=== PATIENT | male | born 1955 | race Caucasian/White ===

== ENCOUNTER 2016-03-11 02:26 | Emergency (ER) | payer MEDICAID ==
[2016-01-17 12:31] VITALS: BMI 22.7
[~2016-03-11 02:26] MED LIST: AMBIEN10 MG PO; ASPIRIN325 MG PO; BENZONATATE200 MG PO; DALIRESP500 MCG PO; DOK100 MG PO; FOLIC ACID1 MG PO; IPRAT-ALBUT 0.5-3 ML UPD; LEVAQUIN500 MG PO; LEVAQUIN750 MG PO; MEDROL DOSE PACK4 MG PO; MUCINEX D1 TAB.SR . PO; MUCINEX DM ER1 EAC1 PO; PREDNISONE20 MG PO; PROAIR HFA8.5 GM; PROAIR HFA8.5 GM INH; PROMETHAZINE W473 M1 PO; SINGULAIR10 MG PO; SPIRIVA18 MCG INH; STERAPRED DS 1010 MG PO; SYMBICORT 16010.2 GM INH; VALIUM10 MG PO; VALIUM5 MG PO; VENTOLIN HFA18 GM INH; VITAMIN B-1100 M1 PO; ZITHROMAX250 MG PO; ZOFRAN4 MG PO; ZOLOFT100 MG PO
== END 2016-03-11 03:57 | disposition home or self-care (01) ==
LOC: D.ER 02:26
DX: J45.901 Unspecified asthma with (acute) exacerbation (principal); J44.9 Chronic obstructive pulmonary disease, unspecified; F17.200 Nicotine dependence, unspecified, uncomplicated

== ENCOUNTER 2016-03-12 20:49 | Emergency (ER) | payer MEDICAID ==
[2016-01-17 12:31] VITALS: BMI 22.7
[2016-03-12 21:40] LABS: BASOPHILS 0.1 % (0.0-2.0); EOSINOPHILS 0.1 % (0-7); HEMATOCRIT 47.7 % (42.0-54.0); HEMOGLOBIN 15.7 g/dL (13.5-17.5); IMMATURE GRANULOCYTES 0.9 % (0-5); LYMPHOCYTES 26.9 % (15-50); MCH 28.3 pg (26.0-34.0); MCHC 32.9 g/dL (31.0-37.0); MCV 85.9 fL (80.0-100.0); MONOCYTES 8.6 % (2-11); NEUTROPHILS 63.4 % (40-80); PLATELET COUNT 103 10x3/uL (130-400); RBC 5.55 10x6/uL (4.20-6.10); RDW 14.7 % (11.5-14.5); WBC 7.8 10x3/uL (4.8-10.8)
[2016-03-12 21:52] LABS: ALBUMIN 4.2 g/dL (3.4-5.0); ALKALINE PHOSPHATASE 84 U/L (46-116); ALT (SGPT) 33 U/L (10-68); BILIRUBIN - TOTAL 0.51 mg/dL (0.2-1.3); CALC OSMOLALITY 292 mosm/kg (275-300); CALCIUM 9.3 mg/dL (8.5-10.1); CARBON DIOXIDE 27.6 mmol/L (21.0-32.0); CHLORIDE - SERUM 107 mmol/L (98-107); CREATININE - SERUM 0.7 mg/dL (0.6-1.3); GLUCOSE 115 mg/dL (74-106); POTASSIUM - SERUM 4.2 mmol/L (3.5-5.1); PROTEIN - SERUM 7.4 g/dL (6.4-8.2); SODIUM 147 mmol/L (136-145); UREA NITROGEN 13 mg/dL (7-18); eGFR NON AFRICAN AMERICAN > 90 mL/min (90-120)
== END 2016-03-12 22:17 | disposition home or self-care (01) ==
LOC: D.ER 20:49
PROVIDERS: Emergency Medicine
DX: E74.19 Other disorders of fructose metabolism (principal); J20.9 Acute bronchitis, unspecified; F17.200 Nicotine dependence, unspecified, uncomplicated; J45.909 Unspecified asthma, uncomplicated

== ENCOUNTER 2016-03-13 19:29 | Emergency (ER) | payer MEDICAID ==
[2016-01-17 12:31] VITALS: BMI 22.7
[2016-03-13 20:52] LABS: ALBUMIN 4.1 g/dL (3.4-5.0); ALKALINE PHOSPHATASE 64 U/L (46-116); ALT (SGPT) 34 U/L (10-68); CALC OSMOLALITY 291 mosm/kg (275-300); CALCIUM 8.2 mg/dL (8.5-10.1); CARBON DIOXIDE 24.8 mmol/L (21.0-32.0); CHLORIDE - SERUM 105 mmol/L (98-107); CREATININE - SERUM 0.8 mg/dL (0.6-1.3); GLUCOSE 95 mg/dL (74-106); POTASSIUM - SERUM 3.9 mmol/L (3.5-5.1); SODIUM 146 mmol/L (136-145); UREA NITROGEN 16 mg/dL (7-18); eGFR NON AFRICAN AMERICAN > 90 mL/min (90-120)
[2016-03-13 21:16] LABS: BASOPHILS 0.7 % (0.0-2.0); EOSINOPHILS 0.6 % (0-7); HEMATOCRIT 44.7 % (42.0-54.0); HEMOGLOBIN 14.6 g/dL (13.5-17.5); IMMATURE GRANULOCYTES 0.8 % (0-5); MCH 28.1 pg (26.0-34.0); MCHC 32.7 g/dL (31.0-37.0); MEAN PLATELET VOLUME 10.1 fL (7.4-10.4); MONOCYTES 10.9 % (2-11); PLATELET COUNT 172 10x3/uL (130-400); RDW 14.9 % (11.5-14.5); WBC 11.3 10x3/uL (4.8-10.8)
== END 2016-03-13 23:09 | disposition home or self-care (01) ==
LOC: D.ER 19:29
PROVIDERS: Physician Assistant Medical
DX: J44.1 Chronic obstructive pulmonary disease with (acute) exacerbation (principal); F10.10 Alcohol abuse, uncomplicated; J45.909 Unspecified asthma, uncomplicated; E88.01 Alpha-1-antitrypsin deficiency; F17.200 Nicotine dependence, unspecified, uncomplicated

== ENCOUNTER 2016-03-14 05:03 | Emergency (ER) | payer MEDICAID ==
[2016-01-17 12:31] VITALS: BMI 22.7
== END 2016-03-14 10:47 | disposition home or self-care (01) ==
LOC: D.ER 05:03
DX: J44.1 Chronic obstructive pulmonary disease with (acute) exacerbation (principal); E88.01 Alpha-1-antitrypsin deficiency; J45.909 Unspecified asthma, uncomplicated; F17.200 Nicotine dependence, unspecified, uncomplicated

== ENCOUNTER 2016-04-05 14:49 | Inpatient (IN) | payer MEDICAID ==
[2016-04-05] VITALS (8 sets, daily range): BP systolic 94–127; BP diastolic 65–96; BMI 24.2
[~2016-04-05] VITALS: Ht 182.9 cm; Wt 80.7 kg
[2016-04-05 15:22] LABS: BASOPHILS 1.3 % (0.0-2.0); EOSINOPHILS 5.4 % (0-7); HEMATOCRIT 46.4 % (42.0-54.0); IMMATURE GRANULOCYTES 0.7 % (0-5); LYMPHOCYTES 13.5 % (15-50); MCH 28.2 pg (26.0-34.0); MCHC 32.3 g/dL (31.0-37.0); MCV 87.4 fL (80.0-100.0); MEAN PLATELET VOLUME 9.9 fL (7.4-10.4); MONOCYTES 10.6 % (2-11); NEUTROPHILS 68.5 % (40-80); PLATELET COUNT 283 10x3/uL (130-400); RBC 5.31 10x6/uL (4.20-6.10); RDW 13.9 % (11.5-14.5); WBC 13.2 10x3/uL (4.8-10.8)
[2016-04-05 15:35] LABS: ALBUMIN 3.9 g/dL (3.4-5.0); ALKALINE PHOSPHATASE 88 U/L (46-116); ALT (SGPT) 43 U/L (10-68); BILIRUBIN - TOTAL 0.26 mg/dL (0.2-1.3); CALC OSMOLALITY 279 mosm/kg (275-300); CALCIUM 9.3 mg/dL (8.5-10.1); CHLORIDE - SERUM 104 mmol/L (98-107); CREATININE - SERUM 0.9 mg/dL (0.6-1.3); GLUCOSE 119 mg/dL (74-106); POTASSIUM - SERUM 4.5 mmol/L (3.5-5.1); PROTEIN - SERUM 7.8 g/dL (6.4-8.2); SODIUM 141 mmol/L (136-145); UREA NITROGEN 7 mg/dL (7-18); eGFR NON AFRICAN AMERICAN > 90 mL/min (90-120)
[2016-04-05 15:44] LABS: PRO BNP 38 pg/mL (0-125)
[2016-04-05 15:45] LABS: TROPONIN-I < 0.017 ng/mL (0.000-0.060)
--- NOTE | 2016-04-05 17:30 | NUR ---
PT ARRIVED TO ICU VIA STRETCHER FROM ER. PT IS A+O X 4. PT IS TACHYPNEIC, SOB, PT PLACED ON BIPAP 30%. PT ATTACHED TO MONITORS, ALL VSS. SEE ADMISSION ASSESSMENT FOR FURTHER DETAILS. BED IN LOW POSITION, CALL LIGHT IN REACH.
--- NOTE | 2016-04-05 18:45 | NUR ---
PT RESTING COMFORTABLY ON BIPAP AT THIS TIME.
[2016-04-05 18:46] LABS: APPEARANCE CLEAR (CLEAR); BILIRUBIN NEGATIVE (NEGATIVE); COLOR YELLOW (YELLOW); GLUCOSE NEGATIVE (NEGATIVE); KETONE NEGATIVE (NEGATIVE); LEUKOCYTE ESTERASE NEGATIVE (NEGATIVE); NITRITE NEGATIVE (NEGATIVE); PROTEIN NEGATIVE (NEGATIVE); UROBILINOGEN NORMAL (NORMAL)
--- NOTE | 2016-04-05 20:00 | NUR ---
ASSESSMENT COMPLETED. SEE ASSESSMENT. ON BIPAP MASK WANTING IT OFF. INFORMED Camilo SANDOVAL. WHEEZES HEARD THROUGHOUT LUNG LOBE POOL. FIO2 @ 30% VIA BIPAP MACHINE. RT HAND 20G PIV INTACT WITH BANANA BAG INFUSING @ 30ML/HR. DRY SKIN NOTED TO FACE. SINUS TACHYCARDIA IN THE 100'S ON THE MONITOR. WILL CONTINUE TO MONITOR.
--- NOTE | 2016-04-05 20:55 | NUR ---
ANGELICA AGGARWAL APN CALLED FOR DR. GHOTRA TO ASK ABOUT HOME MEDS REQUESTED BY PATIENT. WANTS DR. INMAN'S APPROVAL FOR BARBARA.
--- NOTE | 2016-04-05 21:10 | NUR ---
DR. INMAN CALLED TO ASK ABOUT RESTARTING HOME MED-AMBIEN. ORDERS TO RESTART. INFORMED OF NOW BEING ON NASAL CANNULA AND 2 LITERS/MIN. INFORMED DR. INMAN OF COUGH.
--- NOTE | 2016-04-05 21:19 | NUR ---
TAN PERAZA AND BARBARA GIVEN ORDERED PER PATIENT REQUEST. EMPTIED URINAL OF CLEAR, LIGHT YELLOW URINE. WILL MONITOR.
--- NOTE | 2016-04-05 23:30 | NUR ---
REASSESSMENT COMPLETED. SEE ASSESSMENT FLOWSHEET. RESTING WITH EYES CLOSED UPON ENTERING. REPLACED O2 SAT SENSOR ONTO EAR. NO ACUTE CHANGES NOTED. REPORTS BREATHING "LIKE I DO AT HOME". REPORTS RESTING WELL WHEN ASKED. CUP OF WATER GIVEN. WILL MONITOR.
[2016-04-06] VITALS (11 sets, daily range): BP systolic 102–141; BP diastolic 63–91; Ht 182.9 cm; Wt 80.7 kg
--- NOTE | 2016-04-06 00:50 | NUR ---
EMPTIED URINAL. MORE WATER GIVEN PER REQUEST. STATES HE STANDS UP TO URINATE BECASUE HE CAN'T LAYING DOWN. O2 SENSOR PLACED BACK ONTO EAR. WILL MONITOR.
--- NOTE | 2016-04-06 02:30 | NUR ---
FIELD ARTILLERY RADAR OPERATOR LIGHT ASKING FOR MORE COUGH MEDS. EXPLAINED NEXT TIME OF POSSIBLE ADMINISTRATION. CUP OF WATER GIVEN. WILL MONITOR.
[2016-04-06 05:16] LABS: BASOPHILS 0.3 % (0.0-2.0); EOSINOPHILS 0.1 % (0-7); HEMATOCRIT 42.3 % (42.0-54.0); HEMOGLOBIN 13.9 g/dL (13.5-17.5); IMMATURE GRANULOCYTES 0.5 % (0-5); MCH 28.1 pg (26.0-34.0); MCHC 32.9 g/dL (31.0-37.0); MCV 85.5 fL (80.0-100.0); MEAN PLATELET VOLUME 10.5 fL (7.4-10.4); MONOCYTES 1.8 % (2-11); NEUTROPHILS 87.3 % (40-80); PLATELET COUNT 250 10x3/uL (130-400); RBC 4.95 10x6/uL (4.20-6.10); RDW 13.7 % (11.5-14.5)
[2016-04-06 05:19] LABS: WBC 7.9 10x3/uL (4.8-10.8)
[2016-04-06 05:26] LABS: ALBUMIN 3.6 g/dL (3.4-5.0); ALKALINE PHOSPHATASE 61 U/L (46-116); ALT (SGPT) 36 U/L (10-68); BILIRUBIN - TOTAL 0.52 mg/dL (0.2-1.3); CALCIUM 9.5 mg/dL (8.5-10.1); CARBON DIOXIDE 26.5 mmol/L (21.0-32.0); CHLORIDE - SERUM 104 mmol/L (98-107); GLUCOSE 147 mg/dL (74-106); PROTEIN - SERUM 6.9 g/dL (6.4-8.2); SODIUM 141 mmol/L (136-145); eGFR NON AFRICAN AMERICAN 81 mL/min (90-120)
[2016-04-06 05:33] LABS: CALC OSMOLALITY 282 mosm/kg (275-300); POTASSIUM - SERUM 3.8 mmol/L (3.5-5.1); UREA NITROGEN 9 mg/dL (7-18)
--- NOTE | 2016-04-06 11:30 | NUR ---
PT HAS PULLED OUT PIV FROM RIGHT HAND. 22G STARTED AT LEFT WRIST. STICK X1.
--- NOTE | 2016-04-06 11:53 | NUR ---
* Is the patient Alert and Oriented? Yes 0 * How many steps to enter\exit or inside your home? 1 0 * PCP DR. OWENS 0 * Pharmacy [facility] 0 * Preadmission Environment Home with Family 0 * ADLs Independent 0 * Equipment Nebulizer Oxygen 0 * Other Equipment O2 CONCENTRATOR AND PORTABLE AND NEBULIZER PROVIDED BY [facility] 0 * List name and contact numbers for known caregivers / representatives who currently or will assist patient after discharge: NEIGHBOR: ANTHONY VICTOR [phone] VALERIE MEJIA: CANNOT RECALL NUMBER AT THIS TIME 0 * Community resources currently utilized Home Health 0 * Please name any agencies selected above. PATIENT STATES HE GETS INFUSIONS FOR HIS LUNG DISEASE. HE STATES HE HAD HOME HEALTH IN THE PAST BUT DOES NOT RECALL THE NAME OF THE AGENCY 0 * Additional services required to return to the preadmission environment? No 0 * Can the patient safely return to the preadmission environment? Yes 0 * Has this patient been hospitalized within the prior 30 days at any hospital? No 0 PATIENT STATES HE LIVES AT HOME WITH HIS COUSIN, VALERIE MEJIA, AND HER . HE STATES SHE HAS HIS PHONE BUT HE CANNOT REMEMBER THE NUMBER. HE HAS HIS NEIGHBOR LISTED AND STATES HE WOULD KNOW THE NUMBER. PATIENT WILL GET PHONE NUMBER WHEN HIS COUSIN VISISTS. PATIENT STATES HIS PCP IS DR. OWENS. HE GETS HIS MEDS FROM [facility]. HE HAS O2 AND NEBULIZER PROVIDED BY [facility]. HE STATES HE HAD HOME HEALTH IN THE PAST BUT DOES NOT RECALL THE NAME OF THE AGENCY. HE STATES HE HAS A HOME INFUSION NURSE THAT INFUSES MEDICATION FOR HIS LUNG DISEASE BUT DOES NOT KNOW THE NAME OF HE COMPANY. PATIENT STATES THERE IS ONLY 1 STEP TO ENTER HIS HOME. HE STATES THAT HIS COUSIN WILL DRIVE HIM HOME WHEN HE IS DISCHARGED HOME. NO DISCHARGE NEEDS AT THIS TIME. CM TO FOLLOW.
--- NOTE | 2016-04-06 13:35 | NUR ---
RECIEVED TO ROOM 2230 VIA WC FROM ICU. A/O X3. UP TO BR PER SELF. REPORTED GOOD BM WHILE UP.DENIES NEEDS AT THIS TIME.
--- NOTE | 2016-04-06 14:23 | NUR ---
C/O PAIN TO IV SITE IN LEFT WRIST AREA. LEFT PORT ACCESSED AFTER ONE ATTEMPT , ABLE TO DRAW BLOOD FROM SAME. PATIENT TOLERATED WITHOUT C/O PAIN OF DISCOMFORT.
--- NOTE | 2016-04-06 14:25 | NUR ---
PIV TO LEFT WRIST AREA D/C WITH CATHETER INTACT.
--- NOTE | 2016-04-06 18:47 | NUR ---
ATE ALL OF SUPPER TRAY. NO C/O AT THIS TIME. DENIES NEEDS. NO CHANGES NOTED.
--- NOTE | 2016-04-06 20:00 | NUR ---
ADSSESSMENT PER FLOWSHEET. IV PATENT LEFT INFUSAPORT OF MVI INFUSING AT 30CC'S/HR SITE CLEAR. TELM. SHOWS SR. O2 ON 2L/M PERNC NON PRODUCTIVE COUGH NOTED. SR UP X2 CALL LIGHT WITHIN REACH.
--- NOTE | 2016-04-06 21:00 | NUR ---
MEDS GIVEN PER MAY. REQUESTING SLEEPING MED AMBIEN 10MG PO GIVEN FOR SLEEP.
[2016-04-07] VITALS: BP 115/80
--- NOTE | 2016-04-07 | NUR ---
EYES CLOSED RESPIRATIONS WITH EASE AND UNLABORED.
--- NOTE | 2016-04-07 02:30 | NUR ---
AWAKE WATCHING TV STATES GOT SOME GOOD REST.DENIES NEEDS.
[2016-04-07 04:00] VITALS: BP 130/84
--- NOTE | 2016-04-07 04:22 | NUR ---
EYES CLOSED RESPIRATIONS WITH EASE AND UNLABORED.
[2016-04-07 06:43] LABS: BASOPHILS 0 % (0.0-2.0); EOSINOPHILS 0 % (0-7); HEMATOCRIT 43.1 % (42.0-54.0); IMMATURE GRANULOCYTES 0.4 % (0-5); LYMPHOCYTES 4.6 % (15-50); MCHC 32.5 g/dL (31.0-37.0); MCV 86.2 fL (80.0-100.0); MEAN PLATELET VOLUME 10.4 fL (7.4-10.4); MONOCYTES 4.3 % (2-11); NEUTROPHILS 90.7 % (40-80); PLATELET COUNT 239 10x3/uL (130-400); RDW 13.9 % (11.5-14.5)
[2016-04-07 06:45] LABS: WBC 17.1 10x3/uL (4.8-10.8)
[2016-04-07 07:20] LABS: ALBUMIN 3.5 g/dL (3.4-5.0); ALKALINE PHOSPHATASE 57 U/L (46-116); ALT (SGPT) 32 U/L (10-68); CALC OSMOLALITY 284 mosm/kg (275-300); CALCIUM 8.2 mg/dL (8.5-10.1); CARBON DIOXIDE 27.1 mmol/L (21.0-32.0); CHLORIDE - SERUM 106 mmol/L (98-107); CREATININE - SERUM 0.9 mg/dL (0.6-1.3); GLUCOSE 156 mg/dL (74-106); POTASSIUM - SERUM 3.8 mmol/L (3.5-5.1); PROTEIN - SERUM 6.6 g/dL (6.4-8.2); SODIUM 142 mmol/L (136-145); UREA NITROGEN 10 mg/dL (7-18); eGFR NON AFRICAN AMERICAN > 90 mL/min (90-120)
--- NOTE | 2016-04-07 07:30 | NUR ---
RECIEVED PATIENT DURING WALKING ROUNDS. PATIENT LYING IN BED WITH EVEN RESPIRATIONS. NO SIGNS OF DISTRESS. PATIENT WATCHING TV. NO QUESTIONS OR CONCERNS AT THIS TIME. NO SIGNS OF DISTRESS. BED IN LOW POSITION AND CALL LIGHT WITHIN REACH. WILL CONTINUE TO MONITOR.
--- NOTE | 2016-04-07 07:30 | NUR ---
ASSESSMENT DONE PER FLOWSHEET
[2016-04-07 08:26] VITALS: BP 125/86
--- NOTE | 2016-04-07 09:00 | NUR ---
MORNING MEDICATION GIVEN NO PROBLEMS. SOME EXCESSIVE COUGHING, PT STATES THAT HE COUGHS A LOT AFTER EATING BREAKFAST IN THE MORNINGS, BUT GOES AWAY AFTER ABOUT 15 MIN. WILL CONTINUE TO MONITOR.
--- NOTE | 2016-04-07 11:19 | NUR ---
ANTIBIOTICS GIVEN ORDERED. COMPLANTS OF SEVERE COUGH ANYTIME WHEN ABULATING. WILL CONTINUE TO MONITOR.
[2016-04-07 11:52] VITALS: BP 117/77
--- NOTE | 2016-04-07 14:12 | NUR ---
PRN COUGH MEDICATION GIVEN ORDERED. SEVERE COUGHING SPELL ONGOING. DR. GHOTRA NOTIFIED AND FOLLOWING. INSTRUCTED PT NOT TO GET OUT OF BED FOR ANYTHING RIGHT NOW AND WILL GET HIM A URINAL IF NEEDED. OXYGEN AT 4L VIA NASAL CANNULA. OXYGEN SATS BETWEEN 93-95% WILL CONTINUE TO MONITOR.
--- NOTE | 2016-04-07 14:29 | NUR ---
PATIENT IN BED, HOB 40 DEGREES. PATIENT IS RECIEVING OXYGEN VIA NASAL CANNULA AT 4L/MIN. ASKED PATIENT HOW HE IS DOING. PATIENT STATED "BETTER SINCE SHE PUT THE OXYGEN ON..." PATIENT STATED COUGHING, FACE TURNED RED, EXPIRATORY WHEEZE NOTED BETWEEN COUGHS. PATIENT'S NURSE YULIYA MCCALLUM STATED THAT PATIENT IS UNABLE TO TALK WITHOUT COUGHING REALLY BAD. PATIENT HAS A CONTINUOUS PULSE OXIMETER ON. OXYGEN SATURATION 94%. PULSE RATE 104. BED IN LOWEST POSITION, CALL LIGHT IN REACH. BED RAILS UP.
--- NOTE | 2016-04-07 16:35 | NUR ---
REPORT RECEIVED FROM LORRIE TAN LPN.
--- NOTE | 2016-04-07 18:11 | NUR ---
SOLUMEDROL IV. NO CHANGES IN INITIAL ASSESSMENT. CALL LIGHT IN REACH. WILL CONTINUE WITH PLAN OF CARE.
--- NOTE | 2016-04-07 20:00 | NUR ---
ASSESSMENT PER FLOWSHEET. IV PATENT LEFT INFUSAPORT WITH MVI BANANA BAG IN FUSING AT 30CC'S/HR SITE CLEAR. VOIDS WELL IN URINAL. SR UP X2 CALL LIGHT WITHIN REACH TELM. SHOWS SR WITH HR 92.
--- NOTE | 2016-04-07 21:15 | NUR ---
MEDS GIVEN PER MAR.
[2016-04-07 22:11] VITALS: BP 123/81
--- NOTE | 2016-04-08 | NUR ---
EYES CLOSED RESPIRATIONS WITH EASE AND UNLABORED O2 ON 2L/M PER NC.
--- NOTE | 2016-04-08 02:30 | NUR ---
EYES CLOSED RESPIRATIONS WITH EASE AND UNLABORED.
[2016-04-08 02:59] VITALS: BP 128/86
--- NOTE | 2016-04-08 04:43 | NUR ---
EYES CLOSED RESPIRATIONS WITH EASE EASILY AROUSABLE TO VERBAL STIMULI. LAB DRAWN FOR INFUSAPORT.
[2016-04-08 05:06] LABS: BASOPHILS 0 % (0.0-2.0); EOSINOPHILS 0 % (0-7); HEMATOCRIT 40.3 % (42.0-54.0); HEMOGLOBIN 12.9 g/dL (13.5-17.5); IMMATURE GRANULOCYTES 0.9 % (0-5); LYMPHOCYTES 4.8 % (15-50); MCH 27.8 pg (26.0-34.0); MCV 86.9 fL (80.0-100.0); MEAN PLATELET VOLUME 10.1 fL (7.4-10.4); MONOCYTES 3.5 % (2-11); NEUTROPHILS 90.8 % (40-80); PLATELET COUNT 212 10x3/uL (130-400); RBC 4.64 10x6/uL (4.20-6.10); RDW 13.9 % (11.5-14.5); WBC 14.9 10x3/uL (4.8-10.8)
[2016-04-08 06:09] LABS: ALBUMIN 3.2 g/dL (3.4-5.0); ALKALINE PHOSPHATASE 56 U/L (46-116); ALT (SGPT) 29 U/L (10-68); CALC OSMOLALITY 285 mosm/kg (275-300); CARBON DIOXIDE 28.7 mmol/L (21.0-32.0); CHLORIDE - SERUM 107 mmol/L (98-107); CREATININE - SERUM 0.8 mg/dL (0.6-1.3); GLUCOSE 166 mg/dL (74-106); PROTEIN - SERUM 5.8 g/dL (6.4-8.2); SODIUM 142 mmol/L (136-145); UREA NITROGEN 10 mg/dL (7-18); eGFR NON AFRICAN AMERICAN > 90 mL/min (90-120)
--- NOTE | 2016-04-08 07:40 | NUR ---
REPORT RECEIVED. CALL LIGHT IN REACH.
--- NOTE | 2016-04-08 08:01 | NUR ---
PATIENT IN BED WITH IV INTACT. NO COMPLAINTS OR SIGNS OF DISTRESS. CALL LIGHT WITHIN REACH.
[2016-04-08 08:42] VITALS: BP 137/90
--- NOTE | 2016-04-08 08:49 | NUR ---
JAX AND DIMPLE PO. CALL LIGHT IN REACH.
--- NOTE | 2016-04-08 09:45 | NUR ---
ASSESSMENT COMPLETED. REFUSES SCDs. CALL LIGHT IN REACH. WILL CONTINUE WITH PLAN OF CARE.
--- NOTE | 2016-04-08 11:33 | NUR ---
AM MEDS ADMINISTERED PER FABRIZIO MCINTYRE. CALL LIGHT IN REACH.
[2016-04-08 11:58] VITALS: BP 123/80
--- NOTE | 2016-04-08 13:53 | NUR ---
NO NEEDS VOICED AT THIS TIME. CALL LIGHT IN REACH.
[2016-04-08 15:11] VITALS: BP 139/92
--- NOTE | 2016-04-08 15:40 | NUR ---
WATCHING TV AT THIS TIME. CALL LIGHT IN REACH.
--- NOTE | 2016-04-08 17:51 | NUR ---
EVENING MEDS ADMINISTERED. CALL LIGHT IN REACH.
--- NOTE | 2016-04-08 18:32 | NUR ---
NO CHANGES IN INITIAL ASSESSMENT, SCDs TO BLE. CALL LIGHT IN REACH. WILL CONINUE WITH PLAN OF CARE.
--- NOTE | 2016-04-08 20:00 | NUR ---
PT. IN BED WITH HOB UP FOR COMFORT AND IS WATCHING TV. PT. DENIES ANY NEEDS AT THIS TIME. ASSESSMENT COMPLETED. CALL LIGHT WITHIN REACH.
[2016-04-08 20:30] VITALS: BP 144/89
--- NOTE | 2016-04-08 23:35 | NUR ---
PT. IN BED WITH HOB UP FOR COMFORT. PT. WATCHING TV AND GETTING READY TO GO TO SLEEP. NO VOICED NEEDS AT THIS TIME. CALL LIGHT WITHIN REACH.
[2016-04-09 01:00] VITALS: BP 138/88
--- NOTE | 2016-04-09 02:08 | NUR ---
PT. IN BED WITH HOB UP FOR COMFORT WITH EYES CLOSED AND RESP. EVEN. IV INFUSING VIA PUMP WITHOUT ANY ALARMS. CALL LIGHT WITHIN REACH.
[2016-04-09 04:56] LABS: BASOPHILS 0.1 % (0.0-2.0); EOSINOPHILS 0.1 % (0-7); HEMATOCRIT 41.4 % (42.0-54.0); HEMOGLOBIN 13.4 g/dL (13.5-17.5); IMMATURE GRANULOCYTES 1.7 % (0-5); LYMPHOCYTES 5.9 % (15-50); MCH 27.9 pg (26.0-34.0); MCHC 32.4 g/dL (31.0-37.0); MCV 86.1 fL (80.0-100.0); NEUTROPHILS 82.2 % (40-80); PLATELET COUNT 191 10x3/uL (130-400); RBC 4.81 10x6/uL (4.20-6.10); RDW 13.5 % (11.5-14.5); WBC 17.9 10x3/uL (4.8-10.8)
[2016-04-09 05:29] LABS: ALBUMIN 3.2 g/dL (3.4-5.0); ALKALINE PHOSPHATASE 60 U/L (46-116); ALT (SGPT) 30 U/L (10-68); BILIRUBIN - TOTAL 0.43 mg/dL (0.2-1.3); CALC OSMOLALITY 285 mosm/kg (275-300); CALCIUM 8.1 mg/dL (8.5-10.1); CARBON DIOXIDE 31.3 mmol/L (21.0-32.0); CHLORIDE - SERUM 107 mmol/L (98-107); CREATININE - SERUM 0.8 mg/dL (0.6-1.3); GLUCOSE 139 mg/dL (74-106); POTASSIUM - SERUM 3.8 mmol/L (3.5-5.1); PROTEIN - SERUM 6.1 g/dL (6.4-8.2); SODIUM 142 mmol/L (136-145); eGFR NON AFRICAN AMERICAN > 90 mL/min (90-120)
[2016-04-09 05:30] VITALS: BP 150/99
[2016-04-09 05:31] LABS: UREA NITROGEN 14 mg/dL (7-18)
--- NOTE | 2016-04-09 07:30 | NUR ---
ASSESSMENT PER FLOW SHEET.PT WITHOUT DISTRESS.DENIES NEEDS.CALL LIGHT IN REACH
--- NOTE | 2016-04-09 08:30 | NUR ---
DECREASED COUGHING WITH MEDS ORDERED PER MAY.MONITOR
[2016-04-09 08:39] VITALS: BP 126/88
--- NOTE | 2016-04-09 12:00 | NUR ---
UP IN ROOM ,WITHOUT DISTRESS.CALL LIGHT IN REACH
[2016-04-09 12:48] VITALS: BP 141/95
[2016-04-09 16:46] VITALS: BP 141/84
--- NOTE | 2016-04-09 17:00 | NUR ---
COUGHING SOME THIS AFTERNOON,WITHOUT DISTRESS.MONITOR
--- NOTE | 2016-04-09 19:30 | NUR ---
ASSESSMENT COMPLETED, NO ACUTE DISTRESS NOTED, DENIES PAIN OR NEEDS, CL IN REACH, WILL MONITOR
--- NOTE | 2016-04-09 21:16 | NUR ---
MEDS GIVEN BY NURSING STUDENTS WITH MIXING ROLL OPERATOR
--- NOTE | 2016-04-09 23:55 | NUR ---
IV MEDS HUNG PER MAY, PT RESTING WITH EYES CLOSED, RESP WITH EASE, CL IN REACH
[2016-04-10 00:23] VITALS: BP 147/97
--- NOTE | 2016-04-10 01:45 | NUR ---
RESTING WITH EYES CLOSED, NO RESP DISTRESS NOTED, CL IN REACH
[2016-04-10 06:49] LABS: BASOPHILS 0.2 % (0.0-2.0); EOSINOPHILS 0 % (0-7); HEMATOCRIT 43.5 % (42.0-54.0); HEMOGLOBIN 14.1 g/dL (13.5-17.5); IMMATURE GRANULOCYTES 5.6 % (0-5); LYMPHOCYTES 8.3 % (15-50); MCH 27.8 pg (26.0-34.0); MCHC 32.4 g/dL (31.0-37.0); MCV 85.6 fL (80.0-100.0); MEAN PLATELET VOLUME 10.2 fL (7.4-10.4); MONOCYTES 8.8 % (2-11); NEUTROPHILS 77.1 % (40-80); PLATELET COUNT 206 10x3/uL (130-400); RBC 5.08 10x6/uL (4.20-6.10); RDW 13.5 % (11.5-14.5); WBC 17.4 10x3/uL (4.8-10.8)
[2016-04-10 07:11] LABS: ALBUMIN 3.3 g/dL (3.4-5.0); ALKALINE PHOSPHATASE 76 U/L (46-116); ALT (SGPT) 35 U/L (10-68); CALC OSMOLALITY 280 mosm/kg (275-300); CARBON DIOXIDE 29.1 mmol/L (21.0-32.0); CHLORIDE - SERUM 104 mmol/L (98-107); CREATININE - SERUM 0.9 mg/dL (0.6-1.3); GLUCOSE 128 mg/dL (74-106); MAGNESIUM - SERUM 2.9 mg/dL (1.8-2.4); PHOSPHOROUS 3.8 mg/dL (2.5-4.9); POTASSIUM - SERUM 3.5 mmol/L (3.5-5.1); PROTEIN - SERUM 6.2 g/dL (6.4-8.2); SODIUM 140 mmol/L (136-145); UREA NITROGEN 12 mg/dL (7-18); eGFR NON AFRICAN AMERICAN > 90 mL/min (90-120)
[2016-04-10 08:37] VITALS: BP 146/96
--- NOTE | 2016-04-10 08:50 | NUR ---
ASSESSMENT PER FLOW SHEET.PT WITHOUT DISTRESS.CALL LIGHTIN REACH
[2016-04-10 12:31] VITALS: BP 149/88
[2016-04-10 16:27] VITALS: BP 144/94
--- NOTE | 2016-04-10 18:19 | NUR ---
HAS BEEN BETTER TODAY PER PT.LESS COUGHING EPISODES.DENIES PAIN.WITOUT CHANGE.CONT PLAN OF CARE
[2016-04-10 21:14] VITALS: BP 137/98
--- NOTE | 2016-04-10 22:27 | NUR ---
PATIENT RESTING IN SEMI-FOWLERS POSITION. ADMINISTERED MEDS. PATIENT DENIES OTHER NEEDS AT THIS TIME. BED IN LOWEST POSITION AND CALL LIGHT WITHIN REACH.
--- NOTE | 2016-04-11 07:15 | NUR ---
ASSESSMENT PER FLOW SHEET.PT WITHOUT DISTRESS.DENIES NEEDS AT PRESENT.CALL LIGHT IN REACH
[2016-04-11 07:23] LABS: BASOPHILS 0.3 % (0.0-2.0); EOSINOPHILS 0.1 % (0-7); HEMATOCRIT 44.1 % (42.0-54.0); HEMOGLOBIN 14.7 g/dL (13.5-17.5); IMMATURE GRANULOCYTES 5.1 % (0-5); LYMPHOCYTES 5.9 % (15-50); MCHC 33.3 g/dL (31.0-37.0); MEAN PLATELET VOLUME 10.3 fL (7.4-10.4); NEUTROPHILS 81.6 % (40-80); PLATELET COUNT 199 10x3/uL (130-400); RBC 5.25 10x6/uL (4.20-6.10); RDW 13.4 % (11.5-14.5); WBC 19.5 10x3/uL (4.8-10.8)
[2016-04-11 07:37] LABS: ALBUMIN 3.2 g/dL (3.4-5.0); ALKALINE PHOSPHATASE 70 U/L (46-116); ALT (SGPT) 36 U/L (10-68); BILIRUBIN - TOTAL 0.54 mg/dL (0.2-1.3); CALC OSMOLALITY 281 mosm/kg (275-300); CALCIUM 7.7 mg/dL (8.5-10.1); CARBON DIOXIDE 30.6 mmol/L (21.0-32.0); CHLORIDE - SERUM 101 mmol/L (98-107); CREATININE - SERUM 0.9 mg/dL (0.6-1.3); GLUCOSE 156 mg/dL (74-106); POTASSIUM - SERUM 3.4 mmol/L (3.5-5.1); PROTEIN - SERUM 6.3 g/dL (6.4-8.2); SODIUM 139 mmol/L (136-145); UREA NITROGEN 14 mg/dL (7-18); eGFR NON AFRICAN AMERICAN > 90 mL/min (90-120)
[2016-04-11 08:36] VITALS: BP 140/100
--- NOTE | 2016-04-11 10:10 | NUR ---
REMAINS WITHOUT DISTRESS.CALL LIGHT IN REACH
--- NOTE | 2016-04-11 11:41 | NUR ---
FSBS 191 INSULIN ORDERED PER MAR
--- NOTE | 2016-04-11 13:18 | NUR ---
NUTRITION MONITORING & EVAL CHART REVIEWED, PT VISIT. TOLERATING REG DIET WITH 100% INTAKE MEALS. WILL CONTINUE TO HONOR FOOD PREFERENCES, MONITOR PT PROGRESS. RD FOLLOWING
[2016-04-11 13:48] VITALS: BP 140/102
--- NOTE | 2016-04-11 15:17 | NUR ---
DENIES NEEDS AT PRESENT. REMAINS WITHOUT DISTRESS.
[2016-04-11 16:01] VITALS: BP 122/74
--- NOTE | 2016-04-11 19:39 | NUR ---
REMAINS WITHOUT NEEDS.WITHOUT CHANGE.CONT PLAN OF CARE
[2016-04-11 20:00] VITALS: BP 154/98
[2016-04-12 01:00] VITALS: BP 166/99
--- NOTE | 2016-04-12 01:57 | NUR ---
PT LAYING IN BED PT AWARE OF NPO STATUS DUE TO PROCEDURE IN AM NO DISTRESS OBSERVED OR NOTED PT DENIES PAIN OR NEEDS AT THIS TIME. RESPERATIONS ARE EVEN AND UNLABORED ON ROOM AIR CALL LIGHT IN REACH SRX2 BED LOW AND LOCKED WILL MONITOR
[2016-04-12 05:00] VITALS: BP 158/97
--- NOTE | 2016-04-12 05:20 | NUR ---
PT LAYING IN BED COUGHING PT REQUESTED COUGH MEDS AND SOMETHING FOR ANXITY ADMIN MEDS ORDERED AND PT EXPRESSED THANKS RESPERATIONS ARE EVEN AND UNLABORED WITH NO DISTRESS OBSERVED WILL MONITOR
[2016-04-12 05:38] LABS: HEMATOCRIT 44.3 % (42.0-54.0); HEMOGLOBIN 15.1 g/dL (13.5-17.5); MCH 28.7 pg (26.0-34.0); MCHC 34.1 g/dL (31.0-37.0); MCV 84.2 fL (80.0-100.0); MEAN PLATELET VOLUME 10.8 fL (7.4-10.4); PLATELET COUNT 180 10x3/uL (130-400); RBC 5.26 10x6/uL (4.20-6.10); RDW 13.6 % (11.5-14.5); WBC 23.7 10x3/uL (4.8-10.8)
[2016-04-12 06:15] LABS: ALBUMIN 3.2 g/dL (3.4-5.0); ALKALINE PHOSPHATASE 79 U/L (46-116); ALT (SGPT) 45 U/L (10-68); BILIRUBIN - TOTAL 0.49 mg/dL (0.2-1.3); CALC OSMOLALITY 280 mosm/kg (275-300); CALCIUM 8.2 mg/dL (8.5-10.1); CARBON DIOXIDE 32.1 mmol/L (21.0-32.0); CHLORIDE - SERUM 99 mmol/L (98-107); CREATININE - SERUM 0.9 mg/dL (0.6-1.3); GLUCOSE 170 mg/dL (74-106); POTASSIUM - SERUM 3.7 mmol/L (3.5-5.1); PROTEIN - SERUM 6.2 g/dL (6.4-8.2); SODIUM 138 mmol/L (136-145); UREA NITROGEN 16 mg/dL (7-18); eGFR NON AFRICAN AMERICAN > 90 mL/min (90-120)
[2016-04-12 07:04] LABS: LYMPHOCYTES 8 % (15-50); MONOCYTES 9 % (2-11); NEUTROPHILS 81 % (40-80); PLATELET ESTIMATE NORMAL
--- NOTE | 2016-04-12 07:49 | NUR ---
PT ASSESSMENT COMPLETE NO ACUTE DISTRESS NOTED VOICES ALL NEEDS TO STAFF PT AMBULATES IN ROOM WITH STEADY GAIT HAS BANANA BAG AT 30 ML/HR TOLERATING WELL. SCDS ON WEARS O2 AT 2LPM PER NASAL CANULA. DENIES NEEDS CALL LIGHT IN REACH SIDE RAILS UP X 2
[2016-04-12 08:11] VITALS: BP 122/74
--- NOTE | 2016-04-12 10:45 | NUR ---
PT RESTING QUIETLY IN BED WITH EYES CLOSED NO DISTRESS NOTED CALL LIGHT IN REACH SIDE RAILS UP X 2
[2016-04-12 11:40] VITALS: BP 119/78
--- NOTE | 2016-04-12 15:31 | NUR ---
PT RESTING IN BED NO ACUTE DISTRESS NOTED VOICES ALL NEEDS TO STAFF CALL LIGHT IN REACH SIDE RAILS UP X 2
[2016-04-12 16:13] VITALS: BP 123/87
--- NOTE | 2016-04-12 16:20 | NUR ---
PATIENT UP IN BED WITH NO COMPLAINTS AT THIS TIME. IV INTACT. NO SIGNS OF DISTRESS. CALL LIGHT WITHIN REACH.
--- NOTE | 2016-04-12 17:28 | NUR ---
PT AWAKE AND ALERT ORINETED X 3 DENEIS PAIN OR DISCOMFORT. CALL LIGHT IN REACH
[2016-04-12 21:00] VITALS: BP 125/77
[2016-04-13 05:00] VITALS: BP 118/86
[2016-04-13 05:19] LABS: BASOPHILS 0.4 % (0.0-2.0); EOSINOPHILS 0 % (0-7); HEMATOCRIT 45.6 % (42.0-54.0); HEMOGLOBIN 15.2 g/dL (13.5-17.5); IMMATURE GRANULOCYTES 10.6 % (0-5); LYMPHOCYTES 5.9 % (15-50); MCH 28.1 pg (26.0-34.0); MCHC 33.3 g/dL (31.0-37.0); MCV 84.3 fL (80.0-100.0); MONOCYTES 7.8 % (2-11); NEUTROPHILS 75.3 % (40-80); PLATELET COUNT 155 10x3/uL (130-400); RBC 5.41 10x6/uL (4.20-6.10); RDW 13.5 % (11.5-14.5); WBC 21.4 10x3/uL (4.8-10.8)
[2016-04-13 05:46] LABS: ALBUMIN 3.1 g/dL (3.4-5.0); ALKALINE PHOSPHATASE 75 U/L (46-116); ALT (SGPT) 46 U/L (10-68); BILIRUBIN - TOTAL 0.59 mg/dL (0.2-1.3); CALC OSMOLALITY 278 mosm/kg (275-300); CALCIUM 8.2 mg/dL (8.5-10.1); CARBON DIOXIDE 32.4 mmol/L (21.0-32.0); CHLORIDE - SERUM 97 mmol/L (98-107); CREATININE - SERUM 0.9 mg/dL (0.6-1.3); GLUCOSE 185 mg/dL (74-106); POTASSIUM - SERUM 3.8 mmol/L (3.5-5.1); SODIUM 136 mmol/L (136-145); UREA NITROGEN 18 mg/dL (7-18); eGFR NON AFRICAN AMERICAN > 90 mL/min (90-120)
--- NOTE | 2016-04-13 07:00 | NUR ---
REPORT RECIEVED ASSUMED CARE. PATIENT IN BED WITH IV INTACT. NO COMPLAINTS AT THIS TIME. CALL LIGHT WITHIN REACH.
[2016-04-13 08:03] VITALS: BP 112/63
[2016-04-13 08:06] VITALS: BP 120/67
[2016-04-13 08:09] VITALS: BP 120/67
[2016-04-13] MEDS ORDERED: MUCINEX DM ER1 EAC1 PO (10:48)
[2016-04-13] MEDS ORDERED: SINGULAIR10 MG PO (10:49)
[2016-04-13] MEDS ORDERED: PREDNISONE20 MG PO (10:50)
[2016-04-13] MEDS ORDERED: DALIRESP500 MCG PO (10:50)
[2016-04-13] MEDS ORDERED: FLUTICASONE PRO16 GM NASAL (10:50)
--- NOTE | 2016-04-13 10:50 | NUR ---
PATIENT SITTING UP IN BED WITH IV INTACT. NO COMPLAINTS AT THIS TIME. TELEMETRY ON. NO PROBLEMS AT THIS TIME. CALL LIGHT WITHIN REACH.
[2016-04-13] MEDS ORDERED: TUSSIONEX PENN473 ML PO (10:53)
--- NOTE | 2016-04-13 11:23 | NUR ---
CM REASSESSMENT NOTE: PATIENT IS DISCHARGING HOME TODAY-FAMILY DRIVING HIM. PATIENT REFUSED HOME HEALTH. PATIENT WAS WORRIED HOW MANY SLOTS WITH MEDICAID HE HAD OPENED-CM CALLED AND HE HAS 6 SLOTS AND PATIENT WAS NOTIFIED OF THIS. PATIENT DENIED ANY OTHER NEEDS FOR DISCHARGE.
[2016-04-13 12:01] VITALS: BP 110/73; BP 143/83
--- NOTE | 2016-04-13 13:00 | NUR ---
PATIENT RECIEVED DISCHARGE INSTRUCTIONS. IV REMOVED WITH CATH TIP INTACT. PRESCRIPTION GIVEN TO PATIENT. NO QUESTIONS AT THIS TIME. CALL LIGHT WITHIN REACH.
--- NOTE | 2016-04-20 12:39 | CN ---
PATIENT NAME:JOSEPH MEJIA MEDICAL RECORD: [id number] : 59 LOCATION:D.[facility] ADMIT DATE: 04/05/16 ACCOUNT: [id number] CONSULTING PHYSICIAN: BRYON INMAN MD REFERRING PHYSICIAN: LORI GHOTRA MD DATE OF CONSULTATION: 04/06/2016 Pulmonary Consultation CONSULT REQUESTING PHYSICIAN: Lori Ghotra MD REASON FOR CONSULTATION: Acute exacerbation of COPD, acute cough. HISTORY OF PRESENT ILLNESS: Mr. Mejia is a 60-year-old gentleman who is very well known to me. The patient has severe alpha-1 antitrypsin deficiency and severe COPD. He is home O2 dependent. According to the patient, he is sick for the last few days. He is coughing. He is wheezing. He has shortness of breath with mild exertion. On evaluation in the ER, he was found that his CO2 was up. The patient was put on BiPAP and got a good recovery, now he is on nasal cannula. He has a cough which is spasmodic in nature. The patient denies any aspiration when he is eating. REVIEW OF SYSTEMS: CONSTITUTIONAL: He has some low-grade fever. HEENT: Sinus congestion. RESPIRATORY: As in history of present illness. CARDIOVASCULAR: Negative. GASTROINTESTINAL: Negative. GENITOURINARY: Negative. Other review of the systems is negative. PAST MEDICAL HISTORY: 1. COPD of severe degree, home oxygen dependent. 2. Alpha-1 antitrypsin deficiency. 3. Ex-smoker. 4. History of chronic alcohol abuse. ALLERGIES: HE IS ALLERGIC TO MORPHINE. PRESENT MEDICATIONS: On [employer] was reviewed. PERSONAL AND SOCIAL HISTORY: The patient is an ex-smoker. He is drinking 2 to 3 times a week. FAMILY HISTORY: Noncontributory. PHYSICAL EXAMINATION: GENERAL: Now, the patient is lying comfortably in bed. He is not in acute distress. VITAL SIGNS: The blood pressure is 105/82, pulse is 97, respirations 22, temperature 98.4, SpO2 is 97% on 2 liter nasal cannula. HEENT: Conjunctivae are pink. Sclerae nonicteric. NECK: Supple, no JVD. CHEST: There is wheeze on forceful expiration. HEART: Rhythm regular, normal sound, no murmur. CONSULT REPORT [id number] JACKIE,JOSEPH L ABDOMEN: Soft. Bowel sounds present. No hepatosplenomegaly. RECTAL: Deferred. EXTREMITIES: No cyanosis, no clubbing, no pedal edema. SKIN: Warm, normal turgor. CENTRAL NERVOUS SYSTEM: The patient is awake and alert. There is no obvious cranial nerve abnormality. The gait was not tested. IMAGING: Chest radiograph, there is hyperinflation. There is a questionable bibasilar infiltrate. LABORATORY DATA: CBC: The WBC is 13.2, hemoglobin 15, hematocrit 46, platelet count is 283. Chemistry: Sodium 141, potassium 3.8, BUN is 9, creatinine is 1. ABG: The pH was 7.25, CO2 was 62.4, pO2 was 100, the bicarbonate was 7.5. The repeat ABG: The pH was 7.34, pCO2 was 43.7. The pO2 was 148. IMPRESSION: 1. Acute exacerbation of chronic obstructive pulmonary disease. 2. Tracheobronchitis, possible aspiration when the patient is eating. 3. Chronic obstructive pulmonary disease of severe degree. 4. Alpha 1 antitrypsin deficiency. He is on replacement therapy. 5. Acute hypercarbic respiratory failure. 6. Respiratory acidosis secondary to #1, improved. 7. Possible aspiration pneumonia. RECOMMENDATION: I will start him on doxycycline 100 mg p.o. b.i.d., methylprednisolone IV, Singulair 10 mg a day, Brovana, budesonide nebulizer, albuterol/ipratropium nebulizer. Follow up labs and chest radiograph. Get a speech therapy consult. Dr. Ghotra, once again, thanks for involving me in the care of Ms. Mejia. TRANSINT:[id number] Voice Confirmation ID: [id number] DOCUMENT ID: [id number] BRYON INMAN MD at 1239 CC: LORI GHOTRA MD [id number] DICTATION DATE: 04/06/16 1102 CAREER DEVELOPER: 04/06/16 2019 DIS IN 04/13/[address] [address]
== END 2016-04-13 15:57 | disposition home or self-care (01) | DRG 189 ==
LOC: D.ER 14:49 → D.MS 16:33 → D.ICU 16:33 → D.MS 04-06 13:24
PROVIDERS: Emergency Medicine; Family Medicine; ADMIT Family Medicine
PROC: 5A09357 Assistance with Respiratory Ventilation, Less than 24 Consecutive Hours, Continuous Positive Airway Pressure (ICD-10-PCS; principal; 2016-04-05)
DX: J96.22 Acute and chronic respiratory failure with hypercapnia (principal); J44.1 Chronic obstructive pulmonary disease with (acute) exacerbation; J45.901 Unspecified asthma with (acute) exacerbation; E87.2 Acidosis; F31.9 Bipolar disorder, unspecified; E88.01 Alpha-1-antitrypsin deficiency; F41.9 Anxiety disorder, unspecified; F10.10 Alcohol abuse, uncomplicated; Z87.891 Personal history of nicotine dependence; J31.0 Chronic rhinitis; J32.9 Chronic sinusitis, unspecified; Z99.81 Dependence on supplemental oxygen

== ENCOUNTER 2016-06-10 21:02 | Inpatient (IN) | payer MEDICAID ==
[~2016-06-10] VITALS: Ht 182.9 cm; Wt 78.0 kg
--- NOTE | ~2016-06-10 | CN ---
PATIENT NAME:JOSEPH MEJIA MEDICAL RECORD: [id number] : 59 LOCATION:D.[facility] ADMIT DATE: 06/11/16 ACCOUNT: [id number] CONSULTING PHYSICIAN: BRYON INMAN MD REFERRING PHYSICIAN: CARLENE DAVID MD DATE OF CONSULTATION: 06/11/2016 CONSULT REQUESTING PHYSICIAN: Carlene David MD REASON FOR CONSULTATION: Acute exacerbation of chronic obstructive pulmonary disease and respiratory acidosis. HISTORY OF PRESENT ILLNESS: Mr. Mejia is a 60-year-old gentleman, very well known to me. He has alpha-1 antitrypsin deficiency. He is on replacement therapy. According to the patient yesterday he started coughing, wheezing, shortness of breath with mild exertion. He also having some low-grade fever. He is coughing yellow-green color sputum production. The patient came into the ER, ABG was done and the pCO2 was high and the pH was low. The patient admitted for acute exacerbation of COPD. REVIEW OF SYSTEMS: CONSTITUTIONAL: He has some sinus congestion. He has generalized body aches and pains. RESPIRATORY: As in history of present illness. CARDIOVASCULAR: Negative. GASTROINTESTINAL: Negative. GENITOURINARY: Negative. Other review of the systems is negative. PAST MEDICAL HISTORY: 1. Severe COPD, on home oxygen dependent. 2. Alpha-1 antitrypsin deficiency. 3. Ex-smoker. PAST SURGICAL HISTORY: He has an infusion port in place. ALLERGIES: HE IS ALLERGIC TO MORPHINE. PRESENT MEDICATIONS: [employer] was reviewed. PERSONAL AND SOCIAL HISTORY: The patient is an ex-smoker. He quitted 3-4 years ago. He is a nondrinker. FAMILY HISTORY: Noncontributory. PHYSICAL EXAMINATION: GENERAL: Now, the patient is lying comfortably at bed. He is not in acute distress. VITAL SIGNS: The blood pressure is 143/92, pulse is 107, respirations 18, temperature 97.7, SpO2 is 94% on 4 liters nasal cannula. HEENT: Conjunctivae are pink. Sclerae nonicteric. NECK: Supple, no JVD. CHEST: Excursion is minimal on both sides. There are wheeze on forceful expiration. HEART: Rhythm regular, normal sound, no murmur. CONSULT REPORT [id number] JOSEPH MEJIA ABDOMEN: Soft. Bowel sounds present. No hepatosplenomegaly. RECTAL: Deferred. EXTREMITIES: No cyanosis, no clubbing, no pedal edema. SKIN: Warm, normal turgor. CENTRAL NERVOUS SYSTEM: The patient is awake and alert. There are no obvious cranial nerve abnormality. The gait was not tested. CHEST RADIOGRAPH: There is hyperinflation, no acute infiltrate. LABORATORY DATA: CBC: WBC is 8.9, hemoglobin 15.4, hematocrit 46.8. The platelet count is 201. Chemistry: Sodium 139, potassium 4.2, BUN is 6, creatinine is 0.6. ABG: The pH is 7.34, pCO2 is 50.6, pO2 is 91, bicarbonate of 27.6. IMPRESSION: 1. Acute exacerbation of severe chronic obstructive pulmonary disease. 2. Emphysema. 3. Alpha-1 antitrypsin deficiency. 4. Acute hypercapnic respiratory failure. 5. Respiratory acidosis secondary to hypercapnia. 6. Acute cough. RECOMMENDATION: I will discontinue prednisone. Start him on methylprednisolone IV. Start him with doxycycline. Start him on Brovana, budesonide nebulizer. Continue albuterol/ipratropium nebulizer. Continue antitussive. Repeat the chest radiograph in the morning. Dr. David, once again thanks for involving me in the care of Mr. Mejia. TRANSINT:[id number] Voice Confirmation ID: [id number] DOCUMENT ID: [id number] BRYON INMAN MD CC: CARLENE DAVID MD [id number] DICTATION DATE: 06/11/161653 FASTENER TECHNOLOGIST: 06/11/162202 ADM IN [id number] [place] [address]
[~2016-06-10 21:02] MED LIST changes: +FLUTICASONE PRO16 GM NASAL; +TUSSIONEX PENN473 ML PO
[2016-06-10 22:33] LABS: BASOPHILS 1.3 % (0.0-2.0); EOSINOPHILS 3.1 % (0-7); HEMATOCRIT 46.8 % (42.0-54.0); HEMOGLOBIN 15.4 g/dL (13.5-17.5); IMMATURE GRANULOCYTES 0.9 % (0-5); LYMPHOCYTES 26.2 % (15-50); MCH 27.2 pg (26.0-34.0); MCHC 32.9 g/dL (31.0-37.0); MCV 82.7 fL (80.0-100.0); MEAN PLATELET VOLUME 9.8 fL (7.4-10.4); MONOCYTES 5.7 % (2-11); NEUTROPHILS 62.8 % (40-80); RBC 5.66 10x6/uL (4.20-6.10); WBC 8.9 10x3/uL (4.8-10.8)
[2016-06-10 22:35] LABS: PLATELET COUNT 201 10x3/uL (130-400)
[2016-06-10 22:59] LABS: ALBUMIN 3.8 g/dL (3.4-5.0); ALKALINE PHOSPHATASE 86 U/L (46-116); ALT (SGPT) 35 U/L (10-68); BILIRUBIN - TOTAL 0.25 mg/dL (0.2-1.3); CALC OSMOLALITY 278 mosm/kg (275-300); CALCIUM 8.6 mg/dL (8.5-10.1); CARBON DIOXIDE 26.9 mmol/L (21.0-32.0); CHLORIDE - SERUM 102 mmol/L (98-107); CREATININE - SERUM 0.8 mg/dL (0.6-1.3); GLUCOSE 93 mg/dL (74-106); POTASSIUM - SERUM 4.1 mmol/L (3.5-5.1); PROTEIN - SERUM 7.5 g/dL (6.4-8.2); SODIUM 141 mmol/L (136-145); UREA NITROGEN 7 mg/dL (7-18); eGFR NON AFRICAN AMERICAN > 90 mL/min (90-120)
[2016-06-10 23:02] LABS: TROPONIN-I 0.049 ng/mL (0.000-0.060)
[2016-06-11 01:48] LABS: APTT 25.8 SECONDS (22.8-39.4); INR 1.08 (0.85-1.17); PROTIME 13.9 SECONDS (11.6-15.0)
[2016-06-11 01:58] LABS: CREATINE KINASE 65 UL (21-232)
--- NOTE | 2016-06-11 02:38 | NUR ---
RECEVIED PATIENT FROM THE ER. NO SIGNS OF DISTRESS. BED IN LOWEST POSITION AND CALL LIGHT WITHIN REACH. INFORMED PATIENT THAT HE IS NPO AND ENCOURAGED PATIENT TO CALL IF HE HAS FURTHER NEEDS.
[2016-06-11 03:02] VITALS: BP 117/72; BMI 23.3
[2016-06-11 03:29] VITALS: BP 117/72
--- NOTE | 2016-06-11 04:40 | NUR ---
PATIENT IS COUGHING UNCONTROLLABLY AND REQUESTED THE DOCTOR BE CALLED FOR COUGH MEDS AND VALIUM. PAGED DR. DAVID WHO ORDERED TUSSIONEX AND VALIUM.
--- NOTE | 2016-06-11 04:50 | NUR ---
CALLED MARELY TO [facility].
--- NOTE | 2016-06-11 07:00 | NUR ---
REPORT RECEIVED FROM EXTERNAL GRINDER TOOL NURSE. CALL LIGHT IN REACH.
[2016-06-11 07:30] LABS: ALBUMIN 2.9 g/dL (3.4-5.0); ALKALINE PHOSPHATASE 68 U/L (46-116); ALT (SGPT) 32 U/L (10-68); CALC OSMOLALITY 274 mosm/kg (275-300); CALCIUM 8.1 mg/dL (8.5-10.1); CARBON DIOXIDE 24.5 mmol/L (21.0-32.0); CHLORIDE - SERUM 102 mmol/L (98-107); CREATININE - SERUM 0.6 mg/dL (0.6-1.3); GLUCOSE 75 mg/dL (74-106); MAGNESIUM - SERUM 1.9 mg/dL (1.8-2.4); PHOSPHOROUS 2.7 mg/dL (2.5-4.9); POTASSIUM - SERUM 4.2 mmol/L (3.5-5.1); PROTEIN - SERUM 5.7 g/dL (6.4-8.2); SODIUM 139 mmol/L (136-145); UREA NITROGEN 6 mg/dL (7-18); eGFR NON AFRICAN AMERICAN > 90 mL/min (90-120)
[2016-06-11 07:52] VITALS: BP 125/84
[2016-06-11 07:55] LABS: BASOPHILS 1.2 % (0.0-2.0); EOSINOPHILS 5.6 % (0-7); HEMATOCRIT 39.5 % (42.0-54.0); IMMATURE GRANULOCYTES 0.9 % (0-5); LYMPHOCYTES 24.4 % (15-50); MCH 26.9 pg (26.0-34.0); MCHC 32.9 g/dL (31.0-37.0); MCV 81.6 fL (80.0-100.0); MEAN PLATELET VOLUME 9.7 fL (7.4-10.4); MONOCYTES 13.8 % (2-11); NEUTROPHILS 54.1 % (40-80); PLATELET COUNT 202 10x3/uL (130-400); RBC 4.84 10x6/uL (4.20-6.10); WBC 7.5 10x3/uL (4.8-10.8)
--- NOTE | 2016-06-11 09:42 | NUR ---
ASSESSMENT COMPLETED. VALIUM PO WITH AM MEDS ADMINISTERED. OFFERED SCDs BUT REFUSED. CALL LIGHT IN REACH. WILL CONTINUE WITH PLAN OF CARE.
--- NOTE | 2016-06-11 10:02 | NUR ---
BREAKFAST TRAY IS IN ROOM AT THIS TIME
[2016-06-11 11:23] VITALS: BP 136/88
--- NOTE | 2016-06-11 12:40 | NUR ---
EATING LUNCH AT THIS TIME. TOLERATING WELL. CALL LIGHT IN REACH.
--- NOTE | 2016-06-11 14:20 | NUR ---
DENIES NEEDS AT THIS TIME. CALL LIGHT IN REACH.
--- NOTE | 2016-06-11 15:12 | NUR ---
Patient Name: JOSEPH MEJIA Admission Status: ER Accout number: [id number] Admission Date: 06-11-2016 : 1955 Admission Diagnosis: Attending: ILA Current LOS: 1 Anticipated DC Date: 06-14-2016 Planned Disposition: Home or Self Care Primary Insurance: MEDICAID [place] Discharge Planning Comments: CM MET WITH PATIENT REGARDING DISCHARGE NEEDS AND PLANS. PATIENT LIVES WITH HIS COUSIN (JONAS) AND HE WILL DRIVE HIM HOME AT DISCHARGE. PATIENT STATED THERE ARE NO STEPS OR STAIRS TO ENTER THE HOME. PATIENT STATED HE IS INDEPENDENT WITH HIS CARE AND HAS A WALKER, OXYGEN 24/7, PORT O2, NEBULIZER, AND SHOWER CHAIR AT HOME. PATIENTS PCP IS DR. OWENS AND PHARMACY IS [facility]. PATIENT HAS A NURSE THAT COMES FROM [facility] WEEKLY (SET UP BY DR. PRABHAKAR GROUP-DUE TO ALPHA 1 DESEASE) TO GIVE MEDS THROUGH HIS PORT PER PATIENT. PATIENT DENIED ANY NEEDS FOR DISCHARGE. CM WILL CONTINUE TO FOLLOW PATIENT WITH D/C NEEDS AND PLANS. PCP DR. OWENS [facility]- [phone] JONAS (COUSIN THAT PATIENT LIVES WITH) [phone] Industrial Furnace Fabricator: Faviola Chung Is the patient Alert and Oriented? Yes 0 * How many steps to enter\exit or inside your home? 0 0 * PCP DR. OWENS 0 * Pharmacy [facility] 0 * Preadmission Environment Home with Family 0 * ADLs Independent 0 * Equipment Nebulizer Oxygen Shower Chair Walker 0 * Other Equipment PORTABLE O2 0 * List name and contact numbers for known caregivers / representatives who currently or will assist patient after discharge: JONAS (COUSIN) [phone] 0 * Community resources currently utilized Other 0 * Please name any agencies selected above. A NURSE COMES FROM [facility] TO ADMINISTER MEDS IN HIS PORT WEEKLY THIS WAS SET UP BY DR. PRABHAKAR OFFICE PER PATIENT 0 * Additional services required to return to the preadmission environment? Yes 0 * Can the patient safely return to the preadmission environment? Yes 0 * Has this patient been hospitalized within the prior 30 days at any hospital? No 0 Grand Total: 0
--- NOTE | 2016-06-11 16:08 | NUR ---
PATIENT IN ROOM REQUESTING PAIN MEDS AT THIS TIME. SEUN RN IN ROOM EXPLAINED TO PATIENT SHE WOULD HAVE TO CALL THE PHYSICIAN. PATIENT VERBALIZED UNDERSTANDING. NO OTHER COMPLAINTS. CALL LIGHT WITHIN REACH.
[2016-06-11 16:17] VITALS: BP 143/92
--- NOTE | 2016-06-11 16:33 | NUR ---
ANA HOPSONP AND SABINA STRONG. DR. INMAN IN ROOM.
--- NOTE | 2016-06-11 18:59 | NUR ---
NO CHANGES IN INITIAL ASSESSMENT. STILL REFUSES SCs. CALL LIGHT IN REACH. SPUTUM SAMPLE COLLECTED AND SENT TO LAB. WILL CONTINUE WITH PLAN OF CARE.
[2016-06-11 19:00] VITALS: BP 143/95
--- NOTE | 2016-06-11 20:23 | NUR ---
PATIENT RESTING IN BED. NO SIGNS OF DISTRESS NOTED. ALERT AND ORIENTED. SCHEDULED MEDS GIVEN. SHIFT ASSESSMENT COMPLETED. PRN VALIUM GIVEN AT PATIENT REQUEST FOR ANXIETY. DENIES ANY OTHER NEEDS AT THIS TIME. BED LOW. CALL LIGHT IN REACH
[2016-06-12] VITALS: BP 130/82
[2016-06-12 04:00] VITALS: BP 136/88
--- NOTE | 2016-06-12 04:00 | NUR ---
PATIENT SLEEPING WITH NO DISTRESS NOTED. AGREE WITH LIGHTING DESIGNER ASSESSMENT.
[2016-06-12 05:52] LABS: BASOPHILS 0.4 % (0.0-2.0); EOSINOPHILS 0.1 % (0-7); HEMOGLOBIN 13.5 g/dL (13.5-17.5); IMMATURE GRANULOCYTES 0.8 % (0-5); LYMPHOCYTES 7.3 % (15-50); MCH 26.4 pg (26.0-34.0); MCHC 32.1 g/dL (31.0-37.0); MEAN PLATELET VOLUME 9.8 fL (7.4-10.4); MONOCYTES 2.5 % (2-11); NEUTROPHILS 88.9 % (40-80); PLATELET COUNT 174 10x3/uL (130-400); RBC 5.12 10x6/uL (4.20-6.10); RDW 13.8 % (11.5-14.5); WBC 7.5 10x3/uL (4.8-10.8)
[2016-06-12 06:24] LABS: CALCIUM 8.6 mg/dL (8.5-10.1); CARBON DIOXIDE 25.9 mmol/L (21.0-32.0); CHLORIDE - SERUM 102 mmol/L (98-107); POTASSIUM - SERUM 3.7 mmol/L (3.5-5.1); SODIUM 137 mmol/L (136-145); UREA NITROGEN 6 mg/dL (7-18)
[2016-06-12 06:32] LABS: CALC OSMOLALITY 275 mosm/kg (275-300); CREATININE - SERUM 0.8 mg/dL (0.6-1.3); GLUCOSE 164 mg/dL (74-106); eGFR NON AFRICAN AMERICAN > 90 mL/min (90-120)
--- NOTE | 2016-06-12 07:00 | NUR ---
REPORT RECEIVED FROM BUNCH TRIMMER MOLD NURSE. CALL LIGHT IN REACH.
[2016-06-12 08:05] VITALS: BP 132/89
--- NOTE | 2016-06-12 09:43 | NUR ---
ASSESSMENT COMPLETED. NORCO AND AM MEDS ADMINISTERED PER STUDENT NURSE. REFUSES SCDs. CALL LIGHT IN REACH. WILL CONTINUE WITH PLAN OF CARE.
--- NOTE | 2016-06-12 11:40 | NUR ---
DENIES NEEDS AT THIS TIME. CALL LIGHT IN REACH.
[2016-06-12 12:15] VITALS: BP 139/89
[2016-06-12 13:24] VITALS: Ht 182.9 cm; Wt 78.0 kg
--- NOTE | 2016-06-12 13:47 | NUR ---
TAKING SHOWER AT THIS TIME.
--- NOTE | 2016-06-12 15:55 | NUR ---
HEMORRHOID CREAM GIVEN TO PATIENT PER FABRIZIO KOHLI.
[2016-06-12 16:01] VITALS: BP 127/92
--- NOTE | 2016-06-12 17:05 | NUR ---
DOXYCYCLINE IVPB. TESSALON PERLES PO. SOLUMEDROL IVP. CALL LIGHT IN REACH.
--- NOTE | 2016-06-12 18:26 | NUR ---
VALIUM PO. NO CHANGES IN INITIAL ASSESSMENT. STILL REFUSES SCDs. CALL LIGHT IN REACH. WILL CONTINUE WITH PLAN OF CARE.
[2016-06-12 20:00] VITALS: BP 150/89
--- NOTE | 2016-06-12 21:34 | NUR ---
PATIENT RESTING IN BED. NO SIGNS OF DISTRESS NOTED. SCHEDULED MEDS GIVEN. PRN AMBIEN GIVEN AT PATIENT REQUEST. SHIFT ASSESSMENT COMPLETED. DENIES ANY NEEDS AT THIS TIME. BED LOW. CALL LIGHT IN REACH
[2016-06-13 04:00] VITALS: BP 147/94
--- NOTE | 2016-06-13 04:00 | NUR ---
PATIENT SLEEPING WITH NO DISTRESS NOTED. AGREE WITH ALL SOURCE INTELLIGENCE TECHNICIAN ASSESSMENT.
--- NOTE | 2016-06-13 07:00 | NUR ---
REPORT RECEIVED FROM ARCHITECTURE TECHNICIAN NURSE. CALL LIGHT IN REACH.
[2016-06-13] MEDS ORDERED: TUSSIONEX PENN473 ML PO (07:25)
[2016-06-13] MEDS ORDERED: BENZONATATE200 MG PO (07:25)
[2016-06-13] MEDS ORDERED: MEDROL DOSE PACK4 MG PO (07:27)
[2016-06-13] MEDS ORDERED: DOXYCYCLINE HY100 M2 PO (07:27)
[2016-06-13 08:29] VITALS: BP 139/89
--- NOTE | 2016-06-13 09:04 | NUR ---
ASSESSMENT COMPLETED. REFUSES SCDs. VALIUM AND NORCO PO WITH AM MEDS ADMINISTERED. IV TO RIGHT HAND DC'D WITH TIP INTACT. CALL LIGHT IN REACH. WILL CONTINUE WITH PLAN OF CARE.
--- NOTE | 2016-06-13 09:55 | NUR ---
SITTING UP IN BED AT THIS TIME. OXYGEN ON AND RESPIRATIONS EVEN AND NON LABORED. DENIES NEEDS AT PRESENT TIME. CALL LIGHT IN REACH. BED IN LOWEST POSITION WITH WHEELS LOCKED AND SRX2. WILL CONTINUE WITH PLAN OF CARE.
--- NOTE | 2016-06-13 11:34 | NUR ---
KUSHAL AND MOUNA STRONG PER FABRIZIO HORNER.
--- NOTE | 2016-06-13 13:34 | NUR ---
CM REASSESSMENT NOTE: PATIENT IS DISCHARGING HOME TODAY-[facility] IS DRIVING HIM. PATIENT DENIED NEED FOR HOME HEALTH. HE HAS A NURSE FROM [facility] THAT DR. INMAN SET UP THAT SEES HIM ONCE A WEEK.
--- NOTE | 2016-06-13 13:34 | NUR ---
DC INSTRUCTIONS EXPLAINED TO PATIENT. VERBALIZED UNDERSTANDING. RX FOR TUSSIONEX GIVEN TO PATIENT.
--- NOTE | 2016-06-13 13:58 | NUR ---
SALLIE CAMARA AND SABINA GOODSON PO. CALL LIGHT IN REACH.
--- NOTE | 2016-06-13 14:20 | NUR ---
DC'D TO VEHICLE VIA WC WITH FRIEND.
== END 2016-06-13 14:20 | disposition home or self-care (01) | DRG 189 ==
LOC: D.ER 21:02 → D.MS 06-11 01:55 → D.SDCHOLD 06-11 13:38 → D.MS 06-13 14:20
PROVIDERS: Surgery; ADMIT Family Medicine
DX: J96.02 Acute respiratory failure with hypercapnia (principal); J44.1 Chronic obstructive pulmonary disease with (acute) exacerbation; E87.2 Acidosis; E88.01 Alpha-1-antitrypsin deficiency; Z87.891 Personal history of nicotine dependence; F10.10 Alcohol abuse, uncomplicated

== ENCOUNTER 2016-06-18 13:41 | Inpatient (IN) | payer MEDICAID ==
[~2016-06-18 13:41] MED LIST changes: +DOXYCYCLINE HY100 M2 PO
[2016-06-18 14:33] LABS: HEMATOCRIT 41.2 % (42.0-54.0); HEMOGLOBIN 13.5 g/dL (13.5-17.5); MCH 26.7 pg (26.0-34.0); MCHC 32.8 g/dL (31.0-37.0); MCV 81.6 fL (80.0-100.0); MEAN PLATELET VOLUME 9.2 fL (7.4-10.4); NEUTROPHILS 86.7 % (40-80); PLATELET COUNT 208 10x3/uL (130-400); RBC 5.05 10x6/uL (4.20-6.10); RDW 13.7 % (11.5-14.5); WBC 17.2 10x3/uL (4.8-10.8)
[2016-06-18 14:54] LABS: ALBUMIN 3.4 g/dL (3.4-5.0); ALKALINE PHOSPHATASE 78 U/L (46-116); ALT (SGPT) 37 U/L (10-68); BILIRUBIN - TOTAL 0.34 mg/dL (0.2-1.3); CALC OSMOLALITY 280 mosm/kg (275-300); CALCIUM 7.5 mg/dL (8.5-10.1); CARBON DIOXIDE 27.2 mmol/L (21.0-32.0); CHLORIDE - SERUM 103 mmol/L (98-107); CREATININE - SERUM 0.7 mg/dL (0.6-1.3); GLUCOSE 124 mg/dL (74-106); POTASSIUM - SERUM 3.8 mmol/L (3.5-5.1); PROTEIN - SERUM 6.3 g/dL (6.4-8.2); SODIUM 141 mmol/L (136-145); UREA NITROGEN 10 mg/dL (7-18); eGFR NON AFRICAN AMERICAN > 90 mL/min (90-120)
[2016-06-18 20:31] LABS: UDS - AMPHET NEGATIVE QUAL (NEGATIVE); UDS - BARB NEGATIVE QUAL (NEGATIVE); UDS - BENZO POSITIVE QUAL (NEGATIVE); UDS - COCAINE NEGATIVE QUAL (NEGATIVE); UDS - METH NEGATIVE QUAL (NEGATIVE); UDS - OPIATE NEGATIVE QUAL (NEGATIVE); UDS - PCP NEGATIVE QUAL (NEGATIVE); UDS - THC NEGATIVE QUAL (NEGATIVE)
[2016-06-19 04:31] LABS: BASOPHILS 0.1 % (0.0-2.0); EOSINOPHILS 0.1 % (0-7); HEMATOCRIT 38.3 % (42.0-54.0); HEMOGLOBIN 12.6 g/dL (13.5-17.5); IMMATURE GRANULOCYTES 1.3 % (0-5); LYMPHOCYTES 5.2 % (15-50); MCH 26.9 pg (26.0-34.0); MCHC 32.9 g/dL (31.0-37.0); MCV 81.8 fL (80.0-100.0); MEAN PLATELET VOLUME 9.9 fL (7.4-10.4); MONOCYTES 7.8 % (2-11); NEUTROPHILS 85.5 % (40-80); RBC 4.68 10x6/uL (4.20-6.10); RDW 14.2 % (11.5-14.5)
[2016-06-19 04:33] LABS: PLATELET COUNT 160 10x3/uL (130-400); WBC 8.9 10x3/uL (4.8-10.8)
[2016-06-19 05:24] LABS: ALBUMIN 2.9 g/dL (3.4-5.0); ALKALINE PHOSPHATASE 62 U/L (46-116); ALT (SGPT) 31 U/L (10-68); BILIRUBIN - TOTAL 0.75 mg/dL (0.2-1.3); CALC OSMOLALITY 282 mosm/kg (275-300); CALCIUM 7.5 mg/dL (8.5-10.1); CARBON DIOXIDE 26.6 mmol/L (21.0-32.0); CHLORIDE - SERUM 106 mmol/L (98-107); CREATININE - SERUM 0.7 mg/dL (0.6-1.3); GLUCOSE 146 mg/dL (74-106); MAGNESIUM - SERUM 1.5 mg/dL (1.8-2.4); PHOSPHOROUS 2.3 mg/dL (2.5-4.9); POTASSIUM - SERUM 3.7 mmol/L (3.5-5.1); PROTEIN - SERUM 5.9 g/dL (6.4-8.2); SODIUM 141 mmol/L (136-145); UREA NITROGEN 9 mg/dL (7-18); eGFR NON AFRICAN AMERICAN > 90 mL/min (90-120)
[2016-06-19 05:26] LABS: TROPONIN-I < 0.017 ng/mL (0.000-0.060)
[2016-06-20 07:02] LABS: ALBUMIN 2.8 g/dL (3.4-5.0); ALKALINE PHOSPHATASE 58 U/L (46-116); ALT (SGPT) 26 U/L (10-68); BASOPHILS 0.1 % (0.0-2.0); BILIRUBIN - TOTAL 0.48 mg/dL (0.2-1.3); CARBON DIOXIDE 23.4 mmol/L (21.0-32.0); CHLORIDE - SERUM 107 mmol/L (98-107); CREATININE - SERUM 0.7 mg/dL (0.6-1.3); EOSINOPHILS 0 % (0-7); GLUCOSE 152 mg/dL (74-106); HEMATOCRIT 39.1 % (42.0-54.0); HEMOGLOBIN 12.8 g/dL (13.5-17.5); IMMATURE GRANULOCYTES 1.1 % (0-5); LYMPHOCYTES 3.6 % (15-50); MCH 26.9 pg (26.0-34.0); MCHC 32.7 g/dL (31.0-37.0); MCV 82.1 fL (80.0-100.0); MONOCYTES 10.9 % (2-11); NEUTROPHILS 84.3 % (40-80); PHOSPHOROUS 1.9 mg/dL (2.5-4.9); PLATELET COUNT 181 10x3/uL (130-400); PROTEIN - SERUM 5.9 g/dL (6.4-8.2); RBC 4.76 10x6/uL (4.20-6.10); SODIUM 143 mmol/L (136-145); eGFR NON AFRICAN AMERICAN > 90 mL/min (90-120)
[2016-06-20 07:03] LABS: CALC OSMOLALITY 285 mosm/kg (275-300); UREA NITROGEN 6 mg/dL (7-18)
[2016-06-20 11:16] LABS: HEPATITIS C ANTIBODY <0.1 (0.0-0.9)
[2016-06-21 04:28] LABS: HEMOGLOBIN 12.2 g/dL (13.5-17.5); MCH 26.7 pg (26.0-34.0); MCHC 32.1 g/dL (31.0-37.0); MCV 83.2 fL (80.0-100.0); MEAN PLATELET VOLUME 10.6 fL (7.4-10.4); PLATELET COUNT 170 10x3/uL (130-400); RBC 4.57 10x6/uL (4.20-6.10); RDW 14.6 % (11.5-14.5); WBC 24.5 10x3/uL (4.8-10.8)
[2016-06-21 04:34] LABS: ALBUMIN 2.5 g/dL (3.4-5.0); ALKALINE PHOSPHATASE 65 U/L (46-116); ALT (SGPT) 25 U/L (10-68); BILIRUBIN - TOTAL 0.51 mg/dL (0.2-1.3); CALC OSMOLALITY 291 mosm/kg (275-300); CALCIUM 7.9 mg/dL (8.5-10.1); CARBON DIOXIDE 29.1 mmol/L (21.0-32.0); CHLORIDE - SERUM 109 mmol/L (98-107); CREATININE - SERUM 0.7 mg/dL (0.6-1.3); GLUCOSE 150 mg/dL (74-106); PHOSPHOROUS 1.7 mg/dL (2.5-4.9); POTASSIUM - SERUM 3.1 mmol/L (3.5-5.1); PROTEIN - SERUM 5.7 g/dL (6.4-8.2); SODIUM 146 mmol/L (136-145); eGFR NON AFRICAN AMERICAN > 90 mL/min (90-120)
[2016-06-21 04:36] LABS: UREA NITROGEN 8 mg/dL (7-18)
[2016-06-21 05:05] LABS: LYMPHOCYTES 8 % (15-50); MONOCYTES 6 % (2-11); NEUTROPHILS 76 % (40-80); PLATELET ESTIMATE NORMAL; PLATELET MORPHOLOGY GIANT PLTS PRESENT; VACUOLES 1+
[2016-06-22 06:01] LABS: BASOPHILS 0.1 % (0.0-2.0); EOSINOPHILS 0 % (0-7); HEMATOCRIT 34.8 % (42.0-54.0); HEMOGLOBIN 11.2 g/dL (13.5-17.5); IMMATURE GRANULOCYTES 3.4 % (0-5); LYMPHOCYTES 4.1 % (15-50); MCH 26.7 pg (26.0-34.0); MCHC 32.2 g/dL (31.0-37.0); MCV 83.1 fL (80.0-100.0); MEAN PLATELET VOLUME 11.1 fL (7.4-10.4); MONOCYTES 6.3 % (2-11); NEUTROPHILS 86.1 % (40-80); PLATELET COUNT 150 10x3/uL (130-400); RBC 4.19 10x6/uL (4.20-6.10); WBC 21.1 10x3/uL (4.8-10.8)
[2016-06-22 06:12] LABS: ALBUMIN 1.9 g/dL (3.4-5.0); ALKALINE PHOSPHATASE 52 U/L (46-116); ALT (SGPT) 24 U/L (10-68); BILIRUBIN - TOTAL 0.41 mg/dL (0.2-1.3); CALC OSMOLALITY 289 mosm/kg (275-300); CALCIUM 7.6 mg/dL (8.5-10.1); CARBON DIOXIDE 29.5 mmol/L (21.0-32.0); CHLORIDE - SERUM 110 mmol/L (98-107); CREATININE - SERUM 0.6 mg/dL (0.6-1.3); GLUCOSE 148 mg/dL (74-106); POTASSIUM - SERUM 4.1 mmol/L (3.5-5.1); PROTEIN - SERUM 5.2 g/dL (6.4-8.2); SODIUM 144 mmol/L (136-145); eGFR NON AFRICAN AMERICAN > 90 mL/min (90-120)
[2016-06-22 06:22] LABS: UREA NITROGEN 12 mg/dL (7-18)
[2016-06-23 06:18] LABS: ALKALINE PHOSPHATASE 58 U/L (46-116); ALT (SGPT) 30 U/L (10-68); BILIRUBIN - TOTAL 0.35 mg/dL (0.2-1.3); CALC OSMOLALITY 288 mosm/kg (275-300); CALCIUM 7.6 mg/dL (8.5-10.1); CARBON DIOXIDE 29.9 mmol/L (21.0-32.0); CHLORIDE - SERUM 108 mmol/L (98-107); CREATININE - SERUM 0.6 mg/dL (0.6-1.3); GLUCOSE 124 mg/dL (74-106); POTASSIUM - SERUM 4.3 mmol/L (3.5-5.1); PROTEIN - SERUM 4.9 g/dL (6.4-8.2); SODIUM 144 mmol/L (136-145); UREA NITROGEN 14 mg/dL (7-18); eGFR NON AFRICAN AMERICAN > 90 mL/min (90-120)
[2016-06-23 07:07] LABS: BASOPHILS 0.5 % (0.0-2.0); EOSINOPHILS 0.5 % (0-7); HEMATOCRIT 35.8 % (42.0-54.0); HEMOGLOBIN 11.3 g/dL (13.5-17.5); IMMATURE GRANULOCYTES 7.5 % (0-5); LYMPHOCYTES 7.7 % (15-50); MCH 26.5 pg (26.0-34.0); MCHC 31.6 g/dL (31.0-37.0); MCV 83.8 fL (80.0-100.0); MEAN PLATELET VOLUME 10.6 fL (7.4-10.4); MONOCYTES 6.7 % (2-11); NEUTROPHILS 77.1 % (40-80); PLATELET COUNT 141 10x3/uL (130-400); RBC 4.27 10x6/uL (4.20-6.10); WBC 15.3 10x3/uL (4.8-10.8)
[2016-06-24 05:23] LABS: BASOPHILS 0.7 % (0.0-2.0); EOSINOPHILS 0.9 % (0-7); HEMATOCRIT 37.9 % (42.0-54.0); IMMATURE GRANULOCYTES 13.4 % (0-5); LYMPHOCYTES 8.3 % (15-50); MCH 26.5 pg (26.0-34.0); MCHC 31.7 g/dL (31.0-37.0); MCV 83.7 fL (80.0-100.0); MEAN PLATELET VOLUME 11.2 fL (7.4-10.4); MONOCYTES 9.6 % (2-11); NEUTROPHILS 67.1 % (40-80); PLATELET COUNT 116 10x3/uL (130-400); RBC 4.53 10x6/uL (4.20-6.10); RDW 14.8 % (11.5-14.5); WBC 13.2 10x3/uL (4.8-10.8)
[2016-06-24 05:41] LABS: CALC OSMOLALITY 282 mosm/kg (275-300); CALCIUM 7.8 mg/dL (8.5-10.1); CARBON DIOXIDE 31.2 mmol/L (21.0-32.0); CHLORIDE - SERUM 106 mmol/L (98-107); CREATININE - SERUM 0.5 mg/dL (0.6-1.3); GLUCOSE 125 mg/dL (74-106); POTASSIUM - SERUM 4.3 mmol/L (3.5-5.1); SODIUM 141 mmol/L (136-145); UREA NITROGEN 14 mg/dL (7-18); eGFR NON AFRICAN AMERICAN > 90 mL/min (90-120)
[2016-06-25 05:30] LABS: BASOPHILS 1.3 % (0.0-2.0); EOSINOPHILS 0.8 % (0-7); HEMATOCRIT 39.4 % (42.0-54.0); HEMOGLOBIN 12.5 g/dL (13.5-17.5); IMMATURE GRANULOCYTES 16.8 % (0-5); MCH 26.5 pg (26.0-34.0); MCHC 31.7 g/dL (31.0-37.0); MCV 83.5 fL (80.0-100.0); MEAN PLATELET VOLUME 10.2 fL (7.4-10.4); MONOCYTES 10.7 % (2-11); NEUTROPHILS 61.4 % (40-80); RBC 4.72 10x6/uL (4.20-6.10); RDW 14.8 % (11.5-14.5); WBC 14.4 10x3/uL (4.8-10.8)
[2016-06-25 05:32] LABS: PLATELET COUNT 152 10x3/uL (130-400)
[2016-06-25 06:12] LABS: CALC OSMOLALITY 286 mosm/kg (275-300); CALCIUM 8.5 mg/dL (8.5-10.1); CHLORIDE - SERUM 106 mmol/L (98-107); GLUCOSE 125 mg/dL (74-106); SODIUM 143 mmol/L (136-145); UREA NITROGEN 15 mg/dL (7-18)
[2016-06-25 06:13] LABS: CREATININE - SERUM 0.7 mg/dL (0.6-1.3); POTASSIUM - SERUM 3.4 mmol/L (3.5-5.1); eGFR NON AFRICAN AMERICAN > 90 mL/min (90-120)
[2016-06-26 05:38] LABS: BASOPHILS 1.1 % (0.0-2.0); EOSINOPHILS 0.3 % (0-7); HEMATOCRIT 39.1 % (42.0-54.0); HEMOGLOBIN 12.5 g/dL (13.5-17.5); IMMATURE GRANULOCYTES 16.7 % (0-5); LYMPHOCYTES 7.3 % (15-50); MCH 26.7 pg (26.0-34.0); MCV 83.4 fL (80.0-100.0); MEAN PLATELET VOLUME 10.6 fL (7.4-10.4); NEUTROPHILS 65.6 % (40-80); PLATELET COUNT 151 10x3/uL (130-400); RBC 4.69 10x6/uL (4.20-6.10); RDW 14.9 % (11.5-14.5); WBC 14.1 10x3/uL (4.8-10.8)
[2016-06-26 05:42] LABS: ALBUMIN 2.2 g/dL (3.4-5.0); ALKALINE PHOSPHATASE 96 U/L (46-116); ALT (SGPT) 48 U/L (10-68); AMYLASE - SERUM 124 U/L (25-115); CALC OSMOLALITY 287 mosm/kg (275-300); CALCIUM 8.3 mg/dL (8.5-10.1); CARBON DIOXIDE 31.4 mmol/L (21.0-32.0); CHLORIDE - SERUM 107 mmol/L (98-107); GLUCOSE 126 mg/dL (74-106); LIPASE 91 U/L (73-393); MAGNESIUM - SERUM 2.4 mg/dL (1.8-2.4); PHOSPHOROUS 4.2 mg/dL (2.5-4.9); POTASSIUM - SERUM 3.9 mmol/L (3.5-5.1); PROTEIN - SERUM 5.9 g/dL (6.4-8.2); SODIUM 143 mmol/L (136-145); UREA NITROGEN 14 mg/dL (7-18)
[2016-06-26 05:46] LABS: CREATININE - SERUM 0.5 mg/dL (0.6-1.3); eGFR NON AFRICAN AMERICAN > 90 mL/min (90-120)
[2016-06-26 17:10] LABS: ACID FAST SMEAR Negative (()); AFB SPECIMEN PROCESSING Concentration (())
[2016-06-27 03:45] LABS: BASOPHILS 0.6 % (0.0-2.0); EOSINOPHILS 1.6 % (0-7); HEMATOCRIT 37.9 % (42.0-54.0); HEMOGLOBIN 12.1 g/dL (13.5-17.5); IMMATURE GRANULOCYTES 15.6 % (0-5); LYMPHOCYTES 10.4 % (15-50); MCH 26.7 pg (26.0-34.0); MCHC 31.9 g/dL (31.0-37.0); MCV 83.5 fL (80.0-100.0); MEAN PLATELET VOLUME 10.8 fL (7.4-10.4); NEUTROPHILS 61.8 % (40-80); PLATELET COUNT 150 10x3/uL (130-400); RBC 4.54 10x6/uL (4.20-6.10); WBC 12.2 10x3/uL (4.8-10.8)
[2016-06-27 04:17] LABS: CALC OSMOLALITY 284 mosm/kg (275-300); CALCIUM 8.2 mg/dL (8.5-10.1); CARBON DIOXIDE 28.1 mmol/L (21.0-32.0); CHLORIDE - SERUM 105 mmol/L (98-107); GLUCOSE 125 mg/dL (74-106); POTASSIUM - SERUM 3.4 mmol/L (3.5-5.1); PRO BNP 245 pg/mL (0-125); SODIUM 142 mmol/L (136-145); UREA NITROGEN 14 mg/dL (7-18)
[2016-06-27 04:18] LABS: CREATININE - SERUM 0.7 mg/dL (0.6-1.3); eGFR NON AFRICAN AMERICAN > 90 mL/min (90-120)
[2016-06-27 13:16] LABS: FUNGUS STAIN Final report (())
[2016-06-27 14:03] LABS: APPEARANCE CLEAR (CLEAR); BACTERIA MODERATE /hpf (NONE SEEN); BILIRUBIN NEGATIVE (NEGATIVE); COLOR YELLOW (YELLOW); GLUCOSE NEGATIVE (NEGATIVE); KETONE NEGATIVE (NEGATIVE); LEUKOCYTE ESTERASE TRACE (NEGATIVE); NITRITE NEGATIVE (NEGATIVE); PROTEIN NEGATIVE (NEGATIVE); RED CELLS - URINE 0-5 /hpf (0-5); WHITE CELLS - URINE OCC /hpf (0-5)
[2016-06-27 14:04] LABS: MUCUS <1+ /lpf (NONE SEEN)
[2016-06-28 04:23] LABS: BASOPHILS 0.7 % (0.0-2.0); EOSINOPHILS 2.2 % (0-7); HEMATOCRIT 37.6 % (42.0-54.0); HEMOGLOBIN 11.9 g/dL (13.5-17.5); IMMATURE GRANULOCYTES 10.3 % (0-5); LYMPHOCYTES 11.1 % (15-50); MCH 26.4 pg (26.0-34.0); MCHC 31.6 g/dL (31.0-37.0); MCV 83.4 fL (80.0-100.0); MONOCYTES 8.5 % (2-11); NEUTROPHILS 67.2 % (40-80); PLATELET COUNT 153 10x3/uL (130-400); RBC 4.51 10x6/uL (4.20-6.10); RDW 15.1 % (11.5-14.5)
[2016-06-28 04:37] LABS: APPEARANCE CLEAR (CLEAR); COLOR YELLOW (YELLOW); LEUKOCYTE ESTERASE NEGATIVE (NEGATIVE); NITRITE NEGATIVE (NEGATIVE); PH 5.5 (5.0-6.0); PROTEIN NEGATIVE (NEGATIVE)
[2016-06-28 04:38] LABS: BILIRUBIN NEGATIVE (NEGATIVE); GLUCOSE NEGATIVE (NEGATIVE); KETONE NEGATIVE (NEGATIVE); UROBILINOGEN NORMAL (NORMAL)
[2016-06-28 04:42] LABS: BACTERIA FEW /hpf (NONE SEEN); EPITHELIAL CELLS 0-5 /hpf (0-5); GRANULAR CAST RARE /lpf (NONE SEEN); HYALINE CAST RARE /lpf (NONE SEEN); MUCUS <1+ /lpf (NONE SEEN); RED CELLS - URINE 25-50 /hpf (0-5); WHITE CELLS - URINE 0-5 /hpf (0-5)
[2016-06-28 04:49] LABS: ALBUMIN 2.3 g/dL (3.4-5.0); ALKALINE PHOSPHATASE 85 U/L (46-116); ALT (SGPT) 37 U/L (10-68); CALC OSMOLALITY 285 mosm/kg (275-300); CALCIUM 8.3 mg/dL (8.5-10.1); CARBON DIOXIDE 27.2 mmol/L (21.0-32.0); CHLORIDE - SERUM 108 mmol/L (98-107); CREATININE - SERUM 0.6 mg/dL (0.6-1.3); GLUCOSE 110 mg/dL (74-106); MAGNESIUM - SERUM 2.3 mg/dL (1.8-2.4); PHOSPHOROUS 3.9 mg/dL (2.5-4.9); POTASSIUM - SERUM 3.8 mmol/L (3.5-5.1); PROTEIN - SERUM 6.1 g/dL (6.4-8.2); SODIUM 143 mmol/L (136-145); UREA NITROGEN 13 mg/dL (7-18); eGFR NON AFRICAN AMERICAN > 90 mL/min (90-120)
[2016-06-29 04:00] LABS: BASOPHILS 0.6 % (0.0-2.0); EOSINOPHILS 2.8 % (0-7); HEMATOCRIT 37.9 % (42.0-54.0); HEMOGLOBIN 11.9 g/dL (13.5-17.5); IMMATURE GRANULOCYTES 6.6 % (0-5); LYMPHOCYTES 11.9 % (15-50); MCH 26.5 pg (26.0-34.0); MCHC 31.4 g/dL (31.0-37.0); MCV 84.4 fL (80.0-100.0); MEAN PLATELET VOLUME 10.8 fL (7.4-10.4); MONOCYTES 8.4 % (2-11); NEUTROPHILS 69.7 % (40-80); PLATELET COUNT 157 10x3/uL (130-400); RBC 4.49 10x6/uL (4.20-6.10); RDW 15.1 % (11.5-14.5); WBC 12.3 10x3/uL (4.8-10.8)
[2016-06-29 04:44] LABS: CALC OSMOLALITY 284 mosm/kg (275-300); CALCIUM 8.5 mg/dL (8.5-10.1); CHLORIDE - SERUM 106 mmol/L (98-107); CREATININE - SERUM 0.5 mg/dL (0.6-1.3); GLUCOSE 95 mg/dL (74-106); MAGNESIUM - SERUM 2.1 mg/dL (1.8-2.4); POTASSIUM - SERUM 3.8 mmol/L (3.5-5.1); SODIUM 143 mmol/L (136-145); UREA NITROGEN 13 mg/dL (7-18); eGFR NON AFRICAN AMERICAN > 90 mL/min (90-120)
[2016-06-30 04:19] LABS: BASOPHILS 0.6 % (0-2); EOSINOPHILS 2.1 % (0-7); HEMOGLOBIN 11.9 g/dL (13.5-17.5); IMMATURE GRANULOCYTES 4.2 % (0-5); LYMPHOCYTES 10.9 % (15-50); MCH 26.7 pg (26.0-34.0); MCHC 32.2 g/dL (31.0-37.0); MCV 83.1 fL (80.0-100.0); MEAN PLATELET VOLUME 10.4 fL (7.4-10.4); MONOCYTES 7.9 % (2-11); NEUTROPHILS 74.3 % (40-80); PLATELET COUNT 178 10x3/uL (130-400); RBC 4.45 10x6/uL (4.20-6.10); RDW 14.7 % (11.5-14.5); WBC 12.8 10x3/uL (4.8-10.8)
[2016-06-30 04:29] LABS: CALC OSMOLALITY 276 mosm/kg (275-300); CARBON DIOXIDE 30.9 mmol/L (21.0-32.0); CHLORIDE - SERUM 102 mmol/L (98-107); CREATININE - SERUM 0.5 mg/dL (0.6-1.3); GLUCOSE 89 mg/dL (74-106); MAGNESIUM - SERUM 2.1 mg/dL (1.8-2.4); POTASSIUM - SERUM 3.6 mmol/L (3.5-5.1); SODIUM 140 mmol/L (136-145); UREA NITROGEN 11 mg/dL (7-18); eGFR NON AFRICAN AMERICAN > 90 mL/min (90-120)
[2016-07-01 04:51] LABS: BASOPHILS 0.4 % (0-2); EOSINOPHILS 2.2 % (0-7); HEMATOCRIT 37.4 % (42.0-54.0); IMMATURE GRANULOCYTES 3.7 % (0-5); LYMPHOCYTES 14.3 % (15-50); MCH 26.8 pg (26.0-34.0); MCHC 32.1 g/dL (31.0-37.0); MCV 83.7 fL (80.0-100.0); MONOCYTES 8.8 % (2-11); NEUTROPHILS 70.6 % (40-80); PLATELET COUNT 204 10x3/uL (130-400); RBC 4.47 10x6/uL (4.20-6.10); RDW 14.9 % (11.5-14.5); WBC 12.1 10x3/uL (4.8-10.8)
[2016-07-01 05:17] LABS: CALC OSMOLALITY 279 mosm/kg (275-300); CALCIUM 8.3 mg/dL (8.5-10.1); CARBON DIOXIDE 31.9 mmol/L (21.0-32.0); CHLORIDE - SERUM 103 mmol/L (98-107); CREATININE - SERUM 0.6 mg/dL (0.6-1.3); GLUCOSE 86 mg/dL (74-106); MAGNESIUM - SERUM 2.2 mg/dL (1.8-2.4); POTASSIUM - SERUM 3.6 mmol/L (3.5-5.1); SODIUM 141 mmol/L (136-145); UREA NITROGEN 12 mg/dL (7-18); eGFR NON AFRICAN AMERICAN > 90 mL/min (90-120)
[2016-07-02 04:56] LABS: BASOPHILS 0.5 % (0-2); EOSINOPHILS 2.1 % (0-7); HEMATOCRIT 39.7 % (42.0-54.0); HEMOGLOBIN 12.6 g/dL (13.5-17.5); IMMATURE GRANULOCYTES 3.9 % (0-5); LYMPHOCYTES 13.6 % (15-50); MCH 26.4 pg (26.0-34.0); MCHC 31.7 g/dL (31.0-37.0); MCV 83.1 fL (80.0-100.0); MEAN PLATELET VOLUME 10.3 fL (7.4-10.4); MONOCYTES 9.8 % (2-11); NEUTROPHILS 70.1 % (40-80); PLATELET COUNT 237 10x3/uL (130-400); RBC 4.78 10x6/uL (4.20-6.10); RDW 14.8 % (11.5-14.5); WBC 11.9 10x3/uL (4.8-10.8)
[2016-07-02 05:32] LABS: ALBUMIN 2.8 g/dL (3.4-5.0); ALKALINE PHOSPHATASE 127 U/L (46-116); ALT (SGPT) 36 U/L (10-68); BILIRUBIN - TOTAL 0.51 mg/dL (0.2-1.3); CALC OSMOLALITY 277 mosm/kg (275-300); CALCIUM 8.7 mg/dL (8.5-10.1); CARBON DIOXIDE 29.9 mmol/L (21.0-32.0); CHLORIDE - SERUM 102 mmol/L (98-107); CREATININE - SERUM 0.5 mg/dL (0.6-1.3); GLUCOSE 99 mg/dL (74-106); POTASSIUM - SERUM 3.1 mmol/L (3.5-5.1); PROTEIN - SERUM 6.7 g/dL (6.4-8.2); SODIUM 140 mmol/L (136-145); UREA NITROGEN 11 mg/dL (7-18); eGFR NON AFRICAN AMERICAN > 90 mL/min (90-120)
[2016-07-03 05:42] LABS: BASOPHILS 0.6 % (0-2); EOSINOPHILS 1.8 % (0-7); HEMATOCRIT 37.8 % (42.0-54.0); HEMOGLOBIN 12.1 g/dL (13.5-17.5); LYMPHOCYTES 11.2 % (15-50); MCH 26.5 pg (26.0-34.0); MCV 82.9 fL (80.0-100.0); MEAN PLATELET VOLUME 10.9 fL (7.4-10.4); MONOCYTES 12.3 % (2-11); NEUTROPHILS 70.1 % (40-80); PLATELET COUNT 258 10x3/uL (130-400); RBC 4.56 10x6/uL (4.20-6.10); RDW 15.2 % (11.5-14.5)
[2016-07-03 06:28] LABS: CALC OSMOLALITY 280 mosm/kg (275-300); CALCIUM 8.9 mg/dL (8.5-10.1); CARBON DIOXIDE 27.1 mmol/L (21.0-32.0); CHLORIDE - SERUM 104 mmol/L (98-107); CREATININE - SERUM 0.6 mg/dL (0.6-1.3); GLUCOSE 118 mg/dL (74-106); POTASSIUM - SERUM 3.4 mmol/L (3.5-5.1); SODIUM 141 mmol/L (136-145); UREA NITROGEN 10 mg/dL (7-18); eGFR NON AFRICAN AMERICAN > 90 mL/min (90-120)
[2016-07-04 04:15] LABS: BASOPHILS 0.9 % (0-2); EOSINOPHILS 1.6 % (0-7); HEMATOCRIT 38.8 % (42.0-54.0); HEMOGLOBIN 12.4 g/dL (13.5-17.5); IMMATURE GRANULOCYTES 4.4 % (0-5); LYMPHOCYTES 12.5 % (15-50); MCH 26.3 pg (26.0-34.0); MCV 82.4 fL (80.0-100.0); MEAN PLATELET VOLUME 10.3 fL (7.4-10.4); MONOCYTES 12.1 % (2-11); NEUTROPHILS 68.5 % (40-80); PLATELET COUNT 271 10x3/uL (130-400); RBC 4.71 10x6/uL (4.20-6.10); RDW 15.2 % (11.5-14.5); WBC 11.2 10x3/uL (4.8-10.8)
[2016-07-04 04:42] LABS: ALBUMIN 2.9 g/dL (3.4-5.0); ALKALINE PHOSPHATASE 124 U/L (46-116); ALT (SGPT) 32 U/L (10-68); CALC OSMOLALITY 278 mosm/kg (275-300); CALCIUM 8.8 mg/dL (8.5-10.1); CARBON DIOXIDE 25.3 mmol/L (21.0-32.0); CHLORIDE - SERUM 105 mmol/L (98-107); CREATININE - SERUM 0.7 mg/dL (0.6-1.3); GLUCOSE 114 mg/dL (74-106); MAGNESIUM - SERUM 1.8 mg/dL (1.8-2.4); POTASSIUM - SERUM 3.3 mmol/L (3.5-5.1); PROTEIN - SERUM 6.6 g/dL (6.4-8.2); SODIUM 140 mmol/L (136-145); UREA NITROGEN 9 mg/dL (7-18); eGFR NON AFRICAN AMERICAN > 90 mL/min (90-120)
[2016-07-04 15:20] LABS: FUNGUS MYCOLOGY CULTURE Preliminary report (())
[2016-07-05 04:33] LABS: BASOPHILS 0.5 % (0-2); EOSINOPHILS 1.1 % (0-7); HEMATOCRIT 37.4 % (42.0-54.0); HEMOGLOBIN 12.1 g/dL (13.5-17.5); IMMATURE GRANULOCYTES 2.9 % (0-5); LYMPHOCYTES 10.1 % (15-50); MCH 26.6 pg (26.0-34.0); MCHC 32.4 g/dL (31.0-37.0); MCV 82.2 fL (80.0-100.0); MEAN PLATELET VOLUME 10.1 fL (7.4-10.4); MONOCYTES 10.3 % (2-11); NEUTROPHILS 75.1 % (40-80); PLATELET COUNT 256 10x3/uL (130-400); RBC 4.55 10x6/uL (4.20-6.10); RDW 15.2 % (11.5-14.5); WBC 13.2 10x3/uL (4.8-10.8)
[2016-07-05 04:55] LABS: ALBUMIN 2.7 g/dL (3.4-5.0); ALKALINE PHOSPHATASE 111 U/L (46-116); ALT (SGPT) 28 U/L (10-68); BILIRUBIN - TOTAL 1.13 mg/dL (0.2-1.3); CALC OSMOLALITY 271 mosm/kg (275-300); CALCIUM 8.4 mg/dL (8.5-10.1); CHLORIDE - SERUM 104 mmol/L (98-107); CREATININE - SERUM 0.6 mg/dL (0.6-1.3); GLUCOSE 105 mg/dL (74-106); MAGNESIUM - SERUM 1.7 mg/dL (1.8-2.4); POTASSIUM - SERUM 3.6 mmol/L (3.5-5.1); PROTEIN - SERUM 6.3 g/dL (6.4-8.2); SODIUM 137 mmol/L (136-145); UREA NITROGEN 7 mg/dL (7-18); eGFR NON AFRICAN AMERICAN > 90 mL/min (90-120)
[2016-07-05 17:39] LABS: APPEARANCE CLEAR (CLEAR); COLOR STRAW (YELLOW); SPECIFIC GRAVITY 1.005 (1.005-1.020)
[2016-07-05 17:40] LABS: BILIRUBIN NEGATIVE (NEGATIVE); GLUCOSE NEGATIVE (NEGATIVE); KETONE NEGATIVE (NEGATIVE); LEUKOCYTE ESTERASE TRACE (NEGATIVE); NITRITE NEGATIVE (NEGATIVE); PROTEIN NEGATIVE (NEGATIVE); UROBILINOGEN NORMAL (NORMAL)
[2016-07-05 17:42] LABS: RED CELLS - URINE 0-5 /hpf (0-5); WHITE CELLS - URINE 0-5 /hpf (0-5)
[2016-07-05 17:43] LABS: BACTERIA FEW /hpf (NONE SEEN); EPITHELIAL CELLS 0-5 /hpf (0-5)
[2016-07-05 17:44] LABS: CALCIUM OXALATE CRYSTALS 0-5 /hpf (NONE SEEN); YEAST >1+ WITH HYPHAE /hpf (NONE SEEN)
[2016-07-06 05:53] LABS: BASOPHILS 0.4 % (0-2); EOSINOPHILS 2.4 % (0-7); HEMATOCRIT 36.5 % (42.0-54.0); HEMOGLOBIN 11.4 g/dL (13.5-17.5); IMMATURE GRANULOCYTES 4.1 % (0-5); LYMPHOCYTES 11.1 % (15-50); MCHC 31.2 g/dL (31.0-37.0); MCV 83.1 fL (80.0-100.0); MEAN PLATELET VOLUME 10.6 fL (7.4-10.4); MONOCYTES 7.8 % (2-11); NEUTROPHILS 74.2 % (40-80); PLATELET COUNT 264 10x3/uL (130-400); RBC 4.39 10x6/uL (4.20-6.10); RDW 15.3 % (11.5-14.5)
[2016-07-06 06:22] LABS: ALBUMIN 2.5 g/dL (3.4-5.0); ALKALINE PHOSPHATASE 103 U/L (46-116); ALT (SGPT) 23 U/L (10-68); BILIRUBIN - TOTAL 0.89 mg/dL (0.2-1.3); CALC OSMOLALITY 277 mosm/kg (275-300); CALCIUM 8.5 mg/dL (8.5-10.1); CARBON DIOXIDE 27.6 mmol/L (21.0-32.0); CHLORIDE - SERUM 107 mmol/L (98-107); CREATININE - SERUM 0.6 mg/dL (0.6-1.3); GLUCOSE 86 mg/dL (74-106); MAGNESIUM - SERUM 1.7 mg/dL (1.8-2.4); PHOSPHOROUS 4.4 mg/dL (2.5-4.9); POTASSIUM - SERUM 3.1 mmol/L (3.5-5.1); SODIUM 141 mmol/L (136-145); UREA NITROGEN 8 mg/dL (7-18); eGFR NON AFRICAN AMERICAN > 90 mL/min (90-120)
[2016-07-07 05:34] LABS: BASOPHILS 0.4 % (0-2); HEMATOCRIT 34.8 % (42.0-54.0); HEMOGLOBIN 11.1 g/dL (13.5-17.5); IMMATURE GRANULOCYTES 2.7 % (0-5); LYMPHOCYTES 12.7 % (15-50); MCH 26.4 pg (26.0-34.0); MCHC 31.9 g/dL (31.0-37.0); MCV 82.7 fL (80.0-100.0); MEAN PLATELET VOLUME 9.8 fL (7.4-10.4); MONOCYTES 8.3 % (2-11); NEUTROPHILS 73.9 % (40-80); PLATELET COUNT 268 10x3/uL (130-400); RBC 4.21 10x6/uL (4.20-6.10); RDW 15.5 % (11.5-14.5); WBC 10.5 10x3/uL (4.8-10.8)
[2016-07-07 06:06] LABS: ALBUMIN 2.4 g/dL (3.4-5.0); ALKALINE PHOSPHATASE 96 U/L (46-116); ALT (SGPT) 24 U/L (10-68); BILIRUBIN - TOTAL 0.88 mg/dL (0.2-1.3); CALC OSMOLALITY 276 mosm/kg (275-300); CALCIUM 8.2 mg/dL (8.5-10.1); CARBON DIOXIDE 27.2 mmol/L (21.0-32.0); CHLORIDE - SERUM 107 mmol/L (98-107); CREATININE - SERUM 0.6 mg/dL (0.6-1.3); GLUCOSE 100 mg/dL (74-106); MAGNESIUM - SERUM 1.5 mg/dL (1.8-2.4); PROTEIN - SERUM 5.8 g/dL (6.4-8.2); SODIUM 140 mmol/L (136-145); UREA NITROGEN 6 mg/dL (7-18); eGFR NON AFRICAN AMERICAN > 90 mL/min (90-120)
[2016-07-07 06:12] LABS: POTASSIUM - SERUM 3.2 mmol/L (3.5-5.1)
[2016-07-07] MEDS ORDERED: PREDNISONE10 MG PO (16:39)
== END 2016-07-07 18:38 | disposition home or self-care (01) | DRG 207 ==
LOC: D.ER 13:41 → D.ICU 16:00 → D.MS 07-05 17:04
PROVIDERS: Emergency Medicine; Family Medicine; Internal Medicine Cardiovascular Disease; Internal Medicine Pulmonary Disease; Student in an Organized Health Care Education/Training Program; ADMIT Emergency Medicine
PROC: 0T9B70Z Drainage of Bladder with Drainage Device, Via Natural or Artificial Opening (ICD-10-PCS; principal; 2016-06-18)
PROC: 5A1955Z Respiratory Ventilation, Greater than 96 Consecutive Hours (ICD-10-PCS; 2016-06-18)
PROC: 0W9930Z Drainage of Right Pleural Cavity with Drainage Device, Percutaneous Approach (ICD-10-PCS; 2016-06-18)
PROC: 0BH17EZ Insertion of Endotracheal Airway into Trachea, Via Natural or Artificial Opening (ICD-10-PCS; 2016-06-18)
PROC: 0BBB8ZX Excision of Left Lower Lobe Bronchus, Via Natural or Artificial Opening Endoscopic, Diagnostic (ICD-10-PCS; 2016-06-25)
PROC: 0BB48ZX Excision of Right Upper Lobe Bronchus, Via Natural or Artificial Opening Endoscopic, Diagnostic (ICD-10-PCS; 2016-06-25)
PROC: 0BB88ZX Excision of Left Upper Lobe Bronchus, Via Natural or Artificial Opening Endoscopic, Diagnostic (ICD-10-PCS; 2016-06-25)
PROC: 0BB58ZX Excision of Right Middle Lobe Bronchus, Via Natural or Artificial Opening Endoscopic, Diagnostic (ICD-10-PCS; 2016-06-25)
PROC: 0BB38ZX Excision of Right Main Bronchus, Via Natural or Artificial Opening Endoscopic, Diagnostic (ICD-10-PCS; 2016-06-25)
PROC: 0BB78ZX Excision of Left Main Bronchus, Via Natural or Artificial Opening Endoscopic, Diagnostic (ICD-10-PCS; 2016-06-25)
PROC: 0BB68ZX Excision of Right Lower Lobe Bronchus, Via Natural or Artificial Opening Endoscopic, Diagnostic (ICD-10-PCS; 2016-06-25)
PROC: 0D9670Z Drainage of Stomach with Drainage Device, Via Natural or Artificial Opening (ICD-10-PCS; 2016-06-28)
DX: S27.0XXA Traumatic pneumothorax, initial encounter (principal); J96.22 Acute and chronic respiratory failure with hypercapnia; J96.21 Acute and chronic respiratory failure with hypoxia; G93.40 Encephalopathy, unspecified; S22.41XA Multiple fractures of ribs, right side, initial encounter for closed fracture; J44.1 Chronic obstructive pulmonary disease with (acute) exacerbation; J98.11 Atelectasis; S22.069A Unspecified fracture of T7-T8 vertebra, initial encounter for closed fracture; F10.231 Alcohol dependence with withdrawal delirium; W19.XXXA Unspecified fall, initial encounter; J98.2 Interstitial emphysema; F41.9 Anxiety disorder, unspecified; F31.9 Bipolar disorder, unspecified; Z78.1 Physical restraint status; Z72.89 Other problems related to lifestyle; D69.6 Thrombocytopenia, unspecified; E83.42 Hypomagnesemia; E87.6 Hypokalemia; R20.0 Anesthesia of skin

== ENCOUNTER 2016-07-09 13:31 | Inpatient (IN) | payer MEDICAID ==
[~2016-07-09] VITALS: Ht 182.9 cm; Wt 74.8 kg
--- NOTE | ~2016-07-09 | CN ---
PATIENT NAME:JOSEPH MEJIA MEDICAL RECORD: [id number] : 59 LOCATION:[facility] ADMIT DATE: 07/09/16 ACCOUNT: [id number] CONSULTING PHYSICIAN: BRYON INMAN MD REFERRING PHYSICIAN: CADE BROTHERS MD DATE OF CONSULTATION: 07/10/2016 CONSULT REQUESTING PHYSICIAN: Cade Brothers MD. REASON FOR CONSULTATION: Pneumonia, left lower lobe, acute exacerbation of COPD. HISTORY OF PRESENT ILLNESS: Mr. Mejia is a 60-year-old gentleman who was just discharged home 2-3 days ago. When the patient home, he did not fill his prescription. He has worsening shortness of breath. He has wheezing. He was coughing. He also having a fever of 100.2. Also, there was pain in his foot. The patient came into the ER and readmitted for pneumonia and COPD exacerbation. REVIEW OF SYSTEMS: Mainly in the history of present illness. PAST MEDICAL HISTORY: 1. Chronic obstructive pulmonary disease of severe degree. 2. Alpha-1 antitrypsin deficiency on replacement therapy. 3. Depression. 4. Anxiety. 5. Alcoholism. PAST SURGICAL HISTORY: 1. He has a colon surgery. 2. He has a thoracotomy recently for right pneumothorax and fractured ribs. ALLERGIES: HE IS ALLERGIC TO MORPHINE. PRESENT MEDICATIONS: FanTrail was reviewed. PERSONAL AND SOCIAL HISTORY: The patient is nonsmoker, but he is drinking regularly. FAMILY HISTORY: Significant for cardiovascular diseases. PHYSICAL EXAMINATION: GENERAL: Now, the patient is lying comfortably in bed. He is not in any acute distress. VITAL SIGNS: The blood pressure is 124/82, pulse is 105-110, temperature 97.5, SPO2 is 92% on 4 liters nasal cannula. HEENT: Conjunctivae is pink, sclerae nonicteric. NECK: Supple, no JVD. CHEST: There are bilateral crackles, wheeze on forceful expiration. HEART: Rhythm regular, normal sound, no murmur. ABDOMEN: Soft, bowel sounds present. No hepatosplenomegaly. RECTAL: Deferred. EXTREMITIES: No cyanosis, no clubbing, no pedal edema. SKIN: Warm, normal turgor. CENTRAL NERVOUS SYSTEM: The patient is awake and alert. There is no obvious cranial nerve abnormality. The gait was not tested. CONSULT REPORT [id number] DATA: CBC: WBC 15,000, hemoglobin 13.2, hematocrit 41.9, the platelet count is 331. Chemistry: Sodium 136, potassium is 3, chloride 102, BUN is 11, creatinine 0.6. ABG: The pH is 7.47, pCO2 of 34.7, pO2 of 75, bicarbonate 25.7. Chest radiograph, there is a worsening infiltrate in the left lower lobe. IMPRESSION: 1. Acute exacerbation of severe chronic obstructive pulmonary disease. 2. Pneumonia, left lower lobe most likely consistent with hospital-acquired pneumonia. 3. Leukocytosis secondary to pneumonia. 4. Fracture of right rib. 5. Hypokalemia. 6. Alpha-1 antitrypsin deficiency. 7. Alcoholism. RECOMMENDATION: 1. Continue vancomycin and cefepime. I will start him on Levaquin. 2. Prednisone p.o., albuterol, ipratropium nebulizer, Brovana, budesonide nebulizer. 3. Supplemental oxygen. 4. Acapella q.2 hourly when awake. 5. Follow labs and chest radiograph. Dr. Brothers, once again thanks for involving me in the care of Mr. Mejia. TRANSINT:[id number] Voice Confirmation ID: [id number] DOCUMENT ID: [id number] BRYON INMAN MD CC: ABBI CHRISTIANSON MD [id number] DICTATION DATE: 07/10/16 1541 AGRICULTURAL SERVICES DIRECTOR: 07/10/16 2348 ADM IN [facility] [address] [place] [address]
[~2016-07-09 13:31] MED LIST changes: +PREDNISONE10 MG PO
[2016-07-09 14:13] LABS: BASOPHILS 0.5 % (0-2); EOSINOPHILS 4.3 % (0-7); HEMATOCRIT 41.9 % (42.0-54.0); HEMOGLOBIN 13.2 g/dL (13.5-17.5); IMMATURE GRANULOCYTES 1.9 % (0-5); LYMPHOCYTES 10.2 % (15-50); MCH 26.3 pg (26.0-34.0); MCHC 31.5 g/dL (31.0-37.0); MCV 83.5 fL (80.0-100.0); MEAN PLATELET VOLUME 10.2 fL (7.4-10.4); MONOCYTES 9.1 % (2-11); RBC 5.02 10x6/uL (4.20-6.10); RDW 15.3 % (11.5-14.5)
[2016-07-09 14:16] LABS: PLATELET COUNT 331 10x3/uL (130-400)
[2016-07-09 14:37] LABS: ALBUMIN 2.7 g/dL (3.4-5.0); ALKALINE PHOSPHATASE 130 U/L (46-116); ALT (SGPT) 28 U/L (10-68); CALC OSMOLALITY 280 mosm/kg (275-300); CARBON DIOXIDE 29.2 mmol/L (21.0-32.0); CHLORIDE - SERUM 104 mmol/L (98-107); CREATININE - SERUM 0.7 mg/dL (0.6-1.3); GLUCOSE 111 mg/dL (74-106); POTASSIUM - SERUM 3.6 mmol/L (3.5-5.1); PROTEIN - SERUM 6.7 g/dL (6.4-8.2); SODIUM 141 mmol/L (136-145); UREA NITROGEN 11 mg/dL (7-18); eGFR NON AFRICAN AMERICAN > 90 mL/min (90-120)
[2016-07-09 14:38] LABS: CALCIUM 9.3 mg/dL (8.5-10.1)
--- NOTE | 2016-07-09 16:45 | NUR ---
SPOKE WITH KARINA, CABINET AND TRIM INSTALLER REGARDING ORDER FOR TELEMETRY. SHE STATED, "WE ONLY HAVE SO MANY SCREENS AVAILABLE AND WE DON'T JUST GIVE OUT A MONITOR FOR PNEUMONIA."
--- NOTE | 2016-07-09 17:01 | NUR ---
RECEIVED TO ROOM 2225 AT THIS TIME FROM ER VIA WHEELCHAIR. LEFT CHEST PORT ACCESSED IN ER AND DRESSING DATED. ASSESSMENT AND HISTORY COMPLETED PER FLOWSHEET. CALL LIGHT IN REACH. WILL CONTINUE WITH PLAN OF CARE.
[2016-07-09] MEDS ORDERED: VALIUM10 MG PO (17:04)
[2016-07-09 17:07] VITALS: BP 129/85
[2016-07-09 17:14] VITALS: BP 129/85; BMI 22.4
--- NOTE | 2016-07-09 19:31 | NUR ---
PATIENT REQUESTED AMBIEN WITH HIS NIGHT MEDS. PATIENT DENIES OTHER NEEDS AT THIS TIME. BED IN LOWEST POSITION AND CALL LIGHT WITHIN REACH. ENCOURAGED PATIENT TO CALL IF HE HAS OTHER NEEDS.
[2016-07-09 20:00] VITALS: BP 120/77
[2016-07-10 04:00] VITALS: BP 107/63
[2016-07-10 06:20] LABS: BASOPHILS 0.7 % (0-2); EOSINOPHILS 4.5 % (0-7); HEMATOCRIT 36.2 % (42.0-54.0); HEMOGLOBIN 11.6 g/dL (13.5-17.5); IMMATURE GRANULOCYTES 2.9 % (0-5); LYMPHOCYTES 9.1 % (15-50); MCH 26.4 pg (26.0-34.0); MCV 82.5 fL (80.0-100.0); MONOCYTES 7.4 % (2-11); NEUTROPHILS 75.4 % (40-80); PLATELET COUNT 309 10x3/uL (130-400); RBC 4.39 10x6/uL (4.20-6.10); RDW 14.9 % (11.5-14.5); WBC 12.6 10x3/uL (4.8-10.8)
[2016-07-10 06:40] LABS: ALBUMIN 2.2 g/dL (3.4-5.0); ALKALINE PHOSPHATASE 107 U/L (46-116); ALT (SGPT) 21 U/L (10-68); CALC OSMOLALITY 270 mosm/kg (275-300); CALCIUM 7.8 mg/dL (8.5-10.1); CARBON DIOXIDE 25.6 mmol/L (21.0-32.0); CHLORIDE - SERUM 102 mmol/L (98-107); CREATININE - SERUM 0.6 mg/dL (0.6-1.3); GLUCOSE 98 mg/dL (74-106); PROTEIN - SERUM 5.8 g/dL (6.4-8.2); SODIUM 136 mmol/L (136-145); UREA NITROGEN 11 mg/dL (7-18); eGFR NON AFRICAN AMERICAN > 90 mL/min (90-120)
[2016-07-10 08:25] VITALS: BP 118/75
--- NOTE | 2016-07-10 09:04 | NUR ---
SCHEDULED MEDICATIONS ADMINISTERED AT THIS TIME WITHOUT DIFFICULTY. IN BED AT THIS TIME WITH RESPIRATIONS SHALLOW AND NON LABORED. OXYGEN ON 4L VIA NC WITH. CALL LIGHT IN REACH AND BED ALARM ON. WILL CONTINUE WITH PLAN OF CARE.
[2016-07-10 12:45] VITALS: BP 124/82
--- NOTE | 2016-07-10 13:05 | NUR ---
PRN VALIUM ADMINISTERED AT THIS TIME. CALL LIGHT IN REACH, WILL CONTINUE WITH PLAN OF CARE.
[2016-07-10 14:05] VITALS: Ht 182.9 cm; Wt 74.8 kg
--- NOTE | 2016-07-10 14:07 | NUR ---
SCHEDULED MEDICATIONS ADMINISTERED AT THIS TIME. DENIES FURTHER NEEDS AT THIS TIME. WILL CONTINUE WITH PLAN OF CARE. CALL LIGHT IN REACH.
--- NOTE | 2016-07-10 14:28 | NUR ---
Patient Name: JOSEPH MEJIA Admission Status: ER Accout number: [id number] Admission Date: 07-09-2016 : 1955 Admission Diagnosis: Attending: [facility] Current LOS: 1 Anticipated DC Date: 07-20-2016 Planned Disposition: Retirement Facility Primary Insurance: MEDICAID [place] Discharge Planning Comments: CM SPOKE WITH PATIENT REGARDING D/C NEEDS AND PLANS. PATIENT STATED HE LIVES WITH HIS COUSIN DAISY AVILA. PATIENT HAS NO STEPS OR STAIRS AT HIS HOME. PATIENT STATED HE IS INDEPENDENT WITH HIS CARE AND HAS OXYGEN 4L-24/7, NEBULIZER, WALKER, AND PORTABLE O2. OXYGEN IS SUPPLIE BY [employer]. PATIENTS PCP IS DR. OWENS AND PHARMACY IS [facility]. PATIENT STATED HE WILL CONSIDER SENIOR CARE CARE AND SIGNED THE [facility] FORM FOR THE [facility], OR [facility]. REFERRAL HAS BEEN SENT. CM WILL CONTINUE TO FOLLOW PATIENT WITH D/C NEEDS AND PLANS. PCP DR. OWENS [facility]- [phone] DAISY BAGLEYONDERS ([facility]OUS[facility]) [phone] Atomic Welder: Faviola Chung Is the patient Alert and Oriented? Yes 0 * How many steps to enter\exit or inside your home? 0 0 * PCP DR. OWENS 0 * Pharmacy [facility] 0 * Preadmission Environment Home with Family 0 * ADLs Independent 0 * Equipment Nebulizer Oxygen Walker 0 * Other Equipment PORTABLE O2 0 * List name and contact numbers for known caregivers / representatives who currently or will assist patient after discharge: DAISY AVILA ([facility]) [phone] * Community resources currently utilized None 0 * Additional services required to return to the preadmission environment? Yes 0 * Can the patient safely return to the preadmission environment? Yes 0 * Has this patient been hospitalized within the prior 30 days at any hospital? Yes 0 Grand Total: 0
[2016-07-10 16:41] VITALS: BP 115/79
[2016-07-10 19:00] VITALS: BP 129/73
[2016-07-11 04:00] VITALS: BP 132/90
[2016-07-11 05:05] LABS: BASOPHILS 0.3 % (0-2); HEMATOCRIT 33.2 % (42.0-54.0); HEMOGLOBIN 10.7 g/dL (13.5-17.5); IMMATURE GRANULOCYTES 3.9 % (0-5); MCH 26.4 pg (26.0-34.0); MCHC 32.2 g/dL (31.0-37.0); MCV 81.8 fL (80.0-100.0); MEAN PLATELET VOLUME 10.3 fL (7.4-10.4); NEUTROPHILS 69.8 % (40-80); PLATELET COUNT 304 10x3/uL (130-400); RBC 4.06 10x6/uL (4.20-6.10); RDW 14.7 % (11.5-14.5); WBC 9.7 10x3/uL (4.8-10.8)
[2016-07-11 05:29] LABS: ALBUMIN 2.3 g/dL (3.4-5.0); ALKALINE PHOSPHATASE 105 U/L (46-116); ALT (SGPT) 22 U/L (10-68); BILIRUBIN - TOTAL 0.57 mg/dL (0.2-1.3); CALC OSMOLALITY 272 mosm/kg (275-300); CALCIUM 8.1 mg/dL (8.5-10.1); CHLORIDE - SERUM 104 mmol/L (98-107); CREATININE - SERUM 0.6 mg/dL (0.6-1.3); GLUCOSE 88 mg/dL (74-106); POTASSIUM - SERUM 3.4 mmol/L (3.5-5.1); SODIUM 138 mmol/L (136-145); VANCOMYCIN - TROUGH 10.8 ug/mL (10.0-20.0); eGFR NON AFRICAN AMERICAN > 90 mL/min (90-120)
[2016-07-11 05:36] LABS: UREA NITROGEN 6 mg/dL (7-18)
--- NOTE | 2016-07-11 07:30 | NUR ---
ASSISTED PT TO RESTROOM AT THIS TIME. TELEMTRY ELECTRODES FIXED AND APPLIED NEW PADS. PT VOIDING WITHOUT DIFFICULTY. PT BACK TO BED. SRX1 WITH BED IN LOWEST POSITION AND WHEELS LOCKED. BED ALARM ON. WILL CONTINUE WITH PLAN OF CARE.
[2016-07-11 08:04] VITALS: BP 149/85
--- NOTE | 2016-07-11 10:13 | NUR ---
SCHEDULED MEDICATIONS ADMINISTERED AT THIS TIME. PT UP IN CHAIR PER PHYSICAL THERAPY. PROVIDED PT WITH HONEY THICKENED WATER. DENIES FURTHER NEEDS AT PRESENT TIME. WILL MAT ALARM IN USE AND CALL LIGHT IN REACH. WILL CONTINUE WITH PLAN OF CARE.
[2016-07-11 12:01] VITALS: BP 125/83
--- NOTE | 2016-07-11 12:20 | NUR ---
LEFT CHEST PORT DRESSING CHANGED IN STERILE FASHION. PATIENT REFUSED FOR BLANDON NEEDLE TO BE REPLACED. PT TOLERATED WITHOUT COMPLAINTS. DRESSING DATED WITH APPROPRIATE DATE. DENIES NEEDS AT THIS TIME. WILL CONTINUE WITH PLAN OF CARE.
[2016-07-11 15:35] VITALS: BP 130/90
--- NOTE | 2016-07-11 16:20 | NUR ---
PRN VALIUM AND TYLENOL ADMINISTERED AT THIS TIME PER ORDER. DENIES FURTHER NEEDS. WILL CONTINUE WITH PLAN OF CARE.
[2016-07-11 20:00] VITALS: BP 123/84
--- NOTE | 2016-07-11 20:12 | NUR ---
PATIENT IS RESTING IN BED WITH NO VISBLE SIGNS OF DISTRESS. PATIENT REQUESTED AMBIEN WITH HIS NIGHT MEDS. BED IN LOWEST POSITION, CALL LIGHT WITHIN REACH, AND BED ALARM ON. ENCOURAGED THE PATIENT TO CALL IF HE HAS FURTHER NEEDS.
[2016-07-12] VITALS: BP 130/86
[2016-07-12 04:00] VITALS: BP 130/89
[2016-07-12 05:40] LABS: BASOPHILS 0.4 % (0-2); EOSINOPHILS 3.1 % (0-7); HEMATOCRIT 35.2 % (42.0-54.0); HEMOGLOBIN 11.3 g/dL (13.5-17.5); IMMATURE GRANULOCYTES 5.2 % (0-5); LYMPHOCYTES 14.3 % (15-50); MCH 26.3 pg (26.0-34.0); MCHC 32.1 g/dL (31.0-37.0); MCV 82.1 fL (80.0-100.0); MEAN PLATELET VOLUME 9.6 fL (7.4-10.4); MONOCYTES 11.2 % (2-11); NEUTROPHILS 65.8 % (40-80); PLATELET COUNT 345 10x3/uL (130-400); RBC 4.29 10x6/uL (4.20-6.10); WBC 10.7 10x3/uL (4.8-10.8)
[2016-07-12 06:27] LABS: ALBUMIN 2.6 g/dL (3.4-5.0); ALKALINE PHOSPHATASE 105 U/L (46-116); BILIRUBIN - TOTAL 0.59 mg/dL (0.2-1.3); CALC OSMOLALITY 270 mosm/kg (275-300); CALCIUM 8.4 mg/dL (8.5-10.1); CARBON DIOXIDE 28.4 mmol/L (21.0-32.0); CHLORIDE - SERUM 103 mmol/L (98-107); GLUCOSE 96 mg/dL (74-106); POTASSIUM - SERUM 3.5 mmol/L (3.5-5.1); PROTEIN - SERUM 6.4 g/dL (6.4-8.2); SODIUM 137 mmol/L (136-145); UREA NITROGEN 5 mg/dL (7-18)
[2016-07-12 06:32] LABS: ALT (SGPT) 28 U/L (10-68); CREATININE - SERUM 0.8 mg/dL (0.6-1.3); eGFR NON AFRICAN AMERICAN > 90 mL/min (90-120)
--- NOTE | 2016-07-12 07:30 | NUR ---
PATIENT RECEIVED ALERT IN MID HARRIS POSITION. RESPIRATIONS EVEN AND UNLABORED. SIDE RAILS UP X2. BED IN LOW HARRIS POSITION. CALL LIGHT IN REACH. DENIES NEEDS.
[2016-07-12 07:58] VITALS: BP 125/86
--- NOTE | 2016-07-12 08:50 | NUR ---
PATIENT ALERT IN BED. RESPIRATIONS EVEN AND UNLABORED. SCHEDULED MEDICATION ADMINISTERED. DENIES NEED. SIDE RAILS UP X2. BED IN LOW POSITION. CALL LIGHT IN REACH.
--- NOTE | 2016-07-12 10:30 | NUR ---
ALERT IN BED. SCD ON BILATERALLY. DENIES NEEDS. SIDE RAILS UP X2. BED IN LOW POSITION. CALL LIGHT IN REACH.
[2016-07-12 12:34] VITALS: BP 126/86
[2016-07-12 14:38] LABS: VANCOMYCIN - TROUGH 12.1 ug/mL (10.0-20.0)
[2016-07-12 14:39] LABS: POTASSIUM - SERUM 4.6 mmol/L (3.5-5.1)
[2016-07-12 16:03] VITALS: BP 125/75
--- NOTE | 2016-07-12 16:08 | NUR ---
PATIENT ALERT IN BED WATCHING TV. RESPIRATIONS EVEN AND UNLABORED. SCHEDULED IV ABX INITIATED. VALIUM ADMINISTERED PER PRN ORDER PER PATIENT REQUEST. NO FURTHER NEEDS VOICED. SIDE RAILS UP X2. BED IN LOW POSITION. CALL LIGHT IN REACH.
--- NOTE | 2016-07-12 19:00 | NUR ---
BEDSIDE REPORT RECEIVED AND CARE OF PT ASSUMED. PT LYING IN SEMI HARRIS'S POSITION WATCHING TV. LEFT IP ACCESSED WITH BANANA BAG INFUSING AT 30 ML / HR; AND NS INFUSING AT 10 ML / HR. TELEMETRY IN USE AND READING 92 SR AT THIS ASSESSMENT. WILL MONITOR AMADEOLEY FOR NEEDS.
[2016-07-12 20:00] VITALS: BP 133/76
--- NOTE | 2016-07-12 21:13 | NUR ---
HS MEDICATIONS GIVEN TO INCLUDE AMBIEN PER REQUEST, PER PRN ORDER. WILL CONTINUE TO MONITOR FOR NEEDS. CALL LIGHT WITHIN REACH.
--- NOTE | 2016-07-12 22:19 | NUR ---
GAVE TYLENOL PO PER REQUEST FOR HEADACHE. WILL MONITOR FOR EFFECTIVENESS.
--- NOTE | 2016-07-13 00:14 | NUR ---
PT RESTING QUIETLY ON RIGHT SIDE WITH UNLABORED BREATHING. CALL LIGHT WITHIN REACH.
[2016-07-13 04:00] VITALS: BP 127/55
[2016-07-13 06:02] LABS: BASOPHILS 0.8 % (0-2); EOSINOPHILS 4.1 % (0-7); HEMATOCRIT 35.9 % (42.0-54.0); HEMOGLOBIN 11.4 g/dL (13.5-17.5); LYMPHOCYTES 17.4 % (15-50); MCH 26.1 pg (26.0-34.0); MCHC 31.8 g/dL (31.0-37.0); MCV 82.2 fL (80.0-100.0); MEAN PLATELET VOLUME 9.9 fL (7.4-10.4); MONOCYTES 8.9 % (2-11); NEUTROPHILS 59.8 % (40-80); PLATELET COUNT 321 10x3/uL (130-400); RBC 4.37 10x6/uL (4.20-6.10); RDW 15.1 % (11.5-14.5); WBC 10.4 10x3/uL (4.8-10.8)
[2016-07-13 06:18] LABS: ALBUMIN 2.6 g/dL (3.4-5.0); ALKALINE PHOSPHATASE 110 U/L (46-116); BILIRUBIN - TOTAL 0.51 mg/dL (0.2-1.3); CALC OSMOLALITY 274 mosm/kg (275-300); CALCIUM 8.4 mg/dL (8.5-10.1); CARBON DIOXIDE 29.4 mmol/L (21.0-32.0); CHLORIDE - SERUM 103 mmol/L (98-107); CREATININE - SERUM 0.7 mg/dL (0.6-1.3); GLUCOSE 97 mg/dL (74-106); SODIUM 139 mmol/L (136-145); UREA NITROGEN 5 mg/dL (7-18); eGFR NON AFRICAN AMERICAN > 90 mL/min (90-120)
[2016-07-13 06:22] LABS: ALT (SGPT) 36 U/L (10-68); POTASSIUM - SERUM 3.6 mmol/L (3.5-5.1)
--- NOTE | 2016-07-13 07:25 | NUR ---
PATIENT RECEIVED ALERT IN MID HARRIS POSITION. RESPIRATIONS EVEN AND UNLABORED. DENIES NEEDS. SIDE RAILS UP X2 .BED IN LOW POSITION. CALL LIGHT IN REACH.
[2016-07-13 07:50] VITALS: BP 125/83
--- NOTE | 2016-07-13 07:54 | NUR ---
PATIENT ALERT IN BED REQUESTING VALIUM. SCHEDULED MEDICATION ADMINISTERED WELL PRN VALIUM AND TYLENOL. WANTS TO GO HOME. DENIES NEEDS. SIDE RAILS UP X2. BED IN LOW POSITION. CALL LIGHT IN REACH.
--- NOTE | 2016-07-13 10:50 | NUR ---
IN BED RESTING WITH EYES CLOSED. RESPIRATIONS EVEN AND UNLABORED. WAKES EASY. SCHEDULED MEDICATION ADMINISTERED. DENIES NEEDS. SIDE RAILS UP X2. BED IN LOW POSITION. CALL LIGHT IN REACH.
[2016-07-13 12:10] VITALS: BP 123/84
--- NOTE | 2016-07-13 13:58 | NUR ---
NUTRITION MONITORING & EVAL PT VISIT. COMPLAINS ~ PUREED DIET WITH HONEY THICK LIQUIDS. NO INTAKE BREAKFAST, REFUSED LUNCH. WILL CONTINUE TO PROVIDE CURRENT DIET. MONITOR PO INTAKE. RD FOLLOWING
--- NOTE | 2016-07-13 14:30 | NUR ---
PATIENT ALERT IN BED. NO SIGNS OF DISTRESS NOTED. ORDERED LAB DRAWN FROM INFUSAPORT. FLUSHES EASY WITH BRISK BLOOD RETURN PRESENT. PATIENT REQUESTING VALIUM. EXPLAINED TO PATIENT IT WAS ONLY ORDERED FOR TWICE A DAY NEEDED AND THAT HE HAS ALREADY HAS 2 DOSES TODAY. SIDE RAILS UP X2. BED IN LOW POSITION. CALL LIGHT IN REACH.
[2016-07-13 15:40] VITALS: BP 114/75
--- NOTE | 2016-07-13 17:20 | NUR ---
ALERT IN BED. SCHEDULED MEDICATION ADMINISTERED. ENSURE PROVIDED PER REQUEST. NO FURTHER NEEDS. SIDE RAILS UP X2. BED IN LOW POSITION. CALL LIGHT IN REACH.
[2016-07-13 20:00] VITALS: BP 121/85
--- NOTE | 2016-07-13 23:00 | NUR ---
PATIENT RESING IN BED WITH EYES CLOSED AND NO VISIBLE SIGNS OF DISTRESS. BED IN LOWEST POSITION AND CALL LIGHT WITHIN REACH.
[2016-07-14] VITALS: BP 132/47
--- NOTE | 2016-07-14 00:21 | NUR ---
PATIENT SLEEPING COMFORTABLY. NO NEEDS NOTED AT THIS TIME. IV INFUSING IN PORT.
--- NOTE | 2016-07-14 00:26 | NUR ---
PATIENT REFUSED MIDNIGHT AT 0400 VITALS
[2016-07-14 04:00] VITALS: BP 124/71
[2016-07-14 05:15] LABS: BASOPHILS 0.8 % (0-2); EOSINOPHILS 3.1 % (0-7); HEMATOCRIT 37.2 % (42.0-54.0); HEMOGLOBIN 11.7 g/dL (13.5-17.5); LYMPHOCYTES 14.1 % (15-50); MCH 25.8 pg (26.0-34.0); MCHC 31.5 g/dL (31.0-37.0); MCV 82.1 fL (80.0-100.0); MEAN PLATELET VOLUME 9.5 fL (7.4-10.4); MONOCYTES 8.9 % (2-11); NEUTROPHILS 62.1 % (40-80); PLATELET COUNT 319 10x3/uL (130-400); RBC 4.53 10x6/uL (4.20-6.10); RDW 14.9 % (11.5-14.5); WBC 12.6 10x3/uL (4.8-10.8)
[2016-07-14 05:31] LABS: ALBUMIN 2.5 g/dL (3.4-5.0); ALKALINE PHOSPHATASE 110 U/L (46-116); ALT (SGPT) 40 U/L (10-68); CALC OSMOLALITY 273 mosm/kg (275-300); CALCIUM 8.5 mg/dL (8.5-10.1); CARBON DIOXIDE 28.8 mmol/L (21.0-32.0); CHLORIDE - SERUM 101 mmol/L (98-107); CREATININE - SERUM 0.7 mg/dL (0.6-1.3); GLUCOSE 103 mg/dL (74-106); POTASSIUM - SERUM 3.3 mmol/L (3.5-5.1); PROTEIN - SERUM 6.1 g/dL (6.4-8.2); SODIUM 138 mmol/L (136-145); UREA NITROGEN 7 mg/dL (7-18); eGFR NON AFRICAN AMERICAN > 90 mL/min (90-120)
--- NOTE | 2016-07-14 07:10 | NUR ---
REPORT RECEIVED FROM LOOM DOFFER NURSE. CALL LIGHT IN REACH.
[2016-07-14 09:55] VITALS: BP 131/81
--- NOTE | 2016-07-14 09:59 | NUR ---
ASSESSMENT COMPLETED. AM MEDS ADMINISTERED. VALIUM PO. REFUSES SCDs. CALL LIGHT IN REACH. WILL CONTINUE WITH PLAN OF CARE.
--- NOTE | 2016-07-14 11:00 | NUR ---
NO NEEDS VOICED AT THIS TIME. CALL LIGHT IN REACH.
[2016-07-14 12:31] VITALS: BP 122/79
--- NOTE | 2016-07-14 12:54 | NUR ---
C/O NAUSEA. ZOFRAN 4 MG SIVP. CALL LIGHT IN REACH.
--- NOTE | 2016-07-14 13:51 | NUR ---
VANCOMYCIN IVPB. DENIES NEEDS AT THIS TIME. CALL LIGHT IN REACH.
[2016-07-14] MEDS ORDERED: LEVAQUIN750 MG PO (14:30)
--- NOTE | 2016-07-14 14:46 | NUR ---
PT AOX4 RESP EVEN AND NONLABORED. PT HERE FOR PNEUMONIA, AND EMPHYSEMA FOR THIS VISIT. PT DENIES NEEDS AT THIS TIME IV TO LEFT CHEST WALL PORT PATENT AND INTACT.SRX2 CALL LIGHT WITHIN REACH WILL CONTINUE TO MONITOR BED AT LOWEST SETTING
--- NOTE | 2016-07-14 16:14 | NUR ---
EMILIANA LAIRD AND SABINA GOODSON PO. DC ORDER OBTAINED FROM DR. DE DIOS.
--- NOTE | 2016-07-14 17:46 | NUR ---
DC INSTRUCTIONS EXPLAINED TO PATIENT. VERBALIZED UNDERSTANDING. RX FOR LEVAQUIN HANDED TO PATIENT. BLANDON NEEDLE DC'D WITH TIP INTACT. DC'D TO VEHICLE VIA WC WITH FAMILY.
== END 2016-07-14 17:46 | disposition home or self-care (01) | DRG 190 ==
LOC: D.ER 13:31 → D.MS 16:46
PROVIDERS: Emergency Medicine; Student in an Organized Health Care Education/Training Program; ADMIT Family Medicine Adult Medicine
DX: J44.0 Chronic obstructive pulmonary disease with (acute) lower respiratory infection (principal); J18.9 Pneumonia, unspecified organism; J44.1 Chronic obstructive pulmonary disease with (acute) exacerbation; Y95 Nosocomial condition; E88.01 Alpha-1-antitrypsin deficiency; F10.20 Alcohol dependence, uncomplicated; E87.6 Hypokalemia; Z99.81 Dependence on supplemental oxygen; R13.12 Dysphagia, oropharyngeal phase; R00.0 Tachycardia, unspecified; S22.31XD Fracture of one rib, right side, subsequent encounter for fracture with routine healing; W19.XXXD Unspecified fall, subsequent encounter

== ENCOUNTER 2016-08-14 18:54 | Emergency (ER) | payer MEDICAID ==
[2016-07-10 14:05] VITALS: BMI 22.3
[2016-08-14 20:07] LABS: BASOPHILS 1.4 % (0-2); HEMATOCRIT 39.7 % (42.0-54.0); HEMOGLOBIN 12.6 g/dL (13.5-17.5); IMMATURE GRANULOCYTES 2.4 % (0-5); LYMPHOCYTES 42.2 % (15-50); MCH 25.7 pg (26.0-34.0); MCHC 31.7 g/dL (31.0-37.0); MEAN PLATELET VOLUME 9.4 fL (7.4-10.4); MONOCYTES 9.4 % (2-11); NEUTROPHILS 39.6 % (40-80); RDW 15.8 % (11.5-14.5); WBC 7.1 10x3/uL (4.8-10.8)
[2016-08-14 20:09] LABS: PLATELET COUNT 159 10x3/uL (130-400)
[2016-08-14 20:15] LABS: INR 1.01 (0.85-1.17); PROTIME 13.2 SECONDS (11.6-15.0)
[2016-08-14 20:24] LABS: ALBUMIN 3.3 g/dL (3.4-5.0); ALKALINE PHOSPHATASE 161 U/L (46-116); ALT (SGPT) 39 U/L (10-68); BILIRUBIN - TOTAL 0.33 mg/dL (0.2-1.3); CALC OSMOLALITY 289 mosm/kg (275-300); CALCIUM 8.2 mg/dL (8.5-10.1); CARBON DIOXIDE 25.3 mmol/L (21.0-32.0); CHLORIDE - SERUM 110 mmol/L (98-107); CREATININE - SERUM 0.7 mg/dL (0.6-1.3); GLUCOSE 120 mg/dL (74-106); MAGNESIUM - SERUM 1.8 mg/dL (1.8-2.4); POTASSIUM - SERUM 3.7 mmol/L (3.5-5.1); SODIUM 146 mmol/L (136-145); UREA NITROGEN 6 mg/dL (7-18); eGFR NON AFRICAN AMERICAN > 90 mL/min (90-120)
== END 2016-08-14 23:11 | disposition home or self-care (01) ==
LOC: D.ER 18:54
PROVIDERS: Nurse Practitioner Family
DX: J44.1 Chronic obstructive pulmonary disease with (acute) exacerbation (principal); J18.9 Pneumonia, unspecified organism

== ENCOUNTER 2016-08-24 23:24 | Inpatient (IN) | payer MEDICAID ==
[~2016-08-24] VITALS: Ht 182.9 cm; Wt 77.9 kg
[2016-08-25 03:16] LABS: BASOPHILS 0.9 % (0-2); EOSINOPHILS 6.8 % (0-7); HEMATOCRIT 37.9 % (42.0-54.0); HEMOGLOBIN 11.9 g/dL (13.5-17.5); IMMATURE GRANULOCYTES 1.1 % (0-5); LYMPHOCYTES 41.5 % (15-50); MCH 25.6 pg (26.0-34.0); MCHC 31.4 g/dL (31.0-37.0); MCV 81.7 fL (80.0-100.0); MEAN PLATELET VOLUME 8.9 fL (7.4-10.4); MONOCYTES 13.8 % (2-11); NEUTROPHILS 35.9 % (40-80); PLATELET COUNT 152 10x3/uL (130-400); RBC 4.64 10x6/uL (4.20-6.10); RDW 16.7 % (11.5-14.5); WBC 4.6 10x3/uL (4.8-10.8)
[2016-08-25 03:27] LABS: CALC OSMOLALITY 294 mosm/kg (275-300); CALCIUM 9.1 mg/dL (8.5-10.1); CARBON DIOXIDE 27.1 mmol/L (21.0-32.0); CHLORIDE - SERUM 109 mmol/L (98-107); CREATININE - SERUM 0.7 mg/dL (0.6-1.3); GLUCOSE 94 mg/dL (74-106); POTASSIUM - SERUM 3.4 mmol/L (3.5-5.1); SODIUM 149 mmol/L (136-145); UREA NITROGEN 9 mg/dL (7-18); eGFR NON AFRICAN AMERICAN > 90 mL/min (90-120)
[2016-08-25 05:51] VITALS: BP 132/85; BMI 22.7
--- NOTE | 2016-08-25 07:38 | NUR ---
ASSISTED TO BATHROOM, GAIT STEADY. PATIENT STATES THAT HE WAS TOLD HE HAD SOME RIB FRACTURES AND FRACTURES TO BACK. ON 4L PER NC, BILATERAL WHHEZES HEARD. LEFT PORT SEEN WITH SALINE LOCK. NO DATE TO DRESSING. BILATERAL SCD'S REPLACED ON PATIENT. PATIENT GETS VERY SHORT OF BREATH WITH EXERCTION. INST. TO USE CALL LIGHT FOR ALL NEEDS. REPORTS TO UNDERSTANDING.
[2016-08-25 07:54] VITALS: BP 100/870
[2016-08-25 11:44] VITALS: BP 121/80
[2016-08-25 16:00] VITALS: BP 123/86
--- NOTE | 2016-08-25 16:42 | NUR ---
BILATERAL SCD'S PLACED BACK ON PATIENT. BANANA BAG INFUSING TO LEFT IP AT 30 CC/HR ORDERED.
--- NOTE | 2016-08-25 19:15 | NUR ---
ALERT/ORIENTED X 4. HAS 02 AT 4L/NC. RR 20 EVEN U/L. LEFT CHEST IP WITH BANANA BAG INFUSING AT 30ML/HR. DENIES PAIN OR ANY NEEDS. SCD'S ARE ON. BED IS LOW WITH SR UP X2. CALL LIGHT AND BEDSIDE TABLE WITH PERSONAL ITEMS IN REACH.
[2016-08-25 21:00] VITALS: BP 122/90
--- NOTE | 2016-08-25 22:15 | NUR ---
REQUESTED SCD'S OFF AND TO BE UNHOOKED FROM IV TO GO TO BR.
[2016-08-26 04:00] VITALS: BP 117/82
[2016-08-26 06:08] LABS: BASOPHILS 0.5 % (0-2); EOSINOPHILS 8.5 % (0-7); HEMATOCRIT 35.2 % (42.0-54.0); HEMOGLOBIN 10.9 g/dL (13.5-17.5); IMMATURE GRANULOCYTES 0.7 % (0-5); MCH 25.4 pg (26.0-34.0); MCV 82.1 fL (80.0-100.0); MEAN PLATELET VOLUME 9.9 fL (7.4-10.4); MONOCYTES 18.6 % (2-11); NEUTROPHILS 43.7 % (40-80); PLATELET COUNT 127 10x3/uL (130-400); RBC 4.29 10x6/uL (4.20-6.10); WBC 4.4 10x3/uL (4.8-10.8)
--- NOTE | 2016-08-26 06:30 | NUR ---
REC LYLE TX. REQUESTED WATER MUG REFILLED. NO OTHER NEEDS VOICED.
[2016-08-26 06:34] LABS: ALBUMIN 2.7 g/dL (3.4-5.0); ALKALINE PHOSPHATASE 110 U/L (46-116); ALT (SGPT) 27 U/L (10-68); BILIRUBIN - TOTAL 0.42 mg/dL (0.2-1.3); CALC OSMOLALITY 284 mosm/kg (275-300); CALCIUM 7.9 mg/dL (8.5-10.1); CARBON DIOXIDE 30.6 mmol/L (21.0-32.0); CHLORIDE - SERUM 108 mmol/L (98-107); CREATININE - SERUM 0.7 mg/dL (0.6-1.3); GLUCOSE 104 mg/dL (74-106); POTASSIUM - SERUM 3.4 mmol/L (3.5-5.1); PROTEIN - SERUM 5.9 g/dL (6.4-8.2); SODIUM 144 mmol/L (136-145); UREA NITROGEN 7 mg/dL (7-18); eGFR NON AFRICAN AMERICAN > 90 mL/min (90-120)
--- NOTE | 2016-08-26 07:25 | NUR ---
ADMIN POTASSIUM 40 MEQ PO IN APPLEJUICE FOR LAB VALUE 3.4. PLACED LAB ORDER TO RECHECK AT 11:30.
[2016-08-26 07:46] LABS: MAGNESIUM - SERUM 1.8 mg/dL (1.8-2.4); PHOSPHOROUS 3.5 mg/dL (2.5-4.9)
--- NOTE | 2016-08-26 07:51 | NUR ---
0720-ROUNDING DONE WITH PATIENT STANDING AT SIDE OF BED TO VOID IN URINAL, URINE THIS AM IS CLEAR YELLOW. BILATEAL SCD'S ON. LEFT IP WITH BANANA BAG INFUSING AT 33 CC/HR. ON EP, POTASSIUM IS DOWN, COVERED WITH SUPPLEMENT. ON 4L PER NC, COUGHING UP WHITISH SECREATIONS, HE REPORTS THIS IS NORMAL. WILL MONITOR.
[2016-08-26 08:00] VITALS: BP 127/82
--- NOTE | 2016-08-26 09:17 | NUR ---
STOOL SENT TO LAB ORDERED.
--- NOTE | 2016-08-26 11:20 | NUR ---
RE-CHECK OF POTASSIUM LEVEL WITH RESULT OF 3.9
[2016-08-26 11:45] VITALS: BP 113/79
[2016-08-26 15:56] VITALS: BP 118/86
--- NOTE | 2016-08-26 18:23 | NUR ---
PATIENT HAS BEEN COUGHING MORE THIS AFTERNOON. DENIES NEEDS AT PRESENT TIME. WILL MONITOR.
--- NOTE | 2016-08-26 19:28 | NUR ---
ALERT/AWAKE WATCHING TV. DENIES PAIN OR ANY NEEDS. HAS OXYGEN AT 4L/NC. L CHEST IP WITH BANANA BAG INFUSING AT 30ML/HR. ON AT 4L/NC. HAS SCD'S ON. CALL LIGHT IN REACH.
--- NOTE | 2016-08-26 21:05 | NUR ---
ADMIN SCHED MEDS AND TRAMADOL FOR C/O PAIN IN NECK/SHOULDER. APPLIED A HEAT PACK I MADE AND MASSAGE FOR A FEW MINUTES. STATED HE FELT MUCH BETTER.
[2016-08-26 21:30] VITALS: BP 123/88
[2016-08-27 00:55] VITALS: BP 125/84
[2016-08-27 05:40] LABS: BASOPHILS 0.5 % (0-2); EOSINOPHILS 7.7 % (0-7); HEMATOCRIT 36.4 % (42.0-54.0); HEMOGLOBIN 11.4 g/dL (13.5-17.5); IMMATURE GRANULOCYTES 1.4 % (0-5); LYMPHOCYTES 29.6 % (15-50); MCHC 31.3 g/dL (31.0-37.0); MCV 82.9 fL (80.0-100.0); MONOCYTES 15.5 % (2-11); NEUTROPHILS 45.3 % (40-80); PLATELET COUNT 147 10x3/uL (130-400); RBC 4.39 10x6/uL (4.20-6.10); RDW 15.8 % (11.5-14.5); WBC 4.3 10x3/uL (4.8-10.8)
[2016-08-27 05:55] VITALS: BP 119/85
[2016-08-27 05:57] LABS: ALBUMIN 2.9 g/dL (3.4-5.0); ALKALINE PHOSPHATASE 121 U/L (46-116); ALT (SGPT) 29 U/L (10-68); CALC OSMOLALITY 277 mosm/kg (275-300); CALCIUM 8.1 mg/dL (8.5-10.1); CARBON DIOXIDE 31.3 mmol/L (21.0-32.0); CHLORIDE - SERUM 107 mmol/L (98-107); CREATININE - SERUM 0.8 mg/dL (0.6-1.3); GLUCOSE 93 mg/dL (74-106); POTASSIUM - SERUM 3.9 mmol/L (3.5-5.1); PROTEIN - SERUM 6.2 g/dL (6.4-8.2); SODIUM 141 mmol/L (136-145); eGFR NON AFRICAN AMERICAN > 90 mL/min (90-120)
[2016-08-27 05:59] LABS: UREA NITROGEN 5 mg/dL (7-18)
[2016-08-27 08:00] VITALS: BP 108/84
[2016-08-27 11:47] VITALS: BP 127/79
[2016-08-27 12:21] VITALS: Ht 182.9 cm; Wt 77.9 kg
[2016-08-27 16:00] VITALS: BP 148/91
[2016-08-27 16:09] LABS: % SATURATION 9 % (15-55); IRON 33 ug/dl (35-150); TOTAL IRON BIND CAPACITY 343 ug/dl (260-445); UNSAT IRON BIND CAPACITY 310 ug/dl (150-375)
[2016-08-27 16:23] LABS: FERRITIN 32 ng/mL (3-244)
--- NOTE | 2016-08-27 19:44 | NUR ---
RECEIVED REPORT, ASKING FOR ME TO BRING, PAIN MEDS AND SLEEP AID WITH 2100 MEDS, BED IS LOW ,SRX2, SCD ARE ON, CALL LIGHT IN REACH, WILL CONTINUE PLAN OF CARE
[2016-08-27 20:16] VITALS: BP 134/90
[2016-08-28 00:15] VITALS: BP 128/89
--- NOTE | 2016-08-28 03:06 | NUR ---
ASSESSMENT COMPLETE, PT DENIES ANY NEEDS, BED IS LOW, SRX2, SCD ARE ON, CALL LIGHT IN REACH, WILL CONTINUE TO MONITOR
[2016-08-28 05:15] VITALS: BP 138/93
[2016-08-28 05:52] LABS: BASOPHILS 0.4 % (0-2); EOSINOPHILS 1.3 % (0-7); HEMATOCRIT 38.5 % (42.0-54.0); HEMOGLOBIN 11.9 g/dL (13.5-17.5); IMMATURE GRANULOCYTES 1.2 % (0-5); LYMPHOCYTES 11.6 % (15-50); MCH 25.5 pg (26.0-34.0); MCHC 30.9 g/dL (31.0-37.0); MCV 82.4 fL (80.0-100.0); MEAN PLATELET VOLUME 10.8 fL (7.4-10.4); MONOCYTES 2.1 % (2-11); NEUTROPHILS 83.4 % (40-80); PLATELET COUNT 165 10x3/uL (130-400); RBC 4.67 10x6/uL (4.20-6.10); RDW 15.7 % (11.5-14.5); WBC 5.2 10x3/uL (4.8-10.8)
[2016-08-28 06:15] LABS: ALBUMIN 3.2 g/dL (3.4-5.0); ALKALINE PHOSPHATASE 138 U/L (46-116); ALT (SGPT) 29 U/L (10-68); BILIRUBIN - TOTAL 0.43 mg/dL (0.2-1.3); CALC OSMOLALITY 281 mosm/kg (275-300); CARBON DIOXIDE 29.7 mmol/L (21.0-32.0); CHLORIDE - SERUM 104 mmol/L (98-107); CREATININE - SERUM 0.8 mg/dL (0.6-1.3); SODIUM 141 mmol/L (136-145); UREA NITROGEN 6 mg/dL (7-18); eGFR NON AFRICAN AMERICAN > 90 mL/min (90-120)
[2016-08-28 06:16] LABS: GLUCOSE 151 mg/dL (74-106)
--- NOTE | 2016-08-28 07:00 | NUR ---
RECEIVED REPORT. ASSUMED CARE OF PATIENT. CALL LIGHT WITHIN REACH. ALERT/ORIENTED. PATIENT STATES HE FEELS OKAY THIS AM. IV FLUIDS INFUSING ORDERED. NO DISTRESS.
[2016-08-28 07:58] VITALS: BP 130/75
--- NOTE | 2016-08-28 08:46 | NUR ---
MEDICATED FOR PAIN AT THIS TIME. NO DISTRESS.
[2016-08-28 17:54] VITALS: BP 118/82
--- NOTE | 2016-08-28 19:30 | NUR ---
RECEIVED REPORT, ASSUMED CARE OF PT, PT RESTING, NO DISTRESS NOTICE, BED IS LOW, SRX2, SCD ARE ON, CALL LIGHT IN REACH, WILL CONTINUE PLAN OF CARE
[2016-08-28 19:55] VITALS: BP 108/747
[2016-08-29 00:48] VITALS: BP 113/78
--- NOTE | 2016-08-29 02:01 | NUR ---
ASSESSMENT COMPLETE, SEE FLOWSHEET, PT HAS BEEN NPO, BED IS LOW, SRX2, CALL LIGHT IN REACH, WILL CONTINUE TO MONITOR
[2016-08-29 05:52] LABS: BASOPHILS 0.1 % (0-2); EOSINOPHILS 0.1 % (0-7); HEMATOCRIT 38.7 % (42.0-54.0); IMMATURE GRANULOCYTES 1.5 % (0-5); LYMPHOCYTES 8.6 % (15-50); MCH 25.4 pg (26.0-34.0); MCV 81.8 fL (80.0-100.0); MEAN PLATELET VOLUME 10.7 fL (7.4-10.4); MONOCYTES 3.8 % (2-11); NEUTROPHILS 85.9 % (40-80); PLATELET COUNT 193 10x3/uL (130-400); RBC 4.73 10x6/uL (4.20-6.10); RDW 16.1 % (11.5-14.5)
[2016-08-29 06:05] LABS: WBC 11.5 10x3/uL (4.8-10.8)
[2016-08-29 06:26] LABS: ALBUMIN 2.9 g/dL (3.4-5.0); ALKALINE PHOSPHATASE 113 U/L (46-116); ALT (SGPT) 23 U/L (10-68); BILIRUBIN - TOTAL 0.32 mg/dL (0.2-1.3); CALCIUM 8.6 mg/dL (8.5-10.1); CARBON DIOXIDE 27.5 mmol/L (21.0-32.0); CHLORIDE - SERUM 103 mmol/L (98-107); CREATININE - SERUM 0.7 mg/dL (0.6-1.3); GLUCOSE 179 mg/dL (74-106); POTASSIUM - SERUM 4.4 mmol/L (3.5-5.1); PROTEIN - SERUM 6.7 g/dL (6.4-8.2); SODIUM 138 mmol/L (136-145); eGFR NON AFRICAN AMERICAN > 90 mL/min (90-120)
[2016-08-29 06:30] LABS: CALC OSMOLALITY 278 mosm/kg (275-300); UREA NITROGEN 10 mg/dL (7-18)
--- NOTE | 2016-08-29 07:33 | NUR ---
AM ROUNDS - PT IS AWAKE IN BED. PRODUCTIVE COUCH, CLEAR. YELLOW BAND ON. CALL LOPEZ IN USE/REACH. BED IN LOWEST POSITION. SIDE RAILS UP X2. LEFT CHEST INFUSAPORT WITH A BANANA BAG AT 30CC/HR. 4L OS VIA NC. NO NEEDS AT THIS TIME. WILL CONTINUE TO MONITOR
[2016-08-29 08:20] LABS: FOLATE (FOLIC ACID) - SERUM >20.0 ng/mL (>3.0)
[2016-08-29 08:57] VITALS: BP 108/72
[2016-08-29 12:00] VITALS: BP 114/75
--- NOTE | 2016-08-29 15:36 | NUR ---
PT IN BED ASKING WHEN HE IS GOING TO GET TO GO HOME. I WILL CHECK. NO FUTHER NEEDS AT THIS TIME. WILL CONTINUE TO MONITOR
[2016-08-29] MEDS ORDERED: LEVAQUIN750 MG PO (15:57)
[2016-08-29] MEDS ORDERED: PREDNISONE10 MG PO (15:58)
[2016-08-29 16:00] VITALS: BP 116/71
[2016-08-29] MEDS ORDERED: IPRAT-ALBUT 0.5-3 ML UPD (16:00)
[2016-08-29] MEDS ORDERED: MUCINEX DM ER1 EAC1 PO (16:02)
[2016-08-29] MEDS ORDERED: SINGULAIR10 MG PO (16:02)
--- NOTE | 2016-08-29 17:41 | NUR ---
Patient Name: JOSEPH MEJIA Admission Status: ER Accout number: [id number] Admission Date: 08-27-2016 : 1955 Admission Diagnosis:OTHER DISORDERS OF LUNG Attending: [facility] Current LOS: 2 Anticipated DC Date: 08-29-2016 Planned Disposition: Home Primary Insurance: MEDICAID [place] Discharge Planning Comments: * Is the patient Alert and Oriented? Yes 0 * How many steps to enter\exit or inside your home? NONE 0 * PCP DR. OWENS 0 * Pharmacy [facility] 0 * Preadmission Environment Home with Family 0 * ADLs Independent 0 * Equipment Nebulizer Oxygen Walker 0 * Other Equipment PORTABLE OXYGEN - HEALTHCARE MEDICAL 0 * List name and contact numbers for known caregivers / representatives who currently or will assist patient after discharge: LUKE CONLEY, 0 * Community resources currently utilized Other 0 * Please name any agencies selected above. WEEKLY [facility] - MEDICATION PROVIDER SENDS THE NURSE TO PT'S HOME WEEKLY 0 * Additional services required to return to the preadmission environment? No * Can the patient safely return to the preadmission environment? Yes 0 * Has this patient been hospitalized within the prior 30 days at any hospital? Yes 0 CM MET WITH PT IN ROOM TO DISCUSS DISCHARGE PLANNING AND NEEDS. PT REPORTS LIVING AT HOME INDEPENDENTLY WITH HIS COUSIN AND HER SPOUSE. PT REPORTS HAVING ALL NEEDED MEDICAL EQUIPMENT FROM [employer] [facility]. PT HAS INFUSION THERAPY FOR [facility], HIS NURSE COMES ONCE PER WEEK TO THE HOME TO DO THE INFUSION.. CM DISCUSSED AVAILABILITY OF HOME HEALTH, REHAB SERVICES AND MEDICAL EQUIPMENT. PT DENIES DISCHARGE NEEDS, REPORTS HIS COUSIN WILL PICK HIM UP FOR DISCHARGE HOME TODAY. PT ASKED ABOUT HIS FPC CARE APPLICATION TO [facility] REPORTING HE HAS NOT HEARD FROM THEM. CM CALLED DANIA, CLINICAL LIAISON FOR [facility] WHO REPORTS PT KNOWS HE IS NOT FINANCIALLY QUALIFIED (HE SIGNED OVER A HOME TO A FAMILY MEMBER WITHIN THE LAST YEAR MAKING PT MEDICAID INELIGIBLE) BUT SHE WILL CALL PT'S COUSIN REQUESTED BY PT IN ROOM. DANIA CALLED CM BACK SHORTLY AND REPORTS SHE PROVIDED EXPLANATION TO MR. JARA AND ALSO REPORTS THAT PT DRINKS TOO MUCH ALCOHOL TO GO TO ONE OF [facility] NURSING FACILITIES FOR FPC CARE. CM ASKED PT IF HE NEEDED REHAB SERVICES FOR ALCOHOL ABUSE, PT DECLINED AND REPORTED HE HAS BUT BACK A LOT ON HIS DRINKING ON HIS OWN. CM PROVIDED PT WITH [facility] INFORMATION TO PT AND SUGGESTED THAT PT CONTACT THEM TO DISCUSS FPC CARE OR ASSISTED LIVING. PT IN AGREEMENT WITH DISCHARGE HOME TO HIS COUSIN'S HOME TODAY AND DENIES DISCHARGE NEEDS AT THIS TIME. Environmental Aide: Guru Aburto
--- NOTE | 2016-08-29 19:16 | NUR ---
MINOO DINH REMOVED L. CHEST INFUSAPORT, DISCHARGE INSTRUCTION WENT OVER, GAVE SCRIPS, TAKEN DOWNSTAIRS VIA WHEELCHAIR
== END 2016-08-29 19:19 | disposition home or self-care (01) | DRG 191 ==
LOC: D.ER 23:24 → D.M2 08-25 05:01 → OBSVTIME 08-25 05:01 → D.M2 08-26 16:32
PROVIDERS: Family Medicine; ADMIT Family Medicine Adult Medicine
DX: J44.1 Chronic obstructive pulmonary disease with (acute) exacerbation (principal); J96.12 Chronic respiratory failure with hypercapnia; E87.0 Hyperosmolality and hypernatremia; J96.11 Chronic respiratory failure with hypoxia; J98.4 Other disorders of lung; E88.01 Alpha-1-antitrypsin deficiency; F32.9 Major depressive disorder, single episode, unspecified; F41.9 Anxiety disorder, unspecified; F10.10 Alcohol abuse, uncomplicated; E87.6 Hypokalemia; M25.512 Pain in left shoulder; S22.41XD Multiple fractures of ribs, right side, subsequent encounter for fracture with routine healing; Z72.0 Tobacco use

== ENCOUNTER 2016-09-04 06:55 | Inpatient (IN) | payer MEDICAID ==
[~2016-09-04] VITALS: Ht 182.9 cm; Wt 76.4 kg
[2016-09-04 07:34] LABS: BASOPHILS 1.4 % (0-2); EOSINOPHILS 3.7 % (0-7); HEMATOCRIT 39.9 % (42.0-54.0); HEMOGLOBIN 12.7 g/dL (13.5-17.5); IMMATURE GRANULOCYTES 3.6 % (0-5); LYMPHOCYTES 48.9 % (15-50); MCH 25.1 pg (26.0-34.0); MCHC 31.8 g/dL (31.0-37.0); MEAN PLATELET VOLUME 9.9 fL (7.4-10.4); NEUTROPHILS 32.4 % (40-80); PLATELET COUNT 175 10x3/uL (130-400); RBC 5.05 10x6/uL (4.20-6.10); RDW 16.1 % (11.5-14.5); WBC 7.3 10x3/uL (4.8-10.8)
[2016-09-04 08:01] LABS: ALBUMIN 3.4 g/dL (3.4-5.0); ALKALINE PHOSPHATASE 104 U/L (46-116); ALT (SGPT) 36 U/L (10-68); BILIRUBIN - TOTAL 0.34 mg/dL (0.2-1.3); CALCIUM 8.1 mg/dL (8.5-10.1); CHLORIDE - SERUM 109 mmol/L (98-107); CREATININE - SERUM 0.7 mg/dL (0.6-1.3); POTASSIUM - SERUM 4.1 mmol/L (3.5-5.1); PROTEIN - SERUM 6.7 g/dL (6.4-8.2); SODIUM 143 mmol/L (136-145); UREA NITROGEN 6 mg/dL (7-18); eGFR NON AFRICAN AMERICAN > 90 mL/min (90-120)
[2016-09-04 08:02] LABS: CALC OSMOLALITY 282 mosm/kg (275-300); GLUCOSE 95 mg/dL (74-106); TROPONIN-I < 0.017 ng/mL (0.000-0.060)
[2016-09-04 13:12] VITALS: BP 104/72
--- NOTE | 2016-09-04 14:27 | NUR ---
BILATERAL SCD'S EXPLAINED TO PATIENT AND PLACED ON HIM. IN USE CORRECTLY.
[2016-09-04 15:00] VITALS: BP 104/72; Ht 182.9 cm; Wt 76.4 kg
[2016-09-04 16:00] VITALS: BP 115/76
[2016-09-04 20:47] VITALS: BP 130/86
--- NOTE | 2016-09-04 20:53 | NUR ---
PT AWAKE, ALERT, ORIENTED, REQUESTING PRN TYLENOL FOR SEVERE HEADACHE. CT OF HEAD NOT DONE YET. PT DENIES ANY OTHER NEEDS. CONTINUE TO MONITOR CLOSELY.
[2016-09-05 00:39] VITALS: BP 130/90
--- NOTE | 2016-09-05 00:48 | NUR ---
PT CALLED AGAIN REQUESTING SOMETHING FOR DIARRHEA. I EXPLAINED TO PT THAT HE IS RECEIVING LIBRIUM TO HELP WITH THAT, BUT I ALSO GAVE PT HIS PRN LORAZEPAM. PT DEMONSTRATES INCREASED ANXIETY, AND MILD AGITATION AT THIS TIME. I EXPLAINED TO PT THIS IS POSSIBLY R/T ETOH WITHDRAWAL AND THAT WE ARE MONITORING HIM CLOSELY. PT STATES HE DID NOT DRINK THAT MUCH YESTERDAY WITH HIS COUSIN, ONLY A HALF PINT AND THEN A COUPLE OF MORE SHOTS. PT EXPLAINS THAT HE WOKE UP AT 04:00 A.M. YELLING, KICKING AND BANGING ON THE CALDERÓN, AND CALLED THE POLICE RAGING, HOWEVER HE DOES NOT REMEMBER ANY OF THIS. PT IS MILDLY SHAKEY BUT OTHER CASTILLO STABLE. CONTINUE TO MONITOR CLOSELY.
[2016-09-05 05:49] VITALS: BP 132/92
--- NOTE | 2016-09-05 06:22 | NUR ---
LAB COLLECTED FROM INFUSAPORT, PT RESTING COMFORTABLY, STATES HIS HEADACHE IS NOW GONE, DENIES ANY NEEDS. CONTINUE TO MONITOR CLOSELY.
[2016-09-05 06:26] LABS: BASOPHILS 0.9 % (0-2); EOSINOPHILS 3.6 % (0-7); HEMATOCRIT 33.9 % (42.0-54.0); IMMATURE GRANULOCYTES 1.4 % (0-5); LYMPHOCYTES 27.6 % (15-50); MCH 25.2 pg (26.0-34.0); MCHC 32.4 g/dL (31.0-37.0); MCV 77.8 fL (80.0-100.0); MEAN PLATELET VOLUME 9.4 fL (7.4-10.4); MONOCYTES 14.8 % (2-11); NEUTROPHILS 51.7 % (40-80); PLATELET COUNT 151 10x3/uL (130-400); RBC 4.36 10x6/uL (4.20-6.10); RDW 15.6 % (11.5-14.5); WBC 6.4 10x3/uL (4.8-10.8)
[2016-09-05 07:17] LABS: ALBUMIN 2.9 g/dL (3.4-5.0); ALKALINE PHOSPHATASE 104 U/L (46-116); ALT (SGPT) 30 U/L (10-68); BILIRUBIN - TOTAL 0.44 mg/dL (0.2-1.3); CALC OSMOLALITY 275 mosm/kg (275-300); CHLORIDE - SERUM 106 mmol/L (98-107); CREATININE - SERUM 0.6 mg/dL (0.6-1.3); GLUCOSE 81 mg/dL (74-106); SODIUM 140 mmol/L (136-145); UREA NITROGEN 6 mg/dL (7-18); eGFR NON AFRICAN AMERICAN > 90 mL/min (90-120)
[2016-09-05 07:18] LABS: CALCIUM 8.1 mg/dL (8.5-10.1); CARBON DIOXIDE 25.7 mmol/L (21.0-32.0); POTASSIUM - SERUM 3.2 mmol/L (3.5-5.1)
--- NOTE | 2016-09-05 07:50 | NUR ---
AM ROUNDS - PT IS AWAKE IN BED. NON SKID SOCKS ON. O2 AT 3L VIA NC. LEFT CHEST INFUSAPORT, SL. PT HAS SCD ORDER, OFF AT THIS TIME. UP AD JATINDER. BED AT LOWEST POSITION, SIDE RAILS UP X2, CALL [facility] IN USE/REACH. NO FUTHER NEEDS ATT HIS TIME. WILL CONTINUE TO MONITOR
[2016-09-05 08:00] VITALS: BP 134/86
[2016-09-05 12:46] VITALS: BP 128/94
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
[2016-09-05 15:58] VITALS: BP 124/87
--- NOTE | 2016-09-05 18:17 | NUR ---
PT IN BED. DINNER COMPLETE. NO NEEDS AT THIS TIME. WILL CONTINUE TO MONITOR
[2016-09-05 19:00] VITALS: BP 156/98
--- NOTE | 2016-09-05 20:03 | NUR ---
PT LAYING IN BED WATCHING TV HOB 25. LEFT INFUSEAPORT S/L. DRESSING CLEAN DRY AND INTACT. WILL CHANGE WITH 0900 MEDS THEY ARE CHANGED ON WEDNESDAYS. OXYGEN 3L NC. PT DENIES ANY OTHER NEEDS NO S/S OF DISTRESS WILL CONTINUE TO MONITOR
[2016-09-06] VITALS: BP 145/88
--- NOTE | 2016-09-06 00:50 | NUR ---
PT IN BED RESTING. DRESSING CHANGED ON THE LEFT CHEST IP. DRESSING CLEAN DRY AND INTACT DATED AND INITALS. FLUSHES WITHOUT COMPLICATIONS. PT REFUSES SCD'S PT DENIES ANY NEEDS WILL CONTINUE TO MONITOR
--- NOTE | 2016-09-06 02:54 | NUR ---
PT ASLEEP LAYING ON RIGHT SIDE. RESPIRATIONS EVEN AND UNLABORED NO S/S OF DISTRESS. WILL CONTINUE TO MONITOR
[2016-09-06 04:00] VITALS: BP 115/76
--- NOTE | 2016-09-06 05:49 | NUR ---
PT RESTING IN ROOM DENIES ANY NEEDS, NO S/S OF DISTRESS WILL CONTINUE TO MONITOR
[2016-09-06 06:20] LABS: BASOPHILS 1.1 % (0-2); EOSINOPHILS 4.4 % (0-7); HEMATOCRIT 35.1 % (42.0-54.0); HEMOGLOBIN 11.2 g/dL (13.5-17.5); IMMATURE GRANULOCYTES 1.1 % (0-5); LYMPHOCYTES 31.9 % (15-50); MCH 24.7 pg (26.0-34.0); MCHC 31.9 g/dL (31.0-37.0); MCV 77.3 fL (80.0-100.0); MEAN PLATELET VOLUME 10.7 fL (7.4-10.4); MONOCYTES 18.5 % (2-11); PLATELET COUNT 180 10x3/uL (130-400); RBC 4.54 10x6/uL (4.20-6.10); RDW 15.5 % (11.5-14.5); WBC 6.1 10x3/uL (4.8-10.8)
[2016-09-06 06:40] LABS: ALBUMIN 2.9 g/dL (3.4-5.0); ALKALINE PHOSPHATASE 95 U/L (46-116); ALT (SGPT) 27 U/L (10-68); CALC OSMOLALITY 278 mosm/kg (275-300); CALCIUM 8.4 mg/dL (8.5-10.1); CARBON DIOXIDE 29.7 mmol/L (21.0-32.0); CHLORIDE - SERUM 106 mmol/L (98-107); GLUCOSE 81 mg/dL (74-106); POTASSIUM - SERUM 3.2 mmol/L (3.5-5.1); PROTEIN - SERUM 6.2 g/dL (6.4-8.2); SODIUM 142 mmol/L (136-145); UREA NITROGEN 5 mg/dL (7-18)
[2016-09-06 06:41] LABS: CREATININE - SERUM 0.8 mg/dL (0.6-1.3); eGFR NON AFRICAN AMERICAN > 90 mL/min (90-120)
[2016-09-06 07:54] VITALS: BP 128/85
--- NOTE | 2016-09-06 08:33 | NUR ---
ASSESSMENT DONE. DENIES NEEDS.
--- NOTE | 2016-09-06 09:30 | NUR ---
RESTS WITH EYES CLOSED. RESP UL ON . CALL LIGHT IN REACH. WILL CONT. PLAN OF CARE.
[2016-09-06 12:20] VITALS: BP 124/93
--- NOTE | 2016-09-06 13:56 | NUR ---
Nutrition follow-up: Diet: Regular with nectar thick liquids PO intake 100% of meals Labs reviewed Pt refuses to drink nectar thick liquids; pt states he does not have a problem with swallowing. RDN will continue to encourage pt to follow diet restrictions. RDN following.
--- NOTE | 2016-09-06 14:38 | NUR ---
Rehab Prescreening Consult recieved and the chart has been reviewed. He is [place] Medicaid which does not cover Acute in-patient rehab. Spoke to Vlad Aburto CM who is aware. Thank you for the referral. Bettina Marrero RN Clinical Liaison, Rehab
[2016-09-06 15:50] VITALS: BP 122/85
--- NOTE | 2016-09-06 16:18 | NUR ---
Patient Name: JOSEPH MEJIA Encounter No: [id number] : 1955 Primary Insurance: MEDICAID [facility] DC Date: 09-07-2016 Planned Disposition: Home with Home Health External Planned Provider: WAITING PT CHOICE DCP follow-up note: CM RECEIVED ORDER FOR INPATIENT REHAB PRESCREEING, RESIDENTIAL REHAB OR SKILLED NURSING CARE PLACEMENT. CM MET WITH PT IN ROOM TO DISCUSS OPTIONS FOR DISCHARGE. PT IS NOT ELIGIBLE FOR [facility] MEDICAID FOR 5 YEARS DUE TO SIGNING OVER HIS HOME TO HIS COUSIN WITH WHOM PT LIVES CURRENTLY; ADDITIONALLY, CM WAS ADVISED BY THE CLINICAL LIAISON FOR [facility] AND [facility] (DANIA GONZALEZ) THAT PT DRINKS TOO MUCH ALCOHOL TO BE CONSIDERED FOR ANY OF HER FACILITIES [place]. PT HAS BEEN PROVIDED INFORMATION TO [facility] AT HIS REQUEST ON A PREVIOUS VISIT AND HE WAS GOING TO TRY TO WORK OUT A PRIVATE ARRAGEMENT IF POSSIBLE. PT'S INCOME IS ABOUT $750 MONTHLY FROM [employer], NOT ENOUGH TO PRIVATE PAY HIS CARE IN CUSTODIAL OR OTHER ASSISTED CARE FACILITY. PT HAS ACCULATED 38 ACUTE HOSPITAL DAYS SO FAR IN 2017. PT HAS NO ACUTE MEDICAID DAYS IN WHICH TO EVEN TRY TO GET PT INTO [facility] FOR INPATIENT REHAB. MEDICAID DOES NOT PAY FOR SNF REHAB. PT REPORTS NO MONEY TO PAY FOR ANY REHAB SERVICES. PT REPORTS PLAN TO GO HOME WITH HIS COUSIN. CM DISCUSSED HOME HEALTH, PT WOULD ACCEPT HOME HEALTH FOR THERAPY AT HOME, DR. OWENS IS PT'S PRIMARY CARE DOCTOR. PT WILL CONSIDER WHAT PROVIDER TO USE. CHOICE LETTER LEFT WITH PT TO DISCUSS WITH HIS COUSIN. CM TO ARRANGE HOME HEALTH FOR PHYSICAL THERAPY AND MEDICATION / DIET TEACHING COMPLIANCE WITH PHYSICIAN AGREEMENT AND ORDER. Guru Aburto, CASE MANAGEMENT
--- NOTE | 2016-09-06 16:56 | NUR ---
WITHOUT CHANGES OR DISTRESS NOTED AT THIS TIME. DENIES NEEDS.
--- NOTE | 2016-09-06 19:20 | NUR ---
RETURNED TO ROOM FROM MRI OF SHOULDER. O2 AT 3L/NC APPLIED. NO VOICED NEEDS. BED LOW POSITION. CALL LIGHT IN REACH. SIDERAILS UP X 2. WILL CONTINUE TO MONITOR,
--- NOTE | 2016-09-06 19:40 | NUR ---
LAB DRAWN FOR RECHECK ON POTASSIUM LEVEL.
[2016-09-06 20:40] VITALS: BP 130/92
--- NOTE | 2016-09-06 20:45 | NUR ---
REQUESTING ATIVAN 1 MG IVP FOR NERVES.
--- NOTE | 2016-09-06 22:00 | NUR ---
SHIFT ASSESSMENT COMPLETED PER FLOW SHEET. DENIES ANY NEEDS.
[2016-09-07 00:03] VITALS: BP 127/81
--- NOTE | 2016-09-07 04:37 | NUR ---
TYLENOL ES 500 MG PO GIVEN FOR LEFT SHOULDER PAIN.
--- NOTE | 2016-09-07 04:38 | NUR ---
AM LAB DRAWN FROM LEFT INFUSAPORT.
[2016-09-07 05:31] LABS: BASOPHILS 1.1 % (0-2); EOSINOPHILS 4.8 % (0-7); HEMATOCRIT 36.3 % (42.0-54.0); HEMOGLOBIN 11.9 g/dL (13.5-17.5); IMMATURE GRANULOCYTES 1.3 % (0-5); MCH 25.5 pg (26.0-34.0); MCHC 32.8 g/dL (31.0-37.0); MCV 77.9 fL (80.0-100.0); MEAN PLATELET VOLUME 10.6 fL (7.4-10.4); MONOCYTES 14.4 % (2-11); NEUTROPHILS 48.4 % (40-80); PLATELET COUNT 197 10x3/uL (130-400); RBC 4.66 10x6/uL (4.20-6.10); RDW 15.5 % (11.5-14.5); WBC 7.1 10x3/uL (4.8-10.8)
[2016-09-07 05:52] LABS: ALKALINE PHOSPHATASE 96 U/L (46-116); ALT (SGPT) 25 U/L (10-68); CALC OSMOLALITY 272 mosm/kg (275-300); CALCIUM 8.9 mg/dL (8.5-10.1); CARBON DIOXIDE 27.6 mmol/L (21.0-32.0); CHLORIDE - SERUM 105 mmol/L (98-107); CREATININE - SERUM 0.7 mg/dL (0.6-1.3); GLUCOSE 89 mg/dL (74-106); POTASSIUM - SERUM 3.8 mmol/L (3.5-5.1); PROTEIN - SERUM 6.5 g/dL (6.4-8.2); SODIUM 138 mmol/L (136-145); UREA NITROGEN 7 mg/dL (7-18); eGFR NON AFRICAN AMERICAN > 90 mL/min (90-120)
[2016-09-07 08:20] VITALS: BP 122/78
--- NOTE | 2016-09-07 10:22 | NUR ---
UP TO BR. NO NEEDS INDICATED. WILL CONT. PLAN OF CARE.
[2016-09-07] MEDS ORDERED: MUCINEX600 MG PO (11:29)
[2016-09-07] MEDS ORDERED: LEVAQUIN750 MG PO (11:35)
[2016-09-07] MEDS ORDERED: SYMBICORT 16010.2 GM INH (11:36)
[2016-09-07] MEDS ORDERED: IPRAT-ALBUT 0.5-3 ML IPPB (11:38)
[2016-09-07] MEDS ORDERED: TESSALON PERLE100 MG PO (11:39)
[2016-09-07 12:31] VITALS: BP 105/73
--- NOTE | 2016-09-07 13:18 | NUR ---
Patient Name: JOSEPH MEJIA Encounter No: [id number] : 1955 Primary Insurance: MEDICAID [place] Anticipated DC Date: 09-07-2016 Planned Disposition: Home DCP follow-up note: CM RECEIVED DISCHARGE ORDER, SPOKE TO JOSE C AGGARWAL AND DISCUSSED HOME HEALTH WHO WAS AGREEABLE FOR HOME HEALTH AND TO CONTACT DR. OWENS FOR ORDERS. CM MET WITH PT IN ROOM AND DISCUSSED HOME HEALTH SERVICES. PT DECLINED AND REPORTS HAVING NO NEED FOR HOME HEALTH. CM DISCUSSED PT'S MULTIPLE MEDICAL PROBLEMS AND NEED FOR MEDICATION MANAGEMENT, THERAPY, DIET AND ALCOHOLISM. PT KNOWS HE IS NOT SUPPOSED TO DRINK DUE TO INTERACTION WITH THE ALPHA 1 MEDICATION WHICH WHEN DRINKING, HE HAS TROUBLE BREATHING. CM DISCUSSED PT'S EXTENSIVE USE OF ACUTE INPATIENT DAYS THIS YEAR. PT REPORTS NOT BEING AWARE. CM DISCUSSED WITH PT THE NEED OF A HEALTY LIFESTYLE FREE OF ALCOHOL USE AND TAKING MEDICATIONS ORDERED BY PHYSICIANS. PT REPORTED UNDERSTANDING. PT CONTINUED TO REFUSE HOME HEALTH. CM DISCUSSED HOW TO CONTACT HIS DOCTOR AND ASK FOR HOME HEALTH SERVICES AFTER DISCHARGE IF NEEDED. PT REPORTED UNDERSTANDING. PT PLANS TO DISCHARGE HOME TODAY WITH HIS COUSIN WHO WILL PICK HIM UP TODAY. Guru Aburto, CASE MANAGEMENT
--- NOTE | 2016-09-07 14:54 | NUR ---
DC GIVEN TO PT
--- NOTE | 2016-09-07 15:30 | NUR ---
DC HOME PER PERSONAL CAR
== END 2016-09-07 15:30 | disposition home or self-care (01) | DRG 190 ==
LOC: D.ER 06:55 → D.M2 11:32 → OBSVTIME 11:32 → D.M2 11:33
PROVIDERS: Emergency Medicine; ADMIT Family Medicine
DX: J44.0 Chronic obstructive pulmonary disease with (acute) lower respiratory infection (principal); J18.9 Pneumonia, unspecified organism; J96.12 Chronic respiratory failure with hypercapnia; J96.11 Chronic respiratory failure with hypoxia; E87.1 Hypo-osmolality and hyponatremia; E87.6 Hypokalemia; R91.1 Solitary pulmonary nodule; R41.0 Disorientation, unspecified; Z91.19 Patient's noncompliance with other medical treatment and regimen; Z99.81 Dependence on supplemental oxygen; F10.10 Alcohol abuse, uncomplicated; F32.9 Major depressive disorder, single episode, unspecified; F41.9 Anxiety disorder, unspecified; E88.01 Alpha-1-antitrypsin deficiency; M75.92 Shoulder lesion, unspecified, left shoulder; M75.42 Impingement syndrome of left shoulder; Z87.891 Personal history of nicotine dependence

== ENCOUNTER 2016-09-10 15:29 | Inpatient (IN) | payer MEDICAID ==
[~2016-09-10] VITALS: Ht 182.9 cm; Wt 79.4 kg
[~2016-09-10 15:29] MED LIST changes: +IPRAT-ALBUT 0.5-3 ML IPPB; +MUCINEX600 MG PO; +TESSALON PERLE100 MG PO
[2016-09-10 17:08] LABS: EOSINOPHILS 2.4 % (0-7); HEMATOCRIT 37.2 % (42.0-54.0); IMMATURE GRANULOCYTES 0.7 % (0-5); LYMPHOCYTES 27.4 % (15-50); MCHC 32.3 g/dL (31.0-37.0); MCV 77.5 fL (80.0-100.0); MEAN PLATELET VOLUME 9.8 fL (7.4-10.4); MONOCYTES 6.9 % (2-11); NEUTROPHILS 61.6 % (40-80); PLATELET COUNT 214 10x3/uL (130-400); RDW 15.9 % (11.5-14.5); WBC 9.8 10x3/uL (4.8-10.8)
[2016-09-10 17:23] LABS: APTT 26.5 SECONDS (22.8-39.4); INR 1.12 (0.85-1.17); PROTIME 14.3 SECONDS (11.6-15.0)
[2016-09-10 17:24] LABS: D-DIMER-QUANTITATIVE 0.72 ug/mLFEU (0.20-0.54)
[2016-09-10 17:33] LABS: ALBUMIN 3.5 g/dL (3.4-5.0); ALKALINE PHOSPHATASE 102 U/L (46-116); ALT (SGPT) 27 U/L (10-68); BILIRUBIN - TOTAL 0.39 mg/dL (0.2-1.3); CALC OSMOLALITY 282 mosm/kg (275-300); CALCIUM 8.4 mg/dL (8.5-10.1); CARBON DIOXIDE 27.5 mmol/L (21.0-32.0); CHLORIDE - SERUM 104 mmol/L (98-107); CREATININE - SERUM 0.7 mg/dL (0.6-1.3); GLUCOSE 103 mg/dL (74-106); POTASSIUM - SERUM 3.6 mmol/L (3.5-5.1); PROTEIN - SERUM 6.9 g/dL (6.4-8.2); SODIUM 143 mmol/L (136-145); UREA NITROGEN 7 mg/dL (7-18); eGFR NON AFRICAN AMERICAN > 90 mL/min (90-120)
[2016-09-10 17:40] LABS: PRO BNP 149 pg/mL (0-125)
[2016-09-10 17:52] LABS: TROPONIN-I < 0.017 ng/mL (0.000-0.060)
[2016-09-10 19:09] LABS: APPEARANCE CLEAR (CLEAR); BILIRUBIN NEGATIVE (NEGATIVE); COLOR YELLOW (YELLOW); GLUCOSE NEGATIVE (NEGATIVE); KETONE NEGATIVE (NEGATIVE); LEUKOCYTE ESTERASE NEGATIVE (NEGATIVE); NITRITE NEGATIVE (NEGATIVE); PROTEIN NEGATIVE (NEGATIVE); UROBILINOGEN NORMAL (NORMAL)
--- NOTE | 2016-09-10 21:59 | NUR ---
REC'D PATIENT FROM ER. ALERT AND ORIENTED X4. DENIED PAIN AT THIS TIME. BREATHING IS LABORED. IS WANTING SOMETHIG TO RELAX HIM, WILL ADMIN PM/AM MEDS PRESCRIBED. IS WANTING HIS AMBEIN TONIGHT. TOLD HIM I WOULD CALL THE DR. JUNIOR DOMINGUEZ APN PER MARELY BEMUS POINT SHELBIE AND AM AWAITING THE PHONE CALL. INTRUCTED TO CALL IF NEEDED ANYTHING. VERBALIZED UNDERSTANDING, BED LOW, LOCKED, CALL LIGHT IN REACH.
--- NOTE | 2016-09-11 01:52 | NUR ---
PATIENT IS RESTING IN BED. NO DISTRESS NOTED. WILL CONT TO MONITOR. BED LOW, LOCKED, CALL LIGHT IN REACH.
[2016-09-11 04:00] VITALS: BP 139/87
[2016-09-11 04:20] VITALS: BP 140/94; Ht 182.9 cm; Wt 79.4 kg
--- NOTE | 2016-09-11 07:20 | NUR ---
PT REC'D FROM [facility]. UP AMBULATING AROUND ROOM TO BATHROOM. AAOX4. NO COMPLAINTS OF PAIN. BED LOW, CALL LIGHT IN REACH, DENIES NEEDS. CPOC.
[2016-09-11 08:54] VITALS: BP 152/94
--- NOTE | 2016-09-11 10:20 | NUR ---
HOME MEDS RESTARTED AND ADMINISTERED PER MAY. PRN ATIVAN ADMINISTERED PER MILD AGGITATION. WILL REASSESS. BED LOW, CALL LIGHT IN REACH, DENIES NEEDS. CPOC.
[2016-09-11 10:23] LABS: BASOPHILS 0.1 % (0-2); EOSINOPHILS 0 % (0-7); HEMOGLOBIN 10.9 g/dL (13.5-17.5); IMMATURE GRANULOCYTES 0.4 % (0-5); LYMPHOCYTES 12.5 % (15-50); MCH 24.8 pg (26.0-34.0); MCHC 32.1 g/dL (31.0-37.0); MCV 77.4 fL (80.0-100.0); MEAN PLATELET VOLUME 9.2 fL (7.4-10.4); MONOCYTES 4.5 % (2-11); NEUTROPHILS 82.5 % (40-80); RBC 4.39 10x6/uL (4.20-6.10); RDW 15.8 % (11.5-14.5); WBC 7.5 10x3/uL (4.8-10.8)
[2016-09-11 10:24] LABS: PLATELET COUNT 171 10x3/uL (130-400)
[2016-09-11 10:45] LABS: ALBUMIN 2.9 g/dL (3.4-5.0); ALKALINE PHOSPHATASE 111 U/L (46-116); ALT (SGPT) 23 U/L (10-68); BILIRUBIN - TOTAL 0.49 mg/dL (0.2-1.3); CALCIUM 8.1 mg/dL (8.5-10.1); CHLORIDE - SERUM 103 mmol/L (98-107); POTASSIUM - SERUM 3.5 mmol/L (3.5-5.1); PROTEIN - SERUM 6.2 g/dL (6.4-8.2); SODIUM 140 mmol/L (136-145); UREA NITROGEN 7 mg/dL (7-18); eGFR NON AFRICAN AMERICAN 81 mL/min (90-120)
[2016-09-11 10:46] LABS: CALC OSMOLALITY 282 mosm/kg (275-300); GLUCOSE 203 mg/dL (74-106)
--- NOTE | 2016-09-11 11:00 | NUR ---
PT AOX4 RESP EVEN AND NONLABORED PT HERE FOR COPD EXACERBATION FOR THIS VISIT. PT DENIES NEEDS AT THIS TIME. IV TO LEFT INFUSIPORT PATENT AND INTACT AT THIS TIME SRX2 BED AT LOWEST SETTING WILL CONTINUE TO MONITOR
--- NOTE | 2016-09-11 13:50 | NUR ---
PT RESTING IN BED WATCHING TV. NO COMPLAINTS. BED LOW, CALL LIGHT IN REACH, DENIES NEEDS. CPOC.
[2016-09-11 19:00] VITALS: BP 133/88
--- NOTE | 2016-09-11 20:28 | NUR ---
PATIENT APPEARS VERY ANXIOUS. COMPLAINS OF SOB. O2 @ 2l PER NC ON. MEDICAL ASSISTING INSTRUCTOR NOTIFIED WIHT ORDERS RECIEVED. VALIUM 10 MG GIVEN PO FOR ANXIETY. CL IN REACH. WILL OBSERVE.
[2016-09-12] VITALS: BP 129/69
--- NOTE | 2016-09-12 02:00 | NUR ---
PT IN BED WITH NO DISTRESS. RESPIRATIONS EVEN AND UNLABORED. SIDE RAILS X 2. BED LOW. CALL LIGHT IN REACH.
[2016-09-12 04:00] VITALS: BP 125/82
[2016-09-12 05:27] LABS: BASOPHILS 0.1 % (0-2); EOSINOPHILS 0 % (0-7); HEMATOCRIT 31.6 % (42.0-54.0); IMMATURE GRANULOCYTES 0.5 % (0-5); LYMPHOCYTES 7.8 % (15-50); MCH 24.6 pg (26.0-34.0); MCHC 31.6 g/dL (31.0-37.0); MCV 77.6 fL (80.0-100.0); MEAN PLATELET VOLUME 10.4 fL (7.4-10.4); MONOCYTES 8.2 % (2-11); NEUTROPHILS 83.4 % (40-80); PLATELET COUNT 188 10x3/uL (130-400); RBC 4.07 10x6/uL (4.20-6.10)
[2016-09-12 05:28] LABS: WBC 13.2 10x3/uL (4.8-10.8)
[2016-09-12 05:43] LABS: ALBUMIN 2.8 g/dL (3.4-5.0); ALKALINE PHOSPHATASE 103 U/L (46-116); ALT (SGPT) 19 U/L (10-68); BILIRUBIN - TOTAL 0.56 mg/dL (0.2-1.3); CALC OSMOLALITY 285 mosm/kg (275-300); CALCIUM 7.9 mg/dL (8.5-10.1); CARBON DIOXIDE 27.4 mmol/L (21.0-32.0); CHLORIDE - SERUM 108 mmol/L (98-107); CREATININE - SERUM 0.8 mg/dL (0.6-1.3); POTASSIUM - SERUM 3.1 mmol/L (3.5-5.1); SODIUM 144 mmol/L (136-145); UREA NITROGEN 7 mg/dL (7-18); eGFR NON AFRICAN AMERICAN > 90 mL/min (90-120)
[2016-09-12 05:48] LABS: GLUCOSE 125 mg/dL (74-106)
--- NOTE | 2016-09-12 07:59 | NUR ---
Patient Name: JOSEPH MEJIA Admission Status: ER Accout number: [id number] Admission Date: 09-11-2016 : 1955 Admission Diagnosis: Attending: SHONNA Current LOS: 1 Anticipated DC Date: 09-14-2016 Planned Disposition: Home Primary Insurance: MEDICAID [place] Discharge Planning Comments: CM MET WITH PATIENT REGARDING D/C NEEDS AND PLANS. PATIENT STATED HE LIVES WITH HIS COUSINS JONAS AND VALERIE AND JONAS WILL PICK HIM UP AT DISCHARGE. PATIENT STATED HE IS INDEPENDENT WITH HIS CARE AND HAS A WALKER, SHOWER CHAIR, OXYGEN, PORTABLE O2, AND NEBULIZER AT HOME. [facility] SUPPLIES HIS OXYGEN. PATIENTS PCP IS DR. OWENS AND PHARMACY IS [facility]. PATIENT IS REFUSING HOME HEALTH AT THIS TIME. CM WILL CONTINUE TO FOLLOW PATIENT WITH D/C NEEDS AND PLANS. PCP DR. OWENS [facility]- [phone] JONAS (COUSIN) [phone] OR [phone] [place] Operator: Faviola Chung Is the patient Alert and Oriented? Yes 0 * How many steps to enter\exit or inside your home? 1 0 * PCP DR. OWENS 0 * Pharmacy [facility] [place] 0 * Preadmission Environment Home with Family 0 * ADLs Independent 0 * Equipment Nebulizer Oxygen Shower Chair Walker 0 * Other Equipment PORTABLE O2 (OXYGEN) SUPPLIED BY [facility] 0 * List name and contact numbers for known caregivers / representatives who currently or will assist patient after discharge: JONAS (COUSIN) [phone] OR [phone] 0 * Community resources currently utilized None 0 * Additional services required to return to the preadmission environment? Yes 0 * Can the patient safely return to the preadmission environment? Yes 0 * Has this patient been hospitalized within the prior 30 days at any hospital? Yes 0 Grand Total: 0
[2016-09-12 09:00] VITALS: BP 133/81
[2016-09-12 12:31] VITALS: BP 120/79
--- NOTE | 2016-09-12 16:28 | NUR ---
CHANGED BLANDON PORT NEEDLE, STERILE TECHNIQUE MAINTAINED. 20G 3/4 INCH BLANDON NEEDLE INSERTED. BIOPATCH IN CORRECT POSITION. TEGADERM INTACT. PATIENT TOLERATED WELL.
[2016-09-12 17:11] VITALS: BP 118/75
[2016-09-12 20:00] VITALS: BP 120/84
--- NOTE | 2016-09-12 22:01 | NUR ---
WATCHING TV QUIETLY. NO DISTRESS NOTED. O2 AT 4L PER NC ON. IV INFUSING TO LEFT PORT WIHTOUT REDNESS OR EDEMA. NO COMPLAINTS OF DISCOMFORT. CL IN REACH
[2016-09-13] VITALS: BP 133/82
--- NOTE | 2016-09-13 02:00 | NUR ---
PT IN BED WITH NO DISTRESS. RESPIRATIONS EVEN AND UNLABORED. SIDE RAILS X 2. BED LOW. CALL LIGHT IN REACH.
--- NOTE | 2016-09-13 02:00 | NUR ---
EYES CLOSED RESP EVEN AND UNLAOBED. NO DISTRESS NOTED.
[2016-09-13 04:00] VITALS: BP 122/77
--- NOTE | 2016-09-13 04:30 | NUR ---
TYLENOL GIVEN FOR COMPLIANTS OF HEADACHE. CL IN REACH
[2016-09-13 05:36] LABS: BASOPHILS 0.1 % (0-2); EOSINOPHILS 0 % (0-7); HEMOGLOBIN 10.1 g/dL (13.5-17.5); IMMATURE GRANULOCYTES 1.2 % (0-5); LYMPHOCYTES 7.3 % (15-50); MCH 25.1 pg (26.0-34.0); MCHC 31.6 g/dL (31.0-37.0); MCV 79.4 fL (80.0-100.0); MEAN PLATELET VOLUME 10.6 fL (7.4-10.4); MONOCYTES 7.7 % (2-11); NEUTROPHILS 83.7 % (40-80); PLATELET COUNT 194 10x3/uL (130-400); RBC 4.03 10x6/uL (4.20-6.10); RDW 16.1 % (11.5-14.5); WBC 10.8 10x3/uL (4.8-10.8)
[2016-09-13 06:01] LABS: ALBUMIN 2.7 g/dL (3.4-5.0); ALKALINE PHOSPHATASE 124 U/L (46-116); ALT (SGPT) 21 U/L (10-68); BILIRUBIN - TOTAL 0.32 mg/dL (0.2-1.3); CALCIUM 8.1 mg/dL (8.5-10.1); CARBON DIOXIDE 29.7 mmol/L (21.0-32.0); CHLORIDE - SERUM 107 mmol/L (98-107); CREATININE - SERUM 0.8 mg/dL (0.6-1.3); POTASSIUM - SERUM 3.3 mmol/L (3.5-5.1); PROTEIN - SERUM 5.8 g/dL (6.4-8.2); SODIUM 143 mmol/L (136-145); eGFR NON AFRICAN AMERICAN > 90 mL/min (90-120)
[2016-09-13 06:03] LABS: CALC OSMOLALITY 289 mosm/kg (275-300); GLUCOSE 198 mg/dL (74-106); UREA NITROGEN 11 mg/dL (7-18)
--- NOTE | 2016-09-13 08:15 | NUR ---
REPORT RECIEVED ASSUMED CARE. PATIENT IN BED WITH IV INTACT. NO COMPLAINTS. CALL LIGHT WITHIN REACH.
[2016-09-13 09:27] VITALS: BP 126/68
[2016-09-13] MEDS ORDERED: IPRAT-ALBUT 0.5-3 ML INH (11:02)
[2016-09-13] MEDS ORDERED: BROVANA15 MCG/2 M INH (11:02)
[2016-09-13] MEDS ORDERED: FLORAJEN3 CAPS460 MG PO (11:03)
[2016-09-13] MEDS ORDERED: PROTONIX40 MG PO (11:03)
[2016-09-13] MEDS ORDERED: THIAMINE HCL50 MG PO (11:03)
[2016-09-13] MEDS ORDERED: PREDNISONE10 MG PO (11:03)
[2016-09-13] MEDS ORDERED: FOLIC ACID1 MG PO (11:03)
[2016-09-13 13:20] VITALS: BP 128/84
--- NOTE | 2016-09-13 13:56 | NUR ---
CM REASSESSMENT NOTE: PATIENT IS DISCHARGING HOME TODAY/COUSIN WILL DRIVE HIM. PATIENT REFUSED HOME HEALTH- CM ASKED PATIENT AGAIN AND HE STATED NO. PATIENT HAD NO NEEDS FOR DISCHARGE.
--- NOTE | 2016-09-13 14:15 | NUR ---
PATIENT UP AMBULATING WITH PT.
[2016-09-13] MEDS ORDERED: LEVAQUIN750 MG PO (14:25)
--- NOTE | 2016-09-13 15:30 | NUR ---
DISCHARGE INSTRUCTIONS GIVEN TO PATIENT. VERBALIZED UNDERSTANDING. NO QUESTIONS AT THIS TIME. PORT ACCESS REMOVED, AND DRESSING APPLIED. PATIENT AWAITING TRANSPORTATION.
--- NOTE | 2016-09-13 16:06 | NUR ---
PATIENT ESCORTED DOWN TO FIRST FLOOR BY JUSTIN DINH VIA WC TO PRIVATE VEHICLE.
== END 2016-09-13 16:07 | disposition home or self-care (01) | DRG 189 ==
LOC: D.ER 15:29 → D.MS 18:55 → OBSVTIME 18:55 → D.MS 18:55
PROVIDERS: Family Medicine; ADMIT Emergency Medicine
DX: J96.22 Acute and chronic respiratory failure with hypercapnia (principal); J44.1 Chronic obstructive pulmonary disease with (acute) exacerbation; F10.239 Alcohol dependence with withdrawal, unspecified; Z87.891 Personal history of nicotine dependence; J96.21 Acute and chronic respiratory failure with hypoxia; Z99.81 Dependence on supplemental oxygen; Y90.8 Blood alcohol level of 240 mg/100 ml or more; Z91.14 Patient's other noncompliance with medication regimen; F31.9 Bipolar disorder, unspecified; E87.6 Hypokalemia; E88.01 Alpha-1-antitrypsin deficiency; F41.9 Anxiety disorder, unspecified; R53.1 Weakness; R20.2 Paresthesia of skin; D64.9 Anemia, unspecified

== ENCOUNTER 2016-09-22 02:58 | Emergency (ER) | payer MEDICAID ==
[2016-09-11 04:20] VITALS: BMI 23.1
[~2016-09-22 02:58] MED LIST changes: +BROVANA15 MCG/2 M INH; +FLORAJEN3 CAPS460 MG PO; +IPRAT-ALBUT 0.5-3 ML INH; +PROTONIX40 MG PO; +THIAMINE HCL50 MG PO
[2016-09-22 04:07] LABS: BASOPHILS 0.5 % (0-2); EOSINOPHILS 6.2 % (0-7); HEMATOCRIT 42.2 % (42.0-54.0); HEMOGLOBIN 13.5 g/dL (13.5-17.5); IMMATURE GRANULOCYTES 6.6 % (0-5); LYMPHOCYTES 35.6 % (15-50); MEAN PLATELET VOLUME 10.2 fL (7.4-10.4); MONOCYTES 11.8 % (2-11); NEUTROPHILS 39.3 % (40-80); PLATELET COUNT 172 10x3/uL (130-400); RBC 5.41 10x6/uL (4.20-6.10); RDW 16.6 % (11.5-14.5); WBC 7.5 10x3/uL (4.8-10.8)
[2016-09-22 04:21] LABS: ALBUMIN 3.3 g/dL (3.4-5.0); ALKALINE PHOSPHATASE 109 U/L (46-116); ALT (SGPT) 67 U/L (10-68); BILIRUBIN - TOTAL 0.31 mg/dL (0.2-1.3); CALC OSMOLALITY 291 mosm/kg (275-300); CALCIUM 7.8 mg/dL (8.5-10.1); CARBON DIOXIDE 28.5 mmol/L (21.0-32.0); CHLORIDE - SERUM 106 mmol/L (98-107); CREATININE - SERUM 0.9 mg/dL (0.6-1.3); POTASSIUM - SERUM 3.8 mmol/L (3.5-5.1); PROTEIN - SERUM 6.5 g/dL (6.4-8.2); SODIUM 145 mmol/L (136-145); UREA NITROGEN 15 mg/dL (7-18); eGFR NON AFRICAN AMERICAN > 90 mL/min (90-120)
[2016-09-22 04:22] LABS: GLUCOSE 126 mg/dL (74-106)
[2016-09-22 04:30] LABS: CREATINE KINASE 40 UL (21-232); MAGNESIUM - SERUM 2.2 mg/dL (1.8-2.4); PRO BNP 27 pg/mL (0-125)
[2016-09-22 04:31] LABS: TROPONIN-I < 0.017 ng/mL (0.000-0.060)
== END 2016-09-22 04:30 | disposition home or self-care (01) ==
LOC: D.ER 02:58
PROVIDERS: Emergency Medicine
DX: R06.09 Other forms of dyspnea (principal); R09.1 Pleurisy; R07.9 Chest pain, unspecified; J44.9 Chronic obstructive pulmonary disease, unspecified; F17.200 Nicotine dependence, unspecified, uncomplicated

== ENCOUNTER 2016-10-09 19:33 | Observation (INO) | payer MEDICAID ==
[~2016-10-09] VITALS: Ht 182.9 cm; Wt 75.1 kg
[2016-10-09 20:21] LABS: BASOPHILS 0.7 % (0-2); EOSINOPHILS 5.9 % (0-7); HEMATOCRIT 40.1 % (42.0-54.0); HEMOGLOBIN 12.9 g/dL (13.5-17.5); LYMPHOCYTES 43.9 % (15-50); MCHC 32.2 g/dL (31.0-37.0); MCV 77.6 fL (80.0-100.0); MEAN PLATELET VOLUME 9.6 fL (7.4-10.4); MONOCYTES 11.8 % (2-11); NEUTROPHILS 35.7 % (40-80); RBC 5.17 10x6/uL (4.20-6.10); RDW 16.1 % (11.5-14.5); WBC 6.9 10x3/uL (4.8-10.8)
[2016-10-09 20:22] LABS: PLATELET COUNT 226 10x3/uL (130-400)
[2016-10-09 20:58] LABS: ALBUMIN 3.4 g/dL (3.4-5.0); ALT (SGPT) 44 U/L (10-68); BILIRUBIN - TOTAL 0.37 mg/dL (0.2-1.3); CALC OSMOLALITY 283 mosm/kg (275-300); CALCIUM 8.2 mg/dL (8.5-10.1); CARBON DIOXIDE 23.9 mmol/L (21.0-32.0); CHLORIDE - SERUM 106 mmol/L (98-107); CREATININE - SERUM 0.8 mg/dL (0.6-1.3); GLUCOSE 105 mg/dL (74-106); POTASSIUM - SERUM 3.9 mmol/L (3.5-5.1); PROTEIN - SERUM 7.1 g/dL (6.4-8.2); SODIUM 143 mmol/L (136-145); UREA NITROGEN 9 mg/dL (7-18); eGFR NON AFRICAN AMERICAN > 90 mL/min (90-120)
[2016-10-09 21:13] LABS: ALKALINE PHOSPHATASE 108 U/L (46-116)
--- NOTE | 2016-10-09 23:14 | NUR ---
PATIENT IS REQUESTING TYLENOL FOR PAIN. HE STATED HE HAS A REALLY BAD HEADACHE AND NECK PAIN. HE STATED "CAN I PLEASE JUST HAVE A COUPLE OF TYLENOL?" PATIENT ADMITS HE HAS BEEN DRINKING TODAY, HE STATED HE HAD 1/2 A PINT OF ALCOHOL. HE DENIES HAVING ANY LIVER PROBLEMS, ASKED HIM SPECIFICALLY IF HE HAS FATTY LIVER, OR CIRROHOSIS OR ANYTHING WITH HIS LIVER, PATIENT DENIES. OFFERED PATIENT A HOT PACK, OR ICE PACK. HE REFUSED BOTH, HE SAID "I REALLY JUST NEED A COUPLE OF TYLENOL, THAT WOULD REALLY HELP ME OUT." CALLED THE EMERGENCY DEPT. SPOKE WITH FABRIZIO VICTOR. TOLD HER THAT THE PATIENT IS REQUESTING SOMETHING FOR PAIN IN HIS HEAD AND NECK, SPECIFICALLY TYLENOL. REMINDED HER THAT THE PATIENT HAS BEEN DRINKING AND ASKED HER TO RELAY THE MESSAGE TO THE EMERGENCY ROOM PHYSICIAN, REMINDED HER THE PATIENT IS ALLERGIC TO MORPHINE AND HAD A HIGH ALCOHOL QUANTATIVE. SHE STATED "YES, I REMEMBER. I WILL LET THE DOCTOR KNOW."
[2016-10-09 23:24] VITALS: BP 110/61; Ht 182.9 cm; Wt 75.1 kg
--- NOTE | 2016-10-09 23:36 | NUR ---
PATIENT IS WHEEZING AND NOT STOPPING EXCEPT FOR A FEW SECONDS AND THEN IT STARTS AGAIN. RESPIRATIONS ARE VERY LABORED AND RAPID. OXYGEN SATURATION IS 95% ON 4L VIA NASAL CANNULA. NOTIFIED RT DELILAH.
--- NOTE | 2016-10-09 23:45 | NUR ---
RESPIRATORY TREATMENT COMPLETE. PATIENT IS NOT WHEEZING, HE IS TALKING WITHOUT WHEEZING (HE IS STUDDERING A LOT.) HIS RESPIRATIONS ARE UNLABORED. AND RESPIRATION RATE IS 22 (WHICH IS LOWER FROM 38). BED IN LOWEST POSITION, CALL LIGHT IN REACH. BED RAILS UP X'S 2. BED ALARM ON. URINAL IN REACH.
--- NOTE | 2016-10-10 02:22 | NUR ---
PATIENT IS RESTING QUIETLY WITH EYES CLOSED. NO SIGNS OF DISTRESS NOTED.
--- NOTE | 2016-10-10 03:01 | NUR ---
PATIENT WOKE UP AND PUSHED CALL LIGHT. PATIENT STATED "WHERE AM I?" REORIENTED PATIENT. REMINDED HIM NOT TO GET UP WITHOUT ASSISTANCE. PATIENT VERBALIZED UNDERSTANDING. PATIENT DENIES NEEDS. RESPIRATIONS ARE UNLABORED ON 4L/MIN OF OXYGEN VIA NASAL CANNULA. PATIENT DENIES NEEDS AT THIS TIME. BED IN LOWEST POSITION, CALL LIGHT IN REACH. BED RAILS UP X'S 2.
[2016-10-10 04:00] VITALS: BP 111/74
--- NOTE | 2016-10-10 04:43 | NUR ---
APPLIED SCDS TO BILATERAL LEGS
[2016-10-10 05:15] LABS: ALBUMIN 3.3 g/dL (3.4-5.0); ALKALINE PHOSPHATASE 91 U/L (46-116); ALT (SGPT) 40 U/L (10-68); CALC OSMOLALITY 279 mosm/kg (275-300); CALCIUM 8.1 mg/dL (8.5-10.1); CARBON DIOXIDE 21.8 mmol/L (21.0-32.0); CHLORIDE - SERUM 103 mmol/L (98-107); CREATININE - SERUM 0.7 mg/dL (0.6-1.3); POTASSIUM - SERUM 4.1 mmol/L (3.5-5.1); PROTEIN - SERUM 6.5 g/dL (6.4-8.2); SODIUM 140 mmol/L (136-145); UREA NITROGEN 8 mg/dL (7-18); eGFR NON AFRICAN AMERICAN > 90 mL/min (90-120)
[2016-10-10 05:20] LABS: HEMATOCRIT 37.9 % (42.0-54.0); HEMOGLOBIN 12.2 g/dL (13.5-17.5); MCH 24.6 pg (26.0-34.0); MCHC 32.2 g/dL (31.0-37.0); MCV 76.4 fL (80.0-100.0); MEAN PLATELET VOLUME 10.1 fL (7.4-10.4); PLATELET COUNT 201 10x3/uL (130-400); RBC 4.96 10x6/uL (4.20-6.10); RDW 16.4 % (11.5-14.5)
[2016-10-10 05:21] LABS: WBC 2.5 10x3/uL (4.8-10.8)
[2016-10-10 05:23] LABS: GLUCOSE 160 mg/dL (74-106)
[2016-10-10 06:20] LABS: EOSINOPHILS 1 % (0-7); LYMPHOCYTES 19 % (15-50); MONOCYTES 1 % (2-11); NEUTROPHILS 79 % (40-80); PLATELET ESTIMATE NORMAL
--- NOTE | 2016-10-10 07:00 | NUR ---
REPORT RECIEVED ASSUMED CARE. PATIENT IN BED WITH IV INTACT. NO COMPLAINTS, CALL LIGHT WITHIN REACH.
[2016-10-10 07:55] VITALS: BP 111/72
--- NOTE | 2016-10-10 08:00 | NUR ---
PATIENT STATED HE WANTED VALIUM AND TYLENOL. EXPLAINED NONE ORDERED AT THIS TIME. WILL CALL AND TRY TO GET HIM SOME IF THE DOCTOR DOESNT SHOW UP SOON. VERBALIZED UNDERSTANDING.
--- NOTE | 2016-10-10 08:30 | NUR ---
PAGESunny [facility] APN TO GET MEDS ORDERED.
--- NOTE | 2016-10-10 09:10 | NUR ---
NO CALL BACK FROM [facility], CALLED [phone] TO GET AHOLD OF DR. GHOTRA. AT THIS TIME PATIENT CAME OUT INTO HALLWAY AND STATED THAT HE HAS SOMEONE ON THE WAY TO GET HIM HE IS LEAVING AMA BECAUSE HE DOESNT NEED TO BE HERE.
--- NOTE | 2016-10-10 09:15 | NUR ---
ASSISTED PATIENT BACK TO ROOM AND ASKED HIM TO PUT HIS O2 ON. EXPLAINED TO PATIENT THAT IF HE LEFT HE WOULD HAVE TO LEAVE AMA BECAUSE NO ONE IS HERE TO DC HIM. PATIENT STATED HE WOULD LEAVE AMA. SPOKE WITH JULIA AND NOTIFIED THAT PATIENT WANTED TO LEAVE AMA. ORDERED MEDS PATIENT WANTED AND STATED THAT WE COULD NOT KEEP HIM IF HE WANTED TO LEAVE.
--- NOTE | 2016-10-10 09:20 | NUR ---
PATIENT SIGNED AMA PAPERS. PORT ACESS REMOVED. AWAITING WC TO GO TO PRIVATE VEHICLE.
--- NOTE | 2016-10-10 10:39 | NUR ---
PATIENT LEFT AMA THIS AM PER NURSE
== END 2016-10-10 09:58 | disposition left against medical advice (07) ==
LOC: D.ER 19:33 → D.MS 22:36 → OBSVTIME 22:36 → D.MS 22:36
PROVIDERS: Family Medicine; ADMIT Family Medicine
DX: J44.1 Chronic obstructive pulmonary disease with (acute) exacerbation (principal); J96.12 Chronic respiratory failure with hypercapnia; J96.11 Chronic respiratory failure with hypoxia; E88.01 Alpha-1-antitrypsin deficiency; F41.9 Anxiety disorder, unspecified; F10.239 Alcohol dependence with withdrawal, unspecified; F10.229 Alcohol dependence with intoxication, unspecified; Y90.8 Blood alcohol level of 240 mg/100 ml or more; E87.0 Hyperosmolality and hypernatremia; E87.6 Hypokalemia; M25.512 Pain in left shoulder; Z87.891 Personal history of nicotine dependence

== ENCOUNTER 2016-10-12 19:09 | Emergency (ER) | payer MEDICAID ==
[2016-10-09 23:24] VITALS: BMI 22.4
== END 2016-10-12 21:30 | disposition home or self-care (01) ==
LOC: D.ER 19:09
DX: J44.1 Chronic obstructive pulmonary disease with (acute) exacerbation (principal); R06.2 Wheezing; R53.83 Other fatigue; R53.1 Weakness; R42 Dizziness and giddiness; F41.9 Anxiety disorder, unspecified; F32.9 Major depressive disorder, single episode, unspecified; J98.4 Other disorders of lung; R00.0 Tachycardia, unspecified

== ENCOUNTER 2016-11-12 05:36 | Emergency (ER) | payer MEDICAID ==
[2016-10-09 23:24] VITALS: BMI 22.4
== END 2016-11-12 06:57 | disposition home or self-care (01) ==
LOC: D.ER 05:36
DX: J44.1 Chronic obstructive pulmonary disease with (acute) exacerbation (principal)

== ENCOUNTER 2016-11-16 03:22 | Inpatient (IN) | payer MEDICAID ==
[~2016-11-16] VITALS: Ht 182.9 cm; Wt 82.0 kg
[2016-11-16 04:57] LABS: BASOPHILS 1.6 % (0-2); EOSINOPHILS 8.8 % (0-7); HEMATOCRIT 39.8 % (42.0-54.0); HEMOGLOBIN 12.7 g/dL (13.5-17.5); IMMATURE GRANULOCYTES 0.4 % (0-5); LYMPHOCYTES 51.4 % (15-50); MCH 23.8 pg (26.0-34.0); MCHC 31.9 g/dL (31.0-37.0); MCV 74.7 fL (80.0-100.0); MEAN PLATELET VOLUME 9.5 fL (7.4-10.4); MONOCYTES 8.9 % (2-11); NEUTROPHILS 28.9 % (40-80); PLATELET COUNT 187 10x3/uL (130-400); RBC 5.33 10x6/uL (4.20-6.10); RDW 16.6 % (11.5-14.5)
[2016-11-16 05:08] LABS: ALBUMIN 3.5 g/dL (3.4-5.0); ALKALINE PHOSPHATASE 98 U/L (46-116); ALT (SGPT) 23 U/L (10-68); BILIRUBIN - TOTAL 0.34 mg/dL (0.2-1.3); CALC OSMOLALITY 288 mosm/kg (275-300); CARBON DIOXIDE 29.7 mmol/L (21.0-32.0); CHLORIDE - SERUM 105 mmol/L (98-107); CREATININE - SERUM 0.8 mg/dL (0.6-1.3); GLUCOSE 120 mg/dL (74-106); PROTEIN - SERUM 7.1 g/dL (6.4-8.2); SODIUM 146 mmol/L (136-145); UREA NITROGEN 5 mg/dL (7-18); eGFR NON AFRICAN AMERICAN > 90 mL/min (90-120)
[2016-11-16 05:13] LABS: POTASSIUM - SERUM 2.8 mmol/L (3.5-5.1)
[2016-11-16 08:00] VITALS: BP 147/65
--- NOTE | 2016-11-16 08:19 | NUR ---
AM ROUNDS - PT IS AWAKE AND IN BED. PT HAS LABORED BREATHING AND SOB. POX IS 98-99% ON 4L O2. RESP NOTIFIED. GUAIFENESIN GIVEN. PT STATES HE IS COUGHING UP CLEAR SPUTUM. BED AT LOWEST POSITION. CALL LOPEZ IN USE/REACH. SIDE RAILS UP X2. LEFT CHEST INFUSAPORT. WILL CONTINUE OT MONITOR
--- NOTE | 2016-11-16 08:40 | NUR ---
BIOPATCH PLACED ON LEFT CHEST INFUSAPORT AND SECURED WITH TEGADERM. WILL CONTINUE TO MONITOR
[2016-11-16 10:57] VITALS: Ht 182.9 cm; Wt 82.0 kg
[2016-11-16 12:00] VITALS: BP 123/82
--- NOTE | 2016-11-16 14:09 | NUR ---
PT LEFT FLOOR VIA BED TO DIALYSIS.
[2016-11-16 14:22] LABS: CALCIUM 7.8 mg/dL (8.5-10.1)
[2016-11-16 14:33] LABS: ANION GAP 21.9 mmol/L (8-16); CARBON DIOXIDE 20.6 mmol/L (21.0-32.0); CREATININE - SERUM 1.1 mg/dL (0.6-1.3); POTASSIUM - SERUM 3.5 mmol/L (3.5-5.1)
[2016-11-16 16:00] VITALS: BP 155/88
--- NOTE | 2016-11-17 00:12 | NUR ---
ASSESSMENT UNCHANGED. VSS, AFEBRILE. RESP EVEN UNLABORED. NO NEEDS VOICED. WILL CONT TO MONITOR.
[2016-11-17 05:01] LABS: BASOPHILS 0.1 % (0-2); EOSINOPHILS 0 % (0-7); HEMATOCRIT 35.3 % (42.0-54.0); HEMOGLOBIN 11.1 g/dL (13.5-17.5); IMMATURE GRANULOCYTES 0.3 % (0-5); LYMPHOCYTES 8.3 % (15-50); MCH 23.7 pg (26.0-34.0); MCHC 31.4 g/dL (31.0-37.0); MCV 75.3 fL (80.0-100.0); MEAN PLATELET VOLUME 10.1 fL (7.4-10.4); MONOCYTES 10.2 % (2-11); NEUTROPHILS 81.1 % (40-80); PLATELET COUNT 157 10x3/uL (130-400); RBC 4.69 10x6/uL (4.20-6.10); RDW 16.8 % (11.5-14.5); WBC 12.1 10x3/uL (4.8-10.8)
[2016-11-17 05:11] LABS: CALC OSMOLALITY 285 mosm/kg (275-300); CARBON DIOXIDE 25.2 mmol/L (21.0-32.0); CHLORIDE - SERUM 107 mmol/L (98-107); CREATININE - SERUM 0.9 mg/dL (0.6-1.3); POTASSIUM - SERUM 3.5 mmol/L (3.5-5.1); SODIUM 143 mmol/L (136-145); UREA NITROGEN 5 mg/dL (7-18); eGFR NON AFRICAN AMERICAN > 90 mL/min (90-120)
[2016-11-17 05:12] LABS: GLUCOSE 163 mg/dL (74-106)
[2016-11-17 07:48] VITALS: BP 139/100
--- NOTE | 2016-11-17 08:20 | NUR ---
ROUNDING DONE WITH PATIENT ON 4L PER NC. LEFT IP SEEN WITH BANANA BAG INMFUSING AT 100 CC/HR. PATIENT IS COUGHING QUITE OFTEN, NO SPUTUM SEEN YET. ON EP, LAB VALUES ARE NORMAL. WILL MONITOR.
--- NOTE | 2016-11-17 10:06 | NUR ---
TALKED TO PATIENT AND ENCOURAGED HIM TO STOP DRINKING ALCOHOL WITH HIS BREATHING PROBLEMS. HE STATES THAT HE KNOWS THIS AND HAS STOPPED FOR "AWHILE" BUT THEN HE THINKS THAT A HALF PINT IS NOT BAD BUT THEN STATES PRETTY SOON HE IS DRINKING PINTS TO [facility] AGAIN AND "BACK INTO THE HOSPITAL I GO".
[2016-11-17 12:20] VITALS: BP 133/84
[2016-11-17 16:00] VITALS: BP 125/94
--- NOTE | 2016-11-17 17:17 | NUR ---
EATING SUPPER WITHOUT VOICING ANY NEEDS AT THIS TIME. WILL CONTINUE TO MONITOR.
[2016-11-17 19:00] VITALS: BP 153/87
--- NOTE | 2016-11-17 19:20 | NUR ---
PT IN BED WATCHING TELEVISION DENIES NEEDS AT THIS TIME WILL CONTINUE TO MONITOR
[2016-11-18] VITALS: BP 146/97
[2016-11-18 04:00] VITALS: BP 124/87
[2016-11-18 05:23] LABS: BASOPHILS 0.1 % (0-2); EOSINOPHILS 0 % (0-7); HEMATOCRIT 35.5 % (42.0-54.0); HEMOGLOBIN 11.1 g/dL (13.5-17.5); IMMATURE GRANULOCYTES 0.9 % (0-5); LYMPHOCYTES 6.4 % (15-50); MCH 23.5 pg (26.0-34.0); MCHC 31.3 g/dL (31.0-37.0); MCV 75.2 fL (80.0-100.0); MEAN PLATELET VOLUME 9.9 fL (7.4-10.4); MONOCYTES 8.3 % (2-11); NEUTROPHILS 84.3 % (40-80); PLATELET COUNT 146 10x3/uL (130-400); RBC 4.72 10x6/uL (4.20-6.10); RDW 17.2 % (11.5-14.5); WBC 13.8 10x3/uL (4.8-10.8)
[2016-11-18 05:41] LABS: CALC OSMOLALITY 287 mosm/kg (275-300); CALCIUM 7.9 mg/dL (8.5-10.1); CARBON DIOXIDE 27.8 mmol/L (21.0-32.0); CHLORIDE - SERUM 105 mmol/L (98-107); CREATININE - SERUM 0.8 mg/dL (0.6-1.3); GLUCOSE 211 mg/dL (74-106); POTASSIUM - SERUM 3.6 mmol/L (3.5-5.1); SODIUM 142 mmol/L (136-145); UREA NITROGEN 10 mg/dL (7-18); eGFR NON AFRICAN AMERICAN > 90 mL/min (90-120)
--- NOTE | 2016-11-18 07:40 | NUR ---
ROUNDING DONE WITH PATIENT LAYING ON LEFT SIDE, ON 4L PER NC. BANANA BAG IS INFUSING TO LEFT IP AT 100 CC/HR. ON EP WITH LAB VALUES GOOD. PATIENT IS NOT COUGHING AT PRESENT TIME. WILL MONITOR.
[2016-11-18 08:26] VITALS: BP 136/91
[2016-11-18 11:58] VITALS: BP 130/86
[2016-11-18 15:56] VITALS: BP 139/85
--- NOTE | 2016-11-18 16:34 | NUR ---
1615-CALLED TO ROOM PER PCT. PATIENT IS RED IN THE FACE AND HAVING TROUBLE CATCHNG HIS BREATH. O2 SAT IS 95% ON 4L PER NC. I OFFERED A COOL RAG TO PATIENT AND STAYED WITH HIM UNTIL HE STARTED BREATHING A LITTLE EASIER. DR PAYTON ON THE FLOOR AND IN TO SEE PATIENT. NEW ORDERS RECEIVED AND GIVEN NEW MEDS. WILL MONITOR PATIENT. RT HERE FOR PRN UPDRAFT TREATMENT.
--- NOTE | 2016-11-18 16:38 | NUR ---
8760-PATIENT IS BREATHING MUCH EASIER NOW THAT STEROIDS AND PRN UPDRAFT GIVEN. TAMMY WITH RT STILL IN ROOM. HE STATES THAT HE THINKS THE PATIENT HAD A BRONCHOSPASM.
--- NOTE | 2016-11-18 17:41 | NUR ---
PATIENT REPORTS THAT HE IS BREATHING BETTER, NOT COUGHING, NOT RED IN THE FACE. WILL CONTINUE TO FOLLOW.
[2016-11-18 20:00] VITALS: BP 135/96
[2016-11-19] VITALS: BP 124/87
[2016-11-19 03:49] LABS: BASOPHILS 0.1 % (0-2); EOSINOPHILS 0 % (0-7); HEMATOCRIT 34.8 % (42.0-54.0); HEMOGLOBIN 10.9 g/dL (13.5-17.5); IMMATURE GRANULOCYTES 1.1 % (0-5); LYMPHOCYTES 4.6 % (15-50); MCH 23.7 pg (26.0-34.0); MCHC 31.3 g/dL (31.0-37.0); MCV 75.8 fL (80.0-100.0); MEAN PLATELET VOLUME 10.1 fL (7.4-10.4); MONOCYTES 4.6 % (2-11); NEUTROPHILS 89.6 % (40-80); PLATELET COUNT 147 10x3/uL (130-400); RBC 4.59 10x6/uL (4.20-6.10); RDW 17.2 % (11.5-14.5); WBC 14.2 10x3/uL (4.8-10.8)
[2016-11-19 04:00] VITALS: BP 134/88
[2016-11-19 04:08] LABS: CALC OSMOLALITY 292 mosm/kg (275-300); CALCIUM 7.3 mg/dL (8.5-10.1); CARBON DIOXIDE 29.4 mmol/L (21.0-32.0); CHLORIDE - SERUM 107 mmol/L (98-107); CREATININE - SERUM 0.8 mg/dL (0.6-1.3); GLUCOSE 194 mg/dL (74-106); POTASSIUM - SERUM 3.4 mmol/L (3.5-5.1); SODIUM 144 mmol/L (136-145); eGFR NON AFRICAN AMERICAN > 90 mL/min (90-120)
[2016-11-19 04:16] LABS: UREA NITROGEN 14 mg/dL (7-18)
[2016-11-19 08:00] VITALS: BP 119/76
--- NOTE | 2016-11-19 10:27 | NUR ---
Patient is resting well in bed, denies any needs at this time. Call light within reach.
--- NOTE | 2016-11-19 11:03 | NUR ---
PT IN BED, WATCHING TV. RESP EVEN AND UNLABORED, PT DENIES ANY NEEDS AT THIS TIME. NAD NOTED, CALL LIGHT IN REACH.
--- NOTE | 2016-11-19 11:24 | NUR ---
Patient resting well in bed, bedside swallow study done with speech therapy. Call light within reach, denies any needs or pain.
[2016-11-19 12:00] VITALS: BP 136/88
[2016-11-19 16:00] VITALS: BP 120/80
--- NOTE | 2016-11-19 16:12 | NUR ---
Patient is asleep, call light in reach.
[2016-11-19 19:00] VITALS: BP 136/91
[2016-11-20] VITALS: BP 137/98
--- NOTE | 2016-11-20 00:30 | NUR ---
RESTING IN BED WITH EYES CLOSED. DENIES ANY PAIN. HAS PRODUCTIVE COUGH. IV TO LEFT PORT PATENT AND RUNNING NS @ 100CC/HR. REQUESTED VALIUM EARLIER FOR MUSCLE SPASMS AND EFFECTIVE, CALL LIGHT AND OVERBED TABLE IN REACH.
[2016-11-20 04:00] VITALS: BP 142/94
[2016-11-20 05:55] LABS: BASOPHILS 0 % (0-2); EOSINOPHILS 0 % (0-7); HEMATOCRIT 34.8 % (42.0-54.0); HEMOGLOBIN 10.9 g/dL (13.5-17.5); IMMATURE GRANULOCYTES 1.5 % (0-5); LYMPHOCYTES 3.9 % (15-50); MCH 24.1 pg (26.0-34.0); MCHC 31.3 g/dL (31.0-37.0); MCV 76.8 fL (80.0-100.0); MEAN PLATELET VOLUME 10.7 fL (7.4-10.4); MONOCYTES 4.8 % (2-11); NEUTROPHILS 89.8 % (40-80); PLATELET COUNT 147 10x3/uL (130-400); RBC 4.53 10x6/uL (4.20-6.10); RDW 17.5 % (11.5-14.5); WBC 14.4 10x3/uL (4.8-10.8)
[2016-11-20 06:13] LABS: CALCIUM 7.8 mg/dL (8.5-10.1); CARBON DIOXIDE 29.7 mmol/L (21.0-32.0); CHLORIDE - SERUM 105 mmol/L (98-107); CREATININE - SERUM 0.8 mg/dL (0.6-1.3); SODIUM 141 mmol/L (136-145); UREA NITROGEN 16 mg/dL (7-18); eGFR NON AFRICAN AMERICAN > 90 mL/min (90-120)
[2016-11-20 06:18] LABS: CALC OSMOLALITY 290 mosm/kg (275-300); GLUCOSE 263 mg/dL (74-106); POTASSIUM - SERUM 4.2 mmol/L (3.5-5.1)
[2016-11-20 08:00] VITALS: BP 127/87
[2016-11-20 12:00] VITALS: BP 145/89
--- NOTE | 2016-11-20 13:12 | NUR ---
Nutrition Follow Up: Pt stated that his appetite has improved. RD discussed changing diet to ADA or NCS to aid in glucose control. Pt refused stating that he does not eat many sweets and will watch his intake of those while in hospital. Pt is eating 88% meal avg on a regular diet. +BM 11/19/16. Labs reviewed - glucose continues elevated. Meds noted including Solu Medrol. Rec continue current diet. RD following.
--- NOTE | 2016-11-20 13:22 | NUR ---
THIS SHIFT, PATIENT HAS BEEN SITTING UP IN BED. COUGHING NON PRODUCTIVE COUGH. WILL CONTINUE TO MONITOR.
[2016-11-20 16:00] VITALS: BP 151/96
[2016-11-20 19:00] VITALS: BP 138/93
--- NOTE | 2016-11-20 19:57 | NUR ---
Patient is resting well in bed alert and watching tv, denies any needs at this time. Call light within reach.
--- NOTE | 2016-11-20 23:32 | NUR ---
RECIEVED REPORT FROM DAY NURSE.
--- NOTE | 2016-11-21 01:11 | NUR ---
PT REPORTED THAT PORT SITE "BURNING". ASSESSED SITE, WHICH HAS NS @ 100ML/HR INFUSING INTO IT. NOTED SWELLING AND REDNESS AROUND ENTIRE SITE, EVEN PAST THE DRESSING. ATTEMPTED TO VERIFY PLACEMENT, NO BLOOD RETURN. PT STATES THERE HAS BEEN BLOOD RETURN ON ALL OTHER DAYS. HE SAID HE DID TAKE A SHOWER YESTERDAY AND FELT THE PORT GET PULLED WHEN HE GOT OUT OF SHOWER. DEACCESSED PORT AND WILL LEAVE ALONE UNTIL SWELLING SUBSIDES. WILL LET PATIENT SLEEP AND ATTEMPT A PIV BEFORE AM MVI IVF ARE DUE. PT IN AGREEMENT.
[2016-11-21 04:00] VITALS: BP 154/104
[2016-11-21 04:19] LABS: BASOPHILS 0.1 % (0-2); EOSINOPHILS 0 % (0-7); HEMATOCRIT 36.1 % (42.0-54.0); HEMOGLOBIN 11.1 g/dL (13.5-17.5); IMMATURE GRANULOCYTES 2.5 % (0-5); LYMPHOCYTES 3.1 % (15-50); MCH 23.5 pg (26.0-34.0); MCHC 30.7 g/dL (31.0-37.0); MCV 76.5 fL (80.0-100.0); MEAN PLATELET VOLUME 9.7 fL (7.4-10.4); MONOCYTES 7.2 % (2-11); NEUTROPHILS 87.1 % (40-80); PLATELET COUNT 131 10x3/uL (130-400); RBC 4.72 10x6/uL (4.20-6.10); RDW 17.6 % (11.5-14.5); WBC 16.6 10x3/uL (4.8-10.8)
[2016-11-21 04:32] LABS: CALC OSMOLALITY 284 mosm/kg (275-300); CALCIUM 7.7 mg/dL (8.5-10.1); CARBON DIOXIDE 27.8 mmol/L (21.0-32.0); CHLORIDE - SERUM 103 mmol/L (98-107); CREATININE - SERUM 0.9 mg/dL (0.6-1.3); GLUCOSE 271 mg/dL (74-106); POTASSIUM - SERUM 4.1 mmol/L (3.5-5.1); SODIUM 137 mmol/L (136-145); UREA NITROGEN 16 mg/dL (7-18); eGFR NON AFRICAN AMERICAN > 90 mL/min (90-120)
--- NOTE | 2016-11-21 06:39 | NUR ---
PT'S IMPLANTED PORT SITE IS MUCH IMPROVED, STILL MILDLY TENDER TO TOUCH. PT PREFERS TO LET SITE REST A LITTE LONGER AND THEN ATTEMPT TO REACCESS PORT RATHER THAN ATTEMPT TO SITE A PIV. RT CURRENTLY IN ROOM AND TAKING A BREATHING TREATMENT. HE HAS FREQUENT EXCESSIVE COUGHING SPELLS THAT MAKE HIM BREATHLESS AND REDFACED. WILL MONITOR AND NOTIFY DAY NURSE OF NEED TO REACCESS PORT WHEN SITE IS NO LONGER PAINFUL TO PALPATION.
--- NOTE | 2016-11-21 08:02 | NUR ---
AM ROUNDS - PT AWAKE IN BED. NO YELLOW BAND ON. O2 AT 2L VIA NC. LEFT CHEST HEMOSPLIT, IFILTRATED AND FLUIDS ON HOLD AT THIS TIME. PT ON 4L VIA NC. BED AT LOWEST POSITION. CALL LOPEZ IN USE/REACH. NO NEEDS AT THIS TIME. WILL CONTINUE TO MONITOR
--- NOTE | 2016-11-21 11:35 | NUR ---
pt's infusaport to left chest infiltrated last night per night nurse. LYRIC, RN, TRIED TO ACCESS INFUSAPORT AND STARTED TO INFILTRATE WHEN FLUSHED. KEVEN, VASCULAR ACCESS NURSE, CALLED. UNABLE TO HAND THE BANANA BAG AND PUSH SOLUMEDROL AT THIS TIME. [facility] ONTINUE TO MONITOR
[2016-11-21 12:00] VITALS: BP 148/92
--- NOTE | 2016-11-21 14:02 | NUR ---
ACCESS TO HEMOSPLIT GAINED. STARTED BANANA BAG. PT TOLERATED WELL. [facility]
[2016-11-21 16:00] VITALS: BP 146/95
--- NOTE | 2016-11-21 17:21 | NUR ---
PT STATES DR. RICHEY TOLD HIM HE WAS STAYING IN THE HOSPITAL TILL SATURDAY. PT STATES HE IS ANXIOUS BUT KNOWS THAT IT IS A GOOD THING TO BE STAYING TILL SATURDAY. WILL CONTINUE TO MONITOR
[2016-11-21 19:00] VITALS: BP 134/87
--- NOTE | 2016-11-21 19:00 | NUR ---
REPORT RECIEVED, INITIAL ASSESSMENT COMPLETE, PLEASE SEE FLOW SHEETS FOR DETAILS. DENEIS PAIN/NEEDS ATT. VSS, BED LOW AND LOCKED, CALL LIGHT IN REACH. WILL CPOC.
[2016-11-22] VITALS: BP 130/90
[2016-11-22 04:00] VITALS: BP 153/97
[2016-11-22 04:28] LABS: BASOPHILS 0.2 % (0-2); EOSINOPHILS 0 % (0-7); HEMATOCRIT 35.2 % (42.0-54.0); HEMOGLOBIN 11.3 g/dL (13.5-17.5); IMMATURE GRANULOCYTES 4.8 % (0-5); LYMPHOCYTES 4.3 % (15-50); MCH 24.2 pg (26.0-34.0); MCHC 32.1 g/dL (31.0-37.0); MCV 75.5 fL (80.0-100.0); MEAN PLATELET VOLUME 10.5 fL (7.4-10.4); MONOCYTES 5.6 % (2-11); NEUTROPHILS 85.1 % (40-80); PLATELET COUNT 139 10x3/uL (130-400); RBC 4.66 10x6/uL (4.20-6.10); RDW 17.8 % (11.5-14.5); WBC 12.6 10x3/uL (4.8-10.8)
[2016-11-22 04:41] LABS: CALC OSMOLALITY 282 mosm/kg (275-300); CALCIUM 7.2 mg/dL (8.5-10.1); CARBON DIOXIDE 29.6 mmol/L (21.0-32.0); CHLORIDE - SERUM 104 mmol/L (98-107); CREATININE - SERUM 0.8 mg/dL (0.6-1.3); GLUCOSE 235 mg/dL (74-106); POTASSIUM - SERUM 4.3 mmol/L (3.5-5.1); SODIUM 137 mmol/L (136-145); UREA NITROGEN 16 mg/dL (7-18); eGFR NON AFRICAN AMERICAN > 90 mL/min (90-120)
[2016-11-22 08:00] VITALS: BP 142/96
--- NOTE | 2016-11-22 08:21 | NUR ---
AM ROUNDS - PT IN BED WITH NO NEEDS AT THIS TIME. 4L VIA NC. LEFT CHEST INFUSAPORT, BANANA BAG AT 125CC/HR. BED AT LOWEST POSITION, SIDE RAILWS UP X2, CALL LOPEZ IN USE/REACH. WILL CONTINUE TO MONITOR
[2016-11-22 11:57] VITALS: BP 147/88
[2016-11-22 16:00] VITALS: BP 138/86
--- NOTE | 2016-11-22 18:39 | NUR ---
PT IN BED WITH NO NEEDS AT THIS TIME. WILL CONTINUE OT MONITOR
--- NOTE | 2016-11-22 19:56 | NUR ---
PT IN BED WATCHING TELEVISION. DENIES NEEDS AT THIS TIME PT IS READY FOR DISCHARGE. WILL CONTINUE TO MONITOR.
[2016-11-22 20:00] VITALS: BP 150/101
[2016-11-23 04:00] VITALS: BP 137/91
--- NOTE | 2016-11-23 07:59 | NUR ---
AM ROUNDS - PT IN BED WITH NO NEEDS AT THIS TIME. PT ON 4L O2 VIA NC. LEFT CHEST INFUSAPORT, NS @ 50CC/HR. BED AT LOWEST POSITION. CALL LOPEZ IN USE/REACH. SIDE RAILS UP X2. PT IS ON A 1ST STEP OVERLAY. WILL CONTINUE TO MONITOR
[2016-11-23 08:00] VITALS: BP 147/88
[2016-11-23] MEDS ORDERED: Levaquin PO (08:10)
[2016-11-23] MEDS ORDERED: ROBITUSSIN AC (10 M1 PO (08:12)
[2016-11-23] MEDS ORDERED: BENZONATATE200 MG PO (08:12)
[2016-11-23] MEDS ORDERED: SINGULAIR10 MG PO (08:13)
[2016-11-23] MEDS ORDERED: PREDNISONE20 MG PO (08:15)
[2016-11-23 12:00] VITALS: BP 139/89
--- NOTE | 2016-11-23 12:51 | NUR ---
D/C - WRITTEN AND VERBAL D/C INTRUCTION GIVEN TO PT. LEFT CHEST INFUSAPORT HEP LOCKED WITH 300MG HEPRIN. BLANDON NEEDLE D/C, 2X2 DRESSING APPLIED AND SECURED WITH A LARGE TEGRADERM. PT TOLERATED WELL. PT IS WAITING ON TRANSPORTATION.
--- NOTE | 2016-11-23 13:29 | NUR ---
PT IS ON 4L O2 VIA NC. PT STATED THAT HIS TRANSPORTATION DID NOT AND WILL NOT WAIT ON HIM DOWNSTAIRS. PT STATES THAT HIS TRANSPORTATION WILL BE BRINGING HIS PORTABLE O2. I ASKED PT TO PLEASE LET ME KNOW WHEN HIS TRANSPORTATION ARRIVED AND WE WOULD WHEEL HIM TO THE FRONT. HE SAID "NO, MY RIDE WILL NOT WAIT. I NEED TO GO AND THEN CALL HIM TO COME GET ME." PT LEFT FLOOR VIA WHEELCHAIR WITH STUDENT NURSES AND HOSPITAL O2. WILL D/C
--- NOTE | 2016-11-23 16:13 | NUR ---
Patient Name: JOSEPH MEJIA Admission Status: ER Accout number: [id number] Admission Date: 11-16-2016 : 1955 Admission Diagnosis:SHORTNESS OF BREATH Attending: CARLENE DAVID Current LOS: 7 Anticipated DC Date: 11-23-2016 Planned Disposition: Home Primary Insurance: MEDICAID [place] LATE ENTRY FROM 11-22-16: Discharge Planning Comments: * Is the patient Alert and Oriented? Yes 0 * How many steps to enter\\exit or inside your home? 1 0 * PCP DR. LE 0 * Pharmacy [facility] 0 * Preadmission Environment Home with Family 0 * ADLs Independent 0 * Equipment Nebulizer Other Oxygen Shower Chair Walker 0 * Other Equipment HOME AND PORTABLE OXYGEN BY [facility] 0 * List name and contact numbers for known caregivers / representatives who currently or will assist patient after discharge: LUKE MCDANIEL, 0 * Community resources currently utilized Other 0 * Please name any agencies selected above. [facility] AT HOME EVERY BY [facility] NURSE 0 * Additional services required to return to the preadmission environment? No 0 * Can the patient safely return to the preadmission environment? Yes 0 * Has this patient been hospitalized within the prior 30 days at any hospital? No 0 CM MET WITH PT IN ROOM TO DISCUSS DISCHARGE PLANNING AND NEEDS. PT REPORTS LIVING AT HOME INDEPENDENTLY WITH HIS ADULT COUSIN'S SPOUSE. PT'S COUSIN, WHO OWNS THE HOME, HAS MOVED OUT AND PLANS TO SELL THE HOME. PT AND HIS COUSIN'S SPOUSE WILL BE LOOKING FOR ANOTHER HOME AT THAT TIME, PT IS UNSURE OF WHEN OR IF THE HOME WILL BE SOLD. PT REPORTS HAVING ALL NEEDED MEDICAL EQUIPMENT FROM [facility] AND NO OUTSIDE SERVICES ASSISTING IN THE HOME. PT RECEIVES [facility]ION BY THE [employer]'S NURSE ON EVERY AT HOME. CM DISCUSSED AVAILABILITY OF HOME HEALTH, REHAB SERVICES AND MEDICAL EQUIPMENT. PT DENIES DISCHARGE NEEDS, REPORTS JONAS, COUSIN'S , WILL PICK HIM UP FOR DISCHARGE HOME. CM DISCUSSED ALCOHOL REHAB AND SUPPORT SERVICES BEING AVAILABLE. PT DENIES NEED, REPORTS HE REALLY HAS CUT BACK, BUT STILL REPORTS DRINKING A PINT OF "CHEAPEST WHISKEY" EVERY DAY. Manager Military: Guru Aburto
--- NOTE | 2016-11-27 16:50 | CN ---
PATIENT NAME:JOSEPH MEJIA MEDICAL RECORD: [id number] : [birth year] LOCATION:D. D.2105 ADMIT DATE: 11/16/16 ACCOUNT: [id number] CONSULTING PHYSICIAN: BRYON INMAN MD REFERRING PHYSICIAN: CARLENE DAVID MD DATE OF CONSULTATION: 11/16/2016 CONSULT REQUESTING PHYSICIAN: Carlene David MD REASON FOR CONSULTATION: Acute exacerbation of chronic obstructive pulmonary disease, acute cough. HISTORY OF PRESENT ILLNESS: Mr. Mejia is a 60-year-old gentleman who has a history of severe COPD, alpha-1 antitrypsin deficiency. The patient states since yesterday is coughing. He is wheezing. The cough is spasmodic in nature. He is coughing to the extent that he vomits with it; productive with whitish color sputum production. He also is feeling feverish. He hears himself wheezing. REVIEW OF SYSTEMS: As in history of present illness. PAST MEDICAL HISTORY: 1. Alpha-1 antitrypsin deficiency. 2. Chronic obstructive pulmonary disease of severe degree. 3. Chronic hypoxic respiratory failure. 4. Depression. 5. Anxiety. 6. Alcoholism. PAST SURGICAL HISTORY: 1. He has colon surgery. 2. Thoracotomy. 3. Chest tube placement for pneumothorax. ALLERGIES: HE IS ALLERGIC TO MORPHINE. PRESENT MEDICATIONS: Access Information Management was reviewed. PERSONAL AND SOCIAL HISTORY: The patient is an ex-smoker. He is a nondrinker. FAMILY HISTORY: Noncontributory. PHYSICAL EXAMINATION: GENERAL: Now, the patient is lying comfortably in bed. He is coughing. VITAL SIGNS: The blood pressure 147/65, pulse is 45, respiration is 19, temperature is 97.9, SpO2 is 98% on 4 liter nasal cannula. HEENT: Conjunctivae pink, sclerae nonicteric. NECK: Supple, no JVD. CHEST: There is prolonged expiration with wheezing. HEART: Rate and rhythm regular, normal sound, no murmur. ABDOMEN: Soft. Bowel sounds present. No hepatosplenomegaly. RECTAL: Deferred. EXTREMITIES: No cyanosis, no clubbing. There is no pedal edema. SKIN: Warm, normal turgor. CENTRAL NERVOUS SYSTEM: The patient is awake and alert. There are no obvious CONSULT REPORT [id number] JOSEPH MEJIA cranial nerve abnormalities. The gait was not tested. CHEST RADIOGRAPH: There is hyperinflation. There are no acute infiltrate. OTHER LABORATORY DATA: CBC: The WBC is 7, hemoglobin 12.7, hematocrit 39.8 and the platelet count is 187. Chemistry: Sodium 144, potassium 3.5, BUN is 5 and creatinine 1.1. ABG: The pH is 7.39, pCO2 of 47.2, the pO2 is 83, bicarbonate 28.7. IMPRESSION: 1. Acute exacerbation of chronic obstructive pulmonary disease. 2. Acute bronchitis. 3. Jnsrn-mk-pzkptkg hypoxic respiratory failure. 4. Acute cough. 5. Alpha-1 antitrypsin deficiency. RECOMMENDATION: 1. Continue Levaquin IV. 2. Increase methylprednisolone dosage. 3. Increase tessalon perles 200 mg t.i.d. 4. Mucinex DM 2 tablets p.o. b.i.d. 5. Supplemental oxygen. 6. Brovana and budesonide nebulizer. Discontinue the Advair. 7. Albuterol ipratropium nebulizer q.[address] David, thank you for involving me in the care of Mr. Mejia. TRANSINT:[id number] Voice Confirmation ID: [id number] DOCUMENT ID: [id number] BRYON INMAN MD at 1650 CC: CARLENE DAVID MD [id number] DICTATION DATE: 11/16/16 1625 ORDER MANAGER: 11/16/16 2211 DIS IN 11/23/16 [facility] [address] [place] [address]
== END 2016-11-23 13:33 | disposition home or self-care (01) | DRG 189 ==
LOC: D.ER 03:22 → D.M2 04:35
PROVIDERS: Emergency Medicine; Internal Medicine Pulmonary Disease; ADMIT Family Medicine
DX: J96.21 Acute and chronic respiratory failure with hypoxia (principal); J44.1 Chronic obstructive pulmonary disease with (acute) exacerbation; J44.0 Chronic obstructive pulmonary disease with (acute) lower respiratory infection; F31.30 Bipolar disorder, current episode depressed, mild or moderate severity, unspecified; E88.01 Alpha-1-antitrypsin deficiency; F41.8 Other specified anxiety disorders; Y90.8 Blood alcohol level of 240 mg/100 ml or more; J20.9 Acute bronchitis, unspecified; D64.9 Anemia, unspecified; Z87.891 Personal history of nicotine dependence; F10.229 Alcohol dependence with intoxication, unspecified

== ENCOUNTER 2016-12-11 19:59 | Emergency (ER) | payer MEDICAID ==
[~2016-12-11 19:59] MED LIST changes: +Levaquin PO; +ROBITUSSIN AC (10 M1 PO
[2016-12-11 20:13] LABS: BASOPHILS 0.6 % (0-2); EOSINOPHILS 1.1 % (0-7); HEMATOCRIT 42.4 % (42.0-54.0); HEMOGLOBIN 13.3 g/dL (13.5-17.5); IMMATURE GRANULOCYTES 1.8 % (0-5); LYMPHOCYTES 24.7 % (15-50); MCHC 31.4 g/dL (31.0-37.0); MCV 76.5 fL (80.0-100.0); MEAN PLATELET VOLUME 9.5 fL (7.4-10.4); MONOCYTES 4.1 % (2-11); NEUTROPHILS 67.7 % (40-80); RBC 5.54 10x6/uL (4.20-6.10); RDW 18.7 % (11.5-14.5); WBC 8.9 10x3/uL (4.8-10.8)
[2016-12-11 20:22] LABS: PLATELET COUNT 205 10x3/uL (130-400)
[2016-12-11 20:50] LABS: ALBUMIN 3.4 g/dL (3.4-5.0); ALKALINE PHOSPHATASE 88 U/L (46-116); ALT (SGPT) 36 U/L (10-68); BILIRUBIN - TOTAL 0.54 mg/dL (0.2-1.3); CALCIUM 8.6 mg/dL (8.5-10.1); CARBON DIOXIDE 30.4 mmol/L (21.0-32.0); CHLORIDE - SERUM 101 mmol/L (98-107); CREATININE - SERUM 0.8 mg/dL (0.6-1.3); POTASSIUM - SERUM 3.8 mmol/L (3.5-5.1); PROTEIN - SERUM 7.3 g/dL (6.4-8.2); SODIUM 139 mmol/L (136-145); UREA NITROGEN 11 mg/dL (7-18); eGFR NON AFRICAN AMERICAN > 90 mL/min (90-120)
[2016-12-11 20:54] LABS: APPEARANCE CLEAR (CLEAR); BILIRUBIN NEGATIVE (NEGATIVE); COLOR YELLOW (YELLOW); GLUCOSE NEGATIVE (NEGATIVE); KETONE NEGATIVE (NEGATIVE); NITRITE NEGATIVE (NEGATIVE); PROTEIN NEGATIVE (NEGATIVE); UROBILINOGEN NORMAL (NORMAL)
[2016-12-11 20:58] LABS: PRO BNP 30 pg/mL (0-125)
[2016-12-11 21:02] LABS: CALC OSMOLALITY 278 mosm/kg (275-300); GLUCOSE 138 mg/dL (74-106); TROPONIN-I < 0.017 ng/mL (0.000-0.060)
[2016-12-11 21:16] LABS: UDS - AMPHET NEGATIVE QUAL (NEGATIVE); UDS - BARB NEGATIVE QUAL (NEGATIVE); UDS - BENZO POSITIVE QUAL (NEGATIVE); UDS - COCAINE NEGATIVE QUAL (NEGATIVE); UDS - OPIATE NEGATIVE QUAL (NEGATIVE); UDS - PCP NEGATIVE QUAL (NEGATIVE); UDS - THC NEGATIVE QUAL (NEGATIVE)
== END 2016-12-12 00:09 | disposition home or self-care (01) ==
LOC: D.ER 19:59
PROVIDERS: Family Medicine
DX: J44.1 Chronic obstructive pulmonary disease with (acute) exacerbation (principal)

== ENCOUNTER 2016-12-15 11:43 | Emergency (ER) | payer MEDICAID ==
[2016-12-15 12:19] LABS: BASOPHILS 1.2 % (0-2); EOSINOPHILS 6.8 % (0-7); HEMATOCRIT 39.4 % (42.0-54.0); HEMOGLOBIN 12.3 g/dL (13.5-17.5); IMMATURE GRANULOCYTES 5.8 % (0-5); LYMPHOCYTES 29.7 % (15-50); MCH 24.2 pg (26.0-34.0); MCHC 31.2 g/dL (31.0-37.0); MCV 77.4 fL (80.0-100.0); MEAN PLATELET VOLUME 9.1 fL (7.4-10.4); MONOCYTES 10.1 % (2-11); NEUTROPHILS 46.4 % (40-80); PLATELET COUNT 154 10x3/uL (130-400); RBC 5.09 10x6/uL (4.20-6.10); RDW 19.4 % (11.5-14.5)
[2016-12-15 12:40] LABS: CALC OSMOLALITY 280 mosm/kg (275-300); CALCIUM 7.6 mg/dL (8.5-10.1); CARBON DIOXIDE 27.7 mmol/L (21.0-32.0); CHLORIDE - SERUM 103 mmol/L (98-107); CREATININE - SERUM 0.7 mg/dL (0.6-1.3); GLUCOSE 176 mg/dL (74-106); POTASSIUM - SERUM 3.5 mmol/L (3.5-5.1); PRO BNP 22 pg/mL (0-125); SODIUM 138 mmol/L (136-145); UREA NITROGEN 14 mg/dL (7-18); eGFR NON AFRICAN AMERICAN > 90 mL/min (90-120)
[2016-12-15 12:41] LABS: TROPONIN-I < 0.017 ng/mL (0.000-0.060)
== END 2016-12-15 13:50 | disposition home or self-care (01) ==
LOC: D.ER 11:43
PROVIDERS: Nurse Practitioner Acute Care
DX: J44.1 Chronic obstructive pulmonary disease with (acute) exacerbation (principal); E88.01 Alpha-1-antitrypsin deficiency

== ENCOUNTER 2017-01-10 18:19 | Inpatient (IN) | payer MEDICAID ==
[2017-01-10 18:48] LABS: EOSINOPHILS 3.5 % (0-7); HEMATOCRIT 39.7 % (42.0-54.0); IMMATURE GRANULOCYTES 1.7 % (0-5); LYMPHOCYTES 35.9 % (15-50); MCH 24.7 pg (26.0-34.0); MCHC 30.2 g/dL (31.0-37.0); MCV 81.9 fL (80.0-100.0); MEAN PLATELET VOLUME 9.4 fL (7.4-10.4); MONOCYTES 6.7 % (2-11); NEUTROPHILS 51.2 % (40-80); RBC 4.85 10x6/uL (4.20-6.10); RDW 19.9 % (11.5-14.5); WBC 6.9 10x3/uL (4.8-10.8)
[2017-01-10 18:49] LABS: PLATELET COUNT 185 10x3/uL (130-400)
[2017-01-10 19:04] LABS: ALBUMIN 3.3 g/dL (3.4-5.0); ALKALINE PHOSPHATASE 97 U/L (46-116); ALT (SGPT) 27 U/L (10-68); BILIRUBIN - TOTAL 0.31 mg/dL (0.2-1.3); CALC OSMOLALITY 292 mosm/kg (275-300); CALCIUM 8.5 mg/dL (8.5-10.1); CHLORIDE - SERUM 106 mmol/L (98-107); GLUCOSE 92 mg/dL (74-106); POTASSIUM - SERUM 4.1 mmol/L (3.5-5.1); SODIUM 146 mmol/L (136-145); UREA NITROGEN 17 mg/dL (7-18); eGFR NON AFRICAN AMERICAN 81 mL/min (90-120)
[2017-01-10 19:53] LABS: APPEARANCE CLEAR (CLEAR); BILIRUBIN NEGATIVE (NEGATIVE); COLOR YELLOW (YELLOW); GLUCOSE NEGATIVE (NEGATIVE); KETONE NEGATIVE (NEGATIVE); NITRITE NEGATIVE (NEGATIVE); PROTEIN NEGATIVE (NEGATIVE); UROBILINOGEN NORMAL (NORMAL)
[2017-01-10 19:55] LABS: BACTERIA FEW /hpf (NONE SEEN); EPITHELIAL CELLS 0-5 /hpf (0-5); MUCUS <1+ /lpf (NONE SEEN); RED CELLS - URINE 0-5 /hpf (0-5); WHITE CELLS - URINE 0-5 /hpf (0-5)
[2017-01-10 21:48] LABS: UDS - AMPHET NEGATIVE QUAL (NEGATIVE); UDS - BARB NEGATIVE QUAL (NEGATIVE); UDS - BENZO POSITIVE QUAL (NEGATIVE); UDS - COCAINE NEGATIVE QUAL (NEGATIVE); UDS - OPIATE NEGATIVE QUAL (NEGATIVE); UDS - PCP NEGATIVE QUAL (NEGATIVE); UDS - THC NEGATIVE QUAL (NEGATIVE)
--- NOTE | 2017-01-11 20:00 | NUR ---
01/11--CM received a phone call from patient's first cousin, Alessia Ibarra #[phone], stating that patient "cannot return to my home upon discharge. It's just not working. It's my house and he cannot come back." States patient is able to walk short distances with her assist. DME: Home O2, Nebulizer. Pharmacy of choice: [facility]. PCP: Dr. Martinez. HHS from , but cousin does not know name of company. Rosalva Hale RN CM.
--- NOTE | 2017-01-11 20:30 | NUR ---
PT ARRIVED ON UNIT VIA STRETCHER ESCORTED BY ER NURSE. ORIENTED TO ROOM AND CALL LIGHT. IV FLUIDS RE-STARTED PER ORDER. WORKMAN CATHETER DRAINING TO GRAVITY WITH YELLOW URINE IN COLLECTION BAG. WILL MONITOR CLOSLEY FOR NEEDS.
--- NOTE | 2017-01-11 20:40 | NUR ---
REMOVED WORKMAN CATHETER PER PT REQUEST.
--- NOTE | 2017-01-11 21:30 | NUR ---
PT VOIDED 250 ML YELLOW URINE SINCE WORKMAN REMOVED.
--- NOTE | 2017-01-11 21:56 | NUR ---
HS MEDICATIONS GIVEN. WILL CONTINUE TO MONITOR FOR NEEDS.
[2017-01-11] MEDS ORDERED: REMERON30 MG PO (22:27)
[2017-01-11 22:28] VITALS: BP 137/88; BMI 23.1
--- NOTE | 2017-01-11 23:24 | NUR ---
ADMISSION ASSESSMENT AND HISTORY COMPLETE.
[2017-01-12] VITALS: BP 135/84
[2017-01-12 04:00] VITALS: BP 108/75
[2017-01-12 06:13] LABS: BASOPHILS 0.2 % (0-2); EOSINOPHILS 0 % (0-7); HEMATOCRIT 34.3 % (42.0-54.0); HEMOGLOBIN 10.6 g/dL (13.5-17.5); IMMATURE GRANULOCYTES 0.6 % (0-5); LYMPHOCYTES 11.3 % (15-50); MCH 24.8 pg (26.0-34.0); MCHC 30.9 g/dL (31.0-37.0); MCV 80.1 fL (80.0-100.0); MEAN PLATELET VOLUME 9.9 fL (7.4-10.4); MONOCYTES 2.1 % (2-11); NEUTROPHILS 85.8 % (40-80); RBC 4.28 10x6/uL (4.20-6.10); RDW 18.7 % (11.5-14.5)
[2017-01-12 06:19] LABS: PLATELET COUNT 132 10x3/uL (130-400); WBC 4.8 10x3/uL (4.8-10.8)
[2017-01-12 06:37] LABS: ALBUMIN 2.9 g/dL (3.4-5.0); ALKALINE PHOSPHATASE 91 U/L (46-116); ALT (SGPT) 20 U/L (10-68); BILIRUBIN - TOTAL 0.37 mg/dL (0.2-1.3); CALC OSMOLALITY 289 mosm/kg (275-300); CALCIUM 8.5 mg/dL (8.5-10.1); CARBON DIOXIDE 30.6 mmol/L (21.0-32.0); CHLORIDE - SERUM 108 mmol/L (98-107); CREATININE - SERUM 0.7 mg/dL (0.6-1.3); GLUCOSE 161 mg/dL (74-106); MAGNESIUM - SERUM 1.9 mg/dL (1.8-2.4); PROTEIN - SERUM 6.3 g/dL (6.4-8.2); SODIUM 145 mmol/L (136-145); UREA NITROGEN 8 mg/dL (7-18); eGFR NON AFRICAN AMERICAN > 90 mL/min (90-120)
[2017-01-12 09:38] VITALS: BP 136/100
[2017-01-12 11:52] VITALS: BP 137/84
[2017-01-12 16:41] VITALS: BP 128/70
--- NOTE | 2017-01-12 19:52 | NUR ---
PATIENT RESTING IN BED AND DENIES NEEDS AT THIS TIME. BED IN LOWEST POSITION AND CALL LIGHT WITHIN REACH. ENCOURAGED THE PATIENT TO CALL IF HE HAS NEEDS.
[2017-01-12 20:00] VITALS: BP 131/79
[2017-01-13] VITALS: BP 124/84; BP 130/76
[2017-01-13 05:44] LABS: BASOPHILS 0.1 % (0-2); EOSINOPHILS 0 % (0-7); HEMATOCRIT 31.7 % (42.0-54.0); HEMOGLOBIN 9.8 g/dL (13.5-17.5); IMMATURE GRANULOCYTES 0.8 % (0-5); LYMPHOCYTES 6.6 % (15-50); MCH 24.9 pg (26.0-34.0); MCHC 30.9 g/dL (31.0-37.0); MCV 80.7 fL (80.0-100.0); MEAN PLATELET VOLUME 10.2 fL (7.4-10.4); MONOCYTES 6.1 % (2-11); NEUTROPHILS 86.4 % (40-80); PLATELET COUNT 145 10x3/uL (130-400); RBC 3.93 10x6/uL (4.20-6.10); RDW 19.2 % (11.5-14.5)
[2017-01-13 06:01] LABS: ALBUMIN 2.8 g/dL (3.4-5.0); ALKALINE PHOSPHATASE 78 U/L (46-116); ALT (SGPT) 21 U/L (10-68); BILIRUBIN - TOTAL 0.24 mg/dL (0.2-1.3); CALC OSMOLALITY 288 mosm/kg (275-300); CARBON DIOXIDE 29.2 mmol/L (21.0-32.0); CHLORIDE - SERUM 107 mmol/L (98-107); CREATININE - SERUM 0.8 mg/dL (0.6-1.3); GLUCOSE 154 mg/dL (74-106); MAGNESIUM - SERUM 1.8 mg/dL (1.8-2.4); POTASSIUM - SERUM 3.6 mmol/L (3.5-5.1); PROTEIN - SERUM 5.8 g/dL (6.4-8.2); SODIUM 144 mmol/L (136-145); UREA NITROGEN 9 mg/dL (7-18); WBC 8.8 10x3/uL (4.8-10.8); eGFR NON AFRICAN AMERICAN > 90 mL/min (90-120)
--- NOTE | 2017-01-13 07:55 | NUR ---
AM ROUNDS - PT IS IN BED AND AWKAE AT THIS TIME. MONITOR SHOWING SR, HR 73. 4L O2 VIA NC. LEFT CHEST INFUSAPORT, NS AT 75CC/HR. PT IS A&O. UP AD JATINDER. C/O COUGH, SORE THROAT. BED AT LOWEST POSITION. CALL LOPEZ IN USE/REACH. SIDE RAILS UP X2. WILL CONTINUE TO MONITOR
[2017-01-13 09:02] VITALS: BP 140/92
--- NOTE | 2017-01-13 11:37 | NUR ---
PT IN ROOM UP WALKING AROUNDS AT THIS TIME. NO NEEDS. WILL CONTINUE TO MONITOR
[2017-01-13 12:19] VITALS: BP 151/86
[2017-01-13 16:42] VITALS: BP 154/91
--- NOTE | 2017-01-13 19:50 | NUR ---
PT RESTING IN BED WITH NO VISIBLE SIGNS OF DISTRESS. PT DENIES NEEDS AT THIS TIME. BED IN LOWEST POSITION AND CALL LIGHT WITHIN REACH. ENCOURAGED THE PT TO CALL IF HE HAS NEEDS.
[2017-01-13 20:00] VITALS: BP 141/94
[2017-01-14 04:00] VITALS: BP 155/92
[2017-01-14 06:54] LABS: BASOPHILS 0 % (0-2); EOSINOPHILS 3.7 % (0-7); HEMATOCRIT 25.7 % (42.0-54.0); IMMATURE GRANULOCYTES 0.2 % (0-5); MCH 23.1 pg (26.0-34.0); MEAN PLATELET VOLUME 10.6 fL (7.4-10.4); MONOCYTES 10.4 % (2-11); NEUTROPHILS 56.7 % (40-80); RBC 3.34 10x6/uL (4.20-6.10); RDW 21.1 % (11.5-14.5)
[2017-01-14 07:02] LABS: HEMOGLOBIN 7.7 g/dL (13.5-17.5); MCV 76.9 fL (80.0-100.0); PLATELET COUNT 242 10x3/uL (130-400)
[2017-01-14 07:06] LABS: ALBUMIN 2.1 g/dL (3.4-5.0); ALKALINE PHOSPHATASE 103 U/L (46-116); ALT (SGPT) 20 U/L (10-68); CALCIUM 9.2 mg/dL (8.5-10.1); CARBON DIOXIDE 27.1 mmol/L (21.0-32.0); CHLORIDE - SERUM 103 mmol/L (98-107); PROTEIN - SERUM 6.7 g/dL (6.4-8.2); SODIUM 138 mmol/L (136-145); eGFR NON AFRICAN AMERICAN 81 mL/min (90-120)
[2017-01-14 07:07] LABS: CALC OSMOLALITY 278 mosm/kg (275-300); GLUCOSE 92 mg/dL (74-106); UREA NITROGEN 20 mg/dL (7-18)
--- NOTE | 2017-01-14 07:45 | NUR ---
PT ASSESSMENT COMPLETE AWAKE AND ALERT CALL LIGHT IN REACH PT HAS CRACLES THROUGHOUT ALL FEILDS. BREATHING TREATMENT IN PROGRESS PER ORDER AT THIS TIME MONITORED PER RESPIRATORY THERAPY. PT UP ADLIB
[2017-01-14 08:28] VITALS: BP 139/40
--- NOTE | 2017-01-14 11:30 | NUR ---
Patient Name: JOSEPH MEJIA Admission Status: ER Accout number: [id number] Admission Date: 01-10-2017 : 1955 Admission Diagnosis: Attending: JOSEPH COMER Current LOS: 4 Anticipated DC Date: 01-17-2017 Planned Disposition: Home Primary Insurance: MEDICAID [place] Discharge Planning Comments: CM MET WITH PATIENT REGARDING D/C NEEDS AND PLANS. PATIENT STATED HE LIVES WITH HIS COUSIN (JONAS) AND HE WILL DRIVE HIM HOME AT DISCHARGE. PATIENT STATE THERE ARE NO STEPS OR STAIRS AT HIS HOME. PATIENT STATED HE IS INDEPENDENT WITH HIS CARE AND HAS A WALKER, OXYGEN (4L), NEBULIZER, AND PORTABLE O2 AT HOME. PATIENT STATED HIS PCP IS DR. OWENS AND USES [id number]. PATIENT IS REFUSING HOME HEALTH AT THIS TIME. CM WILL CONTINUE TO FOLLOW PATIENT WITH D/C NEEDS AND PLANS. PCP DR. OWENS [id number]- [phone] JONAS (COUSIN) [phone] Director Loss Prevention: Faviola Chung Is the patient Alert and Oriented? Yes 0 * How many steps to enter\exit or inside your home? 0 0 * PCP DR. OWENS 0 * Pharmacy [id number] 0 * Preadmission Environment Home with Family 0 * ADLs Independent 0 * Equipment Nebulizer Oxygen Walker 0 * Other Equipment PORTABLE O2 0 * List name and contact numbers for known caregivers / representatives who currently or will assist patient after discharge: JONAS (COUSIN) [phone] 0 * Community resources currently utilized None 0 * Additional services required to return to the preadmission environment? Yes 0 * Can the patient safely return to the preadmission environment? Yes 0 * Has this patient been hospitalized within the prior 30 days at any hospital? No 0 Grand Total: 0
--- NOTE | 2017-01-14 11:30 | NUR ---
PT SITTING UP ON SIDE OF BED NO DISTRESS NOTED HAS CRACKLES NOTED IN ALL LUNG FEILDS. NEEDS MET PER STAFF. CALL LIGHT INREACH SIDE RAILS UP X 2
[2017-01-14 13:18] VITALS: BP 122/90
[2017-01-14 14:42] LABS: HEMATOCRIT 32.2 % (42.0-54.0)
[2017-01-14 15:18] VITALS: BP 161/93
[2017-01-14 15:22] VITALS: BMI 23.0
[2017-01-14 18:21] LABS: HEMATOCRIT 32.6 % (42.0-54.0); HEMOGLOBIN 10.1 g/dL (13.5-17.5)
--- NOTE | 2017-01-14 20:20 | NUR ---
PT RESTING IN BED WITH BREATHING TX ON. PT DENIES NEEDS AT THIS TIME. BED IN LOWEST POSITION AND CALL LIGHT WITHIN REACH. ENCOURAGED THE PT TO CALL IF HE HAS NEEDS.
[2017-01-15] VITALS: BP 140/82
[2017-01-15 04:00] VITALS: BP 130/78
[2017-01-15 06:07] LABS: BASOPHILS 0.2 % (0-2); EOSINOPHILS 0 % (0-7); HEMATOCRIT 34.3 % (42.0-54.0); HEMOGLOBIN 10.5 g/dL (13.5-17.5); LYMPHOCYTES 6.7 % (15-50); MCHC 30.6 g/dL (31.0-37.0); MCV 81.7 fL (80.0-100.0); MONOCYTES 5.3 % (2-11); NEUTROPHILS 82.8 % (40-80); PLATELET COUNT 157 10x3/uL (130-400); RDW 19.3 % (11.5-14.5); WBC 9.2 10x3/uL (4.8-10.8)
[2017-01-15 07:25] LABS: ALKALINE PHOSPHATASE 98 U/L (46-116); BILIRUBIN - TOTAL 0.26 mg/dL (0.2-1.3); CALCIUM 8.1 mg/dL (8.5-10.1); CARBON DIOXIDE 31.7 mmol/L (21.0-32.0); CHLORIDE - SERUM 106 mmol/L (98-107); CREATININE - SERUM 0.8 mg/dL (0.6-1.3); MAGNESIUM - SERUM 1.9 mg/dL (1.8-2.4); POTASSIUM - SERUM 4.1 mmol/L (3.5-5.1); PROTEIN - SERUM 5.9 g/dL (6.4-8.2); SODIUM 145 mmol/L (136-145); eGFR NON AFRICAN AMERICAN > 90 mL/min (90-120)
[2017-01-15 07:28] LABS: ALBUMIN 2.9 g/dL (3.4-5.0); ALT (SGPT) 29 U/L (10-68); CALC OSMOLALITY 294 mosm/kg (275-300); GLUCOSE 201 mg/dL (74-106); UREA NITROGEN 12 mg/dL (7-18)
--- NOTE | 2017-01-15 07:30 | NUR ---
PT IS RECEIVED SITTING UP IN BED. HE STATES THAT HE IS COUGHING. HE IS ALSO HUNGRY FOR BREAKFAST. GEN- AWAKE AND ALERT, LUNGS- WITH WHEEZING NOTED BILATERALLY. HEART- RRR. ABD- SOFT WITH NO TENDERNESS. EXT- WITH NO EDEMA NOTED. BED IS LOW. SIDE RAILS UP X 2 AND CALL LIGHT IN REACH.
--- NOTE | 2017-01-15 07:42 | HP ---
PATIENT: JOSEPH MEJIA MEDICAL RECORD: [id number] ACCOUNT: [id number] LOCATION:D.MS [place] : [birth year] ADMISSION DATE: 01/10/17 HISTORY AND PHYSICAL EXAMINATION HISTORY OF PRESENT ILLNESS: A 61-year-old male presented to the Emergency Room with hypoxemia, still remains severely short of breath. The patient has a history of alpha-1 antitrypsin disease and alcohol abuse. His primary care physician is Dr. Martinez. His manager golf is Dr. Cooper. He is admitted through unassigned medicine. REVIEW OF SYSTEMS: GENERAL: No reported change in weight. HEENT: No cephalgia, visual changes, tinnitus, or epistaxis. CARDIOVASCULAR: Denies chest pain. PULMONARY: Shortness of breath. GASTROINTESTINAL: Denies hematemesis, hematochezia, or melena. GENITOURINARY: Denies dysuria. MUSCULOSKELETAL: No acute changes. Somewhat limited historian. MEDICATIONS: Per med rec. PHYSICAL EXAMINATION: VITAL SIGNS: Temperature 98.5, blood pressure is 120/65, heart rate 104, respirations 20, and O2 sats initially 68%, improves to 98% on 5 liters O2. HEENT: Head: Normocephalic, atraumatic. Eyes: Pupils equal, round, reactive. Ears: Canals are patent. Nose: Nares patent. Throat: No erythema. No exudates. NECK: Supple. No lymphadenopathy. HEART: Regular rate and rhythm. LUNGS: Significantly diminished air movement. Prolonged expiratory phase. ABDOMEN: Soft, nontender. Bowel sounds in all 4 quadrants. EXTREMITIES: Present times 4. No edema. NEUROLOGIC: No appreciable focal deficits. ASSESSMENT AND PLAN: 1. Acute intoxication. 2. Hypoxemia with alpha-1 antitrypsin disease. The patient is admitted through [facility], admit to ICU. Supportive care. Consult Dr. Cooper. ICU nurse for home medication verification. Supportive care. TRANSINT:[id number] Voice Confirmation ID: [id number] DOCUMENT ID: [id number] HISTORY AND PHYSICAL [id number] JACKIEJOSEPH ROBERT DO at 0742 CC: [id number] DICTATION DATE: 01/11/17817 CARPET LOOM FIXER: 01/11/17 0840 ADM IN [place] [id number] [place] [address]
[2017-01-15] MEDS ORDERED: AUGMENTIN 875-11 TAB PO (07:48)
[2017-01-15] MEDS ORDERED: PREDNISONE10 MG PO (07:52)
--- NOTE | 2017-01-15 09:14 | NUR ---
CM REASSESSMENT NOTE: PATIENT IS DISCHARGING HOME TODAY/FAMILY DRIVING. FAMILY IS BRINGING PATIENTS PORTABLE O2 FOR TRANSPORTATION HOME. PATIENT REFUSED HOME HEALTH AND HAD NO OTHER NEEDS FOR DISCHARGE.
[2017-01-15 09:38] VITALS: BP 156/100
--- NOTE | 2017-01-15 10:00 | NUR ---
PT IS SITTING UP IN BED COUGHING. HE OFFERS NO OTHER COMPLAINTS.
--- NOTE | 2017-01-15 10:45 | NUR ---
PT C/O COUGHING AND WOULD LIKE " COUGH MEDICINE THAT COMES IN THE [place]." WHEN I LEAVE HERE I WILL NOT BE ABLE TO AFFORD THE PRESCRIPTION COUGH MEDICINE. COUGH MED GIVEN.
--- NOTE | 2017-01-15 12:47 | NUR ---
PT STATES THAT HIS RIDE IS GOING TO COME GET HIM AFTER LUNCH.
--- NOTE | 2017-01-15 13:00 | NUR ---
PT'S DISCHARGE INSTRUCTIONS DISCUSSED WITH PT. MEDICATIONS WERE DISCUSSED. HE STATES THAT HE DOES NOT KNOW HOW MANY SPOTS HE HAS ON HIS CARD LEFT. I STRESSED THE IMPORTANCE OF HIM GETTING THESE MEDS. ESPECIALLY ANTIBIOTICS.
[2017-01-15 13:11] VITALS: BP 154/80
--- NOTE | 2017-01-15 13:30 | NUR ---
PT TAKEN TO FRONT DOOR BY WHEELCHAIR. HIS ACCOUNTS PAYABLE ADMINISTRATOR BROUGHT HIM HIS PORTABLE O2 PT DISCHARGED.
--- NOTE | 2017-01-16 07:32 | DS ---
PATIENT:JOSEPH MEJIA :[birth year] MEDICAL RECORD: [id number] DISCHARGE SUMMARY ADMISSION DATE: 01/10/17 DISCHARGE DATE: 01/15/17 DATE OF ADMISSION: 01/10/2017 DATE OF DISCHARGE: 01/15/2017 ADMISSION DIAGNOSES: Acute intoxication, hypoxemia with alpha-1 antitrypsin disease. DISCHARGE DIAGNOSES: Acute intoxication, hypoxemia with alpha-1 antitrypsin, exacerbation of chronic obstructive pulmonary disease. HOSPITAL COURSE: The patient had an uneventful hospital course, was extremely intoxicated, had not been wearing his home O2, was hypoxemic. He is on 5 liters at home. He was restarted on oxygen, quickly responded with improvement in his O2 saturations. His radio technician that he sees regularly, Dr. Cooper, was consulted. He gets weekly infusions for alpha-1 antitrypsin on Wednesdays. He is feeling much better. He has all his medicines at home. We will continue antibiotics started by pulmonology. He had negative blood cultures, no significant changes on his x-rays. He is discharged home in significantly improved condition. PHYSICAL EXAMINATION: VITAL SIGNS ON DISCHARGE: Temperature 98.2, blood pressure 130/78, heart rate 78, respirations 22, and O2 sats 97%. GENERAL: He is alert, oriented. No complaints. HEART: Regular rate and rhythm. LUNGS: Significantly improvement in air movement. ABDOMEN: Soft. EXTREMITIES: Present times 4. See chart for further details of this case. The patient would consult case management for assistance with discharge. DISCHARGE MEDICATIONS: [facility]. Again, he will follow up with his PCP, Dr. Martinez in 1 week. Follow up with Dr. Cooper in 1-2 weeks. TRANSINT:[id number] Voice Confirmation ID: [id number] DOCUMENT ID: [id number] JOSEPH COMER DO at 0732 CC: [id number] DICTATION DATE: 01/15/17 0758 CLOTH DOUBLING MACHINE OPERATOR: 01/15/17 0813 DIS IN 01/15/17 [place] [address] [place] [address]
--- NOTE | 2017-01-23 12:12 | CN ---
PATIENT NAME:BERNABE MEJIA MEDICAL RECORD: [id number] : 59 LOCATION:D.MS [address]2233 ADMIT DATE: 01/10/17 ACCOUNT: [id number] CONSULTING PHYSICIAN: BRYON INMAN MD REFERRING PHYSICIAN: BERNABE COMER DO DATE OF CONSULTATION: 01/12/2017 CONSULT REQUESTING PHYSICIAN: Bernabe Comer DO REASON FOR CONSULTATION: Alcohol intoxication, acute shortness of breath and coughing. HISTORY OF PRESENT ILLNESS: Ms. Mejia is a 61-year-old gentleman, very well known to me. He has a history of alpha-1 antitrypsin deficiency and end-stage COPD. The patient was brought into the ER with mental status changes and lethargic, found out his blood alcohol level is above 200. He also has a cough with white to yellow color sputum production. Denies any fever and chills, no night sweats. Also, he has shortness of breath with his coughing. REVIEW OF SYSTEMS: Mainly in the history of present illness. PAST MEDICAL HISTORY: 1. COPD of severe degree. 2. Chronic hypoxic respiratory failure. 3. Alpha-1 antitrypsin deficiency. 4. Depression. 5. Anxiety. 6. Alcoholism. PAST SURGICAL HISTORY: 1. He has laparotomy and colon surgery in the past. 2. Thoracotomy. 3. Chest tube placement for pneumothorax. ALLERGIES: HE IS ALLERGIC TO MORPHINE. PRESENT MEDICATIONS: Appiatech was reviewed. PERSONAL AND SOCIAL HISTORY: The patient is an ex-smoker. He is drinking on a regular basis. FAMILY HISTORY: Noncontributory. PHYSICAL EXAMINATION: GENERAL: Now, the patient is lying comfortably in bed. He is not in acute distress. VITAL SIGNS: The blood pressure is 137/84, pulse is 91, respirations 18, temperature 97.9, SPO2 is 97% on 4 liters nasal cannula. HEENT: Conjunctivae pink, sclerae nonicteric. NECK: Neck is supple, no JVD. CHEST: There is wheeze on forceful expiration. HEART: Rhythm regular, normal sound, no murmur. ABDOMEN: Abdomen is soft, bowel sounds present. No hepatosplenomegaly. RECTAL: Deferred. EXTREMITIES: No cyanosis, no clubbing, no pedal edema. CONSULT REPORT [id number] BERNABE MEJIA SKIN: The skin is warm, normal turgor. CENTRAL NERVOUS SYSTEM: The patient is awake and alert. There are no obvious cranial nerve abnormality. The gait was not tested. LABORATORY DATA: CBC: WBC 4.8, hemoglobin 10.6, hematocrit 34.3, the platelet count 132. Chemistry: Sodium 145, potassium is 4, BUN is 8, creatinine is 0.7. The blood alcohol level was 288 and urine was positive for benzodiazepines. IMPRESSION: 1. Acute exacerbation of chronic obstructive pulmonary disease. 2. Acute tracheobronchitis. 3. Acute cough. 4. Alcohol intoxication with alcohol level of 288. 5. Alpha-1 antitrypsin deficiency. RECOMMENDATION: 1. Brovana, budesonide nebulizer. 2. Albuterol, ipratropium nebulizer. 3. Singulair 10 mg daily. 4. Methylprednisolone IV. 5. Start Augmentin p.o. b.i.d. 6. Antitussive and mucolytic. Dr. Comer, thank you for involving me in the care of Mr. Mejia. TRANSINT:[id number] Voice Confirmation ID: [id number] DOCUMENT ID: [id number] BRYON INMAN MD at 1212 CC: BERNABE COMER DO [id number] DICTATION DATE: 01/12/17 1353 PERSONNEL RECORDS CLERK: 01/12/17 1437 DIS IN 01/15/17 [facility] [address] [place] [address]
== END 2017-01-15 13:30 | disposition home or self-care (01) | DRG 202 ==
LOC: D.ER 18:19 → D.ICU 20:28 → D.SDCHOLD 20:28 → D.MS 01-11 19:19
PROVIDERS: Emergency Medicine; Family Medicine; Internal Medicine Pulmonary Disease; ADMIT Family Medicine
DX: J20.9 Acute bronchitis, unspecified (principal); J96.21 Acute and chronic respiratory failure with hypoxia; J44.1 Chronic obstructive pulmonary disease with (acute) exacerbation; J44.0 Chronic obstructive pulmonary disease with (acute) lower respiratory infection; F10.229 Alcohol dependence with intoxication, unspecified; Y90.8 Blood alcohol level of 240 mg/100 ml or more; E88.01 Alpha-1-antitrypsin deficiency; F31.9 Bipolar disorder, unspecified; R53.81 Other malaise

== ENCOUNTER 2017-02-04 15:45 | Emergency (ER) | payer MEDICAID ==
[~2017-02-04 15:45] MED LIST changes: +AUGMENTIN 875-11 TAB PO; +REMERON30 MG PO
--- NOTE | 2017-02-04 17:21 | NUR ---
ASSESSED PULMONARY STATUS. SPO2 97% ON 36% FIO2 BILATERAL INSP/ EXP CRACKLES AND WHEEZES TO ANTERIOR POOL OF AUSCULTATION. SPUTUM YELLOW IN COLOR EXPECTORATION APPROXIMATLY 2CC. LOOSE COUGH NOTED. PT TOLERATED TX WELL
[2017-02-04 18:17] LABS: BASOPHILS 0.2 % (0-2); EOSINOPHILS 0.6 % (0-7); HEMATOCRIT 40.5 % (42.0-54.0); HEMOGLOBIN 12.6 g/dL (13.5-17.5); IMMATURE GRANULOCYTES 0.8 % (0-5); LYMPHOCYTES 15.2 % (15-50); MCH 24.4 pg (26.0-34.0); MCHC 31.1 g/dL (31.0-37.0); MCV 78.5 fL (80.0-100.0); MONOCYTES 12.5 % (2-11); NEUTROPHILS 70.7 % (40-80); RBC 5.16 10x6/uL (4.20-6.10); RDW 18.2 % (11.5-14.5); WBC 10.2 10x3/uL (4.8-10.8)
[2017-02-04 18:27] LABS: PLATELET COUNT 106 10x3/uL (130-400)
[2017-02-04 18:33] LABS: ALBUMIN 3.2 g/dL (3.4-5.0); ALKALINE PHOSPHATASE 65 U/L (46-116); ALT (SGPT) 31 U/L (10-68); BILIRUBIN - TOTAL 0.51 mg/dL (0.2-1.3); CALC OSMOLALITY 266 mosm/kg (275-300); CALCIUM 8.1 mg/dL (8.5-10.1); CARBON DIOXIDE 26.7 mmol/L (21.0-32.0); CHLORIDE - SERUM 97 mmol/L (98-107); CREATININE - SERUM 0.8 mg/dL (0.6-1.3); PROTEIN - SERUM 6.5 g/dL (6.4-8.2); SODIUM 133 mmol/L (136-145); UREA NITROGEN 12 mg/dL (7-18); eGFR NON AFRICAN AMERICAN > 90 mL/min (90-120)
[2017-02-04 18:38] LABS: GLUCOSE 114 mg/dL (74-106)
[2017-02-04 19:44] LABS: PRO BNP 110 pg/mL (0-125)
[2017-02-04 19:48] LABS: TROPONIN-I < 0.017 ng/mL (0.000-0.060)
== END 2017-02-04 20:35 | disposition home or self-care (01) ==
LOC: D.ER 15:45
PROVIDERS: Emergency Medicine; Family Medicine
DX: J44.1 Chronic obstructive pulmonary disease with (acute) exacerbation (principal); R06.00 Dyspnea, unspecified; E88.01 Alpha-1-antitrypsin deficiency

== ENCOUNTER 2017-02-13 13:31 | Inpatient (IN) | payer MEDICAID ==
[~2017-02-13] VITALS: Ht 182.9 cm; Wt 80.6 kg
[2017-02-13 14:10] LABS: HEMATOCRIT 39.3 % (42.0-54.0); HEMOGLOBIN 12.5 g/dL (13.5-17.5); MCH 24.5 pg (26.0-34.0); MCHC 31.8 g/dL (31.0-37.0); MCV 77.1 fL (80.0-100.0); MEAN PLATELET VOLUME 9.4 fL (7.4-10.4); PLATELET COUNT 315 10x3/uL (130-400); RDW 16.9 % (11.5-14.5); WBC 21.8 10x3/uL (4.8-10.8)
[2017-02-13 14:17] LABS: ALBUMIN 2.6 g/dL (3.4-5.0); ALKALINE PHOSPHATASE 107 U/L (46-116); ALT (SGPT) 33 U/L (10-68); BILIRUBIN - TOTAL 0.34 mg/dL (0.2-1.3); CALC OSMOLALITY 267 mosm/kg (275-300); CALCIUM 8.9 mg/dL (8.5-10.1); CHLORIDE - SERUM 95 mmol/L (98-107); CREATININE - SERUM 0.9 mg/dL (0.6-1.3); GLUCOSE 174 mg/dL (74-106); POTASSIUM - SERUM 3.5 mmol/L (3.5-5.1); PROTEIN - SERUM 7.5 g/dL (6.4-8.2); SODIUM 133 mmol/L (136-145); UREA NITROGEN 8 mg/dL (7-18); eGFR NON AFRICAN AMERICAN > 90 mL/min (90-120)
[2017-02-13 15:27] LABS: APPEARANCE CLEAR (CLEAR); BILIRUBIN NEGATIVE (NEGATIVE); COLOR YELLOW (YELLOW); GLUCOSE NEGATIVE (NEGATIVE); KETONE NEGATIVE (NEGATIVE); NITRITE NEGATIVE (NEGATIVE); PROTEIN NEGATIVE (NEGATIVE); SPECIFIC GRAVITY 1.015 (1.005-1.020); UROBILINOGEN NORMAL (NORMAL)
[2017-02-13 15:40] LABS: LYMPHOCYTES 10 % (15-50); MONOCYTES 2 % (2-11); NEUTROPHILS 88 % (40-80); PLATELET ESTIMATE NORMAL
[2017-02-13 18:29] VITALS: BMI 24.0
[2017-02-13 19:00] VITALS: BP 148/79
--- NOTE | 2017-02-13 19:26 | NUR ---
PT RESTING IN BED. ISOLATION SET UP FOR PT. PT DENIES ANY NEEDS. NO S/S OF DISTRESS. BED LOW AND CALL LIGHT IN REACH. WILL CPOC
[2017-02-14] VITALS: BP 108/66
--- NOTE | 2017-02-14 00:20 | NUR ---
PT ASLEEP. RESPIRATIONS EVEN AND UNLABORED. 20. PT AROUSES TO VERBAL STIMULI. ASSISTED PT WITH STANDING AT BEDSIDE TO URINATE. PT BECAME SOB, DYSPNEA. PT BACK IN BED. STATING HE FEELS BETTER. O2 ON 4L. PT DENIES ANY NEEDS. NO S/S OF DISTRESS. WILL CPOC
[2017-02-14 04:00] VITALS: BP 108/68
--- NOTE | 2017-02-14 05:02 | NUR ---
CUSHION ASSEMBLER AT BEDSIDE TO OBTAIN VITALS, CALL LIGHT IN REACH. WILL CONTINUE WITH PLAN OF CARE.
--- NOTE | 2017-02-14 06:26 | NUR ---
PT GIVEN 2 SPECIMEN CUPS. ONE FOR SPUTUM, ONE FOR STOOL. PT EDUCATED IN NEEDS OF SAMPLES. PT VERBALIZED UNDERSTANDING. PT DENIES ANY NEEDS. NO S/S OF DISTRESS, BED LOW AND CALL LIGHT IN REACH. WILL CPOC
[2017-02-14 06:29] LABS: ALBUMIN 2.6 g/dL (3.4-5.0); ALKALINE PHOSPHATASE 98 U/L (46-116); ALT (SGPT) 30 U/L (10-68); BILIRUBIN - TOTAL 0.29 mg/dL (0.2-1.3); CALC OSMOLALITY 276 mosm/kg (275-300); CALCIUM 8.6 mg/dL (8.5-10.1); CARBON DIOXIDE 28.4 mmol/L (21.0-32.0); CHLORIDE - SERUM 98 mmol/L (98-107); GLUCOSE 191 mg/dL (74-106); SODIUM 137 mmol/L (136-145); UREA NITROGEN 8 mg/dL (7-18); eGFR NON AFRICAN AMERICAN 81 mL/min (90-120)
[2017-02-14 06:30] LABS: BASOPHILS 0.1 % (0-2); EOSINOPHILS 0 % (0-7); HEMATOCRIT 34.2 % (42.0-54.0); HEMOGLOBIN 10.9 g/dL (13.5-17.5); IMMATURE GRANULOCYTES 2.5 % (0-5); LYMPHOCYTES 5.7 % (15-50); MCH 24.2 pg (26.0-34.0); MCHC 31.9 g/dL (31.0-37.0); MCV 75.8 fL (80.0-100.0); MEAN PLATELET VOLUME 9.4 fL (7.4-10.4); MONOCYTES 1.9 % (2-11); NEUTROPHILS 89.8 % (40-80); PLATELET COUNT 309 10x3/uL (130-400); RBC 4.51 10x6/uL (4.20-6.10); RDW 17.1 % (11.5-14.5)
[2017-02-14 06:32] LABS: WBC 11.8 10x3/uL (4.8-10.8)
[2017-02-14 06:37] LABS: POTASSIUM - SERUM 4.5 mmol/L (3.5-5.1)
[2017-02-14 09:15] VITALS: BP 136/70
[2017-02-14 11:53] VITALS: BP 130/72
[2017-02-14 12:31] VITALS: Ht 182.9 cm; Wt 80.6 kg
--- NOTE | 2017-02-14 13:40 | NUR ---
PT RESTING QUIETLY. NO S/S OF DISTRESS OR ANY CURRENT NEEDS AT THIS TIME. CL IN REACH.
[2017-02-14 16:53] VITALS: BP 133/70
--- NOTE | 2017-02-14 19:38 | NUR ---
PT IN BED. REQUESTS COUGH SYRUP WHEN IT IS DUE. PROVIDED WATER PER REQUEST. DENIES FURTHER NEEDS AT THIS TIME.
[2017-02-14 22:42] VITALS: BP 114/67
--- NOTE | 2017-02-15 00:30 | NUR ---
PT IN BED RESTING AROUSES TO VOICE DENIES NEEDS A THIS TIME.
--- NOTE | 2017-02-15 02:01 | NUR ---
LYING IN BED WITH EYES CLOSED, CALL LIGHT IN REACH. WILL CONTINUE WITH PLAN OF CARE. [address] ON TELEMETRY
--- NOTE | 2017-02-15 05:58 | NUR ---
PT IN BED WATCHING TELEVISION. DENIES NEEDS AT THIS TIME.
--- NOTE | 2017-02-15 08:00 | NUR ---
AM ROUNDS - PT IS IN BED AND AWAKE AT THIS TIME. PT IN ON 4L O2 VIA NC. PT ON CONTACT ISO. CHEST POST, NOT ACCESSED YET. IV TO RIGHT HAND, SL. MONITOR SHOWING SR, HR 97. BED AT LOWEST POSITION. CALL LOPEZ IN USE/REACH. SIDE RAILS UP X2. WILL CONTINUE TO MONIOTR
[2017-02-15 10:27] VITALS: BP 124/80
[2017-02-15 11:51] LABS: BASOPHILS 0.1 % (0-2); EOSINOPHILS 0.1 % (0-7); HEMATOCRIT 33.9 % (42.0-54.0); HEMOGLOBIN 10.8 g/dL (13.5-17.5); IMMATURE GRANULOCYTES 1.9 % (0-5); LYMPHOCYTES 3.6 % (15-50); MCH 24.5 pg (26.0-34.0); MCHC 31.9 g/dL (31.0-37.0); MEAN PLATELET VOLUME 9.5 fL (7.4-10.4); MONOCYTES 4.1 % (2-11); NEUTROPHILS 90.2 % (40-80); PLATELET COUNT 302 10x3/uL (130-400); RDW 17.4 % (11.5-14.5)
[2017-02-15 11:56] VITALS: BP 103/69
[2017-02-15 12:02] LABS: ALBUMIN 2.4 g/dL (3.4-5.0); ANION GAP 14.8 mmol/L (8-16); BILIRUBIN - TOTAL 0.2 mg/dL (0.2-1.3); CALCIUM 8.6 mg/dL (8.5-10.1); CARBON DIOXIDE 26.3 mmol/L (21.0-32.0); CREATININE - SERUM 1.2 mg/dL (0.6-1.3); POTASSIUM - SERUM 4.1 mmol/L (3.5-5.1); PROTEIN - SERUM 6.6 g/dL (6.4-8.2)
[2017-02-15 12:25] LABS: WBC 19.5 10x3/uL (4.8-10.8)
[2017-02-15 15:53] VITALS: BP 114/72
--- NOTE | 2017-02-15 17:49 | NUR ---
Patient Name: JOSEPH MEJIA Admission Status: ER Accout number: [id number] Admission Date: 02-13-2017 : 1955 Admission Diagnosis: Attending: BONG GHOTRA Current LOS: 2 Anticipated DC Date: 02-17-2017 Planned Disposition: Home Primary Insurance: MEDICAID [place] Discharge Planning Comments: * Is the patient Alert and Oriented? Yes 0 * How many steps to enter\exit or inside your home? NONE 0 * PCP DR. OWENS 0 * Pharmacy [facility] 0 * Preadmission Environment Home with Family 0 * ADLs Independent 0 * Equipment Nebulizer Oxygen Walker 0 * Other Equipment HOME AND PORTABLE OXYGEN HEALTHCARE MEDICAL - MEDICAL EQUIPMENT PROVIDER 0 * List name and contact numbers for known caregivers / representatives who currently or will assist patient after discharge: LUKE MCDANIEL, 0 * Community resources currently utilized Other 0 * Please name any agencies selected above. [facility]; EVERY AT HOME FROM MEDICATION MANUFACTOR NURSE 0 * Additional services required to return to the preadmission environment? No 0 * Can the patient safely return to the preadmission environment? Yes 0 * Has this patient been hospitalized within the prior 30 days at any hospital? Yes 0 CM RECEIVED ORDER FOR PLACEMENT. CM MET WITH PT IN ROOM TO DISCUSS DISCHARGE PLANNING AND NEEDS. PT REPORTS LIVING AT HOME INDEPENDENTLY WITH HIS COUSIN AND HER . PT'S COUSIN IS OUT OF STATE AND THEY DO NOT KNOW WHEN SHE WILL RETURN, BUT THE COUSIN IS PLANNING TO SELL THE HOUSE AND PT WILL BE LOOKING FOR A PLACE TO LIVE. PT HAS ALL NEEDED MEDICAL EQUIPMENT FROM [facility] HOME [facility]FUSION ON WEDNESDAYS FOR LUNG CANCER MEDICATION PROVIDER NURSE (ALPHA 1 THERAPY); PT REPORTS HE IS NO LONGER DRINKING ALCOHOL AT ALL. PT HAS NO OUTSIDE SERVICES ASSISTING IN THE HOME. CM DISCUSSED AVAILABILITY OF HOME HEALTH, REHAB SERVICES AND MEDICAL EQUIPMENT. PT DENIES DISCHARGE NEEDS AT THIS TIME, REPORTS COUSIN JONAS WILL PICK HIM UP FOR DISCHARGE HOME. CM DISCUSSED RETIREMENT CARE PLACEMENT. PT REPORTS BEING INDEPENDENT AND CM WAS NOT ABLE TO DETERMINE ANY SKILLED NEED FOR DRIVEWAY ATTENDANT SNF CARE. PT REPORTED UNDERSTANDING, REPORTS HE IS THINKING MORE OF ASSISTED LIVING. CM EXPLAINED THAT PT WILL NEED TO APPLY FOR ASSISTED LIVING MEDICAID AND GET THIS APPROVED THROUGH THE [facility] [place] [facility] OFFICE PRIOR TO ASSISTED LIVING FACILITY CONSIDERING FOR PLACEMENT. APPLICATION PROCESS OF 45 OR MORE DAYS FOR MEDICAID PROCESSING AND DETERMINATION. PT REPORTS UNDERSTANDING; CM PROVIDED [facility] OFFICE ADDRESS AND PHONE NUMBER. CM PROVIDED PT WITH LOCAL AND STATEWIDE ASSISTED LIVING CONTACT INFORMATION. PT THANKED CM AND WILL GO TO [facility] OFFICE WHEN HE GETS OUT OF HOSPITAL AND APPLY FOR ASSISTED LIVING MEDICAID. PT IS NOT APPROPRIATE FOR SNF PLACEMENT. PT REPORTS BEING INDEPENDENT IN HIS CARE AT HOME AND HE WILL GO HOME AND APPLY FOR ASSISTED LIVING MEDICAID THROUGH DEPARTMENT OF HUMAN SERVICES, A 45 OR MORE DAY APPLICATION PROCESS. CM TO FOLLOW AND ASSIST IF NEEDED. Tie Puller: Guru Aburto
[2017-02-15 21:46] VITALS: BP 142/83
--- NOTE | 2017-02-16 01:25 | NUR ---
PATIENT RESTING , STILL HAS A STRONG COUGH. BEDOLLA SPUTUM. DENIES ANY NEEDS AT THIS TIME.
--- NOTE | 2017-02-16 02:49 | NUR ---
PT RESTING COMFORTABLY, NO NEEDS AT THIS TIME. CONTINUE TO MONITOR CLOSELY.
[2017-02-16 04:54] VITALS: BP 115/66
[2017-02-16 06:01] LABS: BASOPHILS 0.1 % (0-2); EOSINOPHILS 0 % (0-7); HEMATOCRIT 33.2 % (42.0-54.0); HEMOGLOBIN 10.4 g/dL (13.5-17.5); LYMPHOCYTES 3.2 % (15-50); MCH 24.3 pg (26.0-34.0); MCHC 31.3 g/dL (31.0-37.0); MCV 77.6 fL (80.0-100.0); MONOCYTES 3.5 % (2-11); NEUTROPHILS 91.2 % (40-80); PLATELET COUNT 295 10x3/uL (130-400); RBC 4.28 10x6/uL (4.20-6.10); RDW 17.5 % (11.5-14.5); WBC 18.9 10x3/uL (4.8-10.8)
[2017-02-16 06:25] LABS: ALBUMIN 2.4 g/dL (3.4-5.0); ALKALINE PHOSPHATASE 108 U/L (46-116); ALT (SGPT) 31 U/L (10-68); CALC OSMOLALITY 276 mosm/kg (275-300); CALCIUM 8.5 mg/dL (8.5-10.1); CARBON DIOXIDE 29.6 mmol/L (21.0-32.0); CHLORIDE - SERUM 100 mmol/L (98-107); CREATININE - SERUM 0.9 mg/dL (0.6-1.3); GLUCOSE 210 mg/dL (74-106); MAGNESIUM - SERUM 2.2 mg/dL (1.8-2.4); PHOSPHOROUS 2.8 mg/dL (2.5-4.9); PROTEIN - SERUM 6.2 g/dL (6.4-8.2); SODIUM 135 mmol/L (136-145); UREA NITROGEN 16 mg/dL (7-18); eGFR NON AFRICAN AMERICAN > 90 mL/min (90-120)
[2017-02-16 06:27] LABS: POTASSIUM - SERUM 4.8 mmol/L (3.5-5.1)
[2017-02-16 07:57] VITALS: BP 127/76
--- NOTE | 2017-02-16 08:00 | NUR ---
AM ROUNDS COMPLETED. INTRODUCED MYSELF TO PT PRIMARY RN FOR TODAYS SHIFT. PT A&O SITTING UP IN BED WAITING ON BREAKFAST. PT STATES HE IS DOING WELL OVERAL AND HOPES TO BE DISCHARGED SOON. PT HAS A VERY CONSISTENT ALMOST CONSTANT COUGH THAT IS VERY PRODUCTIVE WITH THICK YELLOW SPUTUM. PT STATES HIS LUNG ISSUES ARE CHRONIC ISSUE AND HE FEELS ABOUT AT BASELINE BUT IS BREATHING WELL OVERALL HE JUST CONTINUES TO COUGH AND CANT REST MUCH WITH IT. WILL CTM AND PROVIDE MEDICATION FOR COUGH ORDERED TO TRY AND HELP REDUCE IT. PT DENIES ANY FURTHER NEEDS AT THIS TIME. CL IN REACH. WILL CPOC.
--- NOTE | 2017-02-16 10:24 | NUR ---
CANCELLED PTS STOOL SPECIMEN FOR C.DIFF HIS STOOL IS TOO FORMED FOR LAB COLLECTION FOR THAT TEST. WILL MAKE PRIMARY AWARE.
[2017-02-16 11:44] VITALS: BP 96/63
--- NOTE | 2017-02-16 14:31 | NUR ---
PT SITTING UP IN BED RESTING QUIELTLY IN BED WATCHING TV. PT DENIES ANY CURRENT PAIN OR NEEDS AT THIS TIME. CL IN REACH. WILL CTM.
[2017-02-16 15:08] VITALS: BP 115/70
[2017-02-16 21:02] VITALS: BP 138/81
--- NOTE | 2017-02-16 22:22 | NUR ---
INITIAL ROUNDS COMPLETED AT 1915 HRS. PT DENIED ANY DISCOMFORT. ASSESSMENT COMPLETED AT 2015 [address]. [address]SS[address] PER CM HR 109. IV TO L CHEST INFUSAPORT WITH NS AT 25CC/HR. IV INFUSING WITHOUT DIFFICULTY. LUNGS DIMINISHED IN BASES BILAT. PT WITH PRODUCTIVE COUGH WHITE IN COLOR. PM MEDS GIVEN. L CHEST INFUAPORT LEAKING AFTER VANC STARTED. NEEDLE ESSENTIALLY OUT. NEEDLE LENGHT .75 INCH. INFUSAPORT REACCESSED WITH 20G 1 INCH NEEDLE. SITE FLUSHES WITHOUT DIFFICULTY BUT UNAE TO DRAW BLOOOD. PT STATED HE DOSEN'T KNOW IF SITE DRAWS BLOOD WHEN HOME HEALTH ACCESSES WEEKLY. VANC RESTARTED. NO LEAKING OR SWELLING AT SITE NOTED. PT CURRENTLY RESTING WITH EYES CLOSED. RESP EVEN AND REGULAR. SR UP X2, CALL LIGHT WITHIN REACH.
--- NOTE | 2017-02-16 23:53 | NUR ---
SCHEDULED MEDS GIVEN. PT REFUSES 2400 VS. WILL CONTINUE TO MONITOR.
--- NOTE | 2017-02-17 02:17 | NUR ---
PT RESTING WITH EYES CLOSED. RESP EVEN AND REGULAR. SR UP X2, CALL LIGHT WITHIN REACH.
--- NOTE | 2017-02-17 04:46 | NUR ---
PT RESTING WITH EYES CLOSED. RESP EVEN AND REGULAR. SR UP X2, CALL LIGHT WITHIN REACH.
[2017-02-17 05:16] VITALS: BP 145/79
[2017-02-17 06:22] LABS: BASOPHILS 0.1 % (0-2); EOSINOPHILS 0 % (0-7); HEMATOCRIT 34.2 % (42.0-54.0); HEMOGLOBIN 10.6 g/dL (13.5-17.5); LYMPHOCYTES 3.6 % (15-50); MCH 24.3 pg (26.0-34.0); MCV 78.3 fL (80.0-100.0); MEAN PLATELET VOLUME 9.4 fL (7.4-10.4); MONOCYTES 4.8 % (2-11); NEUTROPHILS 87.5 % (40-80); PLATELET COUNT 319 10x3/uL (130-400); RBC 4.37 10x6/uL (4.20-6.10); RDW 17.8 % (11.5-14.5); WBC 19.6 10x3/uL (4.8-10.8)
[2017-02-17 06:30] LABS: ALBUMIN 2.4 g/dL (3.4-5.0); ALKALINE PHOSPHATASE 130 U/L (46-116); BILIRUBIN - TOTAL 0.22 mg/dL (0.2-1.3); CALCIUM 8.5 mg/dL (8.5-10.1); CARBON DIOXIDE 32.8 mmol/L (21.0-32.0); CHLORIDE - SERUM 100 mmol/L (98-107); CREATININE - SERUM 0.9 mg/dL (0.6-1.3); PROTEIN - SERUM 6.2 g/dL (6.4-8.2); SODIUM 138 mmol/L (136-145); UREA NITROGEN 18 mg/dL (7-18); eGFR NON AFRICAN AMERICAN > 90 mL/min (90-120)
[2017-02-17 06:33] LABS: ALT (SGPT) 39 U/L (10-68); CALC OSMOLALITY 289 mosm/kg (275-300); GLUCOSE 318 mg/dL (74-106)
--- NOTE | 2017-02-17 06:38 | NUR ---
VSS THROUGHOUT NIGHT. ST PER CM. PT STATED VALIUM AND PHERGAN WITH CODEINE HELPED HIS COUGH A LITTLE BIT. NEEDS MET; WILL CONTINUE TO MONITOR.
--- NOTE | 2017-02-17 07:52 | NUR ---
REPORT RECEIVED ON PATIENT. MORNING ROUNDS MADE. PATIENT LAYING IN BED. SIDE RAILS UP X2, CALL LIGHT IN REACH. DENIES ANY NEEDS AT THIS TIME. WILL CONTINUE TO MONITOR. CPOC.
--- NOTE | 2017-02-17 11:17 | NUR ---
PATIENT IS RESTING, DENIES ANY NEEDS. BED LOW AND LOCKED. CPOC
[2017-02-17 11:42] VITALS: BP 121/68
--- NOTE | 2017-02-17 13:40 | NUR ---
PATIENT LAYING IN BED, WATCHING TV. REQUESTED VALIUM TO HELP HIM "CALM DOWN" BECAUSE HE IS GETTING RESTLESS AND ANXIOUS. 10MG VALIUM GIVEN. STATES HE FEELS A LITTLE BETTER THIS AFTERNOON AND THAT HIS COUGH HAS IMPROVED SOMEWHAT. CPOC.
[2017-02-17 16:07] VITALS: BP 117/76
--- NOTE | 2017-02-17 19:28 | NUR ---
AT APPROX 1845 PATIENT HAD A COUGHING SPELL, STATES "SOMETHING IS WRONG, THERE'S SOMETHING STUCK IN MY THROAT"... O2 WAS 92% ON 3.5L VIA NC. I CALLED RESPIRATORY, THEY CAME UP AND GAVE HIM A BREATHING TREATMENT. WHEN SHE WENT TO STOP THE TREATMENT, SHE FOUND THE MASK LAYING BESIDE THE PATIENT. HE STATED "I DON'T WANT IT, IT DOESN'T HELP" . ALSO, RESP ADVISED PATIENT IF HE FEELS HE HAS SOMETHING IN HIS THROAT, HE NEEDS TO BE NPO AND TOOK HIS TRAY/DRINKS. PATIENT IS NOW RESTING IN BED, WATCHING TV. HIS BREATHING HAS IMPROVED AND RATE HAS SLOWED BACK DOWN TO 18. EVENING ROUNDS MADE. CALL LIGHT IN REACH. ADVISED NURSE RECEIVING REPORT AND SHE WILL MONITOR CLOSELY. CPOC.
[2017-02-17 20:00] VITALS: BP 134/89
--- NOTE | 2017-02-17 21:51 | NUR ---
AT SHIFT CHANGE PT YELLING IN ROOM LOUDLY THAT HE NEEDS A DOCTOR STAT. RT TX IN PROGRESS. STATES THERE IS SOMETHING IN HIS THROAT AREA. KAM LUNA RT AT BEDSIDE. KAM LUNA RT ON PHONE WITH DR. RICHEY. SITUATION EXPLAINED. NO NEW ORDERS EXCEPT PT CANNOT REFUSE RT TXS. ASSESSMENT COMPLETED AT [address] PT VERY ANXIOUS AND COUGHING. O2 SAT 92% ON 4LNC. BP 134/89. RESP 28. LUNGS WITH RHONCHI TO UPPER LOBES AND DIMINISHED IN BASES. PT ABLE TO TALK AND SWALLOW WITHOUT DIFFICULTY. NO TRACHEAL DEVIATION NOTED. PT POINTED TO UPPER MIDDLE STERNUM AND STATED IT FELT DIFFERENT THERE. NO SWELLING NOTED. ON FURTHER QUESTIONING PT STATED THAT WAS THE AREA THAT HAD A TICKLE THAT MADE HIM COUGH AND COUGHING HURT. IV TO L INFUSAPORT WITH NS AT 25CC/HR. VALIUM 10MG PO GIVEN. HR DOWN TO 110 , SAT TO 94% ON 4LNC AND RESP 22 WHEN PM MEDS GIVEN. PT CALMER WITH COUGHING LESS SEVERE. PT CURRENTLY WATCHING TV WITH INTERMITTENT COUGHING NOTED. WILL CONTINUE TO MONITOR. SR UP X2, CALL LIGHT WITHIN REACH.
[2017-02-18] VITALS: BP 120/68
--- NOTE | 2017-02-18 00:03 | NUR ---
SCHEDULED MEDS GIVEN. PT STATES FEELS MUCH IMPROVED. WILL CONTINUE TO MONITOR.
--- NOTE | 2017-02-18 02:49 | NUR ---
PT INCONTINENT OF STOOL. INCONTINENT CARE DONE. GOOD BLOOD RETURN NOTED TO L CHEST INFUSAPORT. WILLEM CONTINUE TO MONITOR.
[2017-02-18 04:00] VITALS: BP 138/79
--- NOTE | 2017-02-18 04:27 | NUR ---
PT REATING WITH EYES CLOSED. RESP EVEN AND REGULAR. SR UP X2, CALL LIGHT WITHIN REACH.
[2017-02-18 06:10] LABS: BASOPHILS 0.2 % (0-2); EOSINOPHILS 0 % (0-7); HEMOGLOBIN 10.5 g/dL (13.5-17.5); IMMATURE GRANULOCYTES 7.8 % (0-5); LYMPHOCYTES 4.3 % (15-50); MCH 24.1 pg (26.0-34.0); MCHC 30.9 g/dL (31.0-37.0); MCV 78.2 fL (80.0-100.0); MEAN PLATELET VOLUME 9.5 fL (7.4-10.4); MONOCYTES 4.5 % (2-11); NEUTROPHILS 83.2 % (40-80); PLATELET COUNT 313 10x3/uL (130-400); RBC 4.35 10x6/uL (4.20-6.10); RDW 17.8 % (11.5-14.5); WBC 17.7 10x3/uL (4.8-10.8)
--- NOTE | 2017-02-18 06:25 | NUR ---
VSS THIS AM. SR PER CM HR 95. PT CALMER WITH MINIMAL COUGH NOTED. NEEDS MET; WILL CONTINUE TO MONITOR.
[2017-02-18 06:36] LABS: ALBUMIN 2.5 g/dL (3.4-5.0); ALKALINE PHOSPHATASE 114 U/L (46-116); ALT (SGPT) 40 U/L (10-68); CALCIUM 8.8 mg/dL (8.5-10.1); CARBON DIOXIDE 29.9 mmol/L (21.0-32.0); CHLORIDE - SERUM 97 mmol/L (98-107); PROTEIN - SERUM 6.1 g/dL (6.4-8.2); SODIUM 134 mmol/L (136-145); eGFR NON AFRICAN AMERICAN 81 mL/min (90-120)
[2017-02-18 06:44] LABS: GLUCOSE 367 mg/dL (74-106)
[2017-02-18 06:54] LABS: CALC OSMOLALITY 285 mosm/kg (275-300); UREA NITROGEN 22 mg/dL (7-18)
--- NOTE | 2017-02-18 07:35 | NUR ---
RECEIVED REPORT ON PATIENT. MORNING ROUNDS MADE. PATIENT LAYING IN BED TAKING BREATHING TREATMENT AT THIS TIME. DENIES ANY NEEDS. BED IN LOWEST POSITION, CL IN REACH, SR UP X 2. WILL CONTINUE TO MONITOR. CPOC.
[2017-02-18 08:18] VITALS: BP 126/86
[2017-02-18 12:27] VITALS: BP 129/77
--- NOTE | 2017-02-18 13:08 | NUR ---
PER ANGELICA,DAYCARE PROVIDER RESP WAS PAGED AND RQUESTED BREATHING TREATMENT FOR PATIENT.
--- NOTE | 2017-02-18 13:21 | NUR ---
PATIENT SITTING IN BED, WATCHING TV. LUNG SOUNDS DIMINISHED WITH EXP WHEEZES IN ALL LOBES. RT GAVE ALBUTEROL UPDRAFT. PT REQUESTS HIS VALIUM, STATES "I NEED TO CALM DOWN SO I CAN BREATH BETTER"... 10MG VALIUM GIVEN PO. DENIES ANY OTHER NEEDS AT THIS TIME. CPOC.
--- NOTE | 2017-02-18 13:53 | NUR ---
PATIENT IS SLEEPING AT THIS TIME, NAD NOTED. CHEST RISES AND FALLS EQUALLY. BED LOW AND LOCKED. CALL LIGHT IN REACH. CPOC
[2017-02-18 16:38] VITALS: BP 123/72
--- NOTE | 2017-02-18 19:20 | NUR ---
EVENING ROUNDS MADE. ALL NEEDS MET. BED IN LOWEST POSITION, SR UP X 2, CL IN REACH. REPORT GIVEN.
[2017-02-18 21:06] VITALS: BP 99/69
[2017-02-19 00:58] VITALS: BP 120/76
--- NOTE | 2017-02-19 05:07 | NUR ---
PT RESTING WELL IN BED, RESPIRATIONS EVEN AND UNLABORED. CALL LIGHT IN REACH, WILL CONTINUE TO MONITOR.
--- NOTE | 2017-02-19 07:00 | NUR ---
RECEIVED REPORT. ASSUMED CARE OF PATIENT. SITTING IN BED WITH EYES OPEN. CALL LIGHT WITHIN REACH. DENIES NEEDS. RECEIVING NEBULIZER TX AT THIS TIME. RESP EVEN AND UNLABORED. NO DISTRESS.
[2017-02-19 08:22] VITALS: BP 112/85
--- NOTE | 2017-02-19 11:02 | NUR ---
PT AND FAMILY UPSET ABOUT BEING IN ISOLATION.EXPLAINED TO PT AND FAMILY THE REASON FOR ISOLATION. FAMILY IS WORRIED ABOUT GRANDSON EXPOSING A BABY TO THE INFECTION. EXPLAINED AGAIN TO FAMILY AND PATIENT TO WHY PATIENT IS IN ISOLATION( DUE TO ESBL IN URINE). FAMILY WANTS TO NURSE RETINA SUBSPECIALIST TO WRITE DOWN WHAT THE CULTURE IS GROWING SO THEY CAN ASK BABYS DOCTOR. ASK THE PATIENT IF THAT IS OK TO GIVE OUT INFORMATION. FAMILY ANSWERED YES,BUT PT WAS ASKED AND GAVE THE OK TO GIVE OUT THAT INFORMATION. FAMILY ALSO TOLD ABOUT WEARING ISOLATION PROTECTION EQUIPMENT AND THEY REFUSED.
[2017-02-19 12:37] VITALS: BP 112/72
--- NOTE | 2017-02-19 12:45 | NUR ---
PATIENT LYING IN BED WITH EYES CLOSED. EASILY AROUSED. RESP EVEN AND UNLABORED. NO DISTRESS. CALL LIGHT WITHIN REACH.
--- NOTE | 2017-02-19 15:27 | NUR ---
MEDICATED FOR ANXIETY AT THIS TIME. NO DISTRESS.
[2017-02-19 16:28] VITALS: BP 105/65
[2017-02-19 16:39] LABS: BASOPHILS 0.9 % (0-2); EOSINOPHILS 0.2 % (0-7); HEMATOCRIT 34.9 % (42.0-54.0); HEMOGLOBIN 10.9 g/dL (13.5-17.5); IMMATURE GRANULOCYTES 14.5 % (0-5); LYMPHOCYTES 10.4 % (15-50); MCH 24.4 pg (26.0-34.0); MCHC 31.2 g/dL (31.0-37.0); MCV 78.3 fL (80.0-100.0); MEAN PLATELET VOLUME 9.6 fL (7.4-10.4); MONOCYTES 10.7 % (2-11); NEUTROPHILS 63.3 % (40-80); PLATELET COUNT 278 10x3/uL (130-400); RBC 4.46 10x6/uL (4.20-6.10); RDW 17.7 % (11.5-14.5); WBC 15.7 10x3/uL (4.8-10.8)
[2017-02-19 17:08] LABS: CALCIUM 8.6 mg/dL (8.5-10.1); CARBON DIOXIDE 31.1 mmol/L (21.0-32.0); CHLORIDE - SERUM 99 mmol/L (98-107); SODIUM 138 mmol/L (136-145); UREA NITROGEN 22 mg/dL (7-18); eGFR NON AFRICAN AMERICAN 81 mL/min (90-120)
[2017-02-19 17:11] LABS: CALC OSMOLALITY 289 mosm/kg (275-300); GLUCOSE 300 mg/dL (74-106); POTASSIUM - SERUM 4.2 mmol/L (3.5-5.1)
[2017-02-19 21:47] VITALS: BP 116/79
[2017-02-20] VITALS: BP 125/82
--- NOTE | 2017-02-20 01:38 | NUR ---
PT IS RESTING WELL IN BED, RESPIRATIONS EVEN AND UNLABORED. CALL LIGHT IN REACH, WILL CONTINUE PLAN OF CARE.
--- NOTE | 2017-02-20 03:22 | NUR ---
PT IN BED RESTING QUIETLY. BREATHING EVEN AND UNLABORED. BED IN LOW POSITION, CALL LIGHT WITHIN REACH. WILL CTM.
[2017-02-20 06:43] LABS: BASOPHILS 1.1 % (0-2); EOSINOPHILS 0.1 % (0-7); HEMATOCRIT 36.4 % (42.0-54.0); HEMOGLOBIN 11.5 g/dL (13.5-17.5); IMMATURE GRANULOCYTES 17.6 % (0-5); LYMPHOCYTES 4.9 % (15-50); MCH 24.5 pg (26.0-34.0); MCHC 31.6 g/dL (31.0-37.0); MCV 77.4 fL (80.0-100.0); MEAN PLATELET VOLUME 9.9 fL (7.4-10.4); MONOCYTES 5.3 % (2-11); PLATELET COUNT 278 10x3/uL (130-400); RDW 17.4 % (11.5-14.5); WBC 14.3 10x3/uL (4.8-10.8)
[2017-02-20 07:05] LABS: CALC OSMOLALITY 279 mosm/kg (275-300); CALCIUM 8.7 mg/dL (8.5-10.1); CARBON DIOXIDE 31.3 mmol/L (21.0-32.0); CHLORIDE - SERUM 97 mmol/L (98-107); CREATININE - SERUM 0.9 mg/dL (0.6-1.3); GLUCOSE 307 mg/dL (74-106); POTASSIUM - SERUM 4.8 mmol/L (3.5-5.1); SODIUM 133 mmol/L (136-145); UREA NITROGEN 18 mg/dL (7-18); eGFR NON AFRICAN AMERICAN > 90 mL/min (90-120)
--- NOTE | 2017-02-20 07:15 | NUR ---
REPORT RECEIVED. RR EVEN AND UNLABORED. PT ASLEEP. PT WEARING NC AT 4L. NAME PLACED ON WHITE BOARD, FALL PRECAUTIONS IN PLACE. WILL CTM.
[2017-02-20 07:31] VITALS: BP 114/77
--- NOTE | 2017-02-20 10:00 | NUR ---
SPOKE TO INFECTION CONTROL NURSE ABOUT PT BEING IN ISOLATION. EXPLAINED THAT FLU TEST WAS NEGATIVE. GAVE PERMISSION TO REMOVE HIM FROM DROPLET ISOLATION.
[2017-02-20 11:41] VITALS: BP 117/78
--- NOTE | 2017-02-20 13:17 | NUR ---
Patient Name: JOSEPH MEJIA Encounter No: [id number] : 1955 Primary Insurance: MEDICAID [place] Anticipated DC Date: 02-17-2017 Planned Disposition: Nursing Facility MARIE Cert External Planned Provider: [facility], EXERCISE TEACHER CARE MEDICAID BED DCP follow-up note: CM RECEIVED CALL FROM PT'S FRIEND (COUSIN'S SPOUSE), JONAS BAGLEYGIULIANO, ; JONAS REPORTS THAT HE IS NO LONGER ABLE TO TAKE CARE OF PT AT HOME AND HE HAS CALLED [facility] AND SPOKE TO LYLA AT [facility] WHO IS EXPECTING REFERRAL FOR NURSING HOME CARE. CM ATTEMPTED TO EXPLAINED EXERCISE TEACHER MEDICAID APPLICATION PROCESS WELL SKILLED NEEDS FOR EXERCISE TEACHER [facility] CARE TO JONAS WHO INFORMED CM THAT JONAS SPOKE TO [facility] AND WAS INFORMED TO PUT PT IN A [facility] AND THEY WOULD APPLY FOR NURSING HOME MEDICAID FOR HIM AND THAT LYLA IS GOING TO GET PT INTO [facility]. JONAS REPORTS THAT IF PT DOES NOT GET INTO A [facility], JONAS DOES NOT KNOW WHERE PT WILL LIVE WHEN HE GETS OUT OF THE HOSPITAL. CM SPOKE TO PT IN ROOM, NOTIFIED OF [facility]. PT WANTS TO LIVE IN A [facility] IF HE CAN GET IN, PT REPORTS [facility] WOULD BE FINE. PT SIGNED CHOICE LETTER FOR [facility] AND [facility]. PT ASSISTED CM WITH COMPLETING [facility] PAPERWORK AND PROVIDED SIGNATURES. CM FAXED REFERRAL FOR EXERCISE TEACHER CARE TO [facility] VIA [employer] AT [phone]. CM NOTIFIED JOSE C AGGARWAL OF [facility] AND NEED FOR DOCTORS SIGNATURES ON DARREL SCREENING FORM. CM TO FAX DARREL SCREENING WITH SUPPORTING DOCUMENTS TO [facility] ONCE PHYSICIAN SIGNATURES ARE OBTAINED. CM WAITING ADMISSION DETERMINATION FROM [facility] FOR EXERCISE TEACHER CARE. Guru Aburto, CASE MANAGEMENT
--- NOTE | 2017-02-20 14:21 | NUR ---
Nutrition Follow Up: Pt is eating 83% meal avg on an AHA diet. Wt stable. +BM 02/19/17. Labs reviewed - Glucose elevated. Meds noted including Solu-Medrol. Will change diet to AHA, NCS to aid in glucose control. RD following.
--- NOTE | 2017-02-20 16:18 | NUR ---
Patient Name: JOSEPH MEJIA Encounter No: [id number] : 1955 Primary Insurance: MEDICAID [facility] [place] Date: 02-17-2017 Planned Disposition: Nursing Facility MARIE Cert External Planned Provider: [facility], GROUP HOME CARE MEDICAID BED DCP follow-up note: CM RECEIVED SIGNATURES FROM DOCTOR, FAXED DARREL SCREENING WITH SUPPORTING DOCUMENTS TO [facility]. CM WAITING ADMISSION DETERMINATION FROM [facility] FOR ENTERTAINMENT MUSICIAN CARE WELL DARREL DETERMINATION. Guru Aburto, CASE MANAGEMENT
[2017-02-20 16:37] VITALS: BP 146/64
--- NOTE | 2017-02-20 18:30 | NUR ---
CHANGED PORT DRESSING. GAVE EVENING IV MED. PT DENIES NEEDS AT THIS TIME, WILL GIVE REPORT ON PT CONDTION FOR THE DAY.
[2017-02-20 21:03] VITALS: BP 142/77
--- NOTE | 2017-02-21 04:40 | NUR ---
WHEAT COMBINE DRIVER AT BEDSIDE TO OBTAIN VITALS, CALL LIGHT IN REACH. WILL CONTINUE WITH PLAN OF CARE.
[2017-02-21 05:40] VITALS: BP 117/70
[2017-02-21 06:08] LABS: HEMATOCRIT 37.1 % (42.0-54.0); HEMOGLOBIN 11.7 g/dL (13.5-17.5); MCH 24.1 pg (26.0-34.0); MCHC 31.5 g/dL (31.0-37.0); MCV 76.3 fL (80.0-100.0); MEAN PLATELET VOLUME 9.9 fL (7.4-10.4); PLATELET COUNT 297 10x3/uL (130-400); RBC 4.86 10x6/uL (4.20-6.10); RDW 17.4 % (11.5-14.5); WBC 25.3 10x3/uL (4.8-10.8)
[2017-02-21 06:29] LABS: CALC OSMOLALITY 276 mosm/kg (275-300); CALCIUM 8.5 mg/dL (8.5-10.1); CARBON DIOXIDE 30.1 mmol/L (21.0-32.0); CHLORIDE - SERUM 97 mmol/L (98-107); CREATININE - SERUM 0.8 mg/dL (0.6-1.3); GLUCOSE 265 mg/dL (74-106); POTASSIUM - SERUM 4.5 mmol/L (3.5-5.1); SODIUM 133 mmol/L (136-145); UREA NITROGEN 18 mg/dL (7-18); eGFR NON AFRICAN AMERICAN > 90 mL/min (90-120)
[2017-02-21 07:06] LABS: EOSINOPHILS 1 % (0-7); LYMPHOCYTES 14 % (15-50); MONOCYTES 4 % (2-11); NEUTROPHILS 70 % (40-80); PLATELET ESTIMATE NORMAL
--- NOTE | 2017-02-21 07:15 | NUR ---
REPORT RECEIVED. RR EVEN AND UNLABORED, PT REPORTS FEELING BETTER THIS MORNING. DENIES NEEDS, WILL CTM.
[2017-02-21 08:34] VITALS: BP 169/59
--- NOTE | 2017-02-21 11:00 | NUR ---
SPOKE TO ANGELICA DELATORRE APN ABOUT PTS PUPILS BEING DIFFERENT SIZES. I REPORTED THAT NURSE EXTERN STRENGTH IS 5/5, VSS, PT IS DISORIENTED AT TIMES. DENIES KNOWING IF THIS IS CHRONIC FOR THIS PT OR NOT.
[2017-02-21 12:25] VITALS: BP 125/70
--- NOTE | 2017-02-21 13:59 | NUR ---
AFTERNOON MEDS GIVEN. PT RESTING QUIETLY, RR EVEN AND UNLABORED. DENIES NEEDS AT THIS TIME. WILL CTM.
--- NOTE | 2017-02-21 14:41 | NUR ---
Patient Name: JOSEPH MEJIA Encounter No: [id number] : 1955 Primary Insurance: MEDICAID [facility] [place] Date: 02-17-2017 Planned Disposition: Nursing Facility MARIE Cert External Planned Provider: [facility], [facility] MEDICAID BED DCP follow-up note: CM RECEIVED DARREL DETERMINATION, PT IS EXEMPTED AND MAY ENTER LONG TERM FACILITY. CM FAXED UPDATE AND DARREL DETERMINATION TO LYLA AT [facility]. CM WAITING ADMISSION DETERMINATION FROM [facility] FOR PENITENTIARY CARE. Guru Aburto, CASE MANAGEMENT
[2017-02-21 16:35] VITALS: BP 105/68
--- NOTE | 2017-02-21 18:49 | NUR ---
PT RESTING QUIETLY, REQUESTED PRN VALIUM. RR EVEN AND UNLABOREED. WILL GIVE AND GIVE SHIFT REPORT ON PT CONDITION FOR THE DAY.
[2017-02-21 21:56] VITALS: BP 100/79
--- NOTE | 2017-02-22 00:39 | NUR ---
PT RESTING WELL IN BED, RESPIRATIONS EVEN AND UNLABORED. CALL LIGHT IN REACH , WILL CONTINUE PLAN OF CARE.
[2017-02-22 06:44] LABS: BASOPHILS 0.7 % (0-2); EOSINOPHILS 0.7 % (0-7); HEMATOCRIT 36.1 % (42.0-54.0); HEMOGLOBIN 11.2 g/dL (13.5-17.5); IMMATURE GRANULOCYTES 20.2 % (0-5); LYMPHOCYTES 13.7 % (15-50); MCH 23.9 pg (26.0-34.0); MCV 77.1 fL (80.0-100.0); MEAN PLATELET VOLUME 9.5 fL (7.4-10.4); MONOCYTES 8.8 % (2-11); NEUTROPHILS 55.9 % (40-80); RBC 4.68 10x6/uL (4.20-6.10); RDW 17.4 % (11.5-14.5)
[2017-02-22 07:05] LABS: CALCIUM 8.1 mg/dL (8.5-10.1); CARBON DIOXIDE 30.4 mmol/L (21.0-32.0); CHLORIDE - SERUM 100 mmol/L (98-107); CREATININE - SERUM 0.7 mg/dL (0.6-1.3); PLATELET COUNT 235 10x3/uL (130-400); SODIUM 136 mmol/L (136-145); UREA NITROGEN 17 mg/dL (7-18); WBC 15.5 10x3/uL (4.8-10.8); eGFR NON AFRICAN AMERICAN > 90 mL/min (90-120)
[2017-02-22 07:10] LABS: CALC OSMOLALITY 275 mosm/kg (275-300); GLUCOSE 134 mg/dL (74-106); POTASSIUM - SERUM 3.7 mmol/L (3.5-5.1)
[2017-02-22 08:43] VITALS: BP 116/75
--- NOTE | 2017-02-22 12:04 | NUR ---
PT SLEEPING. BED IN LOW POST. RAILS UP TIMES 2. CALL LIGHT WITH IN REACH.
[2017-02-22 13:12] VITALS: BP 108/73
--- NOTE | 2017-02-22 13:39 | NUR ---
Nutrition Follow Up: Pt is eating 97% meal avg on an AHA NCS diet. Wt stable. +BM 02/21/17. Labs reviewed - Glucose elevated. Meds noted including Solu-Medrol. Rec continue current diet. RD following.
--- NOTE | 2017-02-22 14:46 | NUR ---
PT LYING IN BED. BED IN LOW PT. PT STATES NO COMPLAINTS OR CONCERNS AT THIS TIME. CALL LIGHT WITH IN REACH. CONT TO MONITOR.
[2017-02-22 17:17] VITALS: BP 118/75
--- NOTE | 2017-02-22 18:26 | NUR ---
PT LAYING IN BED EATING. PT BED LOW. RAILS UP TIMES 2. PT CALL LIGHT WITH IN REACH. PT STATES NO COMPLAINTS OR CONCERNS AT THIS TIME.
[2017-02-22 22:00] VITALS: BP 117/70
--- NOTE | 2017-02-23 01:15 | NUR ---
PT RESTING WITH EYES CLOSED. RESP EVEN AND REGULAR. SR UP X2, CALL LIGHT WITHIN REACH.
--- NOTE | 2017-02-23 06:39 | NUR ---
AM ROUNDING- RECEIVED REPORT FROM CABLE TESTER NURSE KELI. PT IS CURRENTLY LAYING IN BED ON LEFT SIDE WITH EYES CLOSED RESTING. ON 02 AT 4L VIA NC. ON MONITOR SHOWING ST, HR 103. IV SEEN TO LEFT CHEST INFUSAPORT WITH NS RUNNING AT KVO (5CC). NO NEED AT THIS CURRENT TIME. WILL CONTINUE TO MONITOR AND CONTINUE WITH PLAN OF CARE.
[2017-02-23 07:14] LABS: CALC OSMOLALITY 276 mosm/kg (275-300); CALCIUM 8.5 mg/dL (8.5-10.1); CARBON DIOXIDE 30.2 mmol/L (21.0-32.0); CHLORIDE - SERUM 99 mmol/L (98-107); CREATININE - SERUM 0.7 mg/dL (0.6-1.3); GLUCOSE 133 mg/dL (74-106); SODIUM 137 mmol/L (136-145); UREA NITROGEN 14 mg/dL (7-18); eGFR NON AFRICAN AMERICAN > 90 mL/min (90-120)
[2017-02-23 07:22] LABS: BASOPHILS 1.3 % (0-2); EOSINOPHILS 0.6 % (0-7); HEMATOCRIT 38.9 % (42.0-54.0); IMMATURE GRANULOCYTES 20.9 % (0-5); LYMPHOCYTES 12.4 % (15-50); MCH 23.9 pg (26.0-34.0); MCHC 30.8 g/dL (31.0-37.0); MCV 77.5 fL (80.0-100.0); MEAN PLATELET VOLUME 10.1 fL (7.4-10.4); MONOCYTES 9.1 % (2-11); NEUTROPHILS 55.7 % (40-80); PLATELET COUNT 239 10x3/uL (130-400); RBC 5.02 10x6/uL (4.20-6.10); RDW 17.6 % (11.5-14.5); WBC 16.2 10x3/uL (4.8-10.8)
[2017-02-23 09:19] VITALS: BP 114/73
[2017-02-23 12:08] VITALS: BP 106/61
[2017-02-23 16:12] LABS: CKMB 0.7 U/L (0.0-3.6); CREATINE KINASE 24 UL (21-232)
[2017-02-23 16:16] LABS: TROPONIN-I < 0.017 ng/mL (0.000-0.060)
[2017-02-23 17:07] VITALS: BP 97/66
--- NOTE | 2017-02-23 17:18 | NUR ---
PT IS CURRENTLY LAYING IN BED WITH EYES OPEN. THIS NURSE ASK PT IF HE IS OK AND PT REPLIES "YEAH". WILL CONTINUE TO MONITOR.
--- NOTE | 2017-02-23 20:00 | NUR ---
ROUNDING NOTE: PT STATES THAT HE HAS NOT BEEN FEELING WELL TODAY, HE BEEN NAUSEOUS WITH DECREASED APPETITE AND FATIGUED. HE JUST DOESN'T FEEL WELL OVERALL. HE IS WORRIED ABOUT GOING HOME. ASKING FOR ENSURE, WILL GIVE PER REQUEST.
[2017-02-23 21:08] VITALS: BP 114/71
[2017-02-23 23:01] LABS: CKMB 0.9 U/L (0.0-3.6); CREATINE KINASE 28 UL (21-232); TROPONIN-I < 0.017 ng/mL (0.000-0.060)
[2017-02-24 01:27] VITALS: BP 99/54
[2017-02-24 03:46] LABS: BASOPHILS 0.4 % (0-2); EOSINOPHILS 0.1 % (0-7); HEMATOCRIT 39.9 % (42.0-54.0); HEMOGLOBIN 12.5 g/dL (13.5-17.5); LYMPHOCYTES 5.7 % (15-50); MCH 24.1 pg (26.0-34.0); MCHC 31.3 g/dL (31.0-37.0); MCV 76.9 fL (80.0-100.0); MEAN PLATELET VOLUME 10.2 fL (7.4-10.4); MONOCYTES 2.4 % (2-11); NEUTROPHILS 74.4 % (40-80); PLATELET COUNT 271 10x3/uL (130-400); RBC 5.19 10x6/uL (4.20-6.10); RDW 17.3 % (11.5-14.5); WBC 17.1 10x3/uL (4.8-10.8)
[2017-02-24 04:11] LABS: CALC OSMOLALITY 276 mosm/kg (275-300); CALCIUM 9.2 mg/dL (8.5-10.1); CARBON DIOXIDE 28.2 mmol/L (21.0-32.0); CHLORIDE - SERUM 97 mmol/L (98-107); CKMB 0.6 U/L (0.0-3.6); CREATINE KINASE 21 UL (21-232); CREATININE - SERUM 0.8 mg/dL (0.6-1.3); GLUCOSE 229 mg/dL (74-106); POTASSIUM - SERUM 4.8 mmol/L (3.5-5.1); SODIUM 134 mmol/L (136-145); TROPONIN-I < 0.017 ng/mL (0.000-0.060); UREA NITROGEN 17 mg/dL (7-18); eGFR NON AFRICAN AMERICAN > 90 mL/min (90-120)
--- NOTE | 2017-02-24 07:45 | NUR ---
PT HAS BEEN RESTING UNEVENTFULLY THROUGHOUT THE NIGHT. SECOND EKG DONE PER ORDERS. PT HAS BEEN CHEST PAIN FREE THROUGHOUT THE NIGHT. VITAL SIGNS STABLE. NO NAUSEA, VOMITTING, OR ACUTE SOB. PT HAS HAD SOME INTERMITTENT COUGHING. PT APPEARS TO BE BASELINE, BUT HE IS STILL NERVOUS ABOUT D/C. WILL CONT TO MONITOR.
--- NOTE | 2017-02-24 07:45 | NUR ---
AM ROUNDS COMPLETED INTRODUCED MYSELF TO PT PRIMARY RN FOR TODAYS SHIFT. PT A&O SITTING UP IN BED RESTING QUIETLY. SHIFT ASSESSMENT COMPLETED. PT STATES HE IS FEELING A LITTLE BETTER OVERALL BUT STILL C/O CONSTANT COUGH AND SPUTUM PRODUCTION. RR NONLABORED WITH NC @4L IN PLACE. PT HAS A L.CHEST IP WITH BIOPATCH IN PLACE AND DRSG ADHERED TO SKIN WITH SWAB CAPS IN USE. PT HAS TELEMETRY AND IS RUNNING ST @109. PT DENIES ANY CURRENT PAIN OR NEEDS AT THIS TIME AND IS HOPING TO BE DISCHARGED SOON. CL IN REACH. WILL CTM.
[2017-02-24 08:24] VITALS: BP 103/63
[2017-02-24 12:11] VITALS: BP 101/67
--- NOTE | 2017-02-24 12:46 | NUR ---
PT REQUESTING PRN VALIUM HOWEVER THAT MEDICATION HAS BEEN D/C WILL NOTIFY PRIMARY AND ASK FOR RESUMPTION.
[2017-02-24 17:02] VITALS: BP 102/68
--- NOTE | 2017-02-24 19:40 | NUR ---
RECEIVED REPORT, WILL ASSUME CARE OF PT, PT DENIES ANY NEEDS, BED IS LOW, SRX2, CALL LIGHT IN REACH, WILL CONTINUE PLAN OF CARE
[2017-02-24 21:07] VITALS: BP 107/74
[2017-02-25 00:58] VITALS: BP 111/73
--- NOTE | 2017-02-25 02:37 | NUR ---
PT SLEEPING, NO DISTRESS NOTICED, BED IS LOW, SRX2, CALL LIGHT IN REACH, WILL CONTINUE PLAN OF CARE
[2017-02-25 05:19] VITALS: BP 113/73
--- NOTE | 2017-02-25 07:28 | NUR ---
RECIEVED REPORT ONPATIENT, PATIENT IS ALERT AND ORIENTED AT THIS TIME. PATIENT HAS A L CHEST IP THAT IS SL AT THIS TIME. PATIENT IS ON 4L/MIN VIA NC WITH NAD NOTED AT THIS TIME. CHEST RISES AND FALLS EQUALLY. PATIENT IS SR ON MONITOR WITH A RATE OF 95. PATIENT DENIES ANY COMPLAINTS AT THIS TIME. BED LOW AND LOCKED. CPOC
[2017-02-25 08:02] VITALS: BP 106/67
--- NOTE | 2017-02-25 09:15 | NUR ---
MORNING MEDICATIONS GIVEN. NEEDS MET. PATIENT DENIES ANY FURTHER NEEDS. CPOC
--- NOTE | 2017-02-25 10:58 | NUR ---
Patient Name: JOSEPH MEJIA Encounter No: [id number] : 1955 Primary Insurance: MEDICAID [facility] [place] Date: 02-17-2017 Planned Disposition: Nursing Facility MARIE Cert External Planned Provider: [facility], MEDIA RELATIONS COORDINATOR CARE MEDICAID BED DCP follow-up note: CM RECEIVED CALL FROM JONAS JARA WHO REPORTED THAT HE HAS SPOKEN TO ALEXANDRA AT [facility] AND WANTS REFERRAL SENT THERE. CM SPOKE TO PT IN ROOM WHO REPORTS AGREEMENT WITH REFERRAL TO [facility], [facility] AND [facility]. CHOICE SIGNED. PT IS HOPEFUL THAT [facility] WILL ACCEPT HIM. CM WAITING ADMISSION DETERMINATION FROM [facility], [facility] AND [facility] FOR MEDIA RELATIONS COORDINATOR CARE. Guru Aburto, CASE MANAGEMENT
--- NOTE | 2017-02-25 11:45 | NUR ---
PATIENT SITTING UP IN BED EATING LUNCH, REQUESTING HIS "COUGH SYRUP" PROMETHAZINE WAS DC'D WILL TALK WITH THE DOCTOR ABOUT GETTING IT RESTARTED. PATIENT HAS A FREQUENT, PRODUCTIVE COUGH WITH CLEAR SPUTUM. CPOC
[2017-02-25 13:05] VITALS: BP 140/67
--- NOTE | 2017-02-25 14:01 | NUR ---
PATIENT IS RESTING AT THIS TIME, AROUSES TO VOICE. DENIES ANY NEEDS. CPOC
[2017-02-25 16:31] VITALS: BP 112/66
--- NOTE | 2017-02-25 17:09 | NUR ---
PATIENT EATING DINNER, DENIES ANY NEEDS AT THIS TIME, CPOC
--- NOTE | 2017-02-25 18:12 | NUR ---
ROUNDS MADE, INFORMED PATIENT, SHIFT CHANGE WAS NEAR. PATIENT DENIES ANY NEEDS AT THIS TIME. CPOC
[2017-02-25 19:00] VITALS: BP 111/74
--- NOTE | 2017-02-25 19:16 | NUR ---
PT RESTING IN BED. ASKS FOR HEAT TO BE TURNED UP AND FOR ME TO BRING VALIUM WHEN I BRING NIGHT TIME MEDS. PT DENIES ANY OTHER NEEDS. NO S/S OF DISTRESS. BED LOW AND CALL LIGHT IN REACH. WILL CPOC
--- NOTE | 2017-02-25 21:23 | NUR ---
PT GIVEN NIGHT TIME MEDS. ASSISTED WITH PUTTING ON PANTS. PT REFUSED WHEN I ASKED TO CHANGE HIS SHEETS. PT NOW LAYING IN BED WATCHING TV. PT DENIES ANY NEEDS. NO S/S OF DISTRESS. WILL CPOC
[2017-02-26 04:00] VITALS: BP 108/72
--- NOTE | 2017-02-26 06:00 | NUR ---
PT ASLEEP. WOKE WITH VERBAL STIMULI. 475 OF YELLOW URINE IN URINAL NOW EMPTY. PT DENIES ANY NEEDS. NO S/S OF DISTRESS. WILL CPOC
[2017-02-26 07:21] LABS: BASOPHILS 0.3 % (0-2); EOSINOPHILS 0 % (0-7); HEMATOCRIT 37.5 % (42.0-54.0); IMMATURE GRANULOCYTES 7.1 % (0-5); LYMPHOCYTES 7.1 % (15-50); MCH 24.4 pg (26.0-34.0); MCV 76.2 fL (80.0-100.0); MEAN PLATELET VOLUME 9.8 fL (7.4-10.4); MONOCYTES 6.8 % (2-11); NEUTROPHILS 78.7 % (40-80); PLATELET COUNT 238 10x3/uL (130-400); RBC 4.92 10x6/uL (4.20-6.10); RDW 17.2 % (11.5-14.5); WBC 22.8 10x3/uL (4.8-10.8)
[2017-02-26 07:23] LABS: CALC OSMOLALITY 273 mosm/kg (275-300); CALCIUM 9.3 mg/dL (8.5-10.1); CHLORIDE - SERUM 97 mmol/L (98-107); CREATININE - SERUM 0.8 mg/dL (0.6-1.3); POTASSIUM - SERUM 4.2 mmol/L (3.5-5.1); SODIUM 134 mmol/L (136-145); UREA NITROGEN 17 mg/dL (7-18); eGFR NON AFRICAN AMERICAN > 90 mL/min (90-120)
[2017-02-26 07:28] LABS: GLUCOSE 171 mg/dL (74-106)
--- NOTE | 2017-02-26 07:37 | NUR ---
AM ROUNDS - PT IN BED AND AWAKE AT THIS TIME. MONITOR SHOWING ST, HR 105. PT ON 4L VIA NC. LEFT CHEST PORT, SL. BED AT LOWEST POSITION. CALL LOPEZ IN USE/REACH. SIDE RIALS UP X2. WILL CONTINUE TO MONITOR
[2017-02-26 08:52] VITALS: BP 116/73
[2017-02-26 12:12] VITALS: BP 117/71
--- NOTE | 2017-02-26 13:38 | NUR ---
Nutrition Follow Up: Pt is eating 64% meal avg on an AHA NCS diet. +BM 02/25/17. Wt stable. Labs reviewed - Glucose continues elevated. Meds noted including Solu-Medrol. Rec continue current diet. RD following.
--- NOTE | 2017-02-26 14:17 | NUR ---
Patient Name: JOSEPH MEJIA Encounter No: [id number] : 1955 Primary Insurance: MEDICAID [place] Anticipated DC Date: 02-17-2017 Planned Disposition: HOME DCP follow-up note: CM CALLED DANIA OF [facility]; [facility] ACC[facility] PT HE HAS NO SKILLED NEEDS FOR PENITENTIARY PLACEMENT, ALSO OF CONCERN IS THAT PT SIGNED OVER HIS HOME TO HIS COUSIN TWO YEARS AGO WITHOUT MARKET VALUE COMPENSATION AND PT WILL NOT BE ELIGIBLE FOR [place] MEDICAID DUE TO THIS. CM CALLED AND SPOKE TO ALEXANDRA OF [facility], REFERRAL RECEIVED, PT HAS NO SKILLED NEED AND [facility]. CM RECEIVED CALL FROM [facility] WHO RECEIVED REFERRAL; PT HAS NO SKILLED NEED AND [facility] WILL NOT ACCEPT FOR SNF CARE MEDICAID WILL NOT APPROVE PAYMENT FOR CARE. CM SPOKE TO PT IN ROOM, ADVISED OF ABOVE. CM EXPLAINED THAT PT HAS NO SKILLED NEED FOR SNF PENITENTIARY CARE. PT ASKED CM TO CONTINUE SEEKING ASSISTED LIVING OR OTHER ARRANGEMENTS FOR A PLACE TO LIVE. PT REPORTS HE CAN GO BACK HOME WITH JONAS, BUT THE SITUATION IS NOT GOOD AND PT REALLY NEEDS TO FIND OTHER LIVING ARRANGEMENTS. CM PROVIDED PT WITH ASSISTED LIVING FACILITIES IN [facility], ADVISED THAT HE WILL NEED TO APPLY FOR ASSISTED LIVING MEDICAID AT THE DEPARTMENT OF HUMAN SERVICES OFFICE. CM CALLED [facility], SPOKE TO LORI WHO REPORTS THAT [facility] HAS NO MEDICAID BEDS REMAINING, PT WOULD NEED TO APPLY FOR ASSISTED LIVING MEDICAID AND BE WILLING TO PAY $3,100 PRIVATE PAY RATE. CM CALLED [facility], SPOKE TO MARIBELL, PT WOULD HAVE TO APPLY FOR ASSISTED LIVING MEDICAID AND SHE BELIVES THAT PT DOES HAVE TO PASS ASSET TEST JUST WITH [place] CARE MEDICAID; PRIVATE PAY IS $2,800 MONTH THAT COVERS ALL EXPENSES EXCEPT FOR TELEPHONE AND MEDICATIONS. CM SPOKE TO PT IN ROOM, ADVISED THAT HE WILL NEED TO TAKE CARE OF HIS ISSUE WITH THE HOME, THAT IT WAS SUGGESTED BY PENITENTIARY PLACEMENT COORDINATORS POSSIBLY HAVING PT'S COUSIN SIGN THE HOUSE BACK OVER TO HIM SO THAT HE CAN GET MEDICAID OR CONSULT AN RN INTERNATIONAL ON HOW BEST TO HANDLE THIS ISSUE. PT DOES NOT THINK HIS COUSIN WILL SIGN THE HOUSE BACK OVER TO HIM. PT REPORTS HE CANNOT AFFORD $2800 MONTHLY FOR ASSISTED LIVING. PT REPORTS THAT [facility] SPEAK TO PT VIA PHONE AND WILL BE CALLING BACK TOMORROW REGARDING POSSIBLE PRIVATE PRISON PLACEMENT. CM RECEIVED CALL FROM BRUCE LOUIE, , PT REPORTED HE WANTS TO MEET HER IN REGARD TO A PRIVATE PRISON, CM NOTIFIED BRUCE IN ROOM, BRUCE WILL COME AND MEET WITH PT. PT IS WAITING ON SPEAKING TO [facility] TOMORROW AND BRUCE LOUIE WITH PRIVATE PRISON TOMORROW IN REGARDS TO PRIVATE CARE PLACEMENT. PT IS NOT ELIGIBLE FOR PENITENTIARY DUE TO LACK OF SKILLED CARE NEED OR ASSISTED LIVING DUE TO LACK OF FINANCIAL QUALIFICATION. PT REPORTS IF HE IS NOT ABLE TO GET INTO A PRIVATE PRISON, HE WILL GO BACK HOME WITH HIS COUSIN. Guru Aburto, CASE MANAGEMENT
[2017-02-26 16:11] VITALS: BP 124/74
--- NOTE | 2017-02-26 17:16 | NUR ---
PT IN BED AT THIS TIME. NO NEEDS. PT IS EATING DINNER. WILL CONTINUE TO MONITOR
[2017-02-26 20:23] VITALS: BP 120/79
[2017-02-27] VITALS: BP 154/79
--- NOTE | 2017-02-27 01:00 | NUR ---
PT IN BED RESTING QUIELTY. BREATHING EVEN AND UNLABORED. WILL CTM.
[2017-02-27 04:00] VITALS: BP 104/66
[2017-02-27 05:26] LABS: BASOPHILS 0.1 % (0-2); EOSINOPHILS 0 % (0-7); HEMATOCRIT 36.7 % (42.0-54.0); HEMOGLOBIN 11.4 g/dL (13.5-17.5); IMMATURE GRANULOCYTES 4.4 % (0-5); LYMPHOCYTES 5.8 % (15-50); MCH 23.8 pg (26.0-34.0); MCHC 31.1 g/dL (31.0-37.0); MCV 76.8 fL (80.0-100.0); MEAN PLATELET VOLUME 10.2 fL (7.4-10.4); MONOCYTES 6.2 % (2-11); NEUTROPHILS 83.5 % (40-80); PLATELET COUNT 228 10x3/uL (130-400); RBC 4.78 10x6/uL (4.20-6.10); RDW 17.4 % (11.5-14.5); WBC 24.5 10x3/uL (4.8-10.8)
--- NOTE | 2017-02-27 07:34 | NUR ---
AM ROUNDS - PT IN BED AND AWAKE AT THIS TIME. LEFT CHEST INFUSAPORT, SL. BED AT LOWEST POSITION. CALL LOPEZ IN USE/REACH. SIDE RAILS UP X2. BED AT LOWEST POSITION. NO NEEDS AT THIS TIME. WILL CONTINUE TO MONITOR. PT ON 4L O2
[2017-02-27 08:00] VITALS: BP 105/73
--- NOTE | 2017-02-27 13:04 | NUR ---
Patient Name: JOSEPH MEJIA Encounter No: [id number] : 1955 Primary Insurance: MEDICAID [place] Anticipated DC Date: 02-17-2017 Planned Disposition: HOME DCP follow-up note: CM RECEIVED TELEPHONE CALL FROM PT'S ALPHA 1 HOME INFUSION NURSE, JUNE, WHO REPORTS THAT SHE WILL COME AND SEE PT TODAY. JUNE ASKED IF CM CAN HELP GET PT INTO A BETTER LIVING SITUATION. JUNE REPORTS PT'S HOME IS NASTY AND SHE HAS CONSIDERED CALLING ADULT PROTECTIVE SERVICES. CM ENCOURAGED JUNE TO CALL ADULT PROTECTIVE SERVICES IF SHE FEELS THAT THERE IS A NEED. ROMEO EXPLAINED THAT PT IS NOT ELIGIBLE FOR CURRICULUM DEVELOPMENT SPECIALIST CARE OR ASSISTED LIVING MEDICAID, INCOME OF ABOUT $734 DISAILITY IS NOT SUFFICIENT FOR PT TO PAY FOR PRIVATE CARE ARRANGEMENTS. CM MET WITH PT IN ROOM, HE HAS NOT YET TRIED TO CALL [facility]. CM EXPLAINED AGAIN TO PT THAT CM IS NOT ABLE TO HELP HIM GET INTO A [facility] OR ASSISTED LIVING DUE TO BEING INELIGIBLE FOR MEDICAID SERVICES; CM EXPLAINED TO PT THAT HE WILL HAVE TO SPEAK TO AN VERTICAL BORING MILL OPERATOR AND DEPARTMENT OF GAS ROLLER OPERATOR REGARDING WHAT TO DO ABOUT THE HOUSE HE SIGNED OVER TO HIS COUSIN TWO YEARS AGO. CM EXPLAINED THAT PT'S INCOME IS NOT SUFFICIENT TO PAY FOR PRIVATE LONGTERM PLACEMENT. CM EXPLAINED TO PT THAT HE NEEDS TO APPLY FOR PUBLIC HOUSING, CM PROVIDED PT WITH APPLICATION AND DISCUSSED WHERE TO TAKE THE COMPLETED APPLICATION TO. ROMEO DISCUSSED WITH PT THE NEED TO DEVELOP A PERSONAL SUPPORT SYSTEM OUTSIDE OF HIS COUSIN AND COUSIN'S SPOUSE. PT REPORTS PLAN TO RETURN TO [facility] AND WORK ON EVERTYTHING ELSE FROM THERE. Guru Aburto, CASE MANAGEMENT
[2017-02-27 13:16] VITALS: BP 136/79
[2017-02-27 17:32] VITALS: BP 115/74
--- NOTE | 2017-02-27 21:00 | NUR ---
PT LYING IN BED, RECEIVING AN UPDRAFT TX FROM RT. PT DENIES ANY NEEDS OTHER THAN ASKING FOR HIS PRN DIAZEPAM. WILL CONTINUE TO MONITOR CLOSELY.
[2017-02-28] VITALS: BP 117/75
--- NOTE | 2017-02-28 06:15 | NUR ---
PT RESTING COMFORTABLY, NO NEEDS AT THIS TIME. I HAVE GIVEN PT A STERILE CUP TO COLLECT A SPUTUM CXL ORDERED, HOWEVER, PT HAS NOT HAD ANY PRODUCTIVE COUGHS. WILL CONTINUE TO MONITOR CLOSELY.
[2017-02-28 06:33] LABS: CALC OSMOLALITY 276 mosm/kg (275-300); CALCIUM 9.1 mg/dL (8.5-10.1); CARBON DIOXIDE 28.1 mmol/L (21.0-32.0); CHLORIDE - SERUM 97 mmol/L (98-107); CREATININE - SERUM 0.9 mg/dL (0.6-1.3); POTASSIUM - SERUM 4.1 mmol/L (3.5-5.1); SODIUM 134 mmol/L (136-145); UREA NITROGEN 13 mg/dL (7-18); eGFR NON AFRICAN AMERICAN > 90 mL/min (90-120)
[2017-02-28 06:34] LABS: GLUCOSE 263 mg/dL (74-106)
[2017-02-28 06:44] LABS: BASOPHILS 0.1 % (0-2); EOSINOPHILS 0 % (0-7); HEMATOCRIT 36.4 % (42.0-54.0); HEMOGLOBIN 11.4 g/dL (13.5-17.5); IMMATURE GRANULOCYTES 4.7 % (0-5); LYMPHOCYTES 5.1 % (15-50); MCH 24.1 pg (26.0-34.0); MCHC 31.3 g/dL (31.0-37.0); MCV 76.8 fL (80.0-100.0); MEAN PLATELET VOLUME 10.2 fL (7.4-10.4); NEUTROPHILS 85.1 % (40-80); PLATELET COUNT 203 10x3/uL (130-400); RBC 4.74 10x6/uL (4.20-6.10); RDW 17.3 % (11.5-14.5); WBC 20.2 10x3/uL (4.8-10.8)
--- NOTE | 2017-02-28 07:45 | NUR ---
INTRODUCED MYSELF TO PT PRIMARY RN FOR TODAYS SHIFT. PT A&O SITTING UP IN BED RESTING QUIETLY. PT STATES HE IS ACTUALLY FEELING BETTER OVERALL AND HOPING TO BE DISCHARGED SOON. SHIFT ASSESSMENT COMPLETED. SPUTUM SAMPLE NEEDED AND PT AWARE AND WILL PROVIDED WHEN HE CAN. PT DENIES ANY CURRENT PAIN OR NEEDS AT THIS TIME. CL IN REACH, BED IN LOWEST, SIDE RAILS X2. WILL CPOC.
[2017-02-28 08:51] VITALS: BP 139/78
[2017-02-28 12:30] VITALS: BP 113/70
--- NOTE | 2017-02-28 12:56 | NUR ---
SPUTUM SPECIMEN COLLECTED AND SENT TO LAB ORDERED.
--- NOTE | 2017-02-28 14:24 | NUR ---
PT CALLED REQUESTING HIS PRN VALIUM AND WAS PROVIDED WITH IT. PT SITTING UP IN BED RESTING QUIETLY AND DENIES ANY FURTHER NEEDS AT THIS TIME. CL IN REACH, BED IN LOWEST, SIDE RAILS X2. WILL CPOC.
--- NOTE | 2017-02-28 19:31 | NUR ---
PT IN BED RESTING QUIETLY. BED IN LOW POSITION, CALL LIGHT WITHIN REACH. WILL CTM.
[2017-02-28 20:00] VITALS: BP 124/72
[2017-03-01] VITALS: BP 121/79
--- NOTE | 2017-03-01 00:25 | NUR ---
WHILE LOPEZ WAS GETTING PTS MIDNIGHT VITALS, HE STATED THAT HE DIDNT WANT ANYONE COMING IN AND DISTURBING HIM ANYMORE TONIGHT. HE STATED "NO MORE VITALS TONIGHT."
--- NOTE | 2017-03-01 07:24 | NUR ---
PT IN BED, RECEIVING AN UPDRAFT. RESP EVEN AND UNLABORED. LT CHEST PORT SL. PT REQUESTING A CUP OF WATER, WILL PROVIDE PT WITH WATER. EMPTIED PT URINAL AT THIS TIME. PT DENIES ANY OTHER NEEDS AT THIS TIME. CALL LIGHT IN REACH, NAD NOTED, WILL CONTINUE PLAN OF CARE.
[2017-03-01 08:32] VITALS: BP 132/80
--- NOTE | 2017-03-01 08:46 | NUR ---
AM MEDS GIVEN AT THIS TIME. PT IN BED, WATCHING TV, REQUESTED DOSE OF ATIVAN, ADMINISTERED 10MG OF ATIVAN PER PT REQUEST. PT DENIES ANY OTHER NEEDS AT THIS TIME. CALL LIGHT IN REACH, NAD NOTED, WILL CONTINUE TO MONITOR.
--- NOTE | 2017-03-01 08:46 | NUR ---
AM MEDS GIVEN AT THIS TIME, PT ALSO REQUESTED ANXIETY MEDS. ADMINISTERED VALIUM 10MG PER REQUEST. PT IN BED, WATCHING TV, DENIES ANY OTHER NEEDS AT THIS TIME. CALL LIGHT IN REACH, NAD NOTED, WILL CONTINUE TO MONITOR.
[2017-03-01 12:05] VITALS: BP 128/70
[2017-03-01] MEDS ORDERED: MUCINEX DM ER1 EAC1 PO (13:21)
[2017-03-01] MEDS ORDERED: DALIRESP500 MCG PO (13:22)
[2017-03-01] MEDS ORDERED: PREDNISONE10 MG PO (13:26)
[2017-03-01] MEDS ORDERED: LEVAQUIN500 MG PO (13:28)
--- NOTE | 2017-03-01 14:31 | NUR ---
D/C PTS LEFT CHEST INFUSAPORT. FLUSHED WITH HEPARIN PER PROTOCOL. HUEBER NEEDLE FULLY INTACT, NO ISSUES NOTED. RETURNED TELEMETRY TO ROLI. PT WAITING ON DISCHARGE PAPERS, NO FURTHER NEEDS AT THIS TIME.
--- NOTE | 2017-03-01 15:27 | NUR ---
DISCHARGE TEACHING PROVIDED AND PAPERS SIGNED. PT VERBALIZED UNDERSTANDING AND DENIES ANY QUESTIONS OR CONCERNS. PT WILL BE TRANSPORTED DOWN TO [facility] AND STATES HIS RIDE WILL BE THERE AND THAT THEY HAVE HIS PORTABLE OXYGEN.
== END 2017-03-01 15:40 | disposition home or self-care (01) | DRG 177 ==
LOC: D.ER 13:31 → D.M2 16:04
PROVIDERS: Emergency Medicine; Family Medicine; Internal Medicine Pulmonary Disease; ADMIT Family Medicine
DX: J11.08 Influenza due to unidentified influenza virus with specified pneumonia (principal); J96.22 Acute and chronic respiratory failure with hypercapnia; J15.29 Pneumonia due to other staphylococcus; J96.21 Acute and chronic respiratory failure with hypoxia; J44.0 Chronic obstructive pulmonary disease with (acute) lower respiratory infection; J44.1 Chronic obstructive pulmonary disease with (acute) exacerbation; J69.0 Pneumonitis due to inhalation of food and vomit; F41.8 Other specified anxiety disorders; R19.7 Diarrhea, unspecified; D64.9 Anemia, unspecified; E88.01 Alpha-1-antitrypsin deficiency; F10.10 Alcohol abuse, uncomplicated; Z87.891 Personal history of nicotine dependence; J15.6 Pneumonia due to other Gram-negative bacteria

== ENCOUNTER 2017-04-19 03:50 | Emergency (ER) | payer MEDICAID ==
[2017-02-14 12:31] VITALS: BMI 24.0
[2017-04-19 04:19] LABS: BASOPHILS 0.8 % (0-2); EOSINOPHILS 4.1 % (0-7); HEMATOCRIT 38.4 % (42.0-54.0); HEMOGLOBIN 11.5 g/dL (13.5-17.5); IMMATURE GRANULOCYTES 2.1 % (0-5); LYMPHOCYTES 25.5 % (15-50); MCH 22.4 pg (26.0-34.0); MCHC 29.9 g/dL (31.0-37.0); MCV 74.9 fL (80.0-100.0); MEAN PLATELET VOLUME 9.9 fL (7.4-10.4); MONOCYTES 9.7 % (2-11); NEUTROPHILS 57.8 % (40-80); PLATELET COUNT 168 10x3/uL (130-400); RBC 5.13 10x6/uL (4.20-6.10); RDW 17.1 % (11.5-14.5); WBC 9.1 10x3/uL (4.8-10.8)
[2017-04-19 04:50] LABS: ALBUMIN 3.5 g/dL (3.4-5.0); ALKALINE PHOSPHATASE 65 U/L (46-116); ALT (SGPT) 19 U/L (10-68); BILIRUBIN - TOTAL 0.18 mg/dL (0.2-1.3); CALCIUM 8.6 mg/dL (8.5-10.1); CARBON DIOXIDE 25.4 mmol/L (21.0-32.0); CHLORIDE - SERUM 107 mmol/L (98-107); CREATININE - SERUM 0.9 mg/dL (0.6-1.3); PROTEIN - SERUM 6.8 g/dL (6.4-8.2); SODIUM 146 mmol/L (136-145); UREA NITROGEN 14 mg/dL (7-18); eGFR NON AFRICAN AMERICAN > 90 mL/min (90-120)
[2017-04-19 04:59] LABS: CALC OSMOLALITY 291 mosm/kg (275-300); CKMB 3.9 U/L (0.0-3.6); CREATINE KINASE 249 UL (21-232); GLUCOSE 105 mg/dL (74-106); LIPASE 134 U/L (73-393); PRO BNP 48 pg/mL (0-125); TROPONIN-I 0.017 ng/mL (0.000-0.060)
== END 2017-04-19 10:17 | disposition home or self-care (01) ==
LOC: D.ER 03:50
PROVIDERS: Family Medicine
DX: J44.1 Chronic obstructive pulmonary disease with (acute) exacerbation (principal); R74.0 Nonspecific elevation of levels of transaminase and lactic acid dehydrogenase [LDH]; F10.10 Alcohol abuse, uncomplicated; R00.0 Tachycardia, unspecified

== ENCOUNTER 2017-06-16 12:17 | Inpatient (IN) | payer MEDICAID ==
[2017-06-16 12:45] LABS: BASOPHILS 0.9 % (0-2); EOSINOPHILS 1.4 % (0-7); HEMATOCRIT 42.2 % (42.0-54.0); HEMOGLOBIN 12.7 g/dL (13.5-17.5); IMMATURE GRANULOCYTES 0.9 % (0-5); LYMPHOCYTES 25.2 % (15-50); MCH 23.2 pg (26.0-34.0); MCHC 30.1 g/dL (31.0-37.0); MEAN PLATELET VOLUME 9.7 fL (7.4-10.4); MONOCYTES 5.2 % (2-11); NEUTROPHILS 66.4 % (40-80); PLATELET COUNT 194 10x3/uL (130-400); RBC 5.48 10x6/uL (4.20-6.10); RDW 18.4 % (11.5-14.5); WBC 8.8 10x3/uL (4.8-10.8)
[2017-06-16 12:58] LABS: ALBUMIN 3.8 g/dL (3.4-5.0); ALKALINE PHOSPHATASE 81 U/L (46-116); ALT (SGPT) 23 U/L (10-68); BILIRUBIN - TOTAL 0.45 mg/dL (0.2-1.3); CALC OSMOLALITY 287 mosm/kg (275-300); CALCIUM 8.8 mg/dL (8.5-10.1); CARBON DIOXIDE 25.5 mmol/L (21.0-32.0); CHLORIDE - SERUM 102 mmol/L (98-107); CREATININE - SERUM 0.8 mg/dL (0.6-1.3); GLUCOSE 105 mg/dL (74-106); PROTEIN - SERUM 7.7 g/dL (6.4-8.2); SODIUM 145 mmol/L (136-145); UREA NITROGEN 11 mg/dL (7-18); eGFR NON AFRICAN AMERICAN > 90 mL/min (90-120)
[2017-06-16 13:20] LABS: CREATINE KINASE 295 UL (21-232); LIPASE 105 U/L (73-393); PRO BNP 27 pg/mL (0-125); TROPONIN-I < 0.017 ng/mL (0.000-0.060)
[2017-06-16 13:21] LABS: CKMB 5.7 U/L (0.0-3.6)
[2017-06-16 16:29] VITALS: BP 138/82
[2017-06-16] MEDS ORDERED: TOBRADEX EYE DRO5 ML RIGHT EYE (19:57)
[2017-06-16] MEDS ORDERED: BROMFENAC SODI2.5 ML RIGHT EYE (19:59)
[2017-06-16] MEDS ORDERED: DUREZOL5 ML RIGHT EYE (19:59)
[2017-06-16 20:00] VITALS: BP 131/86
[2017-06-16 21:12] LABS: APPEARANCE CLEAR (CLEAR); BILIRUBIN NEGATIVE (NEGATIVE); COLOR YELLOW (YELLOW); GLUCOSE NEGATIVE (NEGATIVE); KETONE SMALL mg/dL (NEGATIVE); NITRITE NEGATIVE (NEGATIVE); PROTEIN NEGATIVE (NEGATIVE); SPECIFIC GRAVITY 1.015 (1.005-1.020); UROBILINOGEN NORMAL (NORMAL)
[2017-06-16 21:26] LABS: UDS - AMPHET NEGATIVE QUAL (NEGATIVE); UDS - BARB NEGATIVE QUAL (NEGATIVE); UDS - BENZO POSITIVE QUAL (NEGATIVE); UDS - COCAINE NEGATIVE QUAL (NEGATIVE); UDS - OPIATE NEGATIVE QUAL (NEGATIVE); UDS - PCP NEGATIVE QUAL (NEGATIVE); UDS - THC NEGATIVE QUAL (NEGATIVE)
[2017-06-17] MEDS ORDERED: AMBIEN10 MG PO (03:27)
[2017-06-17] MEDS ORDERED: GABAPENTIN100 MG PO (03:28)
[2017-06-17 04:00] VITALS: BP 123/74
[2017-06-17 05:54] LABS: BASOPHILS 0.1 % (0-2); EOSINOPHILS 0 % (0-7); HEMATOCRIT 36.3 % (42.0-54.0); IMMATURE GRANULOCYTES 0.7 % (0-5); MCH 22.6 pg (26.0-34.0); MCHC 30.3 g/dL (31.0-37.0); MCV 74.5 fL (80.0-100.0); MEAN PLATELET VOLUME 9.5 fL (7.4-10.4); MONOCYTES 2.6 % (2-11); NEUTROPHILS 84.6 % (40-80); PLATELET COUNT 176 10x3/uL (130-400); RBC 4.87 10x6/uL (4.20-6.10); WBC 6.9 10x3/uL (4.8-10.8)
[2017-06-17 06:12] LABS: ALBUMIN 3.4 g/dL (3.4-5.0); ALKALINE PHOSPHATASE 71 U/L (46-116); ALT (SGPT) 20 U/L (10-68); BILIRUBIN - TOTAL 0.64 mg/dL (0.2-1.3); CALC OSMOLALITY 282 mosm/kg (275-300); CALCIUM 8.2 mg/dL (8.5-10.1); CARBON DIOXIDE 26.4 mmol/L (21.0-32.0); CHLORIDE - SERUM 103 mmol/L (98-107); CREATININE - SERUM 0.8 mg/dL (0.6-1.3); GLUCOSE 146 mg/dL (74-106); MAGNESIUM - SERUM 2.1 mg/dL (1.8-2.4); PHOSPHOROUS 2.6 mg/dL (2.5-4.9); POTASSIUM - SERUM 4.1 mmol/L (3.5-5.1); PROTEIN - SERUM 6.7 g/dL (6.4-8.2); SODIUM 141 mmol/L (136-145); UREA NITROGEN 10 mg/dL (7-18); eGFR NON AFRICAN AMERICAN > 90 mL/min (90-120)
[2017-06-17 08:06] VITALS: BP 146/84
[2017-06-17 12:00] VITALS: BP 154/87
[2017-06-17 13:18] VITALS: Ht 182.9 cm
[2017-06-17 13:28] LABS: % SATURATION 11 % (15-55); IRON 48 ug/dl (35-150); TOTAL IRON BIND CAPACITY 420 ug/dl (260-445); UNSAT IRON BIND CAPACITY 372 ug/dl (150-375)
[2017-06-17 15:10] VITALS: BP 126/78
[2017-06-17 21:52] VITALS: BP 142/76
[2017-06-18] VITALS (8 sets, daily range): BP systolic 108–152; BP diastolic 61–88
[2017-06-18 04:09] LABS: BASOPHILS 0.1 % (0-2); EOSINOPHILS 0.1 % (0-7); HEMATOCRIT 33.1 % (42.0-54.0); IMMATURE GRANULOCYTES 0.6 % (0-5); MCH 22.7 pg (26.0-34.0); MCHC 30.2 g/dL (31.0-37.0); MCV 75.1 fL (80.0-100.0); MEAN PLATELET VOLUME 9.1 fL (7.4-10.4); MONOCYTES 14.2 % (2-11); PLATELET COUNT 159 10x3/uL (130-400); RBC 4.41 10x6/uL (4.20-6.10); RDW 18.2 % (11.5-14.5); WBC 10.8 10x3/uL (4.8-10.8)
[2017-06-18 04:23] LABS: BILIRUBIN - TOTAL 0.36 mg/dL (0.2-1.3); CALCIUM 7.8 mg/dL (8.5-10.1); UREA NITROGEN 11 mg/dL (7-18)
[2017-06-18 04:25] LABS: ALKALINE PHOSPHATASE 67 U/L (46-116); ALT (SGPT) 19 U/L (10-68); CALC OSMOLALITY 291 mosm/kg (275-300); CARBON DIOXIDE 25.8 mmol/L (21.0-32.0); CHLORIDE - SERUM 108 mmol/L (98-107); CREATININE - SERUM 0.9 mg/dL (0.6-1.3); GLUCOSE 127 mg/dL (74-106); PROTEIN - SERUM 6.1 g/dL (6.4-8.2); SODIUM 146 mmol/L (136-145); eGFR NON AFRICAN AMERICAN > 90 mL/min (90-120)
[2017-06-18 04:28] LABS: POTASSIUM - SERUM 3.1 mmol/L (3.5-5.1)
[2017-06-18 09:17] LABS: FOLATE (FOLIC ACID) - SERUM >20.0 ng/mL (>3.0)
[2017-06-19 04:00] VITALS: BP 143/82
[2017-06-19 06:55] LABS: BASOPHILS 0.4 % (0-2); EOSINOPHILS 1.3 % (0-7); HEMATOCRIT 37.5 % (42.0-54.0); HEMOGLOBIN 11.3 g/dL (13.5-17.5); IMMATURE GRANULOCYTES 1.4 % (0-5); LYMPHOCYTES 17.3 % (15-50); MCH 22.7 pg (26.0-34.0); MCHC 30.1 g/dL (31.0-37.0); MCV 75.5 fL (80.0-100.0); MEAN PLATELET VOLUME 9.5 fL (7.4-10.4); MONOCYTES 14.5 % (2-11); NEUTROPHILS 65.1 % (40-80); PLATELET COUNT 169 10x3/uL (130-400); RBC 4.97 10x6/uL (4.20-6.10); RDW 18.6 % (11.5-14.5); WBC 12.8 10x3/uL (4.8-10.8)
[2017-06-19 07:17] LABS: ALBUMIN 3.5 g/dL (3.4-5.0); ALKALINE PHOSPHATASE 76 U/L (46-116); ALT (SGPT) 28 U/L (10-68); CALC OSMOLALITY 281 mosm/kg (275-300); CALCIUM 8.2 mg/dL (8.5-10.1); CARBON DIOXIDE 27.5 mmol/L (21.0-32.0); CHLORIDE - SERUM 105 mmol/L (98-107); CREATININE - SERUM 0.9 mg/dL (0.6-1.3); GLUCOSE 104 mg/dL (74-106); POTASSIUM - SERUM 3.4 mmol/L (3.5-5.1); SODIUM 142 mmol/L (136-145); UREA NITROGEN 9 mg/dL (7-18); eGFR NON AFRICAN AMERICAN > 90 mL/min (90-120)
[2017-06-19 08:41] VITALS: BP 139/94
[2017-06-19 11:46] VITALS: BP 121/71
[2017-06-19 16:11] VITALS: BP 129/79
[2017-06-19 20:00] VITALS: BP 121/66; BP 143/86
[2017-06-20 04:00] VITALS: BP 129/76
[2017-06-20 05:37] LABS: BASOPHILS 0.3 % (0-2); HEMATOCRIT 34.4 % (42.0-54.0); HEMOGLOBIN 10.3 g/dL (13.5-17.5); IMMATURE GRANULOCYTES 1.3 % (0-5); LYMPHOCYTES 17.9 % (15-50); MCH 22.4 pg (26.0-34.0); MCHC 29.9 g/dL (31.0-37.0); MCV 74.9 fL (80.0-100.0); MEAN PLATELET VOLUME 10.2 fL (7.4-10.4); NEUTROPHILS 65.5 % (40-80); PLATELET COUNT 165 10x3/uL (130-400); RBC 4.59 10x6/uL (4.20-6.10); RDW 18.5 % (11.5-14.5)
[2017-06-20 06:19] LABS: ALBUMIN 3.1 g/dL (3.4-5.0); ALKALINE PHOSPHATASE 57 U/L (46-116); ALT (SGPT) 22 U/L (10-68); BILIRUBIN - TOTAL 0.47 mg/dL (0.2-1.3); CALC OSMOLALITY 281 mosm/kg (275-300); CARBON DIOXIDE 27.8 mmol/L (21.0-32.0); CHLORIDE - SERUM 106 mmol/L (98-107); CREATININE - SERUM 0.8 mg/dL (0.6-1.3); GLUCOSE 107 mg/dL (74-106); POTASSIUM - SERUM 3.3 mmol/L (3.5-5.1); PROTEIN - SERUM 6.2 g/dL (6.4-8.2); SODIUM 142 mmol/L (136-145); UREA NITROGEN 9 mg/dL (7-18); eGFR NON AFRICAN AMERICAN > 90 mL/min (90-120)
[2017-06-20 08:18] VITALS: BP 125/89
[2017-06-20] MEDS ORDERED: VIBRAMYCIN 100100 MG PO (09:37)
[2017-06-20] MEDS ORDERED: PREDNISONE20 MG PO (09:40)
== END 2017-06-20 14:19 | disposition home or self-care (01) | DRG 189 ==
LOC: D.ER 12:17 → D.MS 15:40
PROVIDERS: Family Medicine; Internal Medicine Nephrology
DX: J96.21 Acute and chronic respiratory failure with hypoxia (principal); J44.0 Chronic obstructive pulmonary disease with (acute) lower respiratory infection; F10.239 Alcohol dependence with withdrawal, unspecified; J44.1 Chronic obstructive pulmonary disease with (acute) exacerbation; J96.22 Acute and chronic respiratory failure with hypercapnia; F41.9 Anxiety disorder, unspecified; E88.01 Alpha-1-antitrypsin deficiency; F31.9 Bipolar disorder, unspecified; B88.8 Other specified infestations; R79.89 Other specified abnormal findings of blood chemistry

== ENCOUNTER 2017-07-12 20:55 | Inpatient (IN) | payer MEDICAID ==
[~2017-07-12] VITALS: Ht 182.9 cm; Wt 72.6 kg
--- NOTE | ~2017-07-12 | HP ---
PATIENT: JOSEPH MEJIA MEDICAL RECORD: [id number] ACCOUNT: [id number] LOCATION:D.MS [id number] : [birth year] ADMISSION DATE: 07/12/17 HISTORY AND PHYSICAL EXAMINATION REASON FOR ADMISSION: Cough. HISTORY OF PRESENT ILLNESS: The patient is a 61-year-old male with history of alpha-1 antitrypsin deficiency, severe COPD and alcohol abuse. He was hospitalized here 06/16/2017 through 06/20/2017 for exacerbation of COPD per Dr. Neumann. He was discharged on oral doxycycline and continued to have home health see him weekly, but he admits to poor medication compliance that he really cannot remember how to take his medications. His cough became worse, nonproductive for the last few days and presented to the Emergency Room. 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 PAST SURGICAL HISTORY: Apparently had colon rupture, possibly from diverticular disease with reverse colostomy, hernia repair times 3. ALLERGIES: To CODEINE. FAMILY HISTORY: He is unsure. Apparently, father did have cardiovascular disease. SOCIAL HISTORY: Remote smoker, heavy alcohol drinker, drinks a pint a week he states. He lives with a 78-year-old man at home, but has mentally poor hygiene and has had apparently bedbug infestation and scabies in the past. HOME MEDICATIONS: Brovana updrafts b.i.d., DuoNeb updrafts t.i.d., ferrous sulfate 324 mg b.i.d., aspirin 325 mg a day, Valium 10 mg b.i.d. p.r.n. anxiety, Remeron 30 mg at h.s., Ambien 10 mg at h.s., Tessalon Perles 200 mg t.i.d. Daliresp 500 mcg tablet 1 p.o. daily, bromfenac eye drops 1 drop to right eye daily, Durezol 0.05% ophthalmic drop 1 drop to right eye b.i.d., TobraDex 1 drop to right eye q.i.d. REVIEW OF SYSTEMS: GENERAL: He said he never feels well. He has had no fever. HEENT: No recent visual changes, chronic erythema in his right eye. Denies hearing difficulty, sinus congestion, or sore throat. RESPIRATORY: He has had intermittent repetitive cough for the last several days that has been nonproductive. He will cough so hard he almost wets his pants. No hemoptysis. CARDIOVASCULAR: No palpitations, PND, orthopnea. GASTROINTESTINAL: No nausea or vomiting. GENITOURINARY: Nocturia once nightly. ENDOCRINE: No polyuria, polydipsia, heat or cold intolerance. NEUROLOGIC: No history of stroke, TIA or vascular headaches. Complains of some weakness in his left leg and numbness in the bottom of his right foot for the last year. MUSCULOSKELETAL: No arthralgias. PSYCHIATRIC: Admits to depressed mood, but denies suicidal thoughts. HISTORY AND PHYSICAL [id number] JOSEPH MEJIA INTEGUMENT: He has had intermittent rash and itching for several weeks. PHYSICAL EXAMINATION: VITAL SIGNS: Temperature is 98.1 Fahrenheit, pulse 104 and regular, respirations are 20, blood pressure 117/75 with a sat of 94% on 4 liters. HEENT: Normocephalic. Eyes are clear. Pupils reactive. NECK: Unremarkable. No bruits or masses. CHEST: Expiratory wheezes in the upper lobes without rales. Distant breath sounds are noted. HEART: Tachycardic without murmur. ABDOMEN: Soft, nontender. GENITOURINARY: Deferred. EXTREMITIES: No CC&E. NEUROLOGICAL: The patient is oriented to person, place, and time. No obvious motor deficits. He has slight decreased sensation to the touch in the bottom of the ball of his right foot. Slight weakness in dorsiflexion of his left foot, but no foot drop appreciated. LABORATORY DATA: White count 7000, H&H is 10.9 and 37.9. BMP is normal. Glucose was 96 with an A1c of 5.6. Iron 29, TIBC 451 with normal ferritin, this was 07/12/2017. ABG: pH 7.316 with 67 CO2, and 61 pO2 on 5 liters. UA unremarkable. Urine drug screen is positive for prescribed benzodiazepines. Alcohol level was 93. I do not see chest x-ray result. ASSESSMENT: Hywvk-ib-ybhhwvy hypercapnic respiratory failure and COPD, alcohol excess with intoxication, history of recent bedbug infestation, chronic noncompliance, hypertension, microcytic anemia, neuropathy of the right foot probably alcohol related, depression, and anxiety. PLAN: The patient admitted for IV antibiotics, steroids, pulmonary consult. TRANSINT:[id number] Voice Confirmation ID: [id number] DOCUMENT ID: [id number] SUMMER MOORE MD at 0948 CC: [id number] DICTATION DATE: 07/13/17708 FIXER SUPERVISOR: 07/13/17 1133 ADM IN [place] [id number] [place] [id number]
--- NOTE | ~2017-07-12 | CN ---
PATIENT NAME:JOSEPH MEJIA MEDICAL RECORD: [id number] : 59 LOCATION:D.MS [address]26 ADMIT DATE: 07/12/17 ACCOUNT: [id number] CONSULTING PHYSICIAN: BRYON INMAN MD REFERRING PHYSICIAN: ERROL SAMANO MD DATE OF CONSULTATION: 07/13/2017 CONSULT REQUESTING PHYSICIAN: Dr. Errol Samano. REASON FOR CONSULTATION: Acute exacerbation of COPD. HISTORY OF PRESENT ILLNESS: Mr. Mejia is a 61-year-old gentleman who was discharged a couple of weeks ago from the hospital after COPD exacerbation. According to the patient, he got sick again on Saturday. He is coughing. He is wheezing. He has shortness of breath with mild exertion. The cough is mainly nonproductive. REVIEW OF SYSTEMS: As in history of present illness. PAST MEDICAL HISTORY: 1. Severe COPD. 2. Chronic hypoxic respiratory failure. 3. Alpha-1 antitrypsin deficiency. 4. History of alcohol abuse. 5. Chronic left lower extremity weakness. 6. Hypertension. 7. Microcytic anemia. 8. Anxiety, depression. PAST SURGICAL HISTORY: 1. He has a laparotomy in the past. 2. Thoracotomy for spontaneous pneumothorax. 3. Reverse colostomy. 4. Hernia repair times 3. ALLERGIES: He is allergic to CODEINE. PRESENT MEDICATIONS: Jobpartnerstech is reviewed. PERSONAL SOCIAL HISTORY: The patient is still regularly drinking. He is an ex-smoker. FAMILY HISTORY: Significant for cardiovascular disease and COPD. PHYSICAL EXAMINATION: GENERAL: Now, the patient is lying comfortably in bed. He is not in acute distress. VITAL SIGNS: The blood pressure 130/84, pulse 101, respiration is 20, temperature 98.2, SpO2 is 95% on 5 liters nasal cannula. HEENT: Conjunctivae are pink. Sclerae are not icteric. NECK: Neck is supple. No JVD. CHEST: There is prolonged expiration with wheezing. HEART: Rhythm regular, normal sound, no murmur. ABDOMEN: Abdomen is soft. Bowel sounds present. No hepatosplenomegaly. RECTAL: Deferred. CONSULT REPORT [id number] JOSEPH MEJIA EXTREMITIES: No cyanosis, no clubbing, and no pedal edema. SKIN: The skin is warm, normal turgor. CENTRAL NERVOUS SYSTEM: The patient is awake and alert. There are no obvious cranial nerves abnormalities. The gait was not tested. CHEST RADIOGRAPH: There is questionable nodule in the left lung base. OTHER LABORATORY DATA: CBC: WBC 7.1, hemoglobin 10.9, hematocrit 37.9, the platelet count is 156. ABG: The pH was 7.31, pCO2 was 67.4, the pO2 was 61, and bicarbonate is 34.4. IMPRESSION: 1. Jttjh-jj-xgirjdv hypoxic hypercapnic respiratory failure. 2. Respiratory acidosis. 3. Acute exacerbation of chronic obstructive pulmonary disease. 4. Pneumonia, left lower lobe, possible HAP. 5. Acute cough. 6. Alpha-1 antitrypsin deficiency. 7. Alcoholism. RECOMMENDATION: 1. Albuterol ipratropium nebulizer. 2. Start Brovana, budesonide nebulizer. 3. Methylprednisolone IV. 4. Start on Daliresp. 5. Adjust the dose of Levaquin. I will add Rocephin. 6. DTs precaution and multivitamin. 7. Check the CT scan of the chest. Dr. Samano, thank you for involving me in the care of Mr. Mejia. TRANSINT:[id number] Voice Confirmation ID: [id number] DOCUMENT ID: [id number] BRYON INMAN MD at 1208 CC: ERROL SAMANO [id number] DICTATION DATE: 07/13/171651 AUTO DAMAGE ESTIMATOR: 07/13/171816 DIS IN 07/18/17 [place] [id number] [place] [id number]
[~2017-07-12 20:55] MED LIST changes: +BROMFENAC SODI2.5 ML RIGHT EYE; +DUREZOL5 ML RIGHT EYE; +GABAPENTIN100 MG PO; +TOBRADEX EYE DRO5 ML RIGHT EYE; +VIBRAMYCIN 100100 MG PO
[2017-07-12 21:23] LABS: BASOPHILS 0.8 % (0-2); EOSINOPHILS 5.4 % (0-7); HEMATOCRIT 37.9 % (42.0-54.0); HEMOGLOBIN 10.9 g/dL (13.5-17.5); IMMATURE GRANULOCYTES 0.4 % (0-5); LYMPHOCYTES 21.7 % (15-50); MCH 22.2 pg (26.0-34.0); MCHC 28.8 g/dL (31.0-37.0); MCV 77.3 fL (80.0-100.0); MEAN PLATELET VOLUME 9.2 fL (7.4-10.4); MONOCYTES 9.2 % (2-11); NEUTROPHILS 62.5 % (40-80); PLATELET COUNT 166 10x3/uL (130-400); WBC 7.1 10x3/uL (4.8-10.8)
[2017-07-12 21:53] LABS: ALBUMIN 3.5 g/dL (3.4-5.0); ALKALINE PHOSPHATASE 72 U/L (46-116); ALT (SGPT) 22 U/L (10-68); BILIRUBIN - TOTAL 0.16 mg/dL (0.2-1.3); CALC OSMOLALITY 282 mosm/kg (275-300); CALCIUM 8.7 mg/dL (8.5-10.1); CARBON DIOXIDE 33.9 mmol/L (21.0-32.0); CHLORIDE - SERUM 99 mmol/L (98-107); CREATININE - SERUM 0.8 mg/dL (0.6-1.3); GLUCOSE 94 mg/dL (74-106); POTASSIUM - SERUM 3.9 mmol/L (3.5-5.1); PROTEIN - SERUM 7.1 g/dL (6.4-8.2); SODIUM 142 mmol/L (136-145); UREA NITROGEN 13 mg/dL (7-18); eGFR NON AFRICAN AMERICAN > 90 mL/min (90-120)
[2017-07-12 22:19] LABS: MAGNESIUM - SERUM 1.9 mg/dL (1.8-2.4)
[2017-07-12 22:26] LABS: IRON 29 ug/dl (35-150)
[2017-07-12 22:47] LABS: APPEARANCE CLEAR (CLEAR); BILIRUBIN NEGATIVE (NEGATIVE); GLUCOSE NEGATIVE (NEGATIVE); KETONE NEGATIVE (NEGATIVE); NITRITE NEGATIVE (NEGATIVE); PROTEIN NEGATIVE (NEGATIVE); SPECIFIC GRAVITY 1.015 (1.005-1.020); UROBILINOGEN NORMAL (NORMAL)
[2017-07-12 22:53] LABS: UDS - AMPHET NEGATIVE QUAL (NEGATIVE); UDS - BARB NEGATIVE QUAL (NEGATIVE); UDS - BENZO POSITIVE QUAL (NEGATIVE); UDS - COCAINE NEGATIVE QUAL (NEGATIVE); UDS - OPIATE NEGATIVE QUAL (NEGATIVE); UDS - PCP NEGATIVE QUAL (NEGATIVE); UDS - THC NEGATIVE QUAL (NEGATIVE)
[2017-07-12 23:58] VITALS: BP 119/73; BMI 21.7
[2017-07-13] VITALS: BP 119/73
[2017-07-13 04:00] VITALS: BP 126/60
[2017-07-13 05:39] LABS: % SATURATION 6 % (15-55); TOTAL IRON BIND CAPACITY 451 ug/dl (260-445); UNSAT IRON BIND CAPACITY 422 ug/dl (150-375)
[2017-07-13 09:30] VITALS: BP 128/73
[2017-07-13 13:40] VITALS: BP 130/84
[2017-07-13 15:02] VITALS: Ht 182.9 cm; Wt 72.6 kg
[2017-07-13 16:00] VITALS: BP 132/84
[2017-07-14 04:00] VITALS: BP 134/86
[2017-07-14 06:38] LABS: BASOPHILS 0.2 % (0-2); EOSINOPHILS 0.1 % (0-7); HEMATOCRIT 33.6 % (42.0-54.0); HEMOGLOBIN 9.8 g/dL (13.5-17.5); IMMATURE GRANULOCYTES 0.6 % (0-5); LYMPHOCYTES 11.8 % (15-50); MCHC 29.2 g/dL (31.0-37.0); MCV 75.5 fL (80.0-100.0); MEAN PLATELET VOLUME 9.2 fL (7.4-10.4); MONOCYTES 14.1 % (2-11); NEUTROPHILS 73.2 % (40-80); PLATELET COUNT 177 10x3/uL (130-400); RBC 4.45 10x6/uL (4.20-6.10); RDW 16.5 % (11.5-14.5)
[2017-07-14 06:41] LABS: WBC 12.8 10x3/uL (4.8-10.8)
[2017-07-14 06:47] LABS: CALC OSMOLALITY 288 mosm/kg (275-300); CALCIUM 8.1 mg/dL (8.5-10.1); CARBON DIOXIDE 33.9 mmol/L (21.0-32.0); CHLORIDE - SERUM 106 mmol/L (98-107); CREATININE - SERUM 0.9 mg/dL (0.6-1.3); GLUCOSE 106 mg/dL (74-106); POTASSIUM - SERUM 3.7 mmol/L (3.5-5.1); SODIUM 144 mmol/L (136-145); UREA NITROGEN 18 mg/dL (7-18); eGFR NON AFRICAN AMERICAN > 90 mL/min (90-120)
[2017-07-14 09:27] VITALS: BP 137/83
[2017-07-14 13:40] VITALS: BP 147/79
[2017-07-14 20:00] VITALS: BP 120/80
[2017-07-15 09:23] VITALS: BP 127/80
[2017-07-15 14:42] VITALS: BP 142/90; BP 94/52
[2017-07-15 21:36] VITALS: BP 145/92
[2017-07-16 04:54] VITALS: BP 138/88
[2017-07-16 10:38] VITALS: BP 118/86
[2017-07-16 15:00] VITALS: BP 141/95
[2017-07-16 18:17] VITALS: BP 130/82
[2017-07-16 20:00] VITALS: BP 156/73
[2017-07-17 04:00] VITALS: BP 118/75
[2017-07-17 13:32] VITALS: BP 122/78
[2017-07-17 18:59] VITALS: BP 125/79
[2017-07-17 20:00] VITALS: BP 115/80
[2017-07-18 06:07] VITALS: BP 112/80
[2017-07-18] MEDS ORDERED: LEVAQUIN750 MG PO (06:57)
[2017-07-18] MEDS ORDERED: PREDNISONE20 MG PO (06:58)
[2017-07-18 07:15] LABS: ALBUMIN 2.9 g/dL (3.4-5.0); ALKALINE PHOSPHATASE 58 U/L (46-116); ALT (SGPT) 34 U/L (10-68); CALC OSMOLALITY 281 mosm/kg (275-300); CALCIUM 8.1 mg/dL (8.5-10.1); CARBON DIOXIDE 30.2 mmol/L (21.0-32.0); CHLORIDE - SERUM 104 mmol/L (98-107); CREATININE - SERUM 0.9 mg/dL (0.6-1.3); GLUCOSE 108 mg/dL (74-106); MAGNESIUM - SERUM 2.1 mg/dL (1.8-2.4); POTASSIUM - SERUM 3.3 mmol/L (3.5-5.1); PROTEIN - SERUM 6.1 g/dL (6.4-8.2); SODIUM 140 mmol/L (136-145); UREA NITROGEN 18 mg/dL (7-18); eGFR NON AFRICAN AMERICAN > 90 mL/min (90-120)
[2017-07-18 07:27] LABS: BASOPHILS 0.3 % (0-2); EOSINOPHILS 0.9 % (0-7); HEMATOCRIT 36.5 % (42.0-54.0); HEMOGLOBIN 11.2 g/dL (13.5-17.5); IMMATURE GRANULOCYTES 5.3 % (0-5); LYMPHOCYTES 17.4 % (15-50); MCH 22.3 pg (26.0-34.0); MCHC 30.7 g/dL (31.0-37.0); MCV 72.6 fL (80.0-100.0); MONOCYTES 11.4 % (2-11); NEUTROPHILS 64.7 % (40-80); PLATELET COUNT 199 10x3/uL (130-400); RBC 5.03 10x6/uL (4.20-6.10); RDW 17.4 % (11.5-14.5); WBC 13.3 10x3/uL (4.8-10.8)
[2017-07-18] MEDS ORDERED: K-TAB10 MEQ PO (08:15)
[2017-07-18] MEDS ORDERED: PREDNISONE10 MG PO (08:16)
[2017-07-18 08:59] VITALS: BP 117/80
== END 2017-07-18 10:48 | disposition home or self-care (01) | DRG 193 ==
LOC: D.ER 20:55 → D.MS 22:36
PROVIDERS: Emergency Medicine; Family Medicine; Internal Medicine Pulmonary Disease
DX: J18.9 Pneumonia, unspecified organism (principal); J96.22 Acute and chronic respiratory failure with hypercapnia; J96.21 Acute and chronic respiratory failure with hypoxia; E87.2 Acidosis; J44.0 Chronic obstructive pulmonary disease with (acute) lower respiratory infection; J44.1 Chronic obstructive pulmonary disease with (acute) exacerbation; J98.11 Atelectasis; E88.01 Alpha-1-antitrypsin deficiency; F10.129 Alcohol abuse with intoxication, unspecified; G62.9 Polyneuropathy, unspecified; Z91.19 Patient's noncompliance with other medical treatment and regimen; I10 Essential (primary) hypertension; D50.9 Iron deficiency anemia, unspecified; F32.9 Major depressive disorder, single episode, unspecified; F41.9 Anxiety disorder, unspecified

== ENCOUNTER 2017-08-11 08:08 | Inpatient (IN) | payer MEDICAID ==
[~2017-08-11] VITALS: Ht 182.9 cm; Wt 90.9 kg
[2017-08-11] VITALS (10 sets, daily range): BP systolic 117–131; BP diastolic 76–88; Ht 182.9 cm; Wt 90.9 kg
--- NOTE | ~2017-08-11 | CN ---
PATIENT NAME:JOSEPH MEJIA MEDICAL RECORD: [id number] : 59 LOCATION:[id number] ADMIT DATE: 08/11/17 ACCOUNT: [id number] CONSULTING PHYSICIAN: BRYON INMAN MD REFERRING PHYSICIAN: RAFFY TERRY MD DATE OF CONSULTATION: 08/11/2017 CONSULT REQUESTING PHYSICIAN: Raffy Terry MD REASON FOR CONSULTATION: Vrlha-fk-wjvizwk hypoxic hypercapnic respiratory failure, alcohol intoxication. HISTORY OF PRESENT ILLNESS: Mr. Mejia is a 61-year-old gentleman very well known to our service. The patient was brought into the hospital with some mental status changes. Also, he was found to have alcohol level of about 200. The patient was admitted to the ICU for acute respiratory failure and alcohol intoxication. REVIEW OF THE SYSTEMS: Mainly in the history of present illness. PAST MEDICAL HISTORY: 1. COPD of severe degree. 2. Chronic hypoxic respiratory failure. 3. Alpha-1 antitrypsin deficiency. 4. Anxiety, depression. PAST SURGICAL HISTORY: 1. He had colon resection. 2. History of thoracotomy for spontaneous pneumothorax. 3. Herniorrhaphy. ALLERGIES: ALLERGIC TO MORPHINE. MEDICATIONS: [employer] was reviewed. PERSONAL AND SOCIAL HISTORY: The patient in a nonsmoker, but he is still drinking on daily basis. FAMILY HISTORY: Noncontributory. PHYSICAL EXAMINATION: GENERAL: Now, the patient is lying comfortably in bed. He is not in acute distress, but the patient is confused. VITAL SIGNS: The blood pressure is 126/84, pulse is 96, respiration is 20, temperature is 97.5, and SpO2 is 93% on 3-4 liters nasal cannula. HEENT: Conjunctivae are pink. Sclerae are not icteric. NECK: Neck is supple. There is no JVD. CHEST: There are wheeze on forceful expiration. No crackles. HEART: Rhythm regular. Normal sound. No murmur. ABDOMEN: Abdomen is soft. Bowel sounds present. No hepatosplenomegaly. RECTAL: Deferred. EXTREMITIES: No cyanosis. No clubbing. No pedal edema. CENTRAL NERVOUS SYSTEM: The patient is confused. There is no obvious cranial nerve abnormality. CONSULT REPORT [id number] JOSEPH MEJIA CHEST RADIOGRAPH: There are infiltrates in especially right lower lobe. OTHER LABORATORY DATA: CBC; WBC is 9.3, hemoglobin 11.5, hematocrit is 39, and platelet count is 107. Chemistry; sodium is 147, potassium is 3.5, BUN is 12, creatinine is 0.8. Ammonia level is 50. ABG; the pH is 7.33, pCO2 is 58.2, pO2 is 75, bicarb is 31.2. The lactic acid level is 3.72. IMPRESSION: 1. Lfwkv-hy-oluihxz hypoxic hypercapnic respiratory failure. 2. Respiratory acidosis. 3. Acute exacerbation of COPD. 4. Pneumonia, right lower lobe, most likely community-acquired pneumonia with possible aspiration when the patient was obtunded with alcohol intoxication. 5. Alpha-1 antitrypsin deficiency. RECOMMENDATION: 1. Start albuterol/ipratropium nebulizer, Brovana and budesonide nebulizer, methylprednisolone IV. Start on Zosyn IV and Levaquin IV. 2. Supplemental oxygen. 3. DTs precaution. Discussed with Dr. Terry. TRANSINT:[id number] Voice Confirmation ID: [id number] DOCUMENT ID: [id number] BRYON INMAN MD at 1806 CC: [id number] DICTATION DATE: 08/11/17 1835 RENAL SOCIAL WORKER: 08/11/17 1907 DIS IN 08/11/17 [facility] [address] [place] [address]
[~2017-08-11 08:08] MED LIST changes: +K-TAB10 MEQ PO
[2017-08-11 08:50] LABS: BASOPHILS 0.6 % (0-2); EOSINOPHILS 6.4 % (0-7); HEMOGLOBIN 11.5 g/dL (13.5-17.5); IMMATURE GRANULOCYTES 3.5 % (0-5); LYMPHOCYTES 20.8 % (15-50); MCH 22.7 pg (26.0-34.0); MCHC 29.5 g/dL (31.0-37.0); MCV 77.1 fL (80.0-100.0); MEAN PLATELET VOLUME 9.8 fL (7.4-10.4); MONOCYTES 10.2 % (2-11); NEUTROPHILS 58.5 % (40-80); PLATELET COUNT 107 10x3/uL (130-400); RBC 5.06 10x6/uL (4.20-6.10); RDW 18.8 % (11.5-14.5); WBC 9.3 10x3/uL (4.8-10.8)
[2017-08-11 09:16] LABS: KETONE - SERUM NEGATIVE (NEGATIVE)
[2017-08-11 09:24] LABS: ALBUMIN 3.2 g/dL (3.4-5.0); ALKALINE PHOSPHATASE 70 U/L (46-116); ALT (SGPT) 42 U/L (10-68); BILIRUBIN - TOTAL 0.49 mg/dL (0.2-1.3); CALC OSMOLALITY 292 mosm/kg (275-300); CARBON DIOXIDE 31.7 mmol/L (21.0-32.0); CHLORIDE - SERUM 106 mmol/L (98-107); CREATININE - SERUM 0.8 mg/dL (0.6-1.3); GLUCOSE 117 mg/dL (74-106); POTASSIUM - SERUM 3.5 mmol/L (3.5-5.1); PROTEIN - SERUM 6.8 g/dL (6.4-8.2); SODIUM 147 mmol/L (136-145); UREA NITROGEN 12 mg/dL (7-18); eGFR NON AFRICAN AMERICAN > 90 mL/min (90-120)
[2017-08-11 09:38] LABS: UDS - AMPHET NEGATIVE QUAL (NEGATIVE); UDS - BARB NEGATIVE QUAL (NEGATIVE); UDS - BENZO POSITIVE QUAL (NEGATIVE); UDS - COCAINE NEGATIVE QUAL (NEGATIVE); UDS - OPIATE NEGATIVE QUAL (NEGATIVE); UDS - PCP NEGATIVE QUAL (NEGATIVE); UDS - THC NEGATIVE QUAL (NEGATIVE)
[2017-08-11 09:42] LABS: APPEARANCE CLEAR (CLEAR); BILIRUBIN NEGATIVE (NEGATIVE); COLOR YELLOW (YELLOW); GLUCOSE NEGATIVE (NEGATIVE); KETONE NEGATIVE (NEGATIVE); NITRITE NEGATIVE (NEGATIVE); PROTEIN NEGATIVE (NEGATIVE); SPECIFIC GRAVITY 1.015 (1.005-1.020); UROBILINOGEN NORMAL (NORMAL)
[2017-08-11 09:43] LABS: BACTERIA NONE SEEN /hpf (NONE SEEN); EPITHELIAL CELLS 0-5 /hpf (0-5); RED CELLS - URINE NONE SEEN /hpf (0-5); WHITE CELLS - URINE 0-5 /hpf (0-5)
[2017-08-11] MEDS ORDERED: MELATONIN 3 MG1 TAB PO (13:44)
== END 2017-08-11 20:27 | disposition left against medical advice (07) | DRG 177 ==
LOC: D.ER 08:08 → D.EDHOLD 09:59 → D.M2 10:34 → D.ICU 12:17
PROVIDERS: Emergency Medicine
DX: J69.0 Pneumonitis due to inhalation of food and vomit (principal); J96.22 Acute and chronic respiratory failure with hypercapnia; J96.21 Acute and chronic respiratory failure with hypoxia; J44.1 Chronic obstructive pulmonary disease with (acute) exacerbation; E72.20 Disorder of urea cycle metabolism, unspecified; E87.0 Hyperosmolality and hypernatremia; F10.129 Alcohol abuse with intoxication, unspecified; Y90.7 Blood alcohol level of 200-239 mg/100 ml; E88.01 Alpha-1-antitrypsin deficiency; N25.89 Other disorders resulting from impaired renal tubular function; R74.0 Nonspecific elevation of levels of transaminase and lactic acid dehydrogenase [LDH]; R53.1 Weakness

== ENCOUNTER 2017-08-16 04:25 | Inpatient (IN) | payer MEDICAID ==
[~2017-08-16] VITALS: Ht 182.9 cm; Wt 90.7 kg
[2017-08-16] VITALS (9 sets, daily range): BP systolic 130–156; BP diastolic 75–93; BMI 27.2
--- NOTE | ~2017-08-16 | EC ---
PATIENT:JOSEPH MEJIA DATE OF SERVICE: 08/16/17 SEX: M MEDICAL RECORD: [id number] DATE OF : 59 LOCATION:D.M2 D.210 AGE OF PATIENT: 61 ADMISSION DATE: 08/16/17 REFERRING PHYSICIAN: INTERPRETING PHYSICIAN: TEE SANTOS MD ECHOCARDIOGRAM REPORT ECHO CHARGES 5 ECHO LIMITED Date: 08/16 CLINICAL DIAGNOSIS: CHF ECHOCARDIOGRAPHIC MEASUREMENTS (adult normal given) AC root (d.<3.7cm) 3.2 cm LV Septum d (<1.2 cm> 1.6 cm Valve Excursion 25.1 cm LV Septum (systole) 1.8 cm Left Atria (s.<4.0cm> 3.7 cm LVPW d(<1.2cm) 1.7 cm RV (d.<2.3cm) 4.1 cm LVPW (sytole) 2.0 cm LV diastole(<5.6CM) 5.2 cm MV E-F(>70mm/sec) cm LV systole 3.5 cm LVOT Diameter 2.0 cm MV exc.(>10mm) 1.5 cm Est.ejection fraction (50-75%) % DOPPLER: LVIT cm/sec A cm/sec E cm/sec LA cm/sec RVSP mmHg LVOT cm/sec AOP1/2T m/s Asc. Ao cm/sec RVOT cm/sec RA cm/sec PA cm/sec AV Gradient Peak mmHg AV Mean mmHg AV Area cm MV Gradient Peak mmHg MV Mean mmHg MV Area cm COMMENTS: Carbon Grinder: 2 SUE LASSITER Pigment Furnace Tender: Jaime Santos TAPE# PACS Pericardial Effusion N DATE OF SERVICE: PROCEDURE: Transthoracic echocardiogram, limited. FINDINGS: 1. The left ventricle appears to have moderate concentric left ventricular hypertrophy with hyperdynamic LV systolic function, ejection fraction 65%. Endocardial structures were difficult to see. 2. The right ventricle is moderately to severely dilated, but with good function. There is right ventricular hypertrophy. We were unable to trace the ECHOCARDIOGRAM REPORT [id number] JOSEPH MEJIA tricuspid regurgitation for an estimation of RVSP. Overall, the ventricular function, both on the RV and the LV appears to be well preserved to hyperdynamic. TRANSINT:[id number] Voice Confirmation ID: [id number] DOCUMENT ID: [id number] TEE SANTOS MD at 1120 CC: [id number] DICTATION DATE: 08/16/17 1518 WIRE WRAPPER MACHINE OPERATOR: 08/16/17 1549 DIS IN 08/21/17 [place] [id number] [place] [address]
[~2017-08-16 04:25] MED LIST changes: +MELATONIN 3 MG1 TAB PO
[2017-08-16 04:52] LABS: BASOPHILS 0.8 % (0-2); EOSINOPHILS 6.8 % (0-7); HEMATOCRIT 36.7 % (42.0-54.0); HEMOGLOBIN 10.6 g/dL (13.5-17.5); IMMATURE GRANULOCYTES 2.3 % (0-5); LYMPHOCYTES 19.7 % (15-50); MCH 22.6 pg (26.0-34.0); MCHC 28.9 g/dL (31.0-37.0); MCV 78.3 fL (80.0-100.0); MEAN PLATELET VOLUME 9.3 fL (7.4-10.4); MONOCYTES 10.2 % (2-11); NEUTROPHILS 60.2 % (40-80); PLATELET COUNT 128 10x3/uL (130-400); RBC 4.69 10x6/uL (4.20-6.10); RDW 19.2 % (11.5-14.5)
[2017-08-16 05:06] LABS: ALBUMIN 2.9 g/dL (3.4-5.0); ALKALINE PHOSPHATASE 69 U/L (46-116); ALT (SGPT) 26 U/L (10-68); BILIRUBIN - TOTAL 0.35 mg/dL (0.2-1.3); CALC OSMOLALITY 294 mosm/kg (275-300); CALCIUM 9.1 mg/dL (8.5-10.1); CARBON DIOXIDE 34.6 mmol/L (21.0-32.0); CHLORIDE - SERUM 107 mmol/L (98-107); CREATININE - SERUM 0.9 mg/dL (0.6-1.3); GLUCOSE 126 mg/dL (74-106); POTASSIUM - SERUM 3.1 mmol/L (3.5-5.1); PROTEIN - SERUM 6.5 g/dL (6.4-8.2); SODIUM 148 mmol/L (136-145); UREA NITROGEN 11 mg/dL (7-18); eGFR NON AFRICAN AMERICAN > 90 mL/min (90-120)
[2017-08-16 05:09] LABS: TROPONIN-I < 0.017 ng/mL (0.000-0.060)
[2017-08-16 05:23] LABS: APPEARANCE CLEAR (CLEAR); BILIRUBIN NEGATIVE (NEGATIVE); COLOR YELLOW (YELLOW); GLUCOSE NEGATIVE (NEGATIVE); KETONE NEGATIVE (NEGATIVE); NITRITE NEGATIVE (NEGATIVE); PROTEIN NEGATIVE (NEGATIVE); UROBILINOGEN NORMAL (NORMAL)
[2017-08-16 05:27] LABS: UDS - AMPHET NEGATIVE QUAL (NEGATIVE); UDS - BARB NEGATIVE QUAL (NEGATIVE); UDS - BENZO POSITIVE QUAL (NEGATIVE); UDS - COCAINE NEGATIVE QUAL (NEGATIVE); UDS - OPIATE NEGATIVE QUAL (NEGATIVE); UDS - PCP NEGATIVE QUAL (NEGATIVE); UDS - THC NEGATIVE QUAL (NEGATIVE)
[2017-08-16 13:55] LABS: APTT 24.2 SECONDS (22.8-39.4); INR 0.98 (0.85-1.17); PROTIME 12.6 SECONDS (11.6-15.0)
[2017-08-16 16:49] LABS: CKMB 1.9 U/L (0.0-3.6); CREATINE KINASE 68 UL (21-232); TROPONIN-I < 0.017 ng/mL (0.000-0.060)
[2017-08-16 21:32] LABS: CKMB 2.1 U/L (0.0-3.6); CREATINE KINASE 76 UL (21-232)
[2017-08-16 21:36] LABS: TROPONIN-I < 0.017 ng/mL (0.000-0.060)
[2017-08-17 01:48] VITALS: BP 171/91
[2017-08-17 03:59] LABS: BASOPHILS 0.1 % (0-2); EOSINOPHILS 0.1 % (0-7); HEMATOCRIT 34.5 % (42.0-54.0); HEMOGLOBIN 10.3 g/dL (13.5-17.5); IMMATURE GRANULOCYTES 1.4 % (0-5); LYMPHOCYTES 5.6 % (15-50); MCHC 29.9 g/dL (31.0-37.0); MEAN PLATELET VOLUME 9.7 fL (7.4-10.4); MONOCYTES 3.6 % (2-11); NEUTROPHILS 89.2 % (40-80); PLATELET COUNT 138 10x3/uL (130-400); RBC 4.48 10x6/uL (4.20-6.10); RDW 18.7 % (11.5-14.5)
[2017-08-17 04:02] LABS: WBC 11.4 10x3/uL (4.8-10.8)
[2017-08-17 04:22] LABS: ALBUMIN 2.8 g/dL (3.4-5.0); ALKALINE PHOSPHATASE 83 U/L (46-116); ALT (SGPT) 21 U/L (10-68); CALCIUM 8.2 mg/dL (8.5-10.1); CARBON DIOXIDE 35.1 mmol/L (21.0-32.0); CHLORIDE - SERUM 106 mmol/L (98-107); CREATINE KINASE 68 UL (21-232); CREATININE - SERUM 0.8 mg/dL (0.6-1.3); MAGNESIUM - SERUM 2.1 mg/dL (1.8-2.4); PROTEIN - SERUM 6.3 g/dL (6.4-8.2); SODIUM 144 mmol/L (136-145); eGFR NON AFRICAN AMERICAN > 90 mL/min (90-120)
[2017-08-17 04:28] LABS: CALC OSMOLALITY 292 mosm/kg (275-300); GLUCOSE 183 mg/dL (74-106); POTASSIUM - SERUM 3.7 mmol/L (3.5-5.1); TROPONIN-I < 0.017 ng/mL (0.000-0.060); UREA NITROGEN 14 mg/dL (7-18)
[2017-08-17 05:20] VITALS: BP 137/82
[2017-08-17 08:13] VITALS: BP 130/81
[2017-08-17 09:06] VITALS: Ht 182.9 cm; Wt 90.7 kg
[2017-08-17 12:46] VITALS: BP 125/81
[2017-08-17 16:12] VITALS: BP 128/69
[2017-08-17 21:25] VITALS: BP 134/82
[2017-08-18 01:43] VITALS: BP 129/77
[2017-08-18 05:01] LABS: BASOPHILS 0.1 % (0-2); EOSINOPHILS 0 % (0-7); HEMATOCRIT 33.5 % (42.0-54.0); IMMATURE GRANULOCYTES 1.7 % (0-5); LYMPHOCYTES 3.6 % (15-50); MCH 23.4 pg (26.0-34.0); MCHC 29.9 g/dL (31.0-37.0); MCV 78.5 fL (80.0-100.0); MEAN PLATELET VOLUME 9.8 fL (7.4-10.4); MONOCYTES 5.1 % (2-11); NEUTROPHILS 89.5 % (40-80); PLATELET COUNT 162 10x3/uL (130-400); RBC 4.27 10x6/uL (4.20-6.10); RDW 19.3 % (11.5-14.5)
[2017-08-18 05:11] LABS: WBC 15.6 10x3/uL (4.8-10.8)
[2017-08-18 05:30] LABS: ALBUMIN 2.8 g/dL (3.4-5.0); ALKALINE PHOSPHATASE 83 U/L (46-116); ALT (SGPT) 21 U/L (10-68); BILIRUBIN - TOTAL 0.27 mg/dL (0.2-1.3); CHLORIDE - SERUM 104 mmol/L (98-107); CREATININE - SERUM 0.9 mg/dL (0.6-1.3); PROTEIN - SERUM 6.1 g/dL (6.4-8.2); SODIUM 143 mmol/L (136-145); UREA NITROGEN 15 mg/dL (7-18); eGFR NON AFRICAN AMERICAN > 90 mL/min (90-120)
[2017-08-18 05:32] LABS: CALC OSMOLALITY 293 mosm/kg (275-300); GLUCOSE 246 mg/dL (74-106); POTASSIUM - SERUM 4.4 mmol/L (3.5-5.1)
[2017-08-18 05:38] VITALS: BP 131/82
[2017-08-18 08:45] VITALS: BP 137/83
[2017-08-18 12:41] VITALS: BP 142/94
[2017-08-18 16:00] VITALS: BP 136/88
[2017-08-18 20:30] VITALS: BP 141/98
[2017-08-19 00:30] VITALS: BP 146/92
[2017-08-19 04:30] VITALS: BP 133/93
[2017-08-19 05:24] LABS: BASOPHILS 0.1 % (0-2); EOSINOPHILS 0 % (0-7); HEMATOCRIT 33.3 % (42.0-54.0); HEMOGLOBIN 9.6 g/dL (13.5-17.5); IMMATURE GRANULOCYTES 3.9 % (0-5); LYMPHOCYTES 6.4 % (15-50); MCH 22.3 pg (26.0-34.0); MCHC 28.8 g/dL (31.0-37.0); MCV 77.4 fL (80.0-100.0); MEAN PLATELET VOLUME 10.1 fL (7.4-10.4); MONOCYTES 7.2 % (2-11); NEUTROPHILS 82.4 % (40-80); PLATELET COUNT 173 10x3/uL (130-400); RDW 19.2 % (11.5-14.5)
[2017-08-19 05:48] LABS: ALBUMIN 2.8 g/dL (3.4-5.0); ALKALINE PHOSPHATASE 86 U/L (46-116); ALT (SGPT) 23 U/L (10-68); CALC OSMOLALITY 290 mosm/kg (275-300); CALCIUM 8.1 mg/dL (8.5-10.1); CARBON DIOXIDE 33.7 mmol/L (21.0-32.0); CHLORIDE - SERUM 103 mmol/L (98-107); CREATININE - SERUM 0.9 mg/dL (0.6-1.3); GLUCOSE 226 mg/dL (74-106); POTASSIUM - SERUM 4.6 mmol/L (3.5-5.1); PROTEIN - SERUM 6.1 g/dL (6.4-8.2); SODIUM 142 mmol/L (136-145); UREA NITROGEN 16 mg/dL (7-18); eGFR NON AFRICAN AMERICAN > 90 mL/min (90-120)
[2017-08-19 07:59] VITALS: BP 144/89
[2017-08-19 11:17] VITALS: BP 149/92
[2017-08-19 15:32] VITALS: BP 152/86
[2017-08-19 20:00] VITALS: BP 138/89
[2017-08-20] VITALS: BP 135/84
[2017-08-20 04:00] VITALS: BP 128/81
[2017-08-20 05:39] LABS: BASOPHILS 0.3 % (0-2); EOSINOPHILS 0.3 % (0-7); HEMATOCRIT 35.2 % (42.0-54.0); HEMOGLOBIN 10.3 g/dL (13.5-17.5); IMMATURE GRANULOCYTES 5.6 % (0-5); LYMPHOCYTES 16.3 % (15-50); MCH 22.6 pg (26.0-34.0); MCHC 29.3 g/dL (31.0-37.0); MCV 77.2 fL (80.0-100.0); MONOCYTES 10.6 % (2-11); NEUTROPHILS 66.9 % (40-80); PLATELET COUNT 172 10x3/uL (130-400); RBC 4.56 10x6/uL (4.20-6.10); WBC 12.7 10x3/uL (4.8-10.8)
[2017-08-20 05:57] LABS: ALBUMIN 2.8 g/dL (3.4-5.0); ALKALINE PHOSPHATASE 93 U/L (46-116); BILIRUBIN - TOTAL 0.35 mg/dL (0.2-1.3); CARBON DIOXIDE 36.2 mmol/L (21.0-32.0); CHLORIDE - SERUM 104 mmol/L (98-107); CREATININE - SERUM 0.9 mg/dL (0.6-1.3); SODIUM 142 mmol/L (136-145); UREA NITROGEN 20 mg/dL (7-18); eGFR NON AFRICAN AMERICAN > 90 mL/min (90-120)
[2017-08-20 06:13] LABS: ALT (SGPT) 29 U/L (10-68); CALC OSMOLALITY 287 mosm/kg (275-300); GLUCOSE 127 mg/dL (74-106); POTASSIUM - SERUM 3.7 mmol/L (3.5-5.1)
[2017-08-20 08:08] VITALS: BP 126/93
[2017-08-20 11:31] VITALS: BP 139/90
[2017-08-20 15:18] VITALS: BP 158/99
[2017-08-20 21:05] VITALS: BP 146/80
[2017-08-21] VITALS: BP 145/90
[2017-08-21 04:00] VITALS: BP 148/96
[2017-08-21 05:12] LABS: BASOPHILS 0.5 % (0-2); EOSINOPHILS 1.2 % (0-7); HEMATOCRIT 34.7 % (42.0-54.0); HEMOGLOBIN 10.2 g/dL (13.5-17.5); IMMATURE GRANULOCYTES 8.9 % (0-5); LYMPHOCYTES 15.3 % (15-50); MCH 22.4 pg (26.0-34.0); MCHC 29.4 g/dL (31.0-37.0); MCV 76.3 fL (80.0-100.0); MEAN PLATELET VOLUME 9.1 fL (7.4-10.4); MONOCYTES 12.4 % (2-11); NEUTROPHILS 61.7 % (40-80); PLATELET COUNT 153 10x3/uL (130-400); RBC 4.55 10x6/uL (4.20-6.10); RDW 18.8 % (11.5-14.5)
[2017-08-21 05:39] LABS: ALBUMIN 2.8 g/dL (3.4-5.0); ALKALINE PHOSPHATASE 97 U/L (46-116); ALT (SGPT) 27 U/L (10-68); CALCIUM 7.9 mg/dL (8.5-10.1); CARBON DIOXIDE 34.3 mmol/L (21.0-32.0); CHLORIDE - SERUM 106 mmol/L (98-107); CREATININE - SERUM 0.8 mg/dL (0.6-1.3); GLUCOSE 115 mg/dL (74-106); POTASSIUM - SERUM 3.8 mmol/L (3.5-5.1); PROTEIN - SERUM 5.8 g/dL (6.4-8.2); SODIUM 146 mmol/L (136-145); eGFR NON AFRICAN AMERICAN > 90 mL/min (90-120)
[2017-08-21 05:48] LABS: CALC OSMOLALITY 292 mosm/kg (275-300); UREA NITROGEN 14 mg/dL (7-18)
[2017-08-21 07:51] VITALS: BP 142/85
[2017-08-21] MEDS ORDERED: MUCINEX DM ER1 EAC1 PO (10:43)
[2017-08-21] MEDS ORDERED: SINGULAIR10 MG PO (10:43)
[2017-08-21] MEDS ORDERED: CARAFATE1 G/10 ML PO (10:44)
[2017-08-21] MEDS ORDERED: THERAGRAN M [BK1 TAB PO (10:44)
[2017-08-21] MEDS ORDERED: DALIRESP500 MCG PO (10:44)
[2017-08-21] MEDS ORDERED: IPRAT-ALBUT 0.5-3 ML INH (10:46)
[2017-08-21] MEDS ORDERED: PULMICORT0.5 MG/21 UPD (10:47)
[2017-08-21] MEDS ORDERED: DOXYCYCLINE HY100 M2 PO (10:48)
[2017-08-21] MEDS ORDERED: PREDNISONE10 MG PO (10:48)
[2017-08-21 11:26] VITALS: BP 170/88
[2017-08-21 15:21] VITALS: BP 156/92
== END 2017-08-21 17:44 | disposition home or self-care (01) | DRG 432 ==
LOC: D.ER 04:25 → D.M2 07:44 → D.EDHOLD 07:44 → D.M2 08:13
PROVIDERS: Emergency Medicine; Internal Medicine Nephrology
DX: K74.60 Unspecified cirrhosis of liver (principal); J96.21 Acute and chronic respiratory failure with hypoxia; J96.22 Acute and chronic respiratory failure with hypercapnia; J44.1 Chronic obstructive pulmonary disease with (acute) exacerbation; F10.239 Alcohol dependence with withdrawal, unspecified; E87.0 Hyperosmolality and hypernatremia; J98.11 Atelectasis; R07.89 Other chest pain; F41.9 Anxiety disorder, unspecified; D50.9 Iron deficiency anemia, unspecified; E87.6 Hypokalemia; E88.01 Alpha-1-antitrypsin deficiency; Z87.891 Personal history of nicotine dependence

== ENCOUNTER 2017-08-29 16:56 | Emergency (ER) | payer MEDICAID ==
[2017-08-17 09:06] VITALS: Ht 182.9 cm; Wt 86.4 kg
[~2017-08-29] VITALS: Ht 182.9 cm; Wt 86.4 kg
[~2017-08-29 16:56] MED LIST changes: +CARAFATE1 G/10 ML PO; +PULMICORT0.5 MG/21 UPD; +THERAGRAN M [BK1 TAB PO
[2017-08-29 18:05] LABS: BASOPHILS 0.6 % (0-2); EOSINOPHILS 2.9 % (0-7); HEMATOCRIT 37.7 % (42.0-54.0); HEMOGLOBIN 10.9 g/dL (13.5-17.5); IMMATURE GRANULOCYTES 2.3 % (0-5); LYMPHOCYTES 18.4 % (15-50); MCH 22.6 pg (26.0-34.0); MCHC 28.9 g/dL (31.0-37.0); MCV 78.2 fL (80.0-100.0); MEAN PLATELET VOLUME 9.9 fL (7.4-10.4); MONOCYTES 10.2 % (2-11); NEUTROPHILS 65.6 % (40-80); RBC 4.82 10x6/uL (4.20-6.10); RDW 18.5 % (11.5-14.5); WBC 9.7 10x3/uL (4.8-10.8)
[2017-08-29 18:17] LABS: ALBUMIN 3.2 g/dL (3.4-5.0); ALKALINE PHOSPHATASE 230 U/L (46-116); ALT (SGPT) 31 U/L (10-68); BILIRUBIN - TOTAL 0.32 mg/dL (0.2-1.3); CALC OSMOLALITY 285 mosm/kg (275-300); CALCIUM 9.2 mg/dL (8.5-10.1); CARBON DIOXIDE 35.6 mmol/L (21.0-32.0); CHLORIDE - SERUM 105 mmol/L (98-107); CREATININE - SERUM 0.9 mg/dL (0.6-1.3); GLUCOSE 98 mg/dL (74-106); POTASSIUM - SERUM 3.7 mmol/L (3.5-5.1); PROTEIN - SERUM 6.9 g/dL (6.4-8.2); SODIUM 144 mmol/L (136-145); UREA NITROGEN 9 mg/dL (7-18); eGFR NON AFRICAN AMERICAN > 90 mL/min (90-120)
[2017-08-29 18:18] LABS: PLATELET COUNT 189 10x3/uL (130-400)
[2017-08-30 04:00] VITALS: BP 134/87
== END 2017-08-29 21:52 | disposition home or self-care (01) ==
LOC: D.ER 16:56
PROVIDERS: Family Medicine
DX: R06.02 Shortness of breath (principal)

== ENCOUNTER 2017-09-11 00:49 | Inpatient (IN) | payer MEDICAID ==
[~2017-09-11] VITALS: Ht 182.9 cm; Wt 87.7 kg
[2017-09-11] VITALS (19 sets, daily range): BP systolic 93–153; BP diastolic 56–93; BMI 27.5
[2017-09-11 01:37] LABS: BASOPHILS 0.8 % (0-2); EOSINOPHILS 5.2 % (0-7); HEMATOCRIT 40.4 % (42.0-54.0); HEMOGLOBIN 11.5 g/dL (13.5-17.5); IMMATURE GRANULOCYTES 1.4 % (0-5); LYMPHOCYTES 19.9 % (15-50); MCH 22.6 pg (26.0-34.0); MCHC 28.5 g/dL (31.0-37.0); MCV 79.5 fL (80.0-100.0); MEAN PLATELET VOLUME 9.6 fL (7.4-10.4); MONOCYTES 5.2 % (2-11); NEUTROPHILS 67.5 % (40-80); PLATELET COUNT 179 10x3/uL (130-400); RBC 5.08 10x6/uL (4.20-6.10); RDW 17.7 % (11.5-14.5); WBC 10.4 10x3/uL (4.8-10.8)
[2017-09-11 01:55] LABS: ALBUMIN 3.5 g/dL (3.4-5.0); ALKALINE PHOSPHATASE 159 U/L (46-116); ALT (SGPT) 35 U/L (10-68); BILIRUBIN - TOTAL 0.23 mg/dL (0.2-1.3); CALC OSMOLALITY 293 mosm/kg (275-300); CALCIUM 8.3 mg/dL (8.5-10.1); CARBON DIOXIDE 31.7 mmol/L (21.0-32.0); CHLORIDE - SERUM 104 mmol/L (98-107); POTASSIUM - SERUM 4.1 mmol/L (3.5-5.1); PROTEIN - SERUM 7.3 g/dL (6.4-8.2); SODIUM 146 mmol/L (136-145); UREA NITROGEN 8 mg/dL (7-18); eGFR NON AFRICAN AMERICAN 81 mL/min (90-120)
[2017-09-11 01:58] LABS: GLUCOSE 196 mg/dL (74-106)
[2017-09-11 02:45] LABS: UDS - AMPHET NEGATIVE QUAL (NEGATIVE); UDS - BARB NEGATIVE QUAL (NEGATIVE); UDS - BENZO POSITIVE QUAL (NEGATIVE); UDS - COCAINE NEGATIVE QUAL (NEGATIVE); UDS - OPIATE NEGATIVE QUAL (NEGATIVE); UDS - PCP NEGATIVE QUAL (NEGATIVE); UDS - THC NEGATIVE QUAL (NEGATIVE)
[2017-09-11 02:50] LABS: APPEARANCE CLOUDY (CLEAR); BILIRUBIN NEGATIVE (NEGATIVE); COLOR YELLOW (YELLOW); GLUCOSE NEGATIVE (NEGATIVE); KETONE NEGATIVE (NEGATIVE); NITRITE NEGATIVE (NEGATIVE); PROTEIN 1+ mg/dL (NEGATIVE); UROBILINOGEN NORMAL (NORMAL)
[2017-09-11 02:51] LABS: BACTERIA FEW /hpf (NONE SEEN); EPITHELIAL CELLS 0-5 /hpf (0-5); GRANULAR CAST 0-5 /lpf (NONE SEEN); RED CELLS - URINE 0-5 /hpf (0-5); WHITE CELLS - URINE 0-5 /hpf (0-5)
[2017-09-12] VITALS (46 sets, daily range): BP systolic 71–139; BP diastolic 48–92; BMI 28.4
[2017-09-12 04:57] LABS: BASOPHILS 0.2 % (0-2); EOSINOPHILS 0.3 % (0-7); HEMATOCRIT 35.9 % (42.0-54.0); HEMOGLOBIN 10.5 g/dL (13.5-17.5); IMMATURE GRANULOCYTES 0.2 % (0-5); LYMPHOCYTES 6.1 % (15-50); MCH 22.8 pg (26.0-34.0); MCHC 29.2 g/dL (31.0-37.0); MCV 77.9 fL (80.0-100.0); MEAN PLATELET VOLUME 9.7 fL (7.4-10.4); MONOCYTES 7.5 % (2-11); NEUTROPHILS 85.7 % (40-80); PLATELET COUNT 149 10x3/uL (130-400); RBC 4.61 10x6/uL (4.20-6.10); RDW 17.7 % (11.5-14.5)
[2017-09-12 05:02] LABS: ALBUMIN 2.8 g/dL (3.4-5.0); BILIRUBIN - TOTAL 0.55 mg/dL (0.2-1.3); CARBON DIOXIDE 27.4 mmol/L (21.0-32.0); MAGNESIUM - SERUM 1.4 mg/dL (1.8-2.4)
[2017-09-12 05:09] LABS: ANION GAP 12.6 mmol/L (8-16); CREATININE - SERUM 1.4 mg/dL (0.6-1.3)
[2017-09-12 05:10] LABS: PHOSPHOROUS 1.3 mg/dL (2.5-4.9)
[2017-09-13] VITALS (23 sets, daily range): BP systolic 90–124; BP diastolic 54–82
[2017-09-13 06:18] LABS: BASOPHILS 0.2 % (0-2); EOSINOPHILS 1.2 % (0-7); HEMATOCRIT 34.1 % (42.0-54.0); HEMOGLOBIN 9.8 g/dL (13.5-17.5); MCH 22.5 pg (26.0-34.0); MCHC 28.7 g/dL (31.0-37.0); MCV 78.4 fL (80.0-100.0); MEAN PLATELET VOLUME 9.7 fL (7.4-10.4); MONOCYTES 7.2 % (2-11); NEUTROPHILS 85.4 % (40-80); RBC 4.35 10x6/uL (4.20-6.10); RDW 18.2 % (11.5-14.5); WBC 16.2 10x3/uL (4.8-10.8)
[2017-09-13 06:24] LABS: PLATELET COUNT 109 10x3/uL (130-400)
[2017-09-13 07:02] LABS: ALBUMIN 2.4 g/dL (3.4-5.0); BILIRUBIN - TOTAL 0.64 mg/dL (0.2-1.3); CALCIUM 7.4 mg/dL (8.5-10.1); CARBON DIOXIDE 28.3 mmol/L (21.0-32.0); CREATININE - SERUM 1.3 mg/dL (0.6-1.3); MAGNESIUM - SERUM 1.4 mg/dL (1.8-2.4); PROTEIN - SERUM 5.5 g/dL (6.4-8.2)
[2017-09-13 07:04] LABS: ANION GAP 10.3 mmol/L (8-16); PHOSPHOROUS 3.6 mg/dL (2.5-4.9); POTASSIUM - SERUM 3.6 mmol/L (3.5-5.1)
[2017-09-14] VITALS (25 sets, daily range): BP systolic 98–131; BP diastolic 61–88
[2017-09-14 05:47] LABS: BASOPHILS 0.5 % (0-2); EOSINOPHILS 5.2 % (0-7); HEMOGLOBIN 9.8 g/dL (13.5-17.5); IMMATURE GRANULOCYTES 1.3 % (0-5); LYMPHOCYTES 6.9 % (15-50); MCH 22.5 pg (26.0-34.0); MCHC 28.8 g/dL (31.0-37.0); MCV 78.2 fL (80.0-100.0); MONOCYTES 9.9 % (2-11); NEUTROPHILS 76.2 % (40-80); PLATELET COUNT 116 10x3/uL (130-400); RBC 4.35 10x6/uL (4.20-6.10); RDW 18.4 % (11.5-14.5); WBC 13.2 10x3/uL (4.8-10.8)
[2017-09-14 06:07] LABS: ALBUMIN 2.4 g/dL (3.4-5.0); ANION GAP 10.6 mmol/L (8-16); BILIRUBIN - TOTAL 0.73 mg/dL (0.2-1.3); CARBON DIOXIDE 28.8 mmol/L (21.0-32.0); CREATININE - SERUM 1.1 mg/dL (0.6-1.3); MAGNESIUM - SERUM 1.7 mg/dL (1.8-2.4); POTASSIUM - SERUM 3.4 mmol/L (3.5-5.1); PROTEIN - SERUM 5.9 g/dL (6.4-8.2)
[2017-09-15] VITALS (24 sets, daily range): BP systolic 90–148; BP diastolic 53–96; Ht 182.9 cm; Wt 87.7 kg
[2017-09-15 06:47] LABS: BASOPHILS 0.6 % (0-2); EOSINOPHILS 7.2 % (0-7); HEMATOCRIT 33.8 % (42.0-54.0); IMMATURE GRANULOCYTES 3.5 % (0-5); MCH 22.9 pg (26.0-34.0); MCHC 29.6 g/dL (31.0-37.0); MCV 77.5 fL (80.0-100.0); MONOCYTES 13.5 % (2-11); NEUTROPHILS 67.2 % (40-80); PLATELET COUNT 113 10x3/uL (130-400); RBC 4.36 10x6/uL (4.20-6.10); RDW 18.7 % (11.5-14.5); WBC 11.4 10x3/uL (4.8-10.8)
[2017-09-15 07:20] LABS: ALBUMIN 2.5 g/dL (3.4-5.0); ALKALINE PHOSPHATASE 113 U/L (46-116); BILIRUBIN - TOTAL 0.51 mg/dL (0.2-1.3); CALC OSMOLALITY 298 mosm/kg (275-300); CALCIUM 8.4 mg/dL (8.5-10.1); CARBON DIOXIDE 29.8 mmol/L (21.0-32.0); CHLORIDE - SERUM 112 mmol/L (98-107); CREATININE - SERUM 0.9 mg/dL (0.6-1.3); GLUCOSE 183 mg/dL (74-106); POTASSIUM - SERUM 3.5 mmol/L (3.5-5.1); PRO BNP 559 pg/mL (0-125); PROTEIN - SERUM 5.4 g/dL (6.4-8.2); SODIUM 148 mmol/L (136-145); UREA NITROGEN 13 mg/dL (7-18); eGFR NON AFRICAN AMERICAN > 90 mL/min (90-120)
[2017-09-15 07:29] LABS: ALT (SGPT) 47 U/L (10-68)
[2017-09-16] VITALS (24 sets, daily range): BP systolic 109–151; BP diastolic 69–93
[2017-09-16 04:44] LABS: BASOPHILS 0.5 % (0-2); EOSINOPHILS 6.7 % (0-7); HEMATOCRIT 30.2 % (42.0-54.0); HEMOGLOBIN 8.8 g/dL (13.5-17.5); IMMATURE GRANULOCYTES 6.3 % (0-5); LYMPHOCYTES 10.5 % (15-50); MCH 22.3 pg (26.0-34.0); MCHC 29.1 g/dL (31.0-37.0); MCV 76.6 fL (80.0-100.0); MEAN PLATELET VOLUME 10.4 fL (7.4-10.4); MONOCYTES 10.4 % (2-11); NEUTROPHILS 65.6 % (40-80); PLATELET COUNT 142 10x3/uL (130-400); RBC 3.94 10x6/uL (4.20-6.10); RDW 18.7 % (11.5-14.5); WBC 9.5 10x3/uL (4.8-10.8)
[2017-09-16 05:17] LABS: INR 1.15 (0.85-1.17); PROTIME 14.3 SECONDS (11.6-15.0)
[2017-09-16 05:29] LABS: ALBUMIN 2.5 g/dL (3.4-5.0); ALKALINE PHOSPHATASE 116 U/L (46-116); ALT (SGPT) 53 U/L (10-68); BILIRUBIN - TOTAL 0.46 mg/dL (0.2-1.3); CALC OSMOLALITY 301 mosm/kg (275-300); CALCIUM 8.4 mg/dL (8.5-10.1); CHLORIDE - SERUM 111 mmol/L (98-107); CREATININE - SERUM 0.8 mg/dL (0.6-1.3); GLUCOSE 157 mg/dL (74-106); MAGNESIUM - SERUM 1.8 mg/dL (1.8-2.4); PHOSPHOROUS 2.6 mg/dL (2.5-4.9); POTASSIUM - SERUM 3.2 mmol/L (3.5-5.1); PROTEIN - SERUM 5.9 g/dL (6.4-8.2); SODIUM 150 mmol/L (136-145); UREA NITROGEN 15 mg/dL (7-18); eGFR NON AFRICAN AMERICAN > 90 mL/min (90-120)
[2017-09-17] VITALS (24 sets, daily range): BP systolic 93–142; BP diastolic 56–90
[2017-09-17 05:18] LABS: EOSINOPHILS 0.1 % (0-7); HEMATOCRIT 29.9 % (42.0-54.0); HEMOGLOBIN 8.9 g/dL (13.5-17.5); IMMATURE GRANULOCYTES 12.9 % (0-5); LYMPHOCYTES 7.7 % (15-50); MCH 22.8 pg (26.0-34.0); MCHC 29.8 g/dL (31.0-37.0); MCV 76.5 fL (80.0-100.0); MEAN PLATELET VOLUME 9.8 fL (7.4-10.4); MONOCYTES 6.7 % (2-11); NEUTROPHILS 71.6 % (40-80); PLATELET COUNT 154 10x3/uL (130-400); RBC 3.91 10x6/uL (4.20-6.10); RDW 18.8 % (11.5-14.5); WBC 7.9 10x3/uL (4.8-10.8)
[2017-09-17 05:29] LABS: CALCIUM 8.6 mg/dL (8.5-10.1); CARBON DIOXIDE 33.2 mmol/L (21.0-32.0); CHLORIDE - SERUM 110 mmol/L (98-107); CREATININE - SERUM 0.9 mg/dL (0.6-1.3); MAGNESIUM - SERUM 1.8 mg/dL (1.8-2.4); SODIUM 147 mmol/L (136-145); UREA NITROGEN 17 mg/dL (7-18); eGFR NON AFRICAN AMERICAN > 90 mL/min (90-120)
[2017-09-17 05:33] LABS: CALC OSMOLALITY 300 mosm/kg (275-300); GLUCOSE 221 mg/dL (74-106); POTASSIUM - SERUM 4.4 mmol/L (3.5-5.1)
[2017-09-18] VITALS (24 sets, daily range): BP systolic 125–152; BP diastolic 83–99
[2017-09-18 05:15] LABS: BASOPHILS 0.6 % (0-2); EOSINOPHILS 0.1 % (0-7); HEMATOCRIT 31.3 % (42.0-54.0); IMMATURE GRANULOCYTES 13.8 % (0-5); LYMPHOCYTES 8.9 % (15-50); MCH 22.1 pg (26.0-34.0); MCHC 28.8 g/dL (31.0-37.0); MCV 76.7 fL (80.0-100.0); MEAN PLATELET VOLUME 10.7 fL (7.4-10.4); MONOCYTES 9.2 % (2-11); NEUTROPHILS 67.4 % (40-80); RBC 4.08 10x6/uL (4.20-6.10); RDW 18.7 % (11.5-14.5)
[2017-09-18 05:27] LABS: CALCIUM 8.4 mg/dL (8.5-10.1); CARBON DIOXIDE 33.4 mmol/L (21.0-32.0); CHLORIDE - SERUM 109 mmol/L (98-107); CREATININE - SERUM 0.7 mg/dL (0.6-1.3); MAGNESIUM - SERUM 1.7 mg/dL (1.8-2.4); POTASSIUM - SERUM 4.2 mmol/L (3.5-5.1); SODIUM 144 mmol/L (136-145); eGFR NON AFRICAN AMERICAN > 90 mL/min (90-120)
[2017-09-18 05:28] LABS: CALC OSMOLALITY 300 mosm/kg (275-300); GLUCOSE 272 mg/dL (74-106); UREA NITROGEN 23 mg/dL (7-18)
[2017-09-18 05:29] LABS: PLATELET COUNT 210 10x3/uL (130-400)
[2017-09-19] VITALS (24 sets, daily range): BP systolic 125–162; BP diastolic 83–110
[2017-09-19 04:31] LABS: BASOPHILS 0.6 % (0-2); EOSINOPHILS 0.4 % (0-7); HEMATOCRIT 30.2 % (42.0-54.0); HEMOGLOBIN 8.8 g/dL (13.5-17.5); LYMPHOCYTES 9.1 % (15-50); MCH 22.3 pg (26.0-34.0); MCHC 29.1 g/dL (31.0-37.0); MCV 76.6 fL (80.0-100.0); MEAN PLATELET VOLUME 10.5 fL (7.4-10.4); MONOCYTES 8.6 % (2-11); NEUTROPHILS 71.3 % (40-80); PLATELET COUNT 226 10x3/uL (130-400); RBC 3.94 10x6/uL (4.20-6.10); RDW 18.4 % (11.5-14.5)
[2017-09-19 04:40] LABS: CALCIUM 8.8 mg/dL (8.5-10.1); CARBON DIOXIDE 35.9 mmol/L (21.0-32.0); CHLORIDE - SERUM 107 mmol/L (98-107); SODIUM 145 mmol/L (136-145); UREA NITROGEN 27 mg/dL (7-18)
[2017-09-19 04:46] LABS: CALC OSMOLALITY 299 mosm/kg (275-300); CREATININE - SERUM 0.9 mg/dL (0.6-1.3); GLUCOSE 203 mg/dL (74-106); MAGNESIUM - SERUM 2.2 mg/dL (1.8-2.4); POTASSIUM - SERUM 3.5 mmol/L (3.5-5.1); eGFR NON AFRICAN AMERICAN > 90 mL/min (90-120)
[2017-09-20] VITALS (25 sets, daily range): BP systolic 118–169; BP diastolic 78–113
[2017-09-20 04:27] LABS: BASOPHILS 0.4 % (0-2); EOSINOPHILS 0.1 % (0-7); HEMATOCRIT 31.3 % (42.0-54.0); HEMOGLOBIN 9.2 g/dL (13.5-17.5); IMMATURE GRANULOCYTES 5.2 % (0-5); LYMPHOCYTES 8.4 % (15-50); MCH 22.4 pg (26.0-34.0); MCHC 29.4 g/dL (31.0-37.0); MCV 76.3 fL (80.0-100.0); MEAN PLATELET VOLUME 10.2 fL (7.4-10.4); MONOCYTES 5.9 % (2-11); PLATELET COUNT 247 10x3/uL (130-400); RDW 18.3 % (11.5-14.5); WBC 12.5 10x3/uL (4.8-10.8)
[2017-09-20 04:53] LABS: CALC OSMOLALITY 296 mosm/kg (275-300); CALCIUM 8.9 mg/dL (8.5-10.1); CARBON DIOXIDE 31.9 mmol/L (21.0-32.0); CHLORIDE - SERUM 105 mmol/L (98-107); CREATININE - SERUM 0.9 mg/dL (0.6-1.3); GLUCOSE 190 mg/dL (74-106); MAGNESIUM - SERUM 2.4 mg/dL (1.8-2.4); POTASSIUM - SERUM 3.8 mmol/L (3.5-5.1); SODIUM 144 mmol/L (136-145); UREA NITROGEN 27 mg/dL (7-18); eGFR NON AFRICAN AMERICAN > 90 mL/min (90-120)
[2017-09-20 11:00] LABS: ALBUMIN 3.5 g/dL (3.4-5.0); BILIRUBIN - DIRECT 0.21 mg/dL (0.00-0.30); BILIRUBIN - INDIRECT 0.4 mg/dL (0.00-1.00); BILIRUBIN - TOTAL 0.61 mg/dL (0.2-1.3); PROTEIN - SERUM 7.1 g/dL (6.4-8.2); VANCOMYCIN - RANDOM 20.3 ug/mL (10.0-20.0)
[2017-09-20 11:23] LABS: APPEARANCE CLEAR (CLEAR); BILIRUBIN NEGATIVE (NEGATIVE); COLOR YELLOW (YELLOW); GLUCOSE NEGATIVE (NEGATIVE); KETONE NEGATIVE (NEGATIVE); NITRITE NEGATIVE (NEGATIVE); PROTEIN NEGATIVE (NEGATIVE); UROBILINOGEN NORMAL (NORMAL)
[2017-09-20 11:26] LABS: BACTERIA MODERATE /hpf (NONE SEEN); EPITHELIAL CELLS 0-5 /hpf (0-5); WHITE CELLS - URINE 0-5 /hpf (0-5)
[2017-09-21] VITALS (23 sets, daily range): BP systolic 103–171; BP diastolic 70–100
[2017-09-21 03:47] LABS: BASOPHILS 0.1 % (0-2); EOSINOPHILS 0.1 % (0-7); HEMATOCRIT 30.8 % (42.0-54.0); HEMOGLOBIN 8.9 g/dL (13.5-17.5); IMMATURE GRANULOCYTES 2.2 % (0-5); LYMPHOCYTES 9.2 % (15-50); MCH 22.1 pg (26.0-34.0); MCHC 28.9 g/dL (31.0-37.0); MCV 76.6 fL (80.0-100.0); MEAN PLATELET VOLUME 9.8 fL (7.4-10.4); MONOCYTES 6.4 % (2-11); PLATELET COUNT 235 10x3/uL (130-400); RBC 4.02 10x6/uL (4.20-6.10); RDW 18.2 % (11.5-14.5); WBC 13.5 10x3/uL (4.8-10.8)
[2017-09-21 04:01] LABS: CALC OSMOLALITY 288 mosm/kg (275-300); CALCIUM 8.8 mg/dL (8.5-10.1); CARBON DIOXIDE 30.4 mmol/L (21.0-32.0); CHLORIDE - SERUM 104 mmol/L (98-107); GLUCOSE 163 mg/dL (74-106); MAGNESIUM - SERUM 2.2 mg/dL (1.8-2.4); SODIUM 141 mmol/L (136-145); UREA NITROGEN 23 mg/dL (7-18); eGFR NON AFRICAN AMERICAN 81 mL/min (90-120)
[2017-09-22] VITALS (24 sets, daily range): BP systolic 115–150; BP diastolic 62–101
[2017-09-22 04:52] LABS: BASOPHILS 0.1 % (0-2); EOSINOPHILS 0 % (0-7); HEMATOCRIT 29.7 % (42.0-54.0); HEMOGLOBIN 8.6 g/dL (13.5-17.5); IMMATURE GRANULOCYTES 1.3 % (0-5); LYMPHOCYTES 6.3 % (15-50); MCH 22.1 pg (26.0-34.0); MCV 76.2 fL (80.0-100.0); MEAN PLATELET VOLUME 9.7 fL (7.4-10.4); MONOCYTES 4.9 % (2-11); NEUTROPHILS 87.4 % (40-80); PLATELET COUNT 246 10x3/uL (130-400); RDW 18.5 % (11.5-14.5); WBC 12.8 10x3/uL (4.8-10.8)
[2017-09-22 05:01] LABS: CALC OSMOLALITY 286 mosm/kg (275-300); CALCIUM 8.6 mg/dL (8.5-10.1); CARBON DIOXIDE 29.1 mmol/L (21.0-32.0); CHLORIDE - SERUM 103 mmol/L (98-107); CREATININE - SERUM 0.8 mg/dL (0.6-1.3); GLUCOSE 185 mg/dL (74-106); MAGNESIUM - SERUM 2.3 mg/dL (1.8-2.4); POTASSIUM - SERUM 3.8 mmol/L (3.5-5.1); SODIUM 140 mmol/L (136-145); UREA NITROGEN 21 mg/dL (7-18); eGFR NON AFRICAN AMERICAN > 90 mL/min (90-120)
[2017-09-23] VITALS (12 sets, daily range): BP systolic 111–139; BP diastolic 74–88
[2017-09-23 04:34] LABS: BASOPHILS 0.1 % (0-2); EOSINOPHILS 0.1 % (0-7); HEMATOCRIT 30.2 % (42.0-54.0); HEMOGLOBIN 9.1 g/dL (13.5-17.5); IMMATURE GRANULOCYTES 1.1 % (0-5); LYMPHOCYTES 5.6 % (15-50); MCH 23.1 pg (26.0-34.0); MCHC 30.1 g/dL (31.0-37.0); MCV 76.6 fL (80.0-100.0); MEAN PLATELET VOLUME 9.8 fL (7.4-10.4); MONOCYTES 4.5 % (2-11); NEUTROPHILS 88.6 % (40-80); PLATELET COUNT 256 10x3/uL (130-400); RBC 3.94 10x6/uL (4.20-6.10); RDW 18.8 % (11.5-14.5)
[2017-09-23 04:42] LABS: CALCIUM 8.6 mg/dL (8.5-10.1); CARBON DIOXIDE 31.8 mmol/L (21.0-32.0); CHLORIDE - SERUM 103 mmol/L (98-107); CREATININE - SERUM 0.8 mg/dL (0.6-1.3); GLUCOSE 177 mg/dL (74-106); POTASSIUM - SERUM 3.8 mmol/L (3.5-5.1); SODIUM 141 mmol/L (136-145); eGFR NON AFRICAN AMERICAN > 90 mL/min (90-120)
[2017-09-23 04:52] LABS: CALC OSMOLALITY 286 mosm/kg (275-300); UREA NITROGEN 18 mg/dL (7-18)
[2017-09-23] MEDS ORDERED: REMERON30 MG PO (22:16)
[2017-09-24] VITALS: BP 134/83
[2017-09-24 08:33] VITALS: BP 123/75
[2017-09-24 11:43] VITALS: BP 122/77
[2017-09-24 15:42] VITALS: BP 115/69
[2017-09-24 20:23] VITALS: BP 124/72
[2017-09-25 00:47] VITALS: BP 125/81
[2017-09-25 05:33] LABS: BASOPHILS 0.1 % (0-2); EOSINOPHILS 0.2 % (0-7); HEMATOCRIT 30.9 % (42.0-54.0); IMMATURE GRANULOCYTES 1.2 % (0-5); LYMPHOCYTES 10.4 % (15-50); MCH 22.3 pg (26.0-34.0); MCHC 29.1 g/dL (31.0-37.0); MCV 76.5 fL (80.0-100.0); MONOCYTES 8.8 % (2-11); NEUTROPHILS 79.3 % (40-80); PLATELET COUNT 253 10x3/uL (130-400); RBC 4.04 10x6/uL (4.20-6.10); RDW 19.3 % (11.5-14.5); WBC 11.8 10x3/uL (4.8-10.8)
[2017-09-25 05:48] LABS: CALC OSMOLALITY 283 mosm/kg (275-300); CALCIUM 8.9 mg/dL (8.5-10.1); CARBON DIOXIDE 28.8 mmol/L (21.0-32.0); CHLORIDE - SERUM 102 mmol/L (98-107); CREATININE - SERUM 0.9 mg/dL (0.6-1.3); POTASSIUM - SERUM 3.5 mmol/L (3.5-5.1); SODIUM 142 mmol/L (136-145); UREA NITROGEN 13 mg/dL (7-18); eGFR NON AFRICAN AMERICAN > 90 mL/min (90-120)
[2017-09-25 05:49] LABS: GLUCOSE 110 mg/dL (74-106)
[2017-09-25 06:01] VITALS: BP 130/86
[2017-09-25 08:08] VITALS: BP 134/83
[2017-09-25 10:41] VITALS: BP 115/69
[2017-09-25 15:25] VITALS: BP 138/79
[2017-09-25 20:22] VITALS: BP 125/70
[2017-09-26 00:20] VITALS: BP 103/59
[2017-09-26 05:53] VITALS: BP 113/72
[2017-09-26 06:09] LABS: CALC OSMOLALITY 279 mosm/kg (275-300); CALCIUM 8.5 mg/dL (8.5-10.1); CARBON DIOXIDE 33.5 mmol/L (21.0-32.0); CHLORIDE - SERUM 103 mmol/L (98-107); CREATININE - SERUM 0.8 mg/dL (0.6-1.3); GLUCOSE 101 mg/dL (74-106); SODIUM 141 mmol/L (136-145); UREA NITROGEN 10 mg/dL (7-18); eGFR NON AFRICAN AMERICAN > 90 mL/min (90-120)
[2017-09-26 06:27] LABS: BASOPHILS 0.2 % (0-2); HEMATOCRIT 28.5 % (42.0-54.0); HEMOGLOBIN 8.4 g/dL (13.5-17.5); IMMATURE GRANULOCYTES 1.4 % (0-5); LYMPHOCYTES 15.8 % (15-50); MCH 22.4 pg (26.0-34.0); MCHC 29.5 g/dL (31.0-37.0); NEUTROPHILS 70.6 % (40-80); PLATELET COUNT 259 10x3/uL (130-400); RBC 3.75 10x6/uL (4.20-6.10); RDW 19.1 % (11.5-14.5); WBC 10.4 10x3/uL (4.8-10.8)
[2017-09-26 08:33] VITALS: BP 128/74
[2017-09-26 12:55] VITALS: BP 127/79
[2017-09-26 15:38] VITALS: BP 115/70
[2017-09-26 20:00] VITALS: BP 117/76
[2017-09-27] VITALS: BP 117/60
[2017-09-27 04:00] VITALS: BP 103/63
[2017-09-27 05:11] LABS: BASOPHILS 0.2 % (0-2); EOSINOPHILS 1.6 % (0-7); HEMATOCRIT 29.4 % (42.0-54.0); HEMOGLOBIN 8.6 g/dL (13.5-17.5); IMMATURE GRANULOCYTES 1.5 % (0-5); LYMPHOCYTES 19.7 % (15-50); MCH 22.2 pg (26.0-34.0); MCHC 29.3 g/dL (31.0-37.0); MEAN PLATELET VOLUME 9.8 fL (7.4-10.4); MONOCYTES 11.9 % (2-11); NEUTROPHILS 65.1 % (40-80); PLATELET COUNT 242 10x3/uL (130-400); RBC 3.87 10x6/uL (4.20-6.10); RDW 18.8 % (11.5-14.5); WBC 9.1 10x3/uL (4.8-10.8)
[2017-09-27 05:27] LABS: CALC OSMOLALITY 284 mosm/kg (275-300); CALCIUM 8.6 mg/dL (8.5-10.1); CARBON DIOXIDE 33.9 mmol/L (21.0-32.0); CHLORIDE - SERUM 103 mmol/L (98-107); CREATININE - SERUM 0.7 mg/dL (0.6-1.3); GLUCOSE 93 mg/dL (74-106); SODIUM 143 mmol/L (136-145); UREA NITROGEN 12 mg/dL (7-18); eGFR NON AFRICAN AMERICAN > 90 mL/min (90-120)
[2017-09-27 05:30] LABS: POTASSIUM - SERUM 3.2 mmol/L (3.5-5.1)
[2017-09-27 09:30] VITALS: BP 129/84
[2017-09-27 12:47] VITALS: BP 119/71
[2017-09-27 16:54] VITALS: BP 138/74
[2017-09-27 20:30] VITALS: BP 124/75
[2017-09-28] VITALS: BP 108/64
[2017-09-28 04:00] VITALS: BP 124/74
[2017-09-28 07:31] LABS: BASOPHILS 0.4 % (0-2); EOSINOPHILS 2.3 % (0-7); HEMATOCRIT 30.3 % (42.0-54.0); IMMATURE GRANULOCYTES 1.3 % (0-5); LYMPHOCYTES 21.3 % (15-50); MCH 22.4 pg (26.0-34.0); MCHC 29.7 g/dL (31.0-37.0); MCV 75.4 fL (80.0-100.0); MEAN PLATELET VOLUME 9.6 fL (7.4-10.4); MONOCYTES 11.5 % (2-11); NEUTROPHILS 63.2 % (40-80); PLATELET COUNT 253 10x3/uL (130-400); RBC 4.02 10x6/uL (4.20-6.10); RDW 18.8 % (11.5-14.5); WBC 9.8 10x3/uL (4.8-10.8)
[2017-09-28 07:42] LABS: CALC OSMOLALITY 278 mosm/kg (275-300); CALCIUM 8.7 mg/dL (8.5-10.1); CARBON DIOXIDE 33.5 mmol/L (21.0-32.0); CHLORIDE - SERUM 102 mmol/L (98-107); CREATININE - SERUM 0.8 mg/dL (0.6-1.3); GLUCOSE 90 mg/dL (74-106); POTASSIUM - SERUM 3.4 mmol/L (3.5-5.1); SODIUM 141 mmol/L (136-145); UREA NITROGEN 8 mg/dL (7-18); eGFR NON AFRICAN AMERICAN > 90 mL/min (90-120)
[2017-09-28 08:24] VITALS: BP 125/76
[2017-09-28 12:50] VITALS: BP 125/71
[2017-09-28 16:30] VITALS: BP 133/84
[2017-09-28 20:30] VITALS: BP 125/62
[2017-09-29 04:30] VITALS: BP 115/70
[2017-09-29 05:26] LABS: BASOPHILS 0.4 % (0-2); EOSINOPHILS 1.8 % (0-7); HEMATOCRIT 30.7 % (42.0-54.0); IMMATURE GRANULOCYTES 1.5 % (0-5); LYMPHOCYTES 19.9 % (15-50); MCH 22.2 pg (26.0-34.0); MCHC 29.3 g/dL (31.0-37.0); MCV 75.6 fL (80.0-100.0); MEAN PLATELET VOLUME 9.8 fL (7.4-10.4); MONOCYTES 10.2 % (2-11); NEUTROPHILS 66.2 % (40-80); PLATELET COUNT 288 10x3/uL (130-400); RBC 4.06 10x6/uL (4.20-6.10); RDW 18.6 % (11.5-14.5); WBC 9.9 10x3/uL (4.8-10.8)
[2017-09-29 05:48] LABS: CALC OSMOLALITY 276 mosm/kg (275-300); CALCIUM 8.6 mg/dL (8.5-10.1); CHLORIDE - SERUM 102 mmol/L (98-107); CREATININE - SERUM 0.8 mg/dL (0.6-1.3); GLUCOSE 89 mg/dL (74-106); POTASSIUM - SERUM 3.5 mmol/L (3.5-5.1); SODIUM 140 mmol/L (136-145); eGFR NON AFRICAN AMERICAN > 90 mL/min (90-120)
[2017-09-29 05:51] LABS: UREA NITROGEN 11 mg/dL (7-18)
[2017-09-29 08:53] VITALS: BP 130/86
[2017-09-29] MEDS ORDERED: PREDNISONE20 MG PO (10:21)
[2017-09-29] MEDS ORDERED: PREDNISONE10 MG PO (10:22)
== END 2017-09-29 19:08 | disposition home health service (06) | DRG 870 ==
LOC: D.ER 00:49 → D.ICU 04:49 → D.M2 04:49 → D.ICU 04:49 → D.EDHOLD 04:49 → D.ICU 06:57 → D.M2 09-23 16:37
PROVIDERS: Family Medicine; Internal Medicine Nephrology; Internal Medicine Pulmonary Disease
PROC: 5A1955Z Respiratory Ventilation, Greater than 96 Consecutive Hours (ICD-10-PCS; principal; 2017-09-11)
PROC: 0BH17EZ Insertion of Endotracheal Airway into Trachea, Via Natural or Artificial Opening (ICD-10-PCS; 2017-09-11)
PROC: 05H533Z Insertion of Infusion Device into Right Subclavian Vein, Percutaneous Approach (ICD-10-PCS; 2017-09-15)
PROC: 5A09357 Assistance with Respiratory Ventilation, Less than 24 Consecutive Hours, Continuous Positive Airway Pressure (ICD-10-PCS; 2017-09-18)
DX: A41.9 Sepsis, unspecified organism (principal); R65.21 Severe sepsis with septic shock; J96.22 Acute and chronic respiratory failure with hypercapnia; N17.0 Acute kidney failure with tubular necrosis; R40.2312 Coma scale, best motor response, none, at arrival to emergency department; R40.2112 Coma scale, eyes open, never, at arrival to emergency department; R40.2212 Coma scale, best verbal response, none, at arrival to emergency department; J96.21 Acute and chronic respiratory failure with hypoxia; J69.0 Pneumonitis due to inhalation of food and vomit; J44.1 Chronic obstructive pulmonary disease with (acute) exacerbation; E87.0 Hyperosmolality and hypernatremia; E87.2 Acidosis; J98.11 Atelectasis; F10.129 Alcohol abuse with intoxication, unspecified; Z91.14 Patient's other noncompliance with medication regimen; D50.9 Iron deficiency anemia, unspecified; E87.6 Hypokalemia; E74.19 Other disorders of fructose metabolism; R60.0 Localized edema; R53.1 Weakness; E83.39 Other disorders of phosphorus metabolism; E83.42 Hypomagnesemia; F41.8 Other specified anxiety disorders; F32.9 Major depressive disorder, single episode, unspecified; S09.92XA Unspecified injury of nose, initial encounter; W19.XXXA Unspecified fall, initial encounter; M53.3 Sacrococcygeal disorders, not elsewhere classified; W06.XXXA Fall from bed, initial encounter; Y92.230 Patient room in hospital as the place of occurrence of the external cause

== ENCOUNTER 2017-12-28 15:27 | Inpatient (IN) | payer MEDICAID ==
[~2017-12-28] VITALS: Ht 182.9 cm; Wt 83.1 kg
[2017-12-28] VITALS (10 sets, daily range): BP systolic 115–138; BP diastolic 61–91
--- NOTE | ~2017-12-28 | CN ---
PATIENT NAME:JOSEPH MEJIA MEDICAL RECORD: [id number] : 59 LOCATION:D. D.2113 ADMIT DATE: 12/28/17 ACCOUNT: [id number] CONSULTING PHYSICIAN: BRYON INMAN MD REFERRING PHYSICIAN: MAGDA CURRY MD DATE OF CONSULTATION: 12/29/2017 CONSULT REQUESTING PHYSICIAN: Magda Curry MD REASON FOR CONSULTATION: Alcohol intoxication, acute exacerbation of COPD. HISTORY OF PRESENT ILLNESS: Mr. Mejia is a 62-year-old gentleman who has a history of alpha-1 antitrypsin deficiency, brought into the ER after a fall. He was found out his alcohol level was 77 and he was also in respiratory distress. The patient was put on BiPAP and he improved significantly and now he is awake and alert. He is feeling weak, but there is no shortness of breath, no fever and chill. No significant cough or sputum production. REVIEW OF SYSTEMS: As in history of present illness. PAST MEDICAL HISTORY: 1. Alpha-1 antitrypsin deficiency, on weekly IV Prolastin. 2. Severe chronic obstructive pulmonary disease. 3. Chronic hypoxic respiratory failure. 4. History of alcoholism. 5. History of respiratory failure and mechanical ventilation in the past. 6. Bipolar disorder. 7. Depression. PAST SURGICAL HISTORY: 1. He has a colon surgery. He has a history of colostomy and reversal. 2. Herniorrhaphy. ALLERGIES: HE IS ALLERGIC TO MORPHINE. MEDICATIONS: OfferIQ is reviewed. PERSONAL AND SOCIAL HISTORY: The patient is a nonsmoker, but he is drinking on a regular basis. FAMILY HISTORY: Noncontributory. PHYSICAL EXAMINATION: GENERAL: Now, the patient is lying comfortably in bed. He is not in acute distress. VITAL SIGNS: The blood pressure is 112/75, pulse is 84, respirations 13, temperature is 98.2, SpO2 is 98% on 2 liters nasal cannula. HEENT: Conjunctivae are pink. Sclerae are not icteric. NECK: Supple, no JVD. CHEST: The chest excursion is minimal on both sides. There is wheezing on forceful expiration. No crackles. HEART: Rhythm regular, normal sound, no murmur. ABDOMEN: The abdomen is soft, bowel sounds present. No hepatosplenomegaly. RECTAL: Deferred. EXTREMITIES: No cyanosis, no clubbing, no pedal edema. CONSULT REPORT [id number] JOSEPH MEJIA CENTRAL NERVOUS SYSTEM: Now, the patient is awake and alert. There is no obvious cranial nerve abnormality. LABORATORY DATA: CBC: The WBC is 4.6, hemoglobin 9.7, hematocrit 36, platelet count is 144. Chemistry: Sodium 144, potassium 3.9, bicarbonate is 45.5. ABG: The pH is 7.31, pCO2 is 84, pO2 is 93, bicarbonate is 42.7. IMPRESSION: 1. Eplul-tz-glyznxc hypoxic hypercapnic respiratory failure. 2. Respiratory acidosis secondary to above. 3. Acute exacerbation of severe chronic obstructive pulmonary disease. 4. Alcohol intoxication. 5. Alpha-1 antitrypsin deficiency. 6. Hyperammonemia. RECOMMENDATION: 1. Albuterol, ipratropium nebulizer. 2. Brovana, budesonide nebulizer. 3. BiPAP as required oxygen to keep the SpO2 above 90%. 4. Start on doxycycline. 5. Lactulose p.o. Follow up ammonia level. 6. Start on Diamox. 7. Follow up labs and chest radiograph. Dr. Curry, thank you for involving me in the care of Mr. Mejia. Critical care time is 50 minutes. TRANSINT:[id number] Voice Confirmation ID: [id number] DOCUMENT ID: [id number] BRYON INMAN MD at 1234 CC: [id number] DICTATION DATE: 12/29/17 1450 CATALYTIC CONVERTER OPERATOR HELPER: 12/30/17 0055 DIS IN 01/08/18 [facility] [address] [place] [address]
--- NOTE | ~2017-12-28 | MORECARE ---
CASE MANAGEMENT DISCHARGE SUMMARY PATIENT: JOSEPH MEJIA UNIT: [id number] ADM DATE: 12/28/17 AGE: 62 : 59 SEX: M ROOM/BED: D.4343 AUTHOR: LAYLA BOLANOS PHYSICIAN: REFERRING PHYSICIAN: MAGDA CURRY MD DATE OF SERVICE: 01/08/18 Discharge Plan Patient Name: JOSEPH MEJIA Facility: [facility]:[place] : 1955 Planned Disposition: Home Anticipated Discharge Date: 01/08/18 Discharge Date: Expected LOS: 11 Initial Reviewer: [email or web address] Initial Review Date: 01/01/2018 Generated: 01/08/18 3:04 pm Comments DCP- Discharge Planning Updated by [email or web address]: Guru Aburto on 01/08/18 12:[address] Patient Name: JOSEPH MEJIA Encounter No: [id number] : 1955 Primary Insurance: MEDICAID [place] Anticipated DC Date: 01-03-2018 Planned Disposition: Home DCP follow-up note: CM RECEIVED DISCHARGE ORDER, MET WITH PT IN ROOM TO DISCUSS DISCHARGE PLANNING AND NEEDS. CM DISCUSSED AVAILABILITY OF HOME HEALTH AND MEDICAL EQUIPMENT. PT DENIES DISCHARGE NEEDS, REPORTS JONAS IS PICKING HIM UP, WILL BRING PORTABLE OXYGEN AND ASKED CM TO HELP FIND HIS CELL PHONE. CM FOUND CELL PHONE IN PLASTIC BAG ON CHAIR AND PROVIDED TO PT. PT THANKED CM AND DENIED FURHTER NEEDS. PLAN MANAGER NURSE NOTIFIED. Guru Aburto, CASE MANAGEMENT DCP- Discharge Planning Updated by [id number]: Guru Aburto on 01/01/18 3:[address] Patient Name: JOSEPH MEJIA Admission Status: ER Accout number: [id number] Admission Date: 12-28-2017 : 1955 Admission Diagnosis:SHORTNESS OF BREATH Attending: ANTOINETTE, Current LOS: 4 Anticipated DC Date: 01-03-2018 Planned Disposition: Home Primary Insurance: MEDICAID [place] Discharge Planning Comments: CM RECEIVED ORDER FOR INPATIENT REHAB PRESCREENING, MET WITH PT IN ROOM TO DISCUSS REHAB OPTIONS, HOME HEALTH AND MEDICAL EQUIPMENT NEEDS. PT REPORTS LIVING AT HOME WITH COUSIN AND A ROOM MATE. PT HAS PERSONAL CARE THAT ASSISTS WTIH BATHING AT HOME. PT HAS [facility] 1 NURSE FOR HOME INFUSIONS ON WEDNESDAYS AT HOME. PT HAS NEBULIZER AND HOME/ PORTABLE OXYGEN FROM UNKNOWN PROVIDER. PT HAS NOT SEEN HIS PRIMARY CARE DOCTOR HE THINKS IN OVER ONE MONTH. PT REPORTS KNOWING THAT HE IS NOT ELIGIBLE FOR REAL ESTATE PHOTOGRAPHER CARE MEDICAID FOR LONG TERM CARE AND PT HAS NO ACUTE DAYS LEFT WITH MEDICAID FOR INPATIENT REHAB POSSIBILITY. PT WOULD HAVE GREAT DIFFICULTY IN GETTING TO AND FROM OUTPATIENT THERAPY. PT WOULD CONSIDER HOME HEALTH AND WILL DISCUSS THIS WITH JONAS AND NOTIFY CM IF HE WANTS IT AND OF CHOICE OF PROVIDER. CM EXPLAINED THAT PT'S PRIMARY CARE DOCTOR WOULD HAVE TO BE WILLING TO SIGN HOME HEALTH ORDERS AND IF PT DESIRES, CM WOULD ASK HOME HEALTH TO CONTACT DR. CALDERON AT [facility] TO SEE IF HE WOULD FOLLOW THE ORDERS. PT REPORTS HAVING NO ISSUES WITH GETTING UP AND AROUND THE HOUSE, JUST GETTING TO LONGER DISTANCES OUTSIDE THE HOME DUE TO SHORTNESS OF BREATH. PT WILL LET CM KNOW. CHOICE LETTER LEFT WITH PT. PT PLANS TO DISCHARGE HOME WITH COUSIN, IS THINKING ABOUT HOME HEALTH FOR THERAPY AT HOME; PT'S PRIMARY CARE, DR. CALDERON AT [facility], WOULD HAVE TO BE WILLING TO FOLLOW ORDERS. CM TO TRY TO ARRANGE HOME HEALTH WITH PHYSICIAN AGREEMENT AND ORDERS. Real Estate Accountant: Guru Aburto DCPIA - Discharge Planning Initial Assessment Updated by [id number]: Guru Aburto on 01/01/18 4:37 pm * Is the patient Alert and Oriented? Yes * How many steps to enter\exit or inside your home? NONE * PCP DR. CALDERON (TOOK OVER FOR DR. OWENS) * Pharmacy [facility] * Preadmission Environment Home with Family * ADLs Partial Dependent * Partial ADLs (Assistance needed) Bathing * Equipment Nebulizer Other Oxygen * Other Equipment LEG BRACE * List name and contact numbers for known caregivers / representatives who currently or will assist patient after discharge: JONAS JARA, COUSINS SPOUSE, * Verbal permission to speak to the caregivers and representatives has been obtained from the patient. N/A * Community resources currently utilized Other Private Duty Care * Please name any agencies selected above. [facility] HOME INFUSION EVERY SATURDAY PERSONAL CARE 2 DAYS PER WEEK, 1 HOUR PER DAY, [facility]. * Additional services required to return to the preadmission environment? No * Can the patient safely return to the preadmission environment? Yes * Has this patient been hospitalized within the prior 30 days at any hospital? No Last DP export: 01/01/18 3:45 Patient Name: JOSEPH MEJIA Page [id number] at 1404 All edits/amendments must be made on the electronic document DICTATION DATE: 01/08/181402 HALL WORKER: DOTTIE 01/08/181402 RPT#: [id number] DC DATE: STATUS: ADM IN [facility] [address] [place] [address] END OF REPORT
--- NOTE | ~2017-12-28 | MORECARE ---
CASE MANAGEMENT DISCHARGE SUMMARY PATIENT: JOSEPH MEJIA UNIT: [id number] ADM DATE: 12/28/17 AGE: 62 : 59 SEX: M ROOM/BED: D.0353 AUTHOR: LUIS MIGUEL,DOC PHYSICIAN: REFERRING PHYSICIAN: MAGDA CURRY MD DATE OF SERVICE: 01/01/18 Discharge Plan Patient Name: JOSEPH MEIJA Facility: [facility]:[place] : 1955 Planned Disposition: Home Anticipated Discharge Date: 01/03/18 Discharge Date: Expected LOS: 6 Initial Reviewer: [email or web address] Initial Review Date: 01/01/2018 Generated: 01/01/18 5:45 pm Comments DCP- Discharge Planning Updated by [email or web address]: Guru Aburto on 01/01/18 3:[address] Patient Name: JOSEPH MEJIA Admission Status: ER Accout number: [id number] Admission Date: 12-28-2017 : 1955 Admission Diagnosis:SHORTNESS OF BREATH Attending: ANTOINETTE, Current LOS: 4 Anticipated DC Date: 01-03-2018 Planned Disposition: Home Primary Insurance: MEDICAID [place] Discharge Planning Comments: CM RECEIVED ORDER FOR INPATIENT REHAB PRESCREENING, MET WITH PT IN ROOM TO DISCUSS REHAB OPTIONS, HOME HEALTH AND MEDICAL EQUIPMENT NEEDS. PT REPORTS LIVING AT HOME WITH COUSIN AND A ROOM MATE. PT HAS PERSONAL CARE THAT ASSISTS WTIH BATHING AT HOME. PT HAS [facility] 1 NURSE FOR HOME INFUSIONS ON WEDNESDAYS AT HOME. PT HAS NEBULIZER AND HOME/ PORTABLE OXYGEN FROM UNKNOWN PROVIDER. PT HAS NOT SEEN HIS PRIMARY CARE DOCTOR HE THINKS IN OVER ONE MONTH. PT REPORTS KNOWING THAT HE IS NOT ELIGIBLE FOR SENIOR CARE CARE MEDICAID FOR SNF CARE AND PT HAS NO ACUTE DAYS LEFT WITH MEDICAID FOR INPATIENT REHAB POSSIBILITY. PT WOULD HAVE GREAT DIFFICULTY IN GETTING TO AND FROM OUTPATIENT THERAPY. PT WOULD CONSIDER HOME HEALTH AND WILL DISCUSS THIS WITH JONAS AND NOTIFY CM IF HE WANTS IT AND OF CHOICE OF PROVIDER. CM EXPLAINED THAT PT'S PRIMARY CARE DOCTOR WOULD HAVE TO BE WILLING TO SIGN HOME HEALTH ORDERS AND IF PT DESIRES, CM WOULD ASK HOME HEALTH TO CONTACT DR. CALDERON AT [facility] TO SEE IF HE WOULD FOLLOW THE ORDERS. PT REPORTS HAVING NO ISSUES WITH GETTING UP AND AROUND THE HOUSE, JUST GETTING TO LONGER DISTANCES OUTSIDE THE HOME DUE TO SHORTNESS OF BREATH. PT WILL LET CM KNOW. CHOICE LETTER LEFT WITH PT. PT PLANS TO DISCHARGE HOME WITH COUSIN, IS THINKING ABOUT HOME HEALTH FOR THERAPY AT HOME; PT'S PRIMARY CARE, DR. CALDERON AT [facility], WOULD HAVE TO BE WILLING TO FOLLOW ORDERS. CM TO TRY TO ARRANGE HOME HEALTH WITH PHYSICIAN AGREEMENT AND ORDERS. Home Demonstration Agent: Guru Aburto DCPIA - Discharge Planning Initial Assessment Updated by [email or web address]: uGru Aburto on 01/01/18 4:37 pm * Is the patient Alert and Oriented? Yes * How many steps to enter\exit or inside your home? NONE * PCP DR. CALDERON (TOOK OVER FOR DR. OWENS) * Pharmacy [facility] * Preadmission Environment Home with Family * ADLs Partial Dependent * Partial ADLs (Assistance needed) Bathing * Equipment Nebulizer Other Oxygen * Other Equipment LEG BRACE * List name and contact numbers for known caregivers / representatives who currently or will assist patient after discharge: JONAS JARA, COUSINS SPOUSE, * Verbal permission to speak to the caregivers and representatives has been obtained from the patient. N/A * Community resources currently utilized Other Private Duty Care * Please name any agencies selected above. [facility] HOME INFUSION EVERY SATURDAY PERSONAL CARE 2 DAYS PER WEEK, 1 HOUR PER DAY, [facility] [place]. * Additional services required to return to the preadmission environment? No * Can the patient safely return to the preadmission environment? Yes * Has this patient been hospitalized within the prior 30 days at any hospital? No Last DP export: 01/01/18 3:32 Patient Name: JOSEPH MEJIA Page [phone] at 1645 All edits/amendments must be made on the electronic document DICTATION DATE: 01/01/181644 AIR COMMODORE: DOTTIE 01/01/181644 RPT#: [id number] DC DATE: STATUS: ADM IN [facility] [address] [place] [address] END OF REPORT
--- NOTE | ~2017-12-28 | MORECARE ---
CASE MANAGEMENT DISCHARGE SUMMARY PATIENT: JOSEPH MEJIA UNIT: [id number] ADM DATE: 12/28/17 AGE: 62 : 59 SEX: M ROOM/BED: D.2113 AUTHOR: LAYLA BOLANOS PHYSICIAN: REFERRING PHYSICIAN: MAGDA CURRY MD DATE OF SERVICE: 01/01/18 Discharge Plan Patient Name: JOSEPH MEJIA [facility] [facility] 1955 Planned Disposition: Home Anticipated Discharge Date: 01/03/18 Discharge Date: Expected LOS: 6 Initial Reviewer: [email or web address] Initial Review Date: 01/01/2018 Generated: 01/01/18 5:32 pm Patient Name: JOSEPH MEJIA Page [id number] at 1632 All edits/amendments must be made on the electronic document DICTATION DATE: 01/01/18 163 TREE INSPECTOR: DOTTIE 01/01/18 163 RPT#: [id number] DC DATE: STATUS: ADM IN [facility] [address] [place] [address] END OF REPORT
[2017-12-28 16:02] LABS: BASOPHILS 0.9 % (0-2); HEMATOCRIT 36.9 % (42.0-54.0); HEMOGLOBIN 10.1 g/dL (13.5-17.5); IMMATURE GRANULOCYTES 0.4 % (0-5); LYMPHOCYTES 17.1 % (15-50); MCH 20.2 pg (26.0-34.0); MCHC 27.4 g/dL (31.0-37.0); MCV 73.7 fL (80.0-100.0); MEAN PLATELET VOLUME 9.3 fL (7.4-10.4); MONOCYTES 8.6 % (2-11); RBC 5.01 10x6/uL (4.20-6.10); WBC 7.9 10x3/uL (4.8-10.8)
[2017-12-28 16:05] LABS: PLATELET COUNT 150 10x3/uL (130-400)
[2017-12-28 16:19] LABS: ALBUMIN 3.5 g/dL (3.4-5.0); ALKALINE PHOSPHATASE 83 U/L (46-116); ALT (SGPT) 22 U/L (10-68); BILIRUBIN - TOTAL 0.58 mg/dL (0.2-1.3); CALC OSMOLALITY 280 mosm/kg (275-300); CALCIUM 8.9 mg/dL (8.5-10.1); CHLORIDE - SERUM 96 mmol/L (98-107); CREATININE - SERUM 0.6 mg/dL (0.6-1.3); GLUCOSE 99 mg/dL (74-106); POTASSIUM - SERUM 3.5 mmol/L (3.5-5.1); PROTEIN - SERUM 7.3 g/dL (6.4-8.2); SODIUM 142 mmol/L (136-145); UREA NITROGEN 7 mg/dL (7-18); eGFR NON AFRICAN AMERICAN > 90 mL/min (90-120)
[2017-12-28 16:32] LABS: CKMB 3.9 U/L (0.0-3.6); CREATINE KINASE 89 UL (21-232); LIPASE 101 U/L (73-393); MAGNESIUM - SERUM 1.7 mg/dL (1.8-2.4); PRO BNP 94 pg/mL (0-125)
[2017-12-28 16:33] LABS: TROPONIN-I < 0.017 ng/mL (0.000-0.060)
[2017-12-28 18:28] LABS: UDS - AMPHET NEGATIVE QUAL (NEGATIVE); UDS - BARB NEGATIVE QUAL (NEGATIVE); UDS - BENZO POSITIVE QUAL (NEGATIVE); UDS - COCAINE NEGATIVE QUAL (NEGATIVE); UDS - OPIATE NEGATIVE QUAL (NEGATIVE); UDS - PCP NEGATIVE QUAL (NEGATIVE); UDS - THC NEGATIVE QUAL (NEGATIVE)
[2017-12-28 18:34] LABS: APPEARANCE CLEAR (CLEAR); BILIRUBIN NEGATIVE (NEGATIVE); COLOR YELLOW (YELLOW); GLUCOSE NEGATIVE (NEGATIVE); KETONE SMALL mg/dL (NEGATIVE); NITRITE NEGATIVE (NEGATIVE); PROTEIN NEGATIVE (NEGATIVE); SPECIFIC GRAVITY 1.015 (1.005-1.020); UROBILINOGEN NORMAL (NORMAL)
[2017-12-28 18:35] LABS: BACTERIA FEW /hpf (NONE SEEN); RED CELLS - URINE RARE /hpf (0-5); WHITE CELLS - URINE RARE /hpf (0-5)
[2017-12-29] VITALS (25 sets, daily range): BP systolic 104–149; BP diastolic 64–101; BMI 24.3
[2017-12-29 04:28] LABS: BASOPHILS 0.2 % (0-2); EOSINOPHILS 0 % (0-7); HEMOGLOBIN 9.7 g/dL (13.5-17.5); IMMATURE GRANULOCYTES 0.9 % (0-5); LYMPHOCYTES 10.6 % (15-50); MCHC 26.9 g/dL (31.0-37.0); MCV 74.1 fL (80.0-100.0); MEAN PLATELET VOLUME 9.6 fL (7.4-10.4); MONOCYTES 2.2 % (2-11); NEUTROPHILS 86.1 % (40-80); PLATELET COUNT 144 10x3/uL (130-400); RBC 4.86 10x6/uL (4.20-6.10)
[2017-12-29 04:29] LABS: WBC 4.6 10x3/uL (4.8-10.8)
[2017-12-29 04:48] LABS: ALBUMIN 3.2 g/dL (3.4-5.0); ALKALINE PHOSPHATASE 76 U/L (46-116); ALT (SGPT) 19 U/L (10-68); BILIRUBIN - TOTAL 0.53 mg/dL (0.2-1.3); C-REACTIVE PROTEIN 1.3 mg/dL (0.0-0.9); CALC OSMOLALITY 288 mosm/kg (275-300); CALCIUM 8.5 mg/dL (8.5-10.1); CHLORIDE - SERUM 98 mmol/L (98-107); CREATININE - SERUM 0.7 mg/dL (0.6-1.3); GLUCOSE 146 mg/dL (74-106); POTASSIUM - SERUM 3.9 mmol/L (3.5-5.1); PROTEIN - SERUM 7.2 g/dL (6.4-8.2); SODIUM 144 mmol/L (136-145); UREA NITROGEN 10 mg/dL (7-18); eGFR NON AFRICAN AMERICAN > 90 mL/min (90-120)
[2017-12-29 04:49] LABS: CARBON DIOXIDE 45.5 mmol/L (21.0-32.0)
[2017-12-29 04:50] LABS: INR 1.11 (0.85-1.17); PROTIME 13.9 SECONDS (11.6-15.0)
[2017-12-30] VITALS (20 sets, daily range): BP systolic 102–129; BP diastolic 63–86; Ht 182.9 cm; Wt 83.1 kg
[2017-12-30 04:53] LABS: BASOPHILS 0.1 % (0-2); EOSINOPHILS 0 % (0-7); HEMATOCRIT 33.5 % (42.0-54.0); HEMOGLOBIN 8.7 g/dL (13.5-17.5); IMMATURE GRANULOCYTES 0.3 % (0-5); LYMPHOCYTES 6.7 % (15-50); MEAN PLATELET VOLUME 9.8 fL (7.4-10.4); MONOCYTES 3.1 % (2-11); NEUTROPHILS 89.8 % (40-80); PLATELET COUNT 142 10x3/uL (130-400); RBC 4.37 10x6/uL (4.20-6.10)
[2017-12-30 04:57] LABS: WBC 6.7 10x3/uL (4.8-10.8)
[2017-12-30 04:58] LABS: MCH 19.9 pg (26.0-34.0); MCV 76.7 fL (80.0-100.0)
[2017-12-30 05:16] LABS: ALKALINE PHOSPHATASE 78 U/L (46-116); ALT (SGPT) 18 U/L (10-68); BILIRUBIN - TOTAL 0.32 mg/dL (0.2-1.3); CALC OSMOLALITY 290 mosm/kg (275-300); CALCIUM 7.8 mg/dL (8.5-10.1); CARBON DIOXIDE 38.2 mmol/L (21.0-32.0); CHLORIDE - SERUM 102 mmol/L (98-107); CREATININE - SERUM 0.8 mg/dL (0.6-1.3); POTASSIUM - SERUM 3.8 mmol/L (3.5-5.1); PROTEIN - SERUM 6.4 g/dL (6.4-8.2); SODIUM 142 mmol/L (136-145); UREA NITROGEN 10 mg/dL (7-18); eGFR NON AFRICAN AMERICAN > 90 mL/min (90-120)
[2017-12-30 05:17] LABS: GLUCOSE 253 mg/dL (74-106)
[2017-12-30 05:38] LABS: INR 1.16 (0.85-1.17); PROTIME 14.4 SECONDS (11.6-15.0)
[2017-12-30] MEDS ORDERED: PREPARATION H O57 GM TOPICAL (21:15)
[2017-12-31 03:00] VITALS: BP 113/77
[2017-12-31 05:36] LABS: BASOPHILS 0.2 % (0-2); EOSINOPHILS 0.2 % (0-7); HEMATOCRIT 36.3 % (42.0-54.0); HEMOGLOBIN 9.6 g/dL (13.5-17.5); IMMATURE GRANULOCYTES 0.4 % (0-5); LYMPHOCYTES 12.5 % (15-50); MCHC 26.4 g/dL (31.0-37.0); MCV 75.8 fL (80.0-100.0); MEAN PLATELET VOLUME 9.5 fL (7.4-10.4); MONOCYTES 10.4 % (2-11); NEUTROPHILS 76.3 % (40-80); PLATELET COUNT 148 10x3/uL (130-400); RBC 4.79 10x6/uL (4.20-6.10); RDW 17.4 % (11.5-14.5)
[2017-12-31 05:39] LABS: WBC 9.9 10x3/uL (4.8-10.8)
[2017-12-31 05:48] LABS: CALC OSMOLALITY 290 mosm/kg (275-300); CALCIUM 8.1 mg/dL (8.5-10.1); CARBON DIOXIDE 33.8 mmol/L (21.0-32.0); CHLORIDE - SERUM 107 mmol/L (98-107); CREATININE - SERUM 0.8 mg/dL (0.6-1.3); POTASSIUM - SERUM 3.8 mmol/L (3.5-5.1); SODIUM 145 mmol/L (136-145); UREA NITROGEN 12 mg/dL (7-18); eGFR NON AFRICAN AMERICAN > 90 mL/min (90-120)
[2017-12-31 05:53] LABS: GLUCOSE 128 mg/dL (74-106)
[2017-12-31 07:00] VITALS: BP 123/87
[2017-12-31 09:00] VITALS: BP 118/82
[2017-12-31 11:00] VITALS: BP 117/83
[2017-12-31 15:00] VITALS: BP 123/86
[2018-01-01] VITALS: BP 154/95
[2018-01-01 04:00] VITALS: BP 138/87
[2018-01-01 06:30] LABS: CALC OSMOLALITY 287 mosm/kg (275-300); CALCIUM 8.1 mg/dL (8.5-10.1); CARBON DIOXIDE 31.6 mmol/L (21.0-32.0); CHLORIDE - SERUM 105 mmol/L (98-107); CREATININE - SERUM 0.6 mg/dL (0.6-1.3); GLUCOSE 96 mg/dL (74-106); POTASSIUM - SERUM 3.4 mmol/L (3.5-5.1); SODIUM 145 mmol/L (136-145); UREA NITROGEN 10 mg/dL (7-18); eGFR NON AFRICAN AMERICAN > 90 mL/min (90-120)
[2018-01-01 08:01] LABS: BASOPHILS 0.6 % (0-2); EOSINOPHILS 2.2 % (0-7); HEMATOCRIT 35.4 % (42.0-54.0); HEMOGLOBIN 9.9 g/dL (13.5-17.5); IMMATURE GRANULOCYTES 0.2 % (0-5); LYMPHOCYTES 21.2 % (15-50); MCV 71.5 fL (80.0-100.0); MEAN PLATELET VOLUME 9.5 fL (7.4-10.4); MONOCYTES 12.8 % (2-11); PLATELET COUNT 134 10x3/uL (130-400); RBC 4.95 10x6/uL (4.20-6.10); RDW 17.8 % (11.5-14.5); WBC 8.8 10x3/uL (4.8-10.8)
[2018-01-01 08:38] VITALS: BP 138/92
[2018-01-01 12:01] VITALS: BP 141/87
[2018-01-01 16:31] VITALS: BP 139/91
[2018-01-01 20:00] VITALS: BP 147/98
[2018-01-02] VITALS: BP 136/89
[2018-01-02 04:00] VITALS: BP 145/93
[2018-01-02 06:40] LABS: BASOPHILS 0.5 % (0-2); EOSINOPHILS 2.3 % (0-7); HEMATOCRIT 34.6 % (42.0-54.0); HEMOGLOBIN 9.6 g/dL (13.5-17.5); IMMATURE GRANULOCYTES 0.4 % (0-5); LYMPHOCYTES 22.2 % (15-50); MCHC 27.7 g/dL (31.0-37.0); MCV 71.9 fL (80.0-100.0); MONOCYTES 12.4 % (2-11); NEUTROPHILS 62.2 % (40-80); PLATELET COUNT 127 10x3/uL (130-400); RBC 4.81 10x6/uL (4.20-6.10); RDW 18.1 % (11.5-14.5); WBC 7.4 10x3/uL (4.8-10.8)
[2018-01-02 06:43] LABS: CALC OSMOLALITY 283 mosm/kg (275-300); CALCIUM 8.1 mg/dL (8.5-10.1); CHLORIDE - SERUM 104 mmol/L (98-107); CREATININE - SERUM 0.6 mg/dL (0.6-1.3); GLUCOSE 89 mg/dL (74-106); POTASSIUM - SERUM 3.8 mmol/L (3.5-5.1); SODIUM 144 mmol/L (136-145); UREA NITROGEN 8 mg/dL (7-18); eGFR NON AFRICAN AMERICAN > 90 mL/min (90-120)
[2018-01-02 08:06] VITALS: BP 146/89
[2018-01-02 11:14] VITALS: BP 131/73
[2018-01-02 15:02] VITALS: BP 127/82
[2018-01-02 20:00] VITALS: BP 138/71
[2018-01-03 06:53] LABS: HEMATOCRIT 33.3 % (42.0-54.0); HEMOGLOBIN 9.4 g/dL (13.5-17.5); LYMPHOCYTES 27.1 % (15-50); MCHC 28.2 g/dL (31.0-37.0); MCV 70.9 fL (80.0-100.0); MEAN PLATELET VOLUME 8.8 fL (7.4-10.4); NEUTROPHILS 59.7 % (40-80); PLATELET COUNT 123 10x3/uL (130-400); RDW 17.9 % (11.5-14.5); WBC 6.6 10x3/uL (4.8-10.8)
[2018-01-03 06:57] LABS: CALC OSMOLALITY 285 mosm/kg (275-300); CALCIUM 8.3 mg/dL (8.5-10.1); CARBON DIOXIDE 36.2 mmol/L (21.0-32.0); CHLORIDE - SERUM 102 mmol/L (98-107); CREATININE - SERUM 0.6 mg/dL (0.6-1.3); GLUCOSE 106 mg/dL (74-106); POTASSIUM - SERUM 3.1 mmol/L (3.5-5.1); SODIUM 144 mmol/L (136-145); UREA NITROGEN 9 mg/dL (7-18); eGFR NON AFRICAN AMERICAN > 90 mL/min (90-120)
[2018-01-03 08:20] VITALS: BP 138/85
[2018-01-03 12:07] VITALS: BP 128/80
[2018-01-03 14:14] VITALS: BP 127/83
[2018-01-03 20:00] VITALS: BP 118/74
[2018-01-04 00:10] VITALS: BP 127/81
[2018-01-04 04:00] VITALS: BP 130/80
[2018-01-04 05:58] LABS: BASOPHILS 0.4 % (0-2); EOSINOPHILS 3.5 % (0-7); HEMATOCRIT 30.8 % (42.0-54.0); HEMOGLOBIN 8.7 g/dL (13.5-17.5); IMMATURE GRANULOCYTES 0.4 % (0-5); LYMPHOCYTES 23.2 % (15-50); MCHC 28.2 g/dL (31.0-37.0); MCV 70.3 fL (80.0-100.0); MONOCYTES 12.7 % (2-11); NEUTROPHILS 59.8 % (40-80); PLATELET COUNT 140 10x3/uL (130-400); RBC 4.38 10x6/uL (4.20-6.10); RDW 18.7 % (11.5-14.5); WBC 7.4 10x3/uL (4.8-10.8)
[2018-01-04 06:00] LABS: CALC OSMOLALITY 285 mosm/kg (275-300); CALCIUM 7.9 mg/dL (8.5-10.1); CARBON DIOXIDE 36.5 mmol/L (21.0-32.0); CHLORIDE - SERUM 105 mmol/L (98-107); CREATININE - SERUM 0.6 mg/dL (0.6-1.3); GLUCOSE 105 mg/dL (74-106); POTASSIUM - SERUM 3.4 mmol/L (3.5-5.1); SODIUM 144 mmol/L (136-145); UREA NITROGEN 10 mg/dL (7-18); eGFR NON AFRICAN AMERICAN > 90 mL/min (90-120)
[2018-01-04 06:03] LABS: MCH 19.9 pg (26.0-34.0)
[2018-01-04 07:40] VITALS: BP 136/94
[2018-01-04 10:40] VITALS: BP 144/77
[2018-01-04 14:34] VITALS: BP 122/72
[2018-01-04 20:00] VITALS: BP 121/80
[2018-01-05] VITALS (7 sets, daily range): BP systolic 126–145; BP diastolic 58–90
[2018-01-05 05:16] LABS: BASOPHILS 0.3 % (0-2); HEMATOCRIT 30.8 % (42.0-54.0); HEMOGLOBIN 8.6 g/dL (13.5-17.5); IMMATURE GRANULOCYTES 0.3 % (0-5); LYMPHOCYTES 19.5 % (15-50); MCHC 27.9 g/dL (31.0-37.0); MCV 70.8 fL (80.0-100.0); MONOCYTES 13.7 % (2-11); NEUTROPHILS 63.2 % (40-80); PLATELET COUNT 143 10x3/uL (130-400); RBC 4.35 10x6/uL (4.20-6.10); RDW 18.8 % (11.5-14.5); WBC 6.6 10x3/uL (4.8-10.8)
[2018-01-05 05:26] LABS: MCH 19.8 pg (26.0-34.0)
[2018-01-05 05:31] LABS: CALC OSMOLALITY 279 mosm/kg (275-300); CALCIUM 8.3 mg/dL (8.5-10.1); CHLORIDE - SERUM 104 mmol/L (98-107); CREATININE - SERUM 0.5 mg/dL (0.6-1.3); GLUCOSE 105 mg/dL (74-106); POTASSIUM - SERUM 3.7 mmol/L (3.5-5.1); SODIUM 141 mmol/L (136-145); UREA NITROGEN 9 mg/dL (7-18); eGFR NON AFRICAN AMERICAN > 90 mL/min (90-120)
[2018-01-06] VITALS (9 sets, daily range): BP systolic 108–143; BP diastolic 70–95
[2018-01-06 04:59] LABS: BASOPHILS 0.3 % (0-2); EOSINOPHILS 3.6 % (0-7); HEMATOCRIT 32.7 % (42.0-54.0); HEMOGLOBIN 9.3 g/dL (13.5-17.5); IMMATURE GRANULOCYTES 0.4 % (0-5); LYMPHOCYTES 21.9 % (15-50); MCH 20.3 pg (26.0-34.0); MCHC 28.4 g/dL (31.0-37.0); MCV 71.2 fL (80.0-100.0); MONOCYTES 15.9 % (2-11); NEUTROPHILS 57.9 % (40-80); PLATELET COUNT 165 10x3/uL (130-400); RBC 4.59 10x6/uL (4.20-6.10); RDW 19.3 % (11.5-14.5); WBC 6.9 10x3/uL (4.8-10.8)
[2018-01-06 05:08] LABS: APTT 25.1 SECONDS (22.8-39.4); INR 1.05 (0.85-1.17); PROTIME 13.3 SECONDS (11.6-15.0)
[2018-01-06 05:13] LABS: CALC OSMOLALITY 282 mosm/kg (275-300); CALCIUM 8.3 mg/dL (8.5-10.1); CHLORIDE - SERUM 104 mmol/L (98-107); CREATININE - SERUM 0.6 mg/dL (0.6-1.3); GLUCOSE 99 mg/dL (74-106); LDH 175 U/L (85-227); POTASSIUM - SERUM 4.1 mmol/L (3.5-5.1); PROTEIN - SERUM 6.5 g/dL (6.4-8.2); SODIUM 142 mmol/L (136-145); eGFR NON AFRICAN AMERICAN > 90 mL/min (90-120)
[2018-01-06 05:16] LABS: UREA NITROGEN 12 mg/dL (7-18)
[2018-01-06 14:04] LABS: EOS BF 1 %; MACROPHAGES BF 16 %; MESOTHELIALS BF 3 %; NEUT - BF 10 %
[2018-01-07 01:25] VITALS: BP 114/79
[2018-01-07 05:03] VITALS: BP 130/71
[2018-01-07 05:56] LABS: CALC OSMOLALITY 279 mosm/kg (275-300); CALCIUM 8.4 mg/dL (8.5-10.1); CARBON DIOXIDE 35.1 mmol/L (21.0-32.0); CHLORIDE - SERUM 101 mmol/L (98-107); CREATININE - SERUM 0.6 mg/dL (0.6-1.3); GLUCOSE 103 mg/dL (74-106); POTASSIUM - SERUM 4.4 mmol/L (3.5-5.1); SODIUM 141 mmol/L (136-145); UREA NITROGEN 9 mg/dL (7-18); eGFR NON AFRICAN AMERICAN > 90 mL/min (90-120)
[2018-01-07 07:37] LABS: BASOPHILS 0.6 % (0-2); EOSINOPHILS 5.8 % (0-7); HEMATOCRIT 30.5 % (42.0-54.0); HEMOGLOBIN 8.5 g/dL (13.5-17.5); IMMATURE GRANULOCYTES 0.4 % (0-5); LYMPHOCYTES 21.7 % (15-50); MCHC 27.9 g/dL (31.0-37.0); MCV 70.9 fL (80.0-100.0); MONOCYTES 17.1 % (2-11); NEUTROPHILS 54.4 % (40-80); PLATELET COUNT 159 10x3/uL (130-400); RDW 19.1 % (11.5-14.5); WBC 6.9 10x3/uL (4.8-10.8)
[2018-01-07 07:39] LABS: MCH 19.8 pg (26.0-34.0)
[2018-01-07 09:02] VITALS: BP 136/83
[2018-01-07 11:20] VITALS: BP 132/75
[2018-01-07 15:23] LABS: ACID FAST SMEAR Negative (()); AFB SPECIMEN PROCESSING Concentration (())
[2018-01-07 15:45] VITALS: BP 119/73
[2018-01-07 20:26] VITALS: BP 143/79
[2018-01-08 01:01] VITALS: BP 121/67
[2018-01-08 04:48] VITALS: BP 115/71
[2018-01-08 05:43] LABS: BASOPHILS 0.4 % (0-2); EOSINOPHILS 3.8 % (0-7); HEMATOCRIT 30.8 % (42.0-54.0); HEMOGLOBIN 8.6 g/dL (13.5-17.5); IMMATURE GRANULOCYTES 0.4 % (0-5); LYMPHOCYTES 20.7 % (15-50); MCHC 27.9 g/dL (31.0-37.0); MCV 70.2 fL (80.0-100.0); MONOCYTES 16.4 % (2-11); NEUTROPHILS 58.3 % (40-80); PLATELET COUNT 180 10x3/uL (130-400); RBC 4.39 10x6/uL (4.20-6.10); RDW 19.2 % (11.5-14.5)
[2018-01-08 05:50] LABS: MCH 19.6 pg (26.0-34.0)
[2018-01-08 06:03] LABS: CALC OSMOLALITY 274 mosm/kg (275-300); CALCIUM 8.6 mg/dL (8.5-10.1); CARBON DIOXIDE 35.8 mmol/L (21.0-32.0); CHLORIDE - SERUM 98 mmol/L (98-107); CREATININE - SERUM 0.7 mg/dL (0.6-1.3); GLUCOSE 98 mg/dL (74-106); SODIUM 138 mmol/L (136-145); UREA NITROGEN 10 mg/dL (7-18); eGFR NON AFRICAN AMERICAN > 90 mL/min (90-120)
[2018-01-08 08:23] VITALS: BP 119/81
[2018-01-08] MEDS ORDERED: Levaquin PO (11:53)
[2018-01-08] MEDS ORDERED: CLEOCIN HCL300 MG PO (11:53)
[2018-01-08] MEDS ORDERED: LEVAQUIN250 MG PO (11:54)
[2018-01-08] MEDS ORDERED: PREDNISONE10 MG PO (11:55)
[2018-01-08] MEDS ORDERED: FLORAJEN3 CAPS460 MG PO (11:56)
[2018-01-08 12:14] VITALS: BP 126/79
[2018-01-08 12:17] LABS: FUNGUS STAIN Final report (())
[2018-02-03 07:08] LABS: FUNGUS MYCOLOGY CULTURE Final report (())
== END 2018-01-08 15:45 | disposition home or self-care (01) | DRG 432 ==
LOC: D.ER 15:27 → D.EDHOLD 17:20 → D.M2 17:20 → D.ICU 17:20 → D.M2 12-31 20:03
PROVIDERS: Family Medicine; Internal Medicine Nephrology; Internal Medicine Pulmonary Disease
PROC: 5A09357 Assistance with Respiratory Ventilation, Less than 24 Consecutive Hours, Continuous Positive Airway Pressure (ICD-10-PCS; principal; 2017-12-28)
PROC: 0W993ZZ Drainage of Right Pleural Cavity, Percutaneous Approach (ICD-10-PCS; 2018-01-06)
DX: K70.40 Alcoholic hepatic failure without coma (principal); J96.22 Acute and chronic respiratory failure with hypercapnia; J96.21 Acute and chronic respiratory failure with hypoxia; J18.9 Pneumonia, unspecified organism; E72.20 Disorder of urea cycle metabolism, unspecified; F31.30 Bipolar disorder, current episode depressed, mild or moderate severity, unspecified; F10.239 Alcohol dependence with withdrawal, unspecified; J90 Pleural effusion, not elsewhere classified; Y90.3 Blood alcohol level of 60-79 mg/100 ml; E88.01 Alpha-1-antitrypsin deficiency; J43.9 Emphysema, unspecified; J20.9 Acute bronchitis, unspecified; D50.9 Iron deficiency anemia, unspecified; F41.9 Anxiety disorder, unspecified; I10 Essential (primary) hypertension; F10.229 Alcohol dependence with intoxication, unspecified; K70.30 Alcoholic cirrhosis of liver without ascites; T17.990A Other foreign object in respiratory tract, part unspecified in causing asphyxiation, initial encounter; W19.XXXA Unspecified fall, initial encounter; Y92.019 Unspecified place in single-family (private) house as the place of occurrence of the external cause; Z87.891 Personal history of nicotine dependence

== ENCOUNTER 2018-05-21 16:44 | Emergency (ER) | payer MEDICAID ==
[~2018-05-21] VITALS: Ht 182.9 cm; Wt 66.8 kg
[~2018-05-21 16:44] MED LIST changes: +CLEOCIN HCL300 MG PO; +LEVAQUIN250 MG PO; +PREPARATION H O57 GM TOPICAL
[2018-05-21 16:47] VITALS: BP 137/92; Ht 182.9 cm; Wt 66.8 kg
[2018-05-21 18:05] LABS: BASOPHILS 0.6 % (0-2); EOSINOPHILS 1.3 % (0-7); HEMATOCRIT 39.3 % (42.0-54.0); HEMOGLOBIN 12.2 g/dL (13.5-17.5); IMMATURE GRANULOCYTES 0.2 % (0-5); LYMPHOCYTES 11.4 % (15-50); MCH 22.1 pg (26.0-34.0); MCV 71.3 fL (80.0-100.0); MEAN PLATELET VOLUME 9.4 fL (7.4-10.4); NEUTROPHILS 76.5 % (40-80); PLATELET COUNT 183 10x3/uL (130-400); RBC 5.51 10x6/uL (4.20-6.10); RDW 17.7 % (11.5-14.5); WBC 8.3 10x3/uL (4.8-10.8)
[2018-05-21 18:33] LABS: ALBUMIN 3.9 g/dL (3.4-5.0); ALKALINE PHOSPHATASE 96 U/L (46-116); ALT (SGPT) 67 U/L (10-68); AMYLASE - SERUM 69 U/L (25-115); CALC OSMOLALITY 260 mosm/kg (275-300); CALCIUM 8.7 mg/dL (8.5-10.1); CARBON DIOXIDE 32.7 mmol/L (21.0-32.0); CHLORIDE - SERUM 90 mmol/L (98-107); CREATININE - SERUM 0.5 mg/dL (0.6-1.3); GLUCOSE 127 mg/dL (74-106); LIPASE 177 U/L (73-393); POTASSIUM - SERUM 3.8 mmol/L (3.5-5.1); PROTEIN - SERUM 7.8 g/dL (6.4-8.2); SODIUM 130 mmol/L (136-145); TROPONIN-I < 0.017 ng/mL (0.000-0.060); UREA NITROGEN 6 mg/dL (7-18); eGFR NON AFRICAN AMERICAN > 90 mL/min (90-120)
[2018-05-21 19:48] LABS: APPEARANCE CLEAR (CLEAR); BILIRUBIN NEGATIVE (NEGATIVE); COLOR YELLOW (YELLOW); GLUCOSE NEGATIVE (NEGATIVE); KETONE NEGATIVE (NEGATIVE); NITRITE NEGATIVE (NEGATIVE); PROTEIN NEGATIVE (NEGATIVE); UROBILINOGEN NORMAL (NORMAL)
[2018-05-21 19:55] LABS: UDS - AMPHET NEGATIVE QUAL (NEGATIVE); UDS - BARB NEGATIVE QUAL (NEGATIVE); UDS - BENZO NEGATIVE QUAL (NEGATIVE); UDS - COCAINE NEGATIVE QUAL (NEGATIVE); UDS - OPIATE NEGATIVE QUAL (NEGATIVE); UDS - PCP NEGATIVE QUAL (NEGATIVE); UDS - THC NEGATIVE QUAL (NEGATIVE)
== END 2018-05-21 22:52 | disposition left against medical advice (07) ==
LOC: D.ER 16:44
PROVIDERS: Family Medicine
DX: F10.129 Alcohol abuse with intoxication, unspecified (principal); F10.10 Alcohol abuse, uncomplicated; R11.2 Nausea with vomiting, unspecified